=== PATIENT | female | born 1980 | race Caucasian/White ===

== ENCOUNTER 2018-07-28 11:47 | Outpatient (REF) | payer MEDICAID, SELFPAY ==
[2018-07-28 18:46] LABS: ALT 20 U/L (12-78); AST 18 U/L (15-37); Albumin 3.6 g/dL (3.4-5.0); Alkaline Phosphatase 74 U/L (46-116); Anion Gap 7.9 mmol/L (3-11); BUN 7 mg/dL (7-18); Bilirubin, Total 0.2 mg/dL (0.2-1.0); CO2 28.1 mmol/L (21.0-32.0); CREATININE 0.74 mg/dL (0.55-1.02); Calcium 8.7 mg/dL (8.5-10.1); Chloride 103 mmol/L (98-107); Glucose 96 mg/dL (70-100); Lipase 93 U/L (73-393); Potassium 4.1 mmol/L (3.5-5.1); Sodium 139 mmol/L (136-145); Total Protein 7.1 g/dL (6.4-8.2)
[2018-07-28 19:26] LABS: Abs Immature Grans 0.02 k/cumm (0.0-0.09); Absolute Basophil Count 0.03 k/cumm (0.0-0.2); Absolute Eosinophil Count 0.13 k/cumm (0.0-0.7); Absolute Lymphocyte Count 1.57 k/cumm (1.2-3.4); Absolute Monocyte Count 0.53 k/cumm (0.11-0.7); Absolute Neutrophil Count 3.75 k/cumm (1.2-6.7); Basophils % 0.5; Eosinophils % 2.2; HCT 45.1 % (36.0-46.0); HGB 15.1 g/dL (12.0-15.5); Immature Grans % 0.3; Mean Corp. HGB Concentration 33.5 g/dL (32.0-36.0); Mean Corpuscular Hemoglobin 30.3 pg (27.0-33.0); Mean Corpuscular Volume 90.6 fL (80-95); Mean Platelet Volume 12.1 fL (8.0-11.0); Monocytes % 8.8; Neutrophils % 62.2; Platelet Count 220 x1000/uL (130-400); RBC 4.98 m/cumm (4.00-5.20); RBC Distribution Width 12.4 % (11.7-14.6); White Blood Cell Count 6.03 k/cumm (4.4-10.8)
== END 2018-07-28 12:07 ==
LOC: NCHCN 11:47
PROVIDERS: PCP Family Medicine; Visit Provider Family Medicine
DX: R11.2 Nausea with vomiting, unspecified (principal); R19.7 Diarrhea, unspecified
CPT/HCPCS: 80053; 83690; 85025

== ENCOUNTER 2020-06-12 10:45 | Outpatient (CLI) | payer MEDICAID, SELFPAY ==
--- NOTE | 2020-06-12 10:30 | DI.RAD_ITS ---
EXAM: XR KNEE RT 2V AP,LAT CLINICAL HISTORY: knee pain TECHNIQUE: COMPARISON: No exams were available for comparison FINDINGS: Two views were obtained. There is severe narrowing of medial tibiofemoral cartilaginous joint space with mild varus angulation at the knee and mild medial subluxation femur on the tibia. There are madisyn y prominent marginal osteophytes medial tibiofemoral joint and patellofemoral joint. There are multi ple areas of bony subchondral sclerosis and cyst formation associated with the joints of the knee. IMPRESSION: Severe DJD most marked involving medial tibiofemoral joint.
== END 2020-06-12 11:05 ==
PROVIDERS: PCP Family Medicine; Referring Provider Family Medicine; Visit Provider Orthopaedic Surgery
DX: M17.11 Unilateral primary osteoarthritis, right knee (principal)
CPT/HCPCS: 73560

== ENCOUNTER 2020-06-26 02:18 | Outpatient (CLI) | payer MEDICAID, SELFPAY ==
[2020-06-26 15:13] LABS: Abs Immature Grans 0.01 10^3/uL (0.0-0.06); Absolute Basophil Count 0.06 10^3/uL (0.0-0.2); Absolute Eosinophil Count 0.27 10^3/uL (0.0-0.7); Absolute Lymphocyte Count 3.09 10^3/uL (1.2-3.4); Absolute Monocyte Count 0.92 10^3/uL (0.1-0.8); Absolute Neutrophil Count 3.28 10^3/uL (1.2-6.7); Basophils % 0.8; Eosinophils % 3.5; HCT 41.7 % (36.0-46.0); HGB 14.1 g/dL (11.2-15.7); Immature Grans % 0.1; Lymphocytes % 40.5; MCH 29.7 pg (27.0-33.0); MCHC 33.8 % (32.0-36.0); MCV 87.8 fL (80-95); MPV 10.8 fL (8.0-11.0); Monocytes % 12.1; Nucleated RBC 0 %; Platelet Count 216 10^3/uL (130-400); RBC 4.75 10^6/uL (3.93-5.22); RDW 12.5 % (11.7-14.6); RDW-SD 40.2 fL; WBC 7.63 10^3/uL (4.4-10.8)
== END 2020-06-26 02:38 ==
PROVIDERS: PCP Family Medicine; Visit Provider Orthopaedic Surgery
DX: Z01.818 Encounter for other preprocedural examination (principal)
CPT/HCPCS: 36415; 85025

== ENCOUNTER 2020-06-28 01:41 | Outpatient (CLI) | payer MEDICAID, SELFPAY ==
[2020-06-29 14:39] LABS: COVID-19 RT-PCR Result NEGATIVE (Negative)
== END 2020-06-28 02:01 ==
PROVIDERS: PCP Family Medicine; Visit Provider Orthopaedic Surgery
DX: Z11.59 Encounter for screening for other viral diseases (principal); Z01.818 Encounter for other preprocedural examination
CPT/HCPCS: U0003

== ENCOUNTER 2020-07-01 06:00 | Inpatient (IN) | payer MEDICAID, SELFPAY ==
[2020-07-01] VITALS (18 sets, daily range): BP systolic 106–133; BP diastolic 59–88; PULSE 76–97; RESP 10–19; TEMP 36–37.1; O2SAT 96–100
--- NOTE | 2020-07-01 | DI.RAD_ITS ---
EXAM: XR KNEE RT 2V AP,LAT CLINICAL HISTORY: check total knee components in RR TECHNIQUE: COMPARISON: CR XR KNEE RT 2V AP,LAT from 06/12/2020 FINDINGS: Two views were obtained. There is a total knee joint replacement in position. The components appear well seated. No other significant bony abnormality seen. IMPRESSION: RADIATION DOSE DELIVERED: Total DLP
[2020-07-01] MEDS: Lactated Ringers 1,000 ML 80 ML IV (06:45)
[2020-07-01] MEDS: ceFAZolin 2 GM/50 ML BAG IVPB ×4 (07:36→23:45)
[2020-07-01] MEDS: Hydrogen Peroxide 3% 480 ML BTL (10:10)
[2020-07-01] MEDS: diphenhydrAMINE 50 MG/ML VIAL 12.5 MG IVP (11:37)
--- NOTE | 2020-07-01 12:51 | W.PM.OP ---
Date of service: 07/01/20 Time of Service: 08:00 Operative Note Operative Note DATE OF PROCEDURE: 07/01/20 PRE-OP DIAGNOSIS: DJD right knee, rheumatoid arthritis right knee POST-OP DIAGNOSIS: same PROCEDURE: Right total knee replacement. SURGEON: Cristian Choudhary WEAVING LOOM OPERATOR: Awais Beth ANESTHESIA: spinal PATHOLOGY: none sent TOURNIQUET TIME: 130 COMPLICATIONS: None Patient was transported to: PACU Patient's condition: stable Implants: Size 2-1/2 posterior cruciate substituting femoral component, size 2-1/2 tibial component, size 2-1/2 10 mm thick rotating platform polyethylene insert, 32 mm tri-prong patella. All components were cemented. Indications: This is a 39-year-old white female with longstanding rheumatoid arthritis on DMARDs. She has superimposed DJD of her right knee. She has had a progressively downhill course ever since she had an arthroscopic medial meniscectomy in 2008. 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 She has had only temporary relief from intra-articular steroid injections by political researcher. She has had no relief from 2 courses of Synvisc. She can no longer walk any significant distance. She is noticing extreme irritation and weightbearing activities because of pain. X-ray shows advanced tricompartmental DJD of the right knee. There is complete loss of medial and patellofemoral joint space. There is some loss of medial tibial plateau bone stock as well, causing varus deformity. There are abundant periarticular spurs noted. Because of pain and disabling and she has not received any benefit from conservative treatment, total knee replacement is recommended to alleviate her pain. Hopefully, will be able to restore better range of motion as well so that she will have better function. Risk and complication of procedure been explained patient detail preop. Procedure Description: Patient was taken out of her room on the date of admission 07/01/2020, where she received first a femoral nerve block on the right. Then she had a spinal anesthetic. She was placed supine operative table. Proximal tourniquet was applied to the right upper thigh. The right lower extremity was prepped from toes to tourniquet and draped free in usual sterile fashion. Under proximal tourniquet control an anterior midline incision was made beginning about 4 inches proximal to the patella and extending down just distal to the tibial tubercle. Incision was carried down to the fascia. A medial parapatellar capsular incision was made and this was carried out approximately in the midline of the quad tendon. The patella was everted and the knee was hyperflexed. Complete medial subperiosteal release was performed. Extensive osteophytes were removed throughout the knee. Surprisingly, there was only mild amount of rheumatoid synovium found. The synovium was excised. Anterior and posterior cruciate ligaments were sacrificed. Medial and lateral meniscectomies performed. The distal femur was then resected using intramedullary guides and jigs. An extra 2 mm of distal femur was resected to compensate for her flexion contracture. Patient was found to require a size 2-1/2 cruciate-sacrificing femoral component. The proximal tibia was resected using extra medullary guides and jigs. Level resection was referenced off the deficient medial tibial plateau. Patient was found to require a size 2-1/2 tibial component. Trial reduction was performed and it was felt that a 10 mm insert allowed the knee to come to full extension and provide stability from 0 to 90 degrees of flexion. Trial components were all removed. The patella was resected leaving 16 mm thickness of patella using the patellar resection guide. Patient was sized and it was felt that a 32 mm triplane patella was the proper size. Using a drill guide for the triplane patella holes for the pegs and the patella component were drilled in proper rotation alignment. 1 batch of gentamicin impregnated methylmethacrylate was vacuum mixed and applied to the undersurface of the tibial component and then to the prepared proximal tibia. The tibial component was inserted and impacted in place with impactor mallet. The component was further pressurized using a trial components and extending the knee. When the first batch of methylmethacrylate cured trial components were removed. Posterior recesses were checked and any residual bone or cement debris was removed at this time. A second batch of gentamicin impregnated methylmethacrylate was vacuum mixed. The methylmethacrylate was applied to the posterior aspect of the femoral component and patella. Was then applied to the prepared distal femur and patella. He femoral hole was inserted and impacted into place with the impactor and mallet. Excess cement was trimmed from the margins of the femoral component with a cement removal tool. Developed component was inserted and pressurized using patella clamp. Assessment was proximal margin of the patella component while cement still soft. When the second detachment of the diagonal had cured trial insert was removed. Posterior recesses were checked the final time for residual cement. None was found. The wound was irrigated with pulse irrigation lavage and saline solution. Wound margins were infiltrated 0.5 some Marcaine with epinephrine solution. The actual insert 10 mm thick size 2-1/2 was placed in the tibial component and reduced on the femoral condyles. Patella tracking was performed using a ruler time. The patella tracked laterally and therefore a lateral retinacular release was performed with electrocautery. The right knee was flexed over soft goods and closure begun. The medial parapatellar capsular incision and incision of the quad tendon were repaired with interrupted [id number] sutures of #1 Vicryl suture material. Subcu was approximated interrupted 2-0 Vicryl sutures. A running subcuticular suture with 3-0 Monocryl was performed and supplemented with Steri-Strips. Mepilex dressing was applied over the incision. This was covered with ABD pads wrapped with 6 inch Tian bandage. The right knee was placed in a knee immobilizer splint to maintain extension. The tourniquet was released at 130 minutes. Patient received 1 g of tranexamic acid prior to tourniquet inflation and 1 g after tourniquet deflation. Patient experienced no intraoperative complications. She was discharged to recovery room in good condition.
[2020-07-01] MEDS: HYDROcodone 5/Acetaminophen 325 TAB PO ×2 (13:40→20:29)
[2020-07-01] MEDS: Gabapentin 300 MG CAP PO ×2 (13:40→20:31)
[2020-07-01] MEDS: POTASSIUM CHLORIDE/0.9% NACL 1,000 ML 60 MEQ IV (13:40)
[2020-07-01 14:08] LABS: Platelet Count 220 10^3/uL (130-400)
[2020-07-01] MEDS: Docusate Sodium 100 MG CAP PO ×2 (14:45→20:31)
--- NOTE | 2020-07-01 15:55 | IN_ITS ---
Date of service: 07/01/20 Time of Service: 15:55 PT Notes Visit Reasons: POST-OP R TOTAL KNEE Physical Therapy Inpatient Initial Evaluation Date: 07/01/2020 Referring Doctor: Cristian Choudhary MD PT Orders: PT CONSULT: Get OOB ambulating in room this afternoon Precautions: Fall. Standard. WBAT on right LE. Patient Profile/Admitting Diagnosis: Hillary is a 39-year-old female with primary unilateral osteoarthritis of the right knee and is status post right total knee arthroplasty on postoperative day 0. PMHX: Unremarkable Social History/Home Situation: Hillary lives with family in a private home with 2 steps to enter with bilateral rails that are wide apart. She has another 10 steps with rails on both sides to the second floor of the house where her bedroom is. Dependent with all aspects of ADLs without the need for an assistive ambulatory device nor adaptive equipment. She is currently undecided as to which work she is going to pursue when she is ready to go back. Equipment Owned/DME: None Subjective: Hillary reports numbness in bilateral gluteal area and right thigh and reports pain at 8?9/10 in the right knee. She states that she may have caused the increased tearing in her eyes as she may have scratched her cornea unintentionally right after surgery causing her to tear excessively. Objective: General Observation: Walker catheter in place. TEDS on L leg. Tian wraps and right LE. IV in the right UE. Cryo/Cuff in right knee. Excessive lacrimation seen bilaterally. Mental Status: Alert and oriented x4 Pain: 8?9/10 in the right knee ROM: Right Upper Extremity: Shoulder Flexion WFL. Shoulder abduction WFL. Elbow flexion WFL. Wrist flexion WFL. Opening and closing of hand WFL. Left Upper Extremity: Shoulder Flexion WFL. Shoulder abduction WFL. Elbow flexion WFL. Wrist flexion WFL. Opening and closing of hand WFL. Right Lower Extremity: Hip flexion WFL. Hip abduction WFL. Knee flexion NT. Knee extension NT. Ankle dorsiflexion WFL. Ankle plantarflexion WFL. Left Lower Extremity: Hip flexion WFL. Hip abduction WFL. Knee flexion WFL. Ankle dorsiflexion WFL. Ankle plantarflexion WFL. Strength: Right Upper Extremity: Shoulder flexors 5/5. Shoulder abductors 5/5. Elbow flexors 5/5. Elbow extensors 5/5. Surgical Assist strong. Left Upper Extremity: Shoulder flexors 5/5. Shoulder abductors 5/5. Elbow flexors 5/5. Elbow extensors 5/5. Surgical Assist strong. Right Lower Extremity: Hip flexors 4/5. Hip abductors 4/5. Knee flexors NT. Knee extensors NT. Ankle dorsiflexors 4/5. Ankle plantarflexors 4/5. Left Lower Extremity:Hip flexors 5/5. Hip abductors 5/5. Knee flexors 5/5. Knee extensors 5/5. Ankle dorsiflexors 5/5. Ankle plantarflexors 5/5. Sensation: Numb in bilateral gluteal areas and the right hip. Bed Mobility/Transfers: Supine to sit SBA with HOB at 30 degrees Sit to stand CGA, requires use of front wheeled walker Stand to sit CGA, requires use of front wheeled walker Bed to chair CGA, requires use of front wheeled walker Gait: Tolerated level surface ambulation of 120 feet using front wheeled with WBAT on the right LE requiring contact-guard PT demonstrating step to heel toe gait pattern. Complains of 8?9/10 in the right knee but is able to work through the pain. Denies headache, chest pain, and dizziness throughout ambulation activity. Balance: Static Sitting: Normal Dynamic Sitting: Normal Static Standing: Fair Dynamic Standing: Fair Special Tests: Mobility Limitations Standardized Measure [facility]-PAC 6 clicks Basic Mobility Inpatient Short Form: Raw Score: 18 CMS Score: 47% deficit Informed Consent/Education: Patient instructed in purpose of PT consult and plan of care. Assessment: Hillary demonstrates functional mobility decline requiring the use of a front wheeled walker for all mobility ADL performance, decreased motor control due to persistent numbness in bilateral gluteal areas and right thigh, pain in the right knee, and difficulty with walking due to postoperative status. Hillary is a 39-year-old female with primary unilateral osteoarthritis of the right knee and is status post right total knee arthroplasty on postoperative day 0. Patient presents with clinical signs and symptoms consistent with current/admitting diagnoses that have resulted to mobility limitations, gait instability, generalized weakness, and impairment of motor control as demonstrated by the following impairment level findings: 1. Decreased strength to right knee major muscle groups 2. Impaired standing balance 3. Impaired activity tolerance 4. Limitation of joint range of motion in right knee Impairments are contributing to the following functional limitations: 1. Increased dependence with transfers 2. Inability to safely ambulate without assistive device and physical assistance 3. Increase completion time for mobility ADL performance 4. Increased fall risk 5. Inability to negotiate steps alone safely Patient is assessed as a 67549 moderate complexity based on the following: History: 39-year-old female with impairment level findings, functional limitations, and past medical history as indicated above Examination: Demonstrable impairment in strength, balance, and mobility level with underlying impairments and functional limitations as documented above Presentation:Evolving Decision Makin moderate complexity Goals: Goals X 3 days 1. Supine-Sit independent 2. Sit-Supine independent 3. Sit-Stand independent 4. Stand-Sit independent 5. Bed-Chair independent 6. Chair-Bed independent 7. Independent gait on level surface with use of least restrictive device for at least 300 feet without report of pain nor dyspnea 8. Independent stair negotiation while holding onto bilateral rails for at least 10 steps without report of pain nor dyspnea 9. Independent with home exercise program 10. Good static and dynamic standing balance/tolerance Plan of Care/Treatment Plan: 1-2x/day, 7 days/week x 1 week. Plan of care has been reviewed with the CIVIL LABORATORY TECHNICIAN providing the service under Physical Therapy direction. Initiate Physical Therapy intervention for strengthening, bed mobility, transfers, gait, stairs, balance training, use of assistive device. DISCHARGE RECOMMENDATIONS: Home when medically cleared by orthopedic surgeon. Outpatient geophysical support specialist once cleared by orthopedic surgeon to facilitate return to premorbid independent level and to promote return to vocational activities. TREATMENT CODE/TIME: 94231 x 25 minutes, 74470 x 18 minutes beginning at 15:55 PM. Thank you for the opportunity to participate in the care of this patient. Ana Mar PT, DPT, CLT [facility] [place], [place]
[2020-07-01] MEDS: Ketorolac 30 MG/ML VIAL IVP ×2 (16:45→21:23)
[2020-07-01] MEDS: clonazePAM 1 MG TAB PO (20:31)
[2020-07-02 03:15] VITALS: BP 109/67; PULSE 86; RESP 18; TEMP 36.8; O2SAT 97
[2020-07-02] MEDS: Ketorolac 30 MG/ML VIAL IVP ×2 (03:36→11:08)
[2020-07-02] MEDS: Normal Saline Flush 10 ML SYR IV (03:37)
[2020-07-02] MEDS: ceFAZolin 2 GM/50 ML BAG IVPB ×2 (05:27→11:09)
[2020-07-02] MEDS: HYDROcodone 5/Acetaminophen 325 TAB PO ×2 (06:59→13:30)
[2020-07-02 07:29] LABS: HGB 12.4 g/dL (11.2-15.7)
[2020-07-02 07:42] VITALS: BP 107/71; PULSE 77; RESP 17; TEMP 36.9; O2SAT 98
[2020-07-02] MEDS: POTASSIUM CHLORIDE/0.9% NACL 1,000 ML 60 MEQ IV (08:01)
[2020-07-02] MEDS: Multivitamin w/Minerals TAB 1 TAB PO (08:02)
[2020-07-02] MEDS: Buprenorphine/Naloxone 12 mg/3 mg FILM 1 EACH SL (08:02)
[2020-07-02] MEDS: Gabapentin 300 MG CAP PO ×2 (08:02→13:30)
[2020-07-02] MEDS: Docusate Sodium 100 MG CAP PO ×2 (08:02→13:30)
[2020-07-02] MEDS: Pantoprazole 40 MG TABCR PO (08:02)
[2020-07-02] MEDS: Milk of Magnesia 30 ML CUP PO (08:45)
--- NOTE | 2020-07-02 10:03 | PT.INDS ---
Date of service: 07/02/20 Time of Service: 10:03 PT Notes Visit Reasons: POST-OP R TOTAL KNEE Inpatient Physical Therapy Discharge Summary Dates: 07/02/2020 Dates of Service: 07/01/2020 through 07/02/2020 Referring Doctor: Cristian Choudhary MD PT Orders: PT CONSULT: Get OOB ambulating in room this afternoon Precautions: Fall. Standard. WBAT on right LE. Patient Profile/Admitting Diagnosis: Hillary is a 39-year-old female with primary unilateral osteoarthritis of the right knee and is status post right total knee arthroplasty on postoperative day 0. PMHX: Unremarkable Social History/Home Situation: Hillary lives with family in a private home with 2 steps to enter with bilateral rails that are wide apart. She has another 10 steps with rails on both sides to the second floor of the house where her bedroom is. Dependent with all aspects of ADLs without the need for an assistive ambulatory device nor adaptive equipment. She is currently undecided as to which work she is going to pursue when she is ready to go back. Equipment Owned/DME: None Subjective: Hillary continues to reports numbness in bilateral gluteal area and right thigh and reports pain at 6?7/10 in the right knee. She is however confident about going home and managing her steps to the second floor after seeing for herself how well she did during this session. Objective: General Observation: Walker catheter in place. TEDS on L leg. Tian wraps and right LE. IV in the right UE. Cryo/Cuff in right knee. Mental Status: Alert and oriented x4 Pain: 6?7/10 in the right knee ROM: Right Upper Extremity: Shoulder Flexion WFL. Shoulder abduction WFL. Elbow flexion WFL. Wrist flexion WFL. Opening and closing of hand WFL. Left Upper Extremity: Shoulder Flexion WFL. Shoulder abduction WFL. Elbow flexion WFL. Wrist flexion WFL. Opening and closing of hand WFL. Right Lower Extremity: Hip flexion WFL. Hip abduction WFL. Knee flexion -30 to 90 degrees. Knee extension -30 degrees. Ankle dorsiflexion WFL. Ankle plantarflexion WFL. Left Lower Extremity: Hip flexion WFL. Hip abduction WFL. Knee flexion WFL. Ankle dorsiflexion WFL. Ankle plantarflexion WFL. Strength: Right Upper Extremity: Shoulder flexors 5/5. Shoulder abductors 5/5. Elbow flexors 5/5. Elbow extensors 5/5. Director Treasurer strong. Left Upper Extremity: Shoulder flexors 5/5. Shoulder abductors 5/5. Elbow flexors 5/5. Elbow extensors 5/5. Director Treasurer strong. Right Lower Extremity: Hip flexors 4/5. Hip abductors 4/5. Knee flexors 3-/5. Knee extensors 3-/5. Ankle dorsiflexors 4/5. Ankle plantarflexors 4/5. Left Lower Extremity:Hip flexors 5/5. Hip abductors 5/5. Knee flexors 5/5. Knee extensors 5/5. Ankle dorsiflexors 5/5. Ankle plantarflexors 5/5. Sensation: Decreasing numbness in bilateral gluteal areas and the right hip. Bed Mobility/Transfers: Supine to sit SBA with HOB at 30 degrees Sit to stand supervision using bilateral axillary crutches Stand to sit supervision using bilateral axillary crutches Bed to chair supervision using bilateral axillary crutches Gait: 300 feet +100 feet feet with step through gait pattern complaining of 6?/10 pain in the right knee with continued numbness on the right anterior thigh and dorsum of right foot. Tolerated up and down 18 x 4-inch steps and 12 x 6-inch steps with step to gait pattern using bilateral axillary crutches with just standby assist. Complained of being lightheaded that subsided with rest. Balance: Static Sitting: Normal Dynamic Sitting: Normal Static Standing: Fair Dynamic Standing: Fair Assessment: Hillary demonstrates improved functional mobility performance requiring the use of bilateral axillary crutches, decreased motor control due to persistent numbness in bilateral gluteal areas and right thigh, and pain in the right knee. Hillary is a 39-year-old female with primary unilateral osteoarthritis of the right knee and is status post right total knee arthroplasty on postoperative day 1. Patient continues to present with clinical signs and symptoms consistent with current/admitting diagnoses that have resulted to mobility limitations, gait instability, generalized weakness, and impairment of motor control as demonstrated by the following impairment level findings: 1. Decreased strength to right knee major muscle groups 2. Impaired standing balance 3. Impaired activity tolerance 4. Limitation of joint range of motion in right knee Impairments are continuing to contribute to the following functional limitations: 1. Inability to safely ambulate without assistive device and physical assistance 2. Increase completion time for mobility ADL performance 3. Increased fall risk Goals: Goals X 3 days 1. Supine-Sit independent MET 2. Sit-Supine independent MET 3. Sit-Stand independent NOT MET 4. Stand-Sit independent NOT MET 5. Bed-Chair independent NOT MET 6. Chair-Bed independent NOT MET 7. Independent gait on level surface with use of least restrictive device for at least 300 feet without report of pain nor dyspnea NOT MET 8. Independent stair negotiation while holding onto bilateral rails for at least 10 steps without report of pain nor dyspnea NOT MET 9. Independent with home exercise program NOT MET 10. Good static and dynamic standing balance/tolerance NOT MET DISCHARGE RECOMMENDATIONS: Home when medically cleared by orthopedic surgeon. Outpatient physical education teacher once cleared by orthopedic surgeon to facilitate return to premorbid independent level and to promote return to vocational activities. TREATMENT CODE/TIME: 90884 x 30 minutes, 59484 x 25 minutes beginning at 10:03 AM. Thank you for the opportunity to participate in the care of this patient. Ana Mar PT, DPT, CLT [facility] [place], [place]
[2020-07-02 10:58] VITALS: BP 134/79; PULSE 108; RESP 18; TEMP 37.2; O2SAT 97
[2020-07-02] MEDS: Enoxaparin 40 MG/0.4 ML SYR SC (11:09)
--- NOTE | 2020-07-02 11:52 | PT.INTREAT ---
Date of service: 07/02/20 PT Notes Visit Reasons: POST-OP R TOTAL KNEE
--- NOTE | 2020-07-02 13:58 | W.PM.DS.N ---
Date of service: 07/02/20 Time of Service: 13:58 DS: Diagnosis Discharge Diagnosis (1) Osteoarthritis of right knee: Status: Acute Discharge Plan Disposition Patient Disposition: HOME Condition: Good Discharge Details Reason For Visit: POST-OP R TOTAL KNEE Admit Date/Time: 07/01/20 06:00 Admit Provider: Cristian Choudhary Attending Provider: Cristian Choudhary Primary Care Provider: Breanna Lopez [facility] Course Hospital Course: Patient was taken the operating day admission 07/01/2020 where she underwent a right total knee replacement without complications. Postoperatively she was more mobilized in the afternoon per protocol. She progressed rapidly mobilization achieving complete independence with transfers and ambulation by 07/02/2020. Her pain was adequately controlled with p.o. pain meds. She was afebrile and vital signs were stable. She was eating and drinking well. Postop hemoglobin was 12.4 g. I felt she had completed her acute care goals and was ready for home discharge. The patient also desired to go home. Home Meds and New Rx's Prescriptions: New ibuprofen 800 mg tablet 800 mg PO TID Qty: 30 RF: 2 hydrocodone-acetaminophen 5-325 mg tablet 1 tab PO Q4H PRN (Reason: pain) Qty: 30 RF: 0 No Action buprenorphine-naloxone [Suboxone] 12-3 mg film 1 film BC Q24H RF: 0 methotrexate sodium 2.5 mg tablet 20 mg PO QWEEK RF: 0 Enbrel 50 mg/mL (1 mL) syringe 50 mg SC QWEEK RF: 0 naproxen 500 mg tablet 500 mg PO BID RF: 0 Vyvanse 70 mg capsule 70 mg PO DAILY RF: 0 clonazepam [Klonopin] 1 mg tablet 1 mg PO DAILY PRNRF: 0 ibuprofen 800 mg tablet 800 mg PO TID PRNRF: 0 acetaminophen [Tylenol Extra Strength] 500 mg Tablet 1,000 mg PO DAILY RF: 0 Discharge Instructions Additional Instructions: Walk every day as much as discomfort allows. Use walker to ambulate. Elevate right leg when sitting. When lying down, place a rolled bath towel behind your ankle to help the knee straight out. Use your knee immobilizer splint until you can easily lift your straight right leg off the bed. May shower and get your bottom dressing wet on . Do not attempt to remove the bottom dressing. We will remove this dressing when you come for your follow-up. Apply Cryo/Cuff to right knee 4 times a day for an hour each time. Take 1 baby aspirin (81 mg) twice a day to prevent blood clots in your legs. Do the knee exercises given to you by physical therapy every day. Take ibuprofen 800 mg p.o. 3 times a day for next 10 days to decrease swelling and inflammation. Take hydrocodone as prescribed for breakthrough pain, if needed. Follow with Dr. Choudhary in 2 weeks. Referrals: Cristian Choudhary MD [ [facility] STAFF PHYSICIAN] - (f/u in 2 weeks.) Activity:: Activity as Tolerated Equipment/Supplies:: Walker Diet:: As Tolerated Discharge Orders Discharge Orders: Discharge Order (Routine); Ordered 07/02/20 Ordered By: Cristian Choudhary DS: Summary Status at Discharge Functional status at discharge: uses cane/walker Overall status at discharge: patient is not back to baseline Mental Status: mental status grossly normal Speech and Movement: speech and movement normal Mood: congruent mood Affect: normal affect Exam Psych Mental Status: mental status grossly normal Speech and Movement: speech and movement normal Mood: congruent mood Affect: normal affect DS: Data Vitals/I&O Vitals and I&O: Vital Signs Temperature 37.2 C 07/02/20 10:58 Temperature Source Tympanic 07/02/20 10:58 Pulse 108 H 07/02/20 10:58 Pulse Rhythm Regular 07/02/20 08:00 Respiratory Rate 18 07/02/20 10:58 Respiratory Effort Non-Labored 07/02/20 08:00 Respiratory Depth Normal 07/02/20 08:00 Respiratory Pattern Normal 07/02/20 08:00 Blood Pressure 134/79 07/02/20 10:58 Pulse Oximetry 97 07/02/20 10:58 Respiratory End-tidal CO2 37 07/01/20 11:53 Oxygen Delivery Method Room Air 07/02/20 10:58 Oxygen Flow Rate 0 07/02/20 10:58 Pain Level 10 07/02/20 13:30 Intake & Output 07/01/20 07/02/20 07/02/20 23:59 11:59 23:59 Intake Total 430.667 / 2039.759 6594 / 1820 Output Total 750 / 1150 950 / 1150 200 / 1150 Balance -319.333 / 50.667 870 / 670 -200 / 670 Weight 90 kg Intake: IV 370.667 / 6170.518 0417 / 1100 Oral 60 / 60 720 / 720 Output: Urine 750 / 1150 950 / 1150 200 / 1150 Other: Urine Color Yellow Yellow Yellow Urine Appearance Clear Clear Clear Urine Odor Normal Strong Emesis Description None Voiding Methods Toilet Toilet Toilet Data Completed and Pending Labs on day of discharge: Labs from last 24 hours 07/02/20 07/01/20 06:21 13:50 Hgb 12.4 Plt Count 220 PFSH Medical History ADD (attention deficit disorder) (Acute) History of torn meniscus of right knee (Acute) with repair Hx of opioid abuse (Acute) Pt. stated she was self medicating for knee pain 2009 for knee pain, pt. stated finally got knee pain diagnosed, and was put on methadone, which did not work for her, and she was then put on suboxone. Pt. states she does not use pain medications. Osteoarthritis (Chronic) Rheumatoid arthritis (Chronic) Surgical History Hx of section (Chronic) Social History Smoking/Tobacco Use Status: Current every day Drug use: Current Sobriety Current gender identity: female
--- NOTE | 2020-07-02 14:52 | CHAPLAIN ---
Hillary was sitting up in her chair, and had finished PT when I visited. She shared some personal history and told me about her knee surgery and arthritis. Her aunt sent her two devotional and scripture readings for today and we talked about how those may apply to her life right now. She expects to be discharged later today.
== END 2020-07-02 15:10 | disposition home or self-care (01) | DRG 470 ==
LOC: PDS 08:32 → MS 13:05
PROVIDERS: Admitting Provider Orthopaedic Surgery; PCP Family Medicine; Visit Provider Orthopaedic Surgery
PROC: 0SRC0J9 Replacement of Right Knee Joint with Synthetic Substitute, Cemented, Open Approach (ICD-10-PCS; CPT 27447; principal; 2020-07-01 07:30)
DX: M17.11 Unilateral primary osteoarthritis, right knee (principal); M05.4 Rheumatoid myopathy with rheumatoid arthritis; M25.561 Pain in right knee; G89.18 Other acute postprocedural pain
CPT/HCPCS: 27447; 36415; 76942; 81025; 97110; 97162; 97530; J1650; NC; 73560; 85018; 85049; E0114; J0131; J0690; J1100; J1200; J1885; J2001; J2250; J2370; J2405; J3490; L1830

== ENCOUNTER 2020-08-28 15:36 | Outpatient (REF) | payer MEDICAID, SELFPAY ==
[2020-09-01 15:56] LABS: Patient Race White; SARS-CoV-2 RNA Undetected (Undetected); SARS-CoV-2 Specimen Source Nasal
== END 2020-08-28 15:56 ==
LOC: NCHCN 15:36
PROVIDERS: PCP Family Medicine; Visit Provider Nurse Practitioner Family
DX: R05 Cough (principal)
CPT/HCPCS: U0003

== ENCOUNTER 2021-05-26 10:19 | Emergency (ER) | payer MEDICAID, SELFPAY ==
[2021-05-26] VITALS (24 sets, daily range): BP systolic 131–156; BP diastolic 86–104; PULSE 79–98; RESP 16; TEMP 36.7; O2SAT 98–100
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
--- NOTE | 2021-05-26 10:27 | DI.CT_ITS ---
Exam(s) CT THORACIC LUMBAR SPINE REC EXAM: CT THORACIC LUMBAR SPINE REC CLINICAL HISTORY: trauma, back pain TECHNIQUE: COMPARISON: No exams were available for comparison FINDINGS: THORACIC SPINAL COLUMN: No fracture. No listhesis. No acute compromise of the thoracic spinal canal. LUMBOSACRAL SPINAL COLUMN: There is an acute appearing compression fracture of the L3 vertebral body. There is retropulsion of the posterior superior cortex approximately 8-9 millimeters with compression of the thecal sac at thi s level. Fracture lines do not appear to extend into the pedicles. Retropulsed fragment measures 1. 6 cm wide. There is no facet malalignment at this level. Transverse process is at this level are in tact. No other fractures in the lumbar spine. IMPRESSION: There is a fracture of L3 vertebral body with 9 millimeters retropulsion of the posterior cortex whic h causes mass effect-compression of the thecal sac at this level. No other fractures identified
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
[2021-05-26] MEDS: Omnipaque 350 MG/ML 100 ML BTL IJ (10:38)
[2021-05-26] MEDS: Normal Saline - Diluent 50 ML VIAL IV (10:38)
[2021-05-26] MEDS: Normal Saline Flush 10 ML SYR IVP ×2 (10:39→12:04)
[2021-05-26 11:09] LABS: Abs Immature Grans 0.15 10^3/uL (0.0-0.06); Absolute Basophil Count 0.05 10^3/uL (0.0-0.2); Absolute Eosinophil Count 0.17 10^3/uL (0.0-0.7); Absolute Lymphocyte Count 2.56 10^3/uL (1.2-3.4); Absolute Monocyte Count 0.58 10^3/uL (0.1-0.8); Absolute Neutrophil Count 5.28 10^3/uL (1.2-6.7); Basophils % 0.6; Eosinophils % 1.9; HCT 44.5 % (36.0-46.0); HGB 14.9 g/dL (11.2-15.7); Immature Grans % 1.7; Lymphocytes % 29.1; MCH 30.2 pg (27.0-33.0); MCHC 33.5 % (32.0-36.0); MCV 90.1 fL (80-95); MPV 10.8 fL (8.0-11.0); Monocytes % 6.6; Neutrophils % 60.1; Nucleated RBC 0 %; Platelet Count 252 10^3/uL (130-400); RBC 4.94 10^6/uL (3.93-5.22); RDW 13.2 % (11.7-14.6); RDW-SD 43.3 fL; WBC 8.79 10^3/uL (4.4-10.8)
[2021-05-26 11:31] LABS: ALT 24 U/L (14-59); AST 23 U/L (15-37); Albumin 3.5 g/dL (3.4-5.0); Alkaline Phosphatase 66 U/L (46-116); Anion Gap 8.9 mmol/L (3-11); BUN 9 mg/dL (7-18); Bilirubin, Total 0.3 mg/dL (0.2-1.0); CO2 28.1 mmol/L (21.0-32.0); CREATININE 0.8 mg/dL (0.55-1.02); Calcium 8.5 mg/dL (8.5-10.1); Chloride 103 mmol/L (98-107); Glucose 96 mg/dL (74-106); HCG Quant, Pregnancy < 1 mIU/mL (1-3); Potassium 3.6 mmol/L (3.5-5.1); Sodium 140 mmol/L (136-145); Total Protein 7.6 g/dL (6.4-8.2)
[2021-05-26 11:38] LABS: Prothrombin Time 10.3 sec (9.3-11.0)
[2021-05-26] MEDS: fentaNYL 100 MCG/2 ML VIAL 75 MCG IVP (13:00)
== END 2021-05-26 12:59 ==
PROVIDERS: Emergency Provider Student in an Organized Health Care Education/Training Program; PCP Family Medicine
DX: S32.038A Other fracture of third lumbar vertebra, initial encounter for closed fracture (principal); V49.9XXA Car occupant (driver) (passenger) injured in unspecified traffic accident, initial encounter
CPT/HCPCS: 51702; 74177; 80053; 86850; 86900; 86901; 96374; 96375; 99285; 70450; 71260; 72125; 84702; 85025; 85610; J3010; J3490

== ENCOUNTER 2021-06-30 08:53 | Outpatient (CLI) | payer MEDICAID, SELFPAY ==
--- NOTE | 2021-06-30 08:45 | DI.RAD_ITS ---
Exam(s) XR KNEE RT 2V AP,LAT EXAM: XR KNEE RT 2V AP,LAT CLINICAL HISTORY: annual f/u R TKA. TECHNIQUE: 2D digital imaging was performed. COMPARISON: CR XR KNEE RT 2V AP,LAT from 07/01/2020 FINDINGS: Stable position alignment of the components of the prosthesis. No fracture or loosening evident. IMPRESSION: DATA REPOSITORY: RADIATION DOSE DELIVERED:
== END 2021-06-30 08:54 | disposition home or self-care (01) ==
LOC: DIORS 08:53
PROVIDERS: PCP Family Medicine; Visit Provider Student in an Organized Health Care Education/Training Program
DX: Z96.651 Presence of right artificial knee joint (principal); Z47.1 Aftercare following joint replacement surgery
CPT/HCPCS: 73560

== ENCOUNTER 2024-01-14 16:38 | Outpatient (REF) | payer MEDICARE, MEDICAID, SELFPAY ==
[2024-01-14 19:30] LABS: HCT 40.9 % (36.0-46.0); HGB 13.7 g/dL (11.2-15.7); MCH 28.4 pg (27.0-33.0); MCHC 33.5 % (32.0-36.0); MCV 85 fL (80-95); MPV 10.5 fL (8.0-11.0); Platelet Count 278 10^3/uL (130-400); RBC 4.83 10^6/uL (3.93-5.22); RDW 14.2 % (11.7-14.6); RDW-SD 43.8 fL; WBC 5.95 10^3/uL (4.4-10.8)
[2024-01-14 19:50] LABS: ALT 56 U/L (14-59); AST 35 U/L (15-37); Albumin 3.7 g/dL (3.4-5.0); Alkaline Phosphatase 76 U/L (46-116); Anion Gap 10.6 mmol/L (3-11); BUN 13 mg/dL (7-18); Bilirubin, Total 0.3 mg/dL (0.2-1.0); CO2 27.4 mmol/L (21.0-32.0); CREATININE 0.9 mg/dL (0.55-1.02); Chloride 105 mmol/L (98-107); Estimated GFR 81.35 (mL/min/1.73m2); GGT 35 U/L (5-55); Glucose 105 mg/dL (74-106); Hemoglobin A1C 5.4 % (<5.7); NT-proBNP 21 pg/mL (<300); Sodium 143 mmol/L (136-145); TSH (W/Ref FT4) 2.18 uIU/mL (0.36-3.74); Total Protein 7.4 g/dL (6.4-8.2)
[2024-01-14 19:56] LABS: C-Reactive Protein < 0.50 mg/dL (<or=0.5)
== END 2024-01-14 16:39 | disposition home or self-care (01) ==
LOC: NCHCN 16:38
PROVIDERS: PCP Family Medicine; Referring Provider Family Medicine; Visit Provider Family Medicine
DX: R60.0 Localized edema (principal)
CPT/HCPCS: 80053; 85027; 82977; 83036; 83880; 84443; 86140

== ENCOUNTER → 2024-02-08 01:51 | Outpatient (CLI) | payer MEDICARE, MEDICAID, SELFPAY ==
--- NOTE | 2024-02-08 | DI.US_ITS ---
APPROVED REPORT EXAM: Comprehensive 2D, Doppler, and color-flow Echocardiogram Patient Location: Out-Patient [employer] Operator: Deysi Newberry RDCS (AE) Indications: Dyspnea, Edema, Smoker Other Information Study Quality: Adequate. Technically limited study due to body habitus, smoker. Conclusion Normal left ventricular wall thickness, chamber size and systolic function EF is 55-60%. Wall motion is normal Normal right ventricualr size and function Both atria are normal size There is no structural or hemodynamically significant valvular disease Wall motion Left Ventricle The left ventricle is normal size. The left ventricular systolic function is normal. The left ventric ular ejection fraction is within the normal range. There is normal left ventricular wall thickness. T here is normal LV segmental wall motion. There is no ventricular septal defect visualized. LVEF is 5 5-60%. Right Ventricle The right ventricle is normal size. The right ventricular systolic function is normal. Atria The left atrium size is normal. The right atrium size is normal. The interatrial septum is intact wit h no evidence for an atrial septal defect. Aortic Valve The aortic valve is normal in structure. Aortic valve is trileaflet. There is no aortic valvular sten osis. No aortic regurgitation is present. Mitral Valve The mitral valve is normal in structure. No evidence of mitral valve stenosis. Trace mitral regurgita tion. Tricuspid Valve The tricuspid valve is normal in structure. There is no tricuspid valve stenosis. Trace tricuspid reg urgitation. Unable to assess PA pressure. Pulmonic Valve Pulmonic valve is not well visualized. There is no pulmonic valvular stenosis. There is no pulmonic v alvular regurgitation. Great Vessels The aortic root is normal in size. The ascending aorta is normal in size. Aortic arch is normal in ca liber. IVC is normal in size and collapses >50% with inspiration. Pericardium There is no pericardial effusion. 2D Dimensions IVSD d PLAX 1.04 cm F: 0.6-1.0 Ao Root d 2.42 cm F: 2.7 - 3.3 LVPW d PLAX 1.00 cm F: 0.6 - 1.0 Ao Asc Diam d 3.00 cm F: 2.3 - 3.1 LVID d PLAX 4.40 cm F: 3.8 - 5.2 LVDs 3.04 cm F: 2.2 - 3.5 LV EF Teichholz 58.9 % FS 31.02 % LV EDV (Teich) 87.9 mL LV ESV (Teich) 36.1 mL M-Mode TAPSE 2.23 cm (M/F) >1.7 Auto EF LV EDV A4C 94.2 mL LV EDV A2C 93.4 mL LV EDV BP 93.2 mL LV ESV A4C 41.8 mL LV ESV A2C 42.4 mL LV ESV BP 42.1 mL LVEF(%) A4C 55.7 % LVEF(%) A2C 54.6 % LVEF(%) BP 54.8 % LV SV A4C 52.5 ml LV SV A2C 51.0 ml LV SV BP 51.1 ml LV CO A4C 4.7 L/min LV CO A2C 4.7 L/min LV CO BP 4.7 L/min HR A4C 88.84 BPM HR A2C 93.03 BPM LV EDV Index (BP) LA Volume LA Length A4C 4.8 cm LA Length A2C 5.2 cm LA Area A4C s 11.55 cm2 LA Area A2C s 16.24 cm2 LA Vol A4C A-L 23.78 mL LA Vol A2C A-L 43.04 mL LA Vol Biplane A-L 33.4 mL LA Vol/BSA A4C A-L LA Vol/BSA A2C A-L LA Vol/BSA BP A-L 17.0 mL/m2 LA Vol A4C MOD 22.1 mL LA Vol A2C MOD 41.1 mL LA Vol BP MOD 31.4 mL RA Volume RA Area A4C 7.2 cm2 RA ESV A4C (A-L) 12.4mL RA Vol/BSA A4C A-L RA Length A4C 3.6 cm RA ESV A4C (MOD) 11.9mL LV Diastology MV E' medial 0.097 (>0.07 m/s) MV E Vmax 0.60 (0.4-1.3 m/s) MV E/E' MED 6.22 (<14) MV A Vmax 0.70 (0.4-1.3 m/s) MV E' lateral 0.113 (>0.1 m/s) E/A Ratio 0.9 MV E/E' LAT 5.33 (<14) MV E' Average 0.105 m/s MV E/E'(average) 5.74 Aortic Valve AoV Vmax 1.31 m/s LVOT Vmax 1.05 m/s AoV Peak Grad 6.9 mmHg LVOT Peak Grad 4.4 mmHg AoV Area (Vmax) 2.34 cm2 LVOT VTI 0.190 m AoV VTI 0.280 m LVOT Mean Grad 2.0 mmHg AoV Mean Romaine. 0.90 m/s LVOT SV 55.30 mL AoV Mean Grad 3.7 mmHg LVOT Diam s 1.90 cm AoV Area (VTI) 1.97 cm2 Velocity Ratio 0.80 Mitral Valve MV DT 218 (160-240 msec) MV Vmax TIPS 0.74 m/s MV Mean Grad 1.3 (<2mmHg) MV VTI 0.217 m Pulmonary Valve PV Vmax 0.90 (0.5-1.5 m/s) RVOT Vmax 0.60 m/s PV Peak Grad 3.3 mmHg RVOT Peak Gr. 1.4 mmHg PV Mean Romaine 0.70 m/s RVOT VTI 0.131 m PV Mean Grad 2.1 mmHg RVOT Mean Gr. 0.8 mmHg Tricuspid Valve TV S' 0.13 m/s
== END ==
PROVIDERS: PCP Family Medicine; Visit Provider Family Medicine
DX: R06.09 Other forms of dyspnea (principal)
CPT/HCPCS: 93306

== ENCOUNTER 2024-09-11 17:09 | Outpatient (REF) | payer MEDICARE, MEDICAID, SELFPAY ==
--- OUTSIDE RECORDS SUMMARY | 2024-09-11 17:11 | XMS_ITS | Encounter Summary ---
[place] [address] Care Team Providers Care [place] Name Role Phone Breanna Lopez MD Primary Care Provider Reason for Referral * Consultation (Routine) - Authorized Specialty Diagnoses / Procedures Referred By Contac t Referred To Contact Weight and Wellness Diagnoses Obesity, unspecified classification, unspecified obesity type, unspecified whether serious comorbidity present Breanna Lopez MD [address] [place] [address] [facility] [place] [address] Referral ID Status Reason Start Date Expiration Date Visits Requested Visits Authorized [id number] Authorized Consult, Test & Treat PCP Updated and/or Approved 05/30/2024 05/30/2025 6 6 Encounter Details Date Type Department Care Team (Latest Contact Info) Description 05/30/2024 Transcribe Orders eDH Incoming Referrals [phone] Breanna Lopez MD [address] [place] [address] Obesity, unspecified classification, unspecified obesity type, unspecified whether serious comorbidity present Social History Tobacco Use Types Packs/Day Years Used Date Smoking Tobacco: Every Day Cigarettes 1 27 Smokeless Tobacco: Never Alcohol Use Standard Drinks/Week Comments Not Currently 0 (1 standard drink = 0.6 oz pure alcohol) once in awhile social situation Overall Financial Resource Strain (CARDIA) Answe r Date Recorded How hard is it for you to pa y for the very basics like food, housing, medical care, and heating? Not hard at all 05/28/2021 Hunger Vital Sign Answer Date Recorded Within the past 12 months, y ou worried that your food would run out before you got the money to buy more. Never true 05/28/20 21 Within the past 12 months, t he food you bought just didn't last and you didn't have money to get more. Never true 05/28/2021 PRAPARE - Transportation Answer Date Re corded In the past 12 months, has l ack of transportation kept you from medical appointments or from getting medications? No 05/09 In the past 12 months, has l ack of transportation kept you from meetings, work, or from getting things needed for daily living? No 05/28/2021 Housing Stability Vital Sign Answer Manjit e Recorded In the last 12 months, was t here a time when you were not able to pay the mortgage or rent on time? No 05/28/2021 In the last 12 months, how many places have you lived? 1 05/28/2021 In the last 12 months, was t here a time when you did not have a steady place to sleep or slept in a [facility] (including now)? No 05/28/2021 Sex and Gender Information Value Date Recorded Sex Assigned at Not on file Gender Identity Not on file Sexual Orientation Not on file documented as of this encounter Plan of Treatment Scheduled Referrals Name Type Priority Associated Diagnoses Orde r Schedule Referral to [facility] Outpatient Referral Routine Obesity, unspecified classification, unspecified obesity type, unspecified whether serious comorbidity present Ordered: 05/30/2024 documented as of this encounter Visit Diagnoses Diagnosis Obesity, unspecified classification, unspecified obesity type, unspecified whether serious comorbidity present documented in this encounter Care Teams [place] Relationship Specialty Start Date End Date Breanna Lopez MD [address] [place] [address] PCP - General Family Medicine 11/28/1998 documented as of this encounter
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
--- OUTSIDE RECORDS SUMMARY | 2024-09-11 17:11 | XMS_ITS | Encounter Summary ---
Author Organization [facility] [place] [address] Care Team Providers Care Milk And Cream Grader Name Role Phone Breanna Lopez MD Primary Care Provider [phone] Encounter Details Date Type Department Care Team (Late st Contact Info) Description 09/01/2021 Telephone General Surgery at [facility] [place] [phone] Loreta Eaton Social History Tobacco Use Types Packs/Day Years [...] place to sleep or slept in a chcf (including now)? No 05/28/2021 Sex and Gender Information Value Date Recorded Sex Assigned at Not on file Gender Identity Not on file Sexual Orientation Not on file documented as of this encounter Miscellaneous Notes * Telephone Encounter - Loreta Eaton - 09/01/2021 11:58 AM EDT Received telephone call from patient advising she was sorry for missed appointments. Patient continues to advise she has transportation issues and will have follow-up with PCP. documented in this encounter Plan of Treatment Not on file documented as of this encounter Visit Diagnoses Not on filedocumented in this encounter Care Teams Milk And Cream Grader Relationship Specialty Start Date End Date Breanna Lopez MD [address] [place] [address] PCP - General Family Medicine 11/28/1998 documented as of this encounter
--- OUTSIDE RECORDS SUMMARY | 2024-09-11 17:11 | XMS_ITS | Continuity of Care Document ---
Author Organization [facility] Address [address] [place] [address] Care Team Providers Care Web Designer Developer Name Role Phone JohnBreanna Primary Care Physician [phone] [facility] Date(s): 10/13/22 - 10/13/[address] [address] Discharge Disposition: Home or Self Care Attending Physician: Eugenia Post Admitting Physician: Eugenia Post Referring Physician: Eugenia Post Allergies, Adverse Reactions, Alerts No Known Medication Allergies Immunizations Given and Recorded Vaccine Date Status Refusal Reason SARS-CoV-2 (COVID-19) mRNA-1273 vaccine 03/03/21 R ecorded SARS-CoV-2 (COVID-19) mRNA-1273 vaccine 02/03/21 R ecorded rubella virus vaccine 11/08/00 Recorded Procedures Procedure Date Related Diagnosis Body Site Status Knee replacement 2019 Complete d delivery 2003 Complet ed Results Laboratory List Name Date CBC w/ Diff 10/13/22 Comprehensive Metabolic Panel 10/13/22 GGT 10/13/22 HIV 1/2 Ag and Ab, 4th Generation [facility] Hepatitis A Total Antibody w/Rflx [facility] Hepatitis B Core Antibody (Total) [facility] Hepatitis B Surface Antibody [facility] 10/13/22 Hepatitis B Surface Antigen [facility] 10/13/22 Hepatitis C Ab w/Rflx to HCV RNA PCR [facility] 10/13/22 Automated Diff 10/13/22 Most recent to oldest [Reference Range]: 1 WBC [5.0-10.0 x10^3/mcL] 6.7 x10^3/mcL (10/13/22 11:25 AM) RBC [4.1-5.3 x10^6/mcL] 5.2 x10^6/mcL (10/13/22 11:25 AM) Neutro Auto [40.0-75.0 %] 51.2 % (10/13/22 11:25 AM) Lymph Auto [20.0-50.0 %] 38.2 % (10/13/22 11: AM) [place] Auto [2.0-15.0 %] 5.4 % (10/13/22 11:25 AM) Basophil Auto [0.0-1.0 %] 0.9 % (10/13/22: AM) BUN [7-18 mg/dL] 15 mg/dL (10/13/22 AM) Glucose Level [74-106 mg/dL] 105 mg/dL (10/13/22:25 AM) Potassium Level [3.5-5.1 mmol/L] 3.6 mmo l/L (10/13/22:25 AM) MCV [80.0-96.0] 89.6 (10/13/22 11:25 AM) AST [15-37 unit/L] 22 unit/L (10/13/22 AM) ALT [14-59 unit/L] 19 unit/L (10/13/22:25 AM) MCHC [31.0-35.0 g/dL] 33.2 g/dL (10/13/22 AM) Sodium Level [136-145 mmol/L] 141 mmol/L (10/13/22:25 AM) Hct [37.0-47.0 %] 46.7 % (10/13/22 11: AM) Calcium Level [8.5-10.1 mg/dL] 9.0 mg/dL (10/13/22: AM) Albumin Level [3.4-5.0 g/dL] 4.3 g/dL (10/13/22: AM) Protein Total [6.4-8.2 g/dL] 8.3 g/dL *HI* (10/13/22 AM) MCH [26.0-32.0 pg] 29.8 pg (10/13/22 11:25 AM) Neutro Absolute 3.4 x10^3/mcL *NA* (10/13/22 11:25 AM) Bilirubin Total [0.2-1.0 mg/dL] 0.5 mg/d L (10/13/22 11:25 AM) Hgb [12.0-16.0 g/dL] 15.5 g/dL (10/13/22 11:25 AM) Alk Phos [46-146 unit/L] 61 unit/L (10/13/22 11:25 AM) Platelets [130-450 x10^3/mcL] 266 x10^3/ mcL (10/13/22 11:25 AM) CO2 [21-32 mmol/L] 27 mmol/L (10/13/22 11:25 AM) GGT [5-55 unit/L] 14 unit/L (10/13/22 11:25 AM) eGFR Non-AA [>=60] 68 (10/13/22 11:25 AM) eGFR AA [>=60] 68 (10/13/22 11:25 AM) Chloride Level [98-107 mmol/L] 103 mmol/ L (10/13/22 11:25 AM) RDW-CV [11.7-17.0 %] 12.5 % (10/13/22 11:25 AM) Imm Gran Auto [0.0-0.9 %] 0.3 % (10/13/22 11:25 AM) Creatinine Level [0.55-1.02 mg/dL] 1.05 mg/dL *HI* (10/13/22 11:25 AM) Hep B Surface Ag [facility] [Negative] Negative 1 *NA* (10/13/22 11:25 AM) Hepatitis B Core Ab, Total [facility] [Negative ] Negative 2 *NA* (10/13/22 11:25 AM) Hep C Antibody [facility] [Negative] Negative 3 *NA* (10/13/22 11:25 AM) HIV 1 and 2 Ab/p24 Ag, 4th Gen [facility] [Nega tive] Negative 4 *NA* (10/13/22 11:25 AM) Hep B Surface Ab, Qualitative [facility] [See N ote] Positive 5 *NA* (10/13/22 11:25 AM) Hep B Surface Ab, Quantitative [facility] [See Note mIntlUnit/mL] 41.4 mIntlUnit/mL 6 *NA* (10/13/22 11:25 AM) Hepatitis A Antibody, Total [facility] [Negativ e] Positive 7 *ABN* (10/13/22 11:25 AM) Eos, Auto [1.0-6.0 %] 4.0 % (10/13/22 11:25 AM) 1Result Comment: Test performed [place] [address] 2Result Comment: Test performed [place] [address] 3Result Comment: Test performed [place] [address] 4Result Comment: If acute HIV-1 infection is suspected in a high risk patient, submit plasma specimen for HIV-1 RNA quantitation test. Fourth Generation assay performed on the Siemens Centaur XPT. Test performed [place] [address] 5Result Comment: Reference Range for Hep B Surface Ab, Qual: Unvaccinated: Negative Vaccinated: Positive 6Result Comment: Reference Range for Hep B Surface Ab, Quant: Positive: >= 10.0 mIU/mL Negative: < 10.0 mIU/mL Patient is presumed to be immune to infection with Hepatitis B Virus. Test performed [place] [address] 7Result Comment: The result of this assay can be falsely elevated (Positive) due to the consumption of Biotin. Test performed [place] [address] Social History Social History Type Response Tobacco Current everyday tob acco user Tobacco Use:. 1 ppd per day. Sex Female Patient Care team information Personnel Name: Breanna Lopez Martin Address: Address: [address] [place] [address]- [place]
--- OUTSIDE RECORDS SUMMARY | 2024-09-11 17:11 | XMS_ITS | Continuity of Care Document ---
Author Organization [facility] Address [address] [place] [address] Care Team Providers Care Punchboard Stuffer Name Role Phone John, Breanna Salazar Primary Care Physician [facility] Date[facility]s): 10/14/22 - 10/14/[address] [address] Discharge Disposition: Home or Self Care Attending Physician: Arya Carter MD Admitting Physician: Arya Carter MD Allergies, Adverse Reactions, Alerts No Known Medication Allergies Assessment and Plan Future Appointments Immunizations Given and Recorded Vaccine Date Status Refusal Reason SARS-CoV-2 (COVID-19) mRNA-1273 vaccine 03/03/21 R ecorded SARS-CoV-2 (COVID-19) mRNA-1273 vaccine 02/03/21 R ecorded rubella virus vaccine 11/08/00 Recorded Medications LORazepam 0 Refill(s) Start Date: 10/14/22 Status: Ordered Mirena 52 mg intrauteral device inserted 04/28/2019, 0 Refill(s) Start Date: 10/14/22 Status: Ordered prazosin 0 Refill(s) Start Date: 10/14/22 Status: Ordered Suboxone 12 mg-3 mg sublingual film 0 Refill(s) Start Date: 10/14/22 Status: Ordered Vyvanse 0 Refill(s) Start Date: 10/14/22 Status: Ordered Problem List Condition Confirmation Course Effective Dates Status Health St atus Informant PTSD (post-traumatic stress disorder) checklist for DSM-5 (Diagnostic and Statistical Manual of Mental Disorders - Fifth edition) Confirmed Active Rheumatoid arthritis Confirmed Active Procedures Procedure Date Related Diagnosis Body Site Status Knee replacement 2019 Complete d PAP test date 1 04/09/16 Completed delivery 2004 Complet ed 22/01/2016 Neg/Neg 5 yr pap 04/2021 Social History Social History Type Response Tobacco Current everyday tob acco user Tobacco Use:. 1 ppd per day. Sex Female Patient Care team information Personnel Name: Breanna Lopez Address: Address: [address] [place] [address]- [place]
--- OUTSIDE RECORDS SUMMARY | 2024-09-11 17:11 | XMS_ITS | Encounter Summary ---
Author Organization [facility] [place] [address] Care Team Providers Care Gis Physical Scientist Name Role Phone Breanna Lopez MD Primary Care Provider [phone] Encounter Details Date Type Department Care Team (Late st Contact Info) Description 08/07/2021 Telephone Orthopaedics at [facility] [place] [phone] Callie Murray, [facility] [address] Social History Tobacco Use Types Packs/Day Years [...] place to sleep or slept in a prison (including now)? No 05/28/2021 Sex and Gender Information Value Date Recorded Sex Assigned at Not on file Gender Identity Not on file Sexual Orientation Not on file documented as of this encounter Miscellaneous Notes * Telephone Encounter - Callie Murray MSW - 08/07/2021 4:27 PM EDT OFFICE OF CARE MANAGEMENT CCM Follow up call to Ms. Reich per grades 9 thru 12 visiting teacher reporting she has no transportation to follow up . Chart reviewed. Ms. Reich reports she is doing well, walking well and feeling much better. She could borrow her mother's car and is physically able to drive to come to follow up appts. Is also aware of Medicaid transportation. Agreed will have schedulers re contact her and schedule follow up appts. No further concerns wished patient well. documented in this encounter Plan of Treatment Not on file documented as of this encounter Visit Diagnoses Not on filedocumented in this encounter Care Teams Gis Physical Scientist Relationship Specialty Start Date End Date Breanna Lopez MD [address] [place] [address] PCP - General Family Medicine 11/28/1998 documented as of this encounter
--- OUTSIDE RECORDS SUMMARY | 2024-09-11 17:11 | XMS_ITS | Continuity of Care Document ---
Author Organization [facility] Address [address] [place] [address] Care Team Providers Care Religious Studies Professor Name Role Phone John, Breanna Salazar Primary Care Physician [facility] Date[facility] 11/20/22 - 11/20/[address] [address] Encounter Diagnosis Screening for breast cancer(Discharge Diagnosis) - 11/20/22 Discharge Disposition: Home or Self Care Attending Physician: Arya Carter MD Admitting Physician: Arya Carter MD Referring Physician: Arya Carter MD Allergies, Adverse Reactions, Alerts No Known Medication Allergies Immunizations Given and Recorded Vaccine Date Status Refusal Reason SARS-CoV-2 (COVID-19) mRNA-1273 vaccine 03/03/21 R ecorded SARS-CoV-2 (COVID-19) mRNA-1273 vaccine 02/03/21 R ecorded rubella virus vaccine 11/08/00 Recorded Medications clonazePAM 0 Refill(s) Start Date: 11/18/22 Status: Ordered Enbrel 0 Refill(s) Start Date: 11/18/22 Status: Ordered Mirena 52 mg intrauteral device [...] Status Knee replacement 2019 Complete d delivery 2004 [facility] ed Social History Social History Type Response Tobacco Current everyday tob acco user Tobacco Use:. 1 ppd per day. Sex Female Patient Care team information Personnel Name: Breanna Lopez MD Address: Address: [address] [address]- [place]
--- OUTSIDE RECORDS SUMMARY | 2024-09-11 17:11 | XMS_ITS | Continuity of Care Document ---
Author Organization [facility] Address [address] [place] [address] Care Team Providers Care Epic Professional Name Role Phone John, Breanna Salazar Primary Care Physician Encounter [facility] Date(s): 11/18/22 - 11/18/[address] [address] Discharge Disposition: Home or Self Care Attending Physician: Arya Carter MD Admitting Physician: Arya Carter MD Referring Physician: Arya Carter MD Allergies, Adverse Reactions, Alerts No Known Medication Allergies Assessment and Plan Diagnostic Tests Pending * PAP Test [facility] 11/18/22 Future Scheduled Tests Radiology* MG Mammo Screening Bilateral w/ Tremaine 11/18/22 Immunizations Given and Recorded Vaccine Date Status [...] Knee replacement 2019 Complete d delivery 2003 [facility] ed Social History Social History Type Response Tobacco Current everyday tob acco user Tobacco Use:. 1 ppd per day. Sex Female Patient Care team information Personnel Name: Breanna Lopez MD Address: Address: [address] [address]- [place]
--- OUTSIDE RECORDS SUMMARY | 2024-09-11 17:11 | XMS_ITS | Continuity of Care Document ---
Author Organization [facility] Address [address] [place] [address] Care Team Providers Care Eyeglass Inspector Name Role Phone JohnBreanna chaidez Martin Primary Care Physician [phone] Encounter [facility] Date(s): 11/06/23 - 11/06/[address] [address] Encounter Diagnosis Dependent edema(Discharge Diagnosis) - 11/06/23 Varicose veins of legs(Discharge Diagnosis) - 11/06/23 Discharge Disposition: Home or Self Care Attending Physician: Elmer Lopez MD Admitting Physician: Elmer Lopez MD Allergies, Adverse Reactions, Alerts No Known Medication Allergies Immunizations Given and Recorded Vaccine Date Status Refusal Reason SARS-CoV-2 (COVID-19) mRNA-1273 vaccine 03/03/21 R ecorded SARS-CoV-2 (COVID-19) mRNA-1273 vaccine 02/03/21 R ecorded rubella virus vaccine 11/08/00 Recorded Medications Enbrel 0 Refill(s) Start Date: 11/18/22 Status: [...] Procedure Date Related Diagnosis Body Site Status Due 11/2027 1 11/17/22 Completed Knee replacement 2019 Complete d delivery 2004 Complet ed 09/18/23 - Neg/Neg Next Pap Due 11/2027 Vital Signs Most recent to oldest [Reference Range]: 1 Temperature Temporal Artery [36-38 Deg C ] 36.7 Deg C (11/06/23 1:44 PM) Peripheral Pulse Rate [60-100 bpm] 103 b pm *HI* (11/06/23 1:44 PM) Blood Pressure [90-140/60-90 mmHg] 145/1 08mmHg *HI* (11/06/23 1:44 PM) Mean Arterial Pressure, Cuff [70-110 mmH g] 120 mmHg *HI* (11/06/23 1:44 PM) Weight Estimated 90.72 kg (11/06/23 1:44 PM) Body Mass Index Estimated 35.43 kg/m2 (11/06/23 1:44 PM) Height/Length Estimated 160.02 cm (11/06/23 1:44 PM) Social History Social History Type Response Tobacco Current everyday tob acco user Tobacco Use:. 1 ppd per day. Sex Female Hospital Discharge Instructions Patient Education 11/06/2023 13:19:20 Peripheral Edema Peripheral Edema Peripheral edema is swelling that is caused by a buildup of fluid. Peripheral edema most often affects the lower legs, ankles, and feet. It can also develop in the arms, hands, and face. The area of the body that has peripheral edema will look swollen. It may also feel heavy or warm. Your clothes may start to feel tight. Pressing on the area may make a temporary dent in your skin (pitting edema).You may not be able to move your swollen arm or leg as much as usual. There are many causes of peripheral edema. It can happen because of a complication of other conditions such as heart failure, kidney disease, or a problem with your circulation. It also can be a sideeffect of certain medicines or happen because of an infection. It often happens to women during . Sometimes, the cause is not known. Follow these instructions at home: Managing pain, stiffness, and swelling ??? Raise (elevate) your legs while you are sitting or lying down. ??? Move around often to prevent stiffness and to reduce swelling. ??? Do not sit or stand for long periods of time. ??? Do not wear tight clothing. Do not wear garters on your upper legs. ??? Exercise your legs to get your circulation going. This helps to move the fluid back into your blood vessels, and it may help the swelling go down. ??? Wear compression stockings as told by your health care provider. These stockings help to prevent blood clots and reduce swelling in your legs. It is important that these are the correct size. These stockings should be prescribed by your doctor to prevent possible injuries. ??? If elastic bandages or wraps are recommended, use them as told by your health care provider. Medicines ??? Take yuac-zhb-exfwjqe and prescription medicines only as told by your health care provider. ??? Your health care provider may prescribe medicine to help your body get rid of excess water (diuretic). Take this medicine if you are told to take it. General instructions ??? Eat a low-salt (low-sodium) diet as told by your health care provider. Sometimes, eating less salt may reduce swelling. ??? Pay attention to any changes in your symptoms. ??? Moisturize your skin daily to help prevent skin from cracking and draining. ??? Keep all follow-up visits. This is important. Contact a health care provider if: ??? You have a fever. ??? You have swelling in only one leg. ??? You have increased swelling, redness, or pain in one or both of your legs. ??? You have drainage or sores at the area where you have edema. Get help right away if: ??? You have edema that starts suddenly or is getting worse, especially if you are or havea medical condition. ??? You develop shortness of breath, especially when you are lying down. ??? You have pain in your chest or abdomen. ??? You feel weak. ??? You feel like you will faint. These symptoms may be an emergency. Get help right away. Call 911. ??? Do not wait to see if the symptoms will go away. ??? Do not drive yourself to the hospital. Summary ??? Peripheral edema is swelling that is caused by a buildup of fluid. Peripheral edema most often affects the lower legs, ankles, and feet. ??? Move around often to prevent stiffness and to reduce swelling. Do not sit or stand for long periods of time. ??? Pay attention to any changes in your symptoms. ??? Contact a health care provider if you have edema that starts suddenly or is getting worse, especially if you are or have a medical condition. ??? Get help right away if you develop shortness of breath, especially when lying down. This information is not intended to replace advice given to you by your health care provider. Make sure you discuss any questions you have with your health care provider. Document Revised: 06/29/2022 Document Reviewed: 06/29/2022 [employer] Patient Education ?? 2022 [employer]. Follow Up Care 11/06/2023 13:44:38 With:Primary Care Physician Address: When:1 to 2 weeks only if needed Physician Emergency department Note * Kailey Nunez MD: PERFORM Event Display: ED Note Physician Authored Date: [id number] MANOLO ROGER Anival :1980 Age:42 years Sex:Female Visit Date:11/06/2023 Primary Care Physician: Breanna Lopez MD Basic Information Time Seen: Kailey Nunez MD / 11/06/2023 13:47 Chief Complaint Pt reports two days of R ankle and leg swelling. Pt denies injury. Reports history of RA, but states it is unlike any flare in the past, also reports swelling to calf and ??numbness. [place] [facility] [place], but patient has had chance to call yet. History Of Present Illness: 42-year-old lady??with??chart listed history of??PTSD, rheumatoid arthritis, presents to the emergency department complaining of??bilateral??ankle swelling.?? The patient says??she noticed??of her symptoms 2 weeks ago, associated with??cold feet bilaterally.?? Patient says she does not have pain per se when she is walking but she can feel it.?? She is also noted some??spider veins on her feet??but says that they were there before.?? She has a history of a knee replacement??on the right side??and usually has slight swelling??of her ankle on that side??but now both are??swollen.?Swelling is better in the morning??and worse in the evening. ??She denies chest pain or shortness of breath,??she denies??difficulty urinating, dysuria or hematuria.?? She has been eating and drinking fine.?? No recent travel or prolonged immobilization. No trauma. Physical Exam Vitals & Measurements T:??36.7?C ??(Temporal Artery)?? HR:??103??(Peripheral)?? BP:??145/108?? SpO2:??98%?? HT:??160.02??cm?? WT:??90.72??kg??(Estimated)?? BMI:??35.43?? O2 Therapy:??Room air?? General: A&Ox3, Calm, no apparent distress, well developed, pleasant and cooperative ?? HEENT: Head ATNC. Eyes: ISAIAH. Extraocular Mobility: intact and symmetrical. Conjunctiva: non-injected, anicteric, no discharge. Oral Cavity: moist. Neck: no masses, no crepitus. Lymph Nodes: no cervical lymphadenopathy? Respiratory: CTA bilaterally, no wheezing, no rales/crackles? CV: RRR, normal S1, normal S2, no murmurs, rubs or gallops ?? Abdomen : soft, non-tender, non-distended, no rebound or guarding, no hepatosplenomegaly ?? Extremities:??Trace??bilateral nonpitting??ankle edema, warm and well-perfused, no cyanosis, capillary refill <2 seconds,??presence of??varicose veins noted on bilateral feet and lower extremities ?? Skin: no rash, no lesions, no bruising? Neuro: normal tone, normal strength in all 4 extremities, sensation intact?? Medical Decision Makin-year-old lady??with??chart listed history of??PTSD, rheumatoid arthritis, presents to the emergency department complaining of??bilateral??ankle swelling in the past 2 weeks. Discussed options with patient??and recommended??blood work to rule out CHF, BRONWYN, etc.??though the review of system is pointing more towards??dependent edema, she says she was??often at the doctor??and had blood work very often which was normal??so she declined??blood work today.?? The bilateral nature of??the swelling makes??DVT very unlikely. The patient chose to go home,??I recommended follow-up with primary care??in 1 to 2 weeks. Discharge instructions and return precautions discussed, all questions answered. Procedure No Qualifying Data Assessment/Plan 1.??Dependent edema??R60.9 Ordered: Discharge Patient, 11/06/23 14:20:00 EST, Constant Indicator ?? 2.??Varicose veins of legs??I83.93 Ordered: Discharge Patient, 11/06/23 14:20:00 EST, Constant Indicator ?? Patient Education Peripheral Edema Follow Up With When Contact Information Primary Care Physician Within 1 to 2 weeks, only if needed Additional Instructions: Medication Reconciliation Unchanged buprenorphine-naloxone (Suboxone 12 mg-3 mg sublingual film) ?? etanercept (Enbrel) ?? levonorgestrel (Mirena 52 mg intrauteral device)inserted 04/28/2019. ?? lisdexamfetamine (Vyvanse) ?? Discontinued clonazePAM Problem List/Past Medical History Ongoing PTSD (post-traumatic stress disorder) checklist for DSM-5 (Diagnostic and Statistical Manual of Mental Disorders - Fifth edition) Rheumatoid arthritis Tobacco user Historical Procedure/Surgical History ???Due 11/2027 (11/18/2022)???Knee replacement (2019)??? delivery (2003) Allergies No Known Medication Allergies Social History Electronic Cigarette/Vaping Electronic Cigarette Use: Never. Sexual Other contraceptive use: IUD mirena 04/28/2019. Tobacco Current everyday tobacco user Tobacco Use:. 1 ppd per day. Family History Cancer: Grandmother (M). Depression: Mother. Heart disease: Mother. Electronically Signed on 11/06/23 02:43 PM Kailey Nunez MD Emergency department Discharge instructions * Kailey Nunez MD: PERFORM Event Display: ED Discharge Information Authored Date: [id number] ROGER FRENCH :1980 Age:42 years Sex:Female Visit Date:11/06/2023 Primary Care Physician: Breanna Lopez MD Discharge Instructions We would like to thank you for allowing us to assist you with your healthcare needs. The following includes patient education materials and information regarding your injury/illness. Diagnosis from Today's Visit Dependent edema Varicose veins of legs Discharge Vitals Temperature??(Temporal Artery) 98.1 ??F (36.7 ??C) Heart Rate??(Peripheral) 103 Blood Pressure?? 145/108?? Height?? 63.00 in (160.02 cm) Weight??(Estimated) 200.04 lb (90.72 kg) BMI?? 35.43 Allergies No Known Medication Allergies What to Do Next Instructions from Your Care Team Please elevate your legs when at rest??and wear compression stockings when walking, follow-up with your primary care doctor for reevaluation in 1 to 2 weeks.?? Return to the emergency department if you change your mind about blood work or for any other concern. You Need to Schedule the Following Appointments Follow Up with??Primary Care Physician When:??Within 1 to 2 weeks, only if needed You were treated today on an emergency basis; it may be vaughn to contact your primary care provider to notify them of your visit today. You may have been referred to your regular doctor or a specialist, please follow up as instructed. If your condition worsens or you can't get in to see the doctor, contact the Emergency Department. Medications What When Instructions Next Dose Unchanged buprenorphine-naloxone (Suboxone 12 mg-3 mg sublingual film) Unchanged etanercept (Enbrel) Unchanged levonorgestrel (Mirena 52 mg intrauteral device) inserted 2018 ?? Unchanged lisdexamfetamine (Vyvanse) ?? What When Comments Stop Taking clonazePAM Education Materials Peripheral Edema Peripheral edema is swelling that is caused by a buildup of fluid. Peripheral edema most often affects the lower legs, ankles, and feet. It can also develop in the arms, hands, and face. The area of the body that has peripheral edema will look swollen. It may also feel heavy or warm. Your clothes may start to feel tight. Pressing on the area may make a temporary dent in your skin (pitting edema).You may not be able to move your swollen arm or leg as much as usual. There are many causes of peripheral edema. It can happen because of a complication of other conditions such as heart failure, kidney disease, or a problem with your circulation. It also can be a sideeffect of certain medicines or happen because of an infection. It often happens to women during . Sometimes, the cause is not known. Follow these instructions at home: Managing pain, stiffness, and swelling ? Raise (elevate) your legs while you are sitting or lying down. ? Move around often to prevent stiffness and to reduce swelling. ? Do not sit or stand for long periods of time. ? Do not wear tight clothing. Do not wear garters on your upper legs. ? Exercise your legs to get your circulation going. This helps to move the fluid back into your bloodvessels, and it may help the swelling go down. ? Wear compression stockings as told by your health care provider. These stockings help to prevent blood clots and reduce swelling in your legs. It is important that these are the correct size. These stockings should be prescribed by your doctor to prevent possible injuries. ? If elastic bandages or wraps are recommended, use them as told by your health care provider. Medicines ? Take uynf-chv-dlzbfaz and prescription medicines only as told by your health care provider. ? Your health care provider may prescribe medicine to help your body get rid of excess water (diuretic). Take this medicine if you are told to take it. General instructions ? Eat a low-salt (low-sodium) diet as told by your health care provider. Sometimes, eating less salt may reduce swelling. ? Pay attention to any changes in your symptoms. ? Moisturize your skin daily to help prevent skin from cracking and draining. ? Keep all follow-up visits. This is important. Contact a health care provider if: ? You have a fever. ? You have swelling in only one leg. ? You have increased swelling, redness, or pain in one or both of your legs. ? You have drainage or sores at the area where you have edema. Get help right away if: ? You have edema that starts suddenly or is getting worse, especially if you are or have a medical condition. ? You develop shortness of breath, especially when you are lying down. ? You have pain in your chest or abdomen. ? You feel weak. ? You feel like you will faint. These symptoms may be an emergency. Get help right away. Call 911. ? Do not wait to see if the symptoms will go away. ? Do not drive yourself to the hospital. Summary ? Peripheral edema is swelling that is caused by a buildup of fluid. Peripheral edema most often affects the lower legs, ankles, and feet. ? Move around often to prevent stiffness and to reduce swelling. Do not sit or stand for long periodsof time. ? Pay attention to any changes in your symptoms. ? Contact a health care provider if you have edema that starts suddenly or is getting worse, especially if you are or have a medical condition. ? Get help right away if you develop shortness of breath, especially when lying down. This information is not intended to replace advice given to you by your health care provider. Make sure you discuss any questions you have with your health care provider. Document Revised: 06/29/2022 Document Reviewed: 06/29/2022 [employer] Patient Education ?? 2022 [employer] Patient/Injection Molding Supervisor Signature Patient Name:MANOLO ROGER Anival I have received this information and my questions have been answered. Patient/Injection Molding Supervisor Name: Patient/Injection Molding Supervisor Signature: Relationship to Patient: Witness Name/Signature: Date: Electronically Signed on: 11/06/2023 14:20 ESTSigned by:B Emergency department Note * Phyllis Guerra: PERFORM Event Display: ED Notes Authored Date: [id number] Patient Care team information Care Team Personnel Name: Breanna Lopez MD Position: No Access Member Role: Informed Provider Address: Address: [address] [address] Name: Kailey Nunez MD Position: Physician Member Role: ED Physician Address: Address: [address] [place] [id number] Name: Skylar Cortes Position: Nurse Member Role: ED Nurse Care Team Related Persons Name: KAILASH FRENCH Name: MCKENZIE MULLIGAN
--- OUTSIDE RECORDS SUMMARY | 2024-09-11 17:12 | XMS_ITS | Encounter Summary ---
Author Organization [facility] Address [address] [place] [address] Care Team Providers Care J2Ee Software Engineer Name Role Phone Breanna Lopez MD Primary Care Provider [phone] Reason for Visit * Reason Onset Date Comments Appointment Related 06/27/2024 Encounter Details Date Type Department Care Team (Late st Contact Info) Description 06/27/2024 Telephone [facility] [place] [address] [place], [place] [id number] Gabbie Lomas RN Appointment Related Social History Tobacco Use Types Packs/Day Years Used Date Smoking Tobacco: Every Day Cigarettes 1 29.5 Started: 03/01/1995 Smokeless Tobacco: Never Alcohol Use Standard Drinks/Week Comments No 0 (1 standard drink = 0.6 oz pur e alcohol) Interpersonal Safety Answer Date Record ed Physically Hurt Never 06/09/2020 Verbally Threaten Not on file 06/09/2020 Sex and Gender Information Value Date Recorded Sex Assigned at Female 03/20/2021 0:23 EDT Gender Identity Female 10/23/2019 13:44 EST Sexual Orientation Choose not to disclose 2020 0:23 EDT documented as of this encounter Functional Status Functional Status Response Date of Assess ment Because of a physical, menta l, or emotional condition, does this person have difficulty doing errands alone such as visiting a doctor's office or shopping? No 12/13/2017 Cognitive Status Response Date of Assessm ent Because of a physical, menta l, or emotional condition, does this person have serious difficulty concentrating, remembering, or making decisions? No 12/13/2017 documented as of this encounter Miscellaneous Notes * Telephone Encounter - Gabbie Lomas RN - 06/27/2024 1546 EDT Noted. * Telephone Encounter - Gabbie Lomas RN - 06/27/2024 1514 EDT Just want to be sure patient is on a recall list from her last no show. Thank you. * Telephone Encounter - Gabbie Lomas RN - 06/27/2024 1413 EDT We received a notice from insurance stating that PA is needed for Enbrel. Humera was last seen 07/07/23 and has had 2 no shows in the iterim and when she was called with a reminder to get labs done, she said that she is without transportation so will get labs as soon as she can get a ride. Do you want me to request a PA for Enbrel? documented in this encounter Plan of Treatment Not on file documented as of this encounter Visit Diagnoses Not on filedocumented in this encounter Care Teams J2Ee Software Engineer Relationship Specialty Start Date End Date Breanna Lopez MD [address] [place] [id number] PCP - General 05/22/09 documented as of this encounter
--- OUTSIDE RECORDS SUMMARY | 2024-09-11 17:12 | XMS_ITS | Encounter Summary ---
Author Organization [facility] [place] [address] Care Team Providers Care Chemical Technician Name Role Phone Breanna Lopez MD Primary Care Provider [phone] Encounter Details Date Type Department Care Team (Late st Contact Info) Description 05/26/2021 12:15 PM EDT Ancillary Procedure Radiology Library at [facility] [place] [id number] Social History Tobacco Use Types Packs/Day Years Used Date Smoking Tobacco: Never Assessed Sex and Gender Information Value Date Recorded Sex Assigned at Not on file Gender Identity Not on file Sexual Orientation Not on file documented as of this encounter Plan of Treatment Not on file documented as of this encounter Procedures Procedure Name Priority Date/Time Associated Diagnosis Comments FILM LIBRARY STORAGE ONLY CT CHEST ABDOMEN PELVIS STAT 05/26/2021 12:03 PM EDT documented in this encounter Results * Film Library- Storage Only CT Chest Abdomen Pelvis (05/26/2021 12:03 PM EDT) Narrative [facility] - 05/26/2021 12:03 PM EDT This exam is auto-finalizing. It's purpose is for storage only. Marv Finn MD IMG FILM LIBRARY ORD ERABLES [facility] [place] documented in this encounter Visit Diagnoses Not on filedocumented in this encounter Care Teams Chemical Technician Relationship Specialty Start Date End Date Breanna Lopez MD [address] [place] [address] [address] [place] [address] PCP - General Family Medicine 11/28/1998 documented as of this encounter
--- OUTSIDE RECORDS SUMMARY | 2024-09-11 17:12 | XMS_ITS | Encounter Summary ---
Author Organization [facility] Address [address] [place] [address] Care Team Providers Care Precision Dancer Name Role Phone Breanna Lopez MD Primary Care Provider Encounter Details Date Type Department Care Team (Latest Contact Info) Description 06/07/[address] [facility] [address] [place], [place] [id number] Yan Mukherjee, [facility] Refill Coordination Outreach for Rheumatology, Set up initial fill for Rheumatology, Patient Education for Rheumatology, Prospective Review for Rheumatology Social History Tobacco Use Types Packs/Day Years [...] No 12/13/2017 documented as of this encounter Progress Notes * Yan Mukherjee RP - 06/07/2024 1502 EDT [facility] deferring prospective as patient has been on medication for a number of years but has had a gapfrom 01/2024 to now as she had been lost to follow up. Will re-enroll and still opt for 6 wk f/u to ensure medication reaches benefit again. Yan Mukherjee PharmMichelle (he/him) Ambulatory Pharmacist Clinician Rheumatology 06/08/2024 * Yan Mukherjee RP - 06/07/2024 1502 EDT [facility] Telephone Encounter 06/12/24 Contact: Incoming Spoke with: Patient Reason: restarting enbrel Patient has had a really hard time with housing and other social barriers. [facility] discussed risk of immunogenicity for stopping and starting enbrel. Low risk at this time given last dose has been a number of months ago. Has been on enbrel for 20 years and it is the only medication that has worked for her. Was previously on humira and it did not work at all for her. Patient inquired about pros cons of switching to rinvoq. [facility] reviewed place in therapy, dosing, efficacy and safety. Patient did not like the once daily dosing of rinvoq. Assessment & Plan: Patient to restart enbrel and has close f/u with dr. Meng at 06/20. [facility] to f/u in 3 months to ensure it is still working. Method of Communication: Telephonic Yan Mukherjee PharmD (he/him) Ambulatory Pharmacist Clinician Rheumatology 06/12/2024 documented in this encounter Plan of Treatment Not on file documented as of this encounter Visit Diagnoses Not on filedocumented in this encounter Care Teams Precision Dancer Relationship Specialty Start Date End Date Breanna Lopez MD [address] [place] [phone] PCP - General 7/15/09 documented as of this encounter
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
--- OUTSIDE RECORDS SUMMARY | 2024-09-11 17:12 | XMS_ITS | Encounter Summary ---
Author Organization [facility] Address [address] [place] [address] Care Team Providers Care Time Checker Name Role Phone Breanna Lopez MD Primary Care Provider [phone] Encounter Details Date Type Department Care Team (Latest Contact Info) Description 07/05/2024 Specialty Pharmacy [facility] [address] [place], [place] [id number] Yan Mukherjee [facility] Initial Clinical Follow-up (by 6 weeks) (etanercept) for Rheumatology, Refill Coordination Outreach for Rheumatology Social History Tobacco Use Types [...] this encounter Progress Notes * Yan Mukherjee [facility] - 07/05/2024 0909 EDT [facility] Telephone Encounter 07/07/24 Contact: Outgoing Spoke with: Patient Reason: enbrel Patient has not been seen in a year. [facility] spoke with provider to discuss refills and provider has requested we reverse the order for enbrel and cancel further refills until patient is seen. Assessment & Plan: LM - please call back to set up appt. Unable to ship out enbrel until she is seen per provider. Method of Communication: Telephonic Yan Mukherjee PharmD (he/him) Ambulatory Pharmacist Clinician Rheumatology 07/07/2024 * Yan Mukherjee [facility] - 07/05/2024 0909 EDT Okay for patient to refill enbrel as she has been seen by dr. Meng 07/13/24. Please proceed with refill when she comes up in the call list. Yan Mukherjee PharmD (he/him) Ambulatory Pharmacist Clinician Rheumatology 07/13/2024 documented in this encounter Plan of Treatment Not on file documented as of this encounter Visit Diagnoses Not on filedocumented in this encounter Care Teams Time Checker Relationship Specialty Start Date End Date Breanna Lopez MD [address] [place] [phone] PCP - General 05/22/09 documented as of this encounter
--- OUTSIDE RECORDS SUMMARY | 2024-09-11 17:12 | XMS_ITS | Encounter Summary ---
Author Organization [facility] Address [address] [place] [address] Care Team Providers Care Director Of Student Services Name Role Phone Breanna Lopez MD Primary Care Provider [phone] Encounter Details Date Type Department Care Team (Late st Contact Info) Description 06/11/2023 Specialty Pharmacy [facility] - [facility] [address] [place] [address] Yan Mukherjee [facility] Social History Tobacco Use Types Packs/Day Years [...] as of this encounter Progress Notes * Ailin Gibbs RP - 06/11/2023 1522 EDT Patient reported to [facility] during Enbrel (etanercept) refill that she is currently taking clindamycin. Voicemail for patient, specialty pharmacy line for call back. Calling to discuss clindamycin and to determine if Enbrel (etanercept) therapy should be held. Taking for infection? Would recommend holding until completion of antibiotics and resolution of infection. Ailin Gibbs, DebbyD Ambulatory Pharmacist Clinician - Rheumatology 06/25/2023 Addendum 06/28/23: Left second message documented in this encounter Plan of Treatment Not on file documented as of this encounter Visit Diagnoses Not on filedocumented in this encounter Care Teams Director Of Student Services Relationship Specialty Start Date End Date Breanna Lopez MD [address] [place] [phone] PCP - General 05/22/09 documented as of this encounter
--- OUTSIDE RECORDS SUMMARY | 2024-09-11 17:12 | XMS_ITS | Encounter Summary ---
Author Organization [facility] Address [address] [place] [address] Care Team Providers Care Jingle Writer Name Role Phone Breanna Lopez MD Primary Care Provider [phone] Encounter Details Date Type Department Care Team (Late st Contact Info) Description 04/12/2023 Specialty Pharmacy [facility] - [facility] [address] [place] [address] Yan Mukherjee, [facility] Social History Tobacco Use Types Packs/Day Years [...] as of this encounter Progress Notes * Keri Dueñas - 04/12/2023 1018 EDT Specialty Pharmacy Documentation Medication: enbrel Clinic: [facility] Reason for Encounter: outreach Notes: [facility]TS 04/14 Follow up date: 04/14 Follow up reason: refill documented in this encounter Plan of Treatment Not on file documented as of this encounter Visit Diagnoses Not on filedocumented in this encounter Care Teams Jingle Writer Relationship Specialty Start Date End Date Breanna Lopez MD [address] [place] [phone] PCP - General 05/22/09 documented as of this encounter
--- OUTSIDE RECORDS SUMMARY | 2024-09-11 17:12 | XMS_ITS | Encounter Summary ---
Author Organization [facility] Address [address] [place] [address] Care Team Providers Care Yarn Conditioner Name Role Phone Breanna Lopez MD Primary Care Provider [phone] Encounter Details Date Type Department Care Team (Late st Contact Info) Description 08/11/2023 Specialty Pharmacy [facility] - [facility] [address] [place] [address] Yan Mukherjee [facility] Social History Tobacco Use Types Packs/Day Years [...] as of this encounter Progress Notes * Marisol Mckay [facility] - 08/11/2023 1619 EDT Hillary Reich is a 42 y.o. female who was prescribed injectable buprenorphine (Sublocade), which wasfilled by [facility]. This patient will be discharged from [facility] Specialty pharmacy services for Sublocade because medication therapy was discontinued by prescribing clinic ([facility]). Patient will remained enrolled in [facility] services for ongoing [facility] [place] Rheumatology medication needs. Thank you for allowing us to care for this patient. MARISOL MCKAY RPH documented in this encounter Miscellaneous Notes * Addendum Note - Marisol Mckay RPH - 08/11/2023 1619 EDTAddended by: MARISOL MCKAY on: 08/16/2023 10:35 Modules accepted: Orders documented in this encounter Plan of Treatment Not on file documented as of this encounter Visit Diagnoses Not on filedocumented in this encounter Discontinued Medications Medication Sig Discontinue Reason Start Date End Da te buprenorphine 300 mg/1.5 mL solution, extended rel syringe Inject 1.5 mL into the skin every 28 days. Other Name: Sublocade Therapy completed (will not send dc message to pharm) 08/16/2023 documented as of this encounter Care Teams Yarn Conditioner Relationship Specialty Start Date End Date Breanna Lopez MD [address] [place] [phone] PCP - General 05/22/09 documented as of this encounter
--- OUTSIDE RECORDS SUMMARY | 2024-09-11 17:12 | XMS_ITS | Encounter Summary ---
Author Organization [facility] Address [address] [place] [address] Care Team Providers Care Nutrition Intern Name Role Phone Breanna Lopez MD Primary Care Provider [phone] Encounter Details Date Type Department Care Team (Latest Contact Info) Description 09/15/[address] [facility] [address] [place], [place] [address] Yan Mukherjee, [facility] Refill Coordination Outreach for Rheumatology, Refill Coordination Outreach (1 time occurrence) for Rheumatology Social History Tobacco Use Types [...] No 12/13/2017 documented as of this encounter Plan of Treatment Not on file documented as of this encounter Visit Diagnoses Not on filedocumented in this encounter Care Teams Nutrition Intern Relationship Specialty Start Date End Date Breanna Lopez MD [address] [place] [phone] PCP - General 05/22/09 documented as of this encounter
--- OUTSIDE RECORDS SUMMARY | 2024-09-11 17:12 | XMS_ITS | Encounter Summary ---
Author Organization [facility] Address [address] [place] [address] Care Team Providers Care Electrician Supervisor Name Role Phone Breanna Lopez MD Primary Care Provider Reason for Visit * Reason Onset Date Comments Labs Only 06/12/2024 Encounter Details Date Type Department Care Team (Late st Contact Info) Description 06/12/2024 Telephone [facility] Rheumatology [address] [place], [place] [id number] Rosy Rodriguez, [place] Labs Only Social History Tobacco Use Types Packs/Day Years [...] encounter Miscellaneous Notes * Telephone Encounter - Rosy Rodriguez RN - 06/12/2024 1045 EDT Call to patient and she hasn't had las since 11/2021 and [place] to fax results to clinic. Ordered standing order for CBC/CMP annual for Enbrel use. Patient reports she will get done as soon as she can; currently without transportation. * Telephone Encounter - Maryann Gates - 06/12/2024 1039 EDT Hillary returned call to Taryn * Telephone Encounter - Rosy Rodriguez RN - 06/12/2024 0953 EDT Chart reviewed Med Enbrel Lab Results Component Value Date WBC PRESENT 05/23/2018 HGB 15.0 11/06/2020 HCT 38.6 11/02/2007 MCV 88.0 11/06/2020 PLT 257 11/06/2020 Lab Results Component Value Date CRP <5.0 04/25/2020 BMP Lab Results Component Value Date NA 135 (L) 11/06/2020 K 4.4 11/06/2020 CL 104 11/06/2020 CO2 25 11/06/2020 ANIONGAP 6 11/06/2020 SERGLU 77 03/16/2007 CALCIUM 9.4 03/16/2007 BUN 9 (L) 11/06/2020 CREATININE 0.67 11/06/2020 CALCGFR >60 11/06/2020 Call to patient and she reports recent labs at [facility] and she will call and will call them ans ask them to fax us her most recent labs. documented in this encounter Plan of Treatment Scheduled Orders Name Type Priority Associated Diagnoses Orde r Schedule COMPLETE BLOOD COUNT AND DIFFERENTIAL Lab Routine Seronegative rheumatoid arthritis (HCC-CMS) 2 Occurrences starting 06/12/2024 until 06/12/2025 COMPREHENSIVE METABOLIC PANEL (CMP) Lab Routine Seronegative rheumatoid arthritis (HCC-CMS) 2 Occurrences starting 06/12/2024 until 06/12/2025 documented as of this encounter Visit Diagnoses Diagnosis Seronegative rheumatoid arthritis ([facility])- Primary Rheumatoid arthritis documented in this encounter Care Teams Electrician Supervisor Relationship Specialty Start Date End Date Breanna Lopez MD [address] [place] [phone] PCP - General 05/22/09 documented as of this encounter
--- OUTSIDE RECORDS SUMMARY | 2024-09-11 17:12 | XMS_ITS | Encounter Summary ---
Author Organization [facility] Address [address] [place] [address] Care Team Providers Care Preparation Department Supervisor Name Role Phone Breanna Lopez MD Primary Care Provider [phone] Reason for Visit * Reason Onset Date Comments Medications Refill 10/25/2023 Encounter Details Date Type Department Care Team (Late st Contact Info) Description 10/25/[address] [facility] [address] [place], [place] [phone] Russell Mccormack, [place] Medications Refill Social History Tobacco Use Types Packs/Day Years [...] encounter Miscellaneous Notes * Telephone Encounter - Russell Mccormack - 10/25/2023 1546 EST Opened in error documented in this encounter Plan of Treatment Not on file documented as of this encounter Visit Diagnoses Not on filedocumented in this encounter Care Teams Preparation Department Supervisor Relationship Specialty Start Date End Date Breanna Lopez MD [address] [place] [phone] PCP - General 05/22/09 documented as of this encounter
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
--- OUTSIDE RECORDS SUMMARY | 2024-09-11 17:12 | XMS_ITS | Encounter Summary ---
Author Organization [facility] Address [address] [place] [address] Care Team Providers Care Plater Hot Dip Name Role Phone Breanna Lopez MD Primary Care Provider [phone] Encounter Details Date Type Department Care Team (Late st Contact Info) Description 08/18/2024 Orders Only [facility] Rhe[facility] [address] [place], [place] [phone] Gabbie Lomas RN Social History Tobacco Use Types Packs/Day Years Used Date Smoking Tobacco: Former Cigarettes 1 29.5 S tarted: 03/01/1995 Smokeless Tobacco: Never Alcohol Use Standard [...] Discontinue Reason Start Date End Da te methotrexate 2.5 mg tablet 8 Tablets. Patient Stopped Taking 06/12/2020 08/18/2024 documented as of this encounter Care Teams Plater Hot Dip Relationship Specialty Start Date End Date Breanna Lopez MD [address] [place] [phone] PCP - General 05/22/09 documented as of this encounter
--- OUTSIDE RECORDS SUMMARY | 2024-09-11 17:12 | XMS_ITS | Encounter Summary ---
Author Organization [facility] Address [address] [place] [address] Care Team Providers Care Pole Sander Operator Name Role Phone Breanna Lopez MD Primary Care Provider [phone] Encounter Details Date Type Department Care Team (Latest Contact Info) Description 08/08/2024 Specialty Pharmacy [facility] [address] [place], [place] [address] Arya Field [facility] Refill Coordination Outreach for Rheumatology Social History [...] as of this encounter Progress Notes * Linda Olmos - 08/08/2024 0938 EDT Will wrap up this outreach and push appropriately because when we call back in two weeks we should open a new encounter. documented in this encounter Plan of Treatment Not on file documented as of this encounter Visit Diagnoses Not on filedocumented in this encounter Care Teams Pole Sander Operator Relationship Specialty Start Date End Date Breanna Lopez MD [address] [place] [phone] PCP - General 05/22/09 documented as of this encounter
--- OUTSIDE RECORDS SUMMARY | 2024-09-11 17:12 | XMS_ITS | Encounter Summary ---
Author Organization [facility] [place] [address] Care Team Providers Care Senior Shipping Clerk Name Role Phone Breanna Lopez MD Primary Care Provider [phone] Encounter Details Date Type Department Care Team (Late st Contact Info) Description 05/26/2021 12:05 PM EDT Ancillary Procedure Radiology Library at [facility] [place] [address] Social History Tobacco Use Types Packs/Day Years [...] Diagnosis Comments FILM LIBRARY STORAGE ONLY CT HEAD AND SPINE STAT 05/26/2021 12:01 PM EDT documented in this encounter Results * Film Library- Storage Only CT Head And Spine (05/26/2021 12:01 PM EDT) Narrative [facility] - 05/26/2021 12:01 PM EDT This exam is auto-finalizing. It's purpose is for storage only. Jessie PARIKH [employer] FILM LIBRARY ORD ERABLES [facility] [place], [place] documented in this encounter Visit Diagnoses Not on filedocumented in this encounter Care Teams Senior Shipping Clerk Relationship Specialty Start Date End Date Breanna Lopez MD [address] [place] [address] [address] [place] [address] PCP - General Family Medicine 11/28/1998 documented as of this encounter
--- OUTSIDE RECORDS SUMMARY | 2024-09-11 17:12 | XMS_ITS | Encounter Summary ---
Author Organization [facility] Address [address] [place] [address] Care Team Providers Care Educational Coordinator Name Role Phone Breanna Lopez MD Primary Care Provider [phone] Encounter Details Date Type Department Care Team (Late st Contact Info) Description 02/09/2023 Specialty Pharmacy [facility] [address] [place] [address] Yan Mukherjee RPH Social History Tobacco Use Types Packs/Day Years [...] this encounter Progress Notes * Yan Mukherjee RPH - 02/09/2023 1000 EDT Patient will call [facility] for meds to be covered. Plan to have juanpablo call all her doctors to have meds sent to [facility] pharmacy to have them delivered. [facility]one [facility] filled at [facility] for delivery. Understands that there might be barriers with this and to keep us posted on requirements for filling. Yan Mukherjee PharmD (he/him) Ambulatory Pharmacist Clinician [facility] Rheumatology 02/11/2023 documented in this encounter Plan of Treatment Not on file documented as of this encounter Visit Diagnoses Not on filedocumented in this encounter Care Teams Educational Coordinator Relationship Specialty Start Date End Date Breanna Lopez MD [address] [place] [phone] PCP - General 05/22/09 documented as of this encounter
--- OUTSIDE RECORDS SUMMARY | 2024-09-11 17:12 | XMS_ITS | Encounter Summary ---
Author Organization [facility] Address [address] [place] [address] Care Team Providers Care Brick Offbearer Name Role Phone Breanna Lopez MD Primary Care Provider [phone] Encounter Details Date Type Department Care Team (Latest Contact Info) Description 10/25/2023 Specialty Pharmacy [facility] [address] [place], [place] [phone] Yan Mukherjee [facility] Started Refill Coordination Outreach for Rheumatology Social History [...] as of this encounter Progress Notes * Heather Ozuna - 10/25/2023 1548 EST Specialty Pharmacy Documentation Medication: Enbrel Clinic: Rheum Reason for Encounter: Outreach Notes: Reached out to this patient today sounds like she is having difficulties in life and has notbeen dosing correctly. She has 2 weeks on hand for sometime this week and another for next. She asked the we reach out 11/03. Follow up date: 11/03 Follow up reason: Outreach documented in this encounter Plan of Treatment Not on file documented as of this encounter Visit Diagnoses Not on filedocumented in this encounter Care Teams Brick Offbearer Relationship Specialty Start Date End Date Breanna Lopez MD [address] [place] [phone] PCP - General 05/22/09 documented as of this encounter
--- OUTSIDE RECORDS SUMMARY | 2024-09-11 17:12 | XMS_ITS | Encounter Summary ---
Author Organization [facility] [place] [address] Care Team Providers Care Athletic Coordinator Name Role Phone Breanna Lopez MD Primary Care Provider [phone] Encounter Details Date Type Department Care Team (Late st Contact Info) Description 05/26/2021 12:10 PM EDT Ancillary Procedure Radiology Library at [facility] [place] [address] Social History Tobacco Use Types Packs/Day Years [...] Diagnosis Comments FILM LIBRARY STORAGE ONLY CT SPINE STAT 05/26/2021 12:02 PM EDT documented in this encounter Results * Film Library- Storage Only CT Spine (05/26/2021 12:02 PM EDT) Narrative [facility] - 05/26/2021 12:02 PM EDT This exam is auto-finalizing. It's purpose is for storage only. Marv Finn MD IMG FILM LIBRARY ORD ERABLES [place] documented in this encounter Visit Diagnoses Not on filedocumented in this encounter Care Teams Athletic Coordinator Relationship Specialty Start Date End Date Breanna Lopez MD [address] [place] [address] PCP - General Family Medicine 11/28/1998 documented as of this encounter
--- OUTSIDE RECORDS SUMMARY | 2024-09-11 17:12 | XMS_ITS | Encounter Summary ---
Author Organization [facility] Address [address] [place] [address] Care Team Providers Care Basket Person Name Role Phone Breanna Lopez MD Primary Care Provider [phone] Reason for Visit * Reason Onset Date Comments Appointment Related 08/18/2024 Encounter Details Date Type Department Care Team (Late st Contact Info) Description 08/18/2024 Telephone [facility] Rheumatology [address] [place], [place] [address] Gabbie Lomas RN Appointment Related Social History [...] Telephone Encounter - Gabbie Lomas RN - 08/18/2024 1516 EDT Noted, Thank you. * Telephone Encounter - Gabbie Lomas RN - 08/18/2024 9339 EDT Patient had a televideo visit 07/13/24 and was to be scheduled for follow up in one year. She is not scheduled so I am just making sure she is on the follow up list to be scheduled. Thank you. documented in this encounter Plan of Treatment Not on file documented as of this encounter Visit Diagnoses Not on filedocumented in this encounter Care Teams Basket Person Relationship Specialty Start Date End Date Breanna Lopez MD [address] [place] [phone] PCP - General 05/22/09 documented as of this encounter
--- OUTSIDE RECORDS SUMMARY | 2024-09-11 17:12 | XMS_ITS | Encounter Summary ---
Author Organization [facility] Address [address] [place] [address] Care Team Providers Care Construction Area Manager Name Role Phone Breanna Lopez MD Primary Care Provider [phone] Reason for Visit * Reason Onset Date Comments Medications Refill 09/15/2023 Encounter Details Date Type Department Care Team (Late st Contact Info) Description 09/15/2023 Refill [facility] Rheumatology [address] [place], [place] [phone] Tali Meng MD [address] [facility] [address] [place] [address] Medications Refill Social History Tobacco Use Types [...] No 12/13/2017 documented as of this encounter Ordered Prescriptions Prescription Sig Dispensed Refills Start Date End Da te etanercept (ENBREL SURECLICK) 50 mg/mL (1 mL) subcutaneous penIndications:Seronegative rheumatoid arthritis (HCC-CMS) Inject 1 mL into the skin once a week. 4 mL 5 09/15/2023 documented in this encounter Miscellaneous Notes * Telephone Encounter - Keri Dueñas - 09/15/2023 0856 EST Medication Refill Request Medication: enbrel Patient needs medication by: 09/23 Scheduled outreach date: 09/16 Pharmacy: [facility] [employer] [facility] [address] appt: Visit date not found documented in this encounter Plan of Treatment Not on file documented as of this encounter Visit Diagnoses Diagnosis Seronegative rheumatoid arthritis (HCC-CMS) Rheumatoid arthritis documented in this encounter Discontinued Medications Medication Sig Discontinue Reason Start Date End Da te etanercept (ENBREL SURECLICK) 50 mg/mL (1 mL) subcutaneous penIndications:Seronegati ve rheumatoid arthritis (HCC-CMS) Inject 1 mL into the skin once a week. Reorder 01/26/2023 09/15/2023 documented as of this encounter Care Teams Construction Area Manager Relationship Specialty Start Date End Date Breanna Lopez MD [address] [place] [phone] PCP - General 05/22/09 documented as of this encounter
--- OUTSIDE RECORDS SUMMARY | 2024-09-11 17:12 | XMS_ITS | Encounter Summary ---
Author Organization [facility] Address [address] [place] [address] Care Team Providers Care Diesel Service Apprentice Name Role Phone Breanna Lopez MD Primary Care Provider [phone] Reason for Visit * Reason Onset Date Comments Prior Auth, Medication 09/13/2023 Encounter Details Date Type Department Care Team ([facility] Contact Info) Description 09/13/2023 Telephone [facility] [address] [place], [place] [phone] Tali Meng MD [address] [place] [address] [phone] Prior Auth, Medication Social History Tobacco Use Types Packs/Day Years [...] encounter Miscellaneous Notes * Telephone Encounter - Isaac Mccarty - 09/13/2023 1327 EST SPR[facility] Request for PA/Funding Drug Name: Enbrel Next Injection Date: 09/23 RX Insurance: [facility] [place] Required: Yes Funding Needed: No documented in this encounter Plan of Treatment Not on file documented as of this encounter Visit Diagnoses Not on filedocumented in this encounter Care Teams Diesel Service Apprentice Relationship Specialty Start Date End Date Breanna Lopez MD [address] [place] [phone] PCP - General 05/22/09 documented as of this encounter
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
--- OUTSIDE RECORDS SUMMARY | 2024-09-11 17:12 | XMS_ITS | Encounter Summary ---
Author Organization [facility] Address [address] [place] [address] Care Team Providers Care Silver Plater Name Role Phone Breanna Lopez MD Primary Care Provider [phone] Reason for Visit * Reason Onset Date Comments Prior Auth, Medication 07/27/2024 Re-auth E nbrel 50 mg pen: inject 1 pen subcutaneous q 7 days. Encounter Details Date Type Department Care Team (Late st Contact Info) Description 07/27/2024 Telephone [facility] Rheumatology [address] [place], [place] [address] Tali Meng MD [address] [facility] [address] [place] [address] Prior Auth, Medication (Re-auth Enbrel 50 mg pen: inject 1 pen subcutaneous q 7 days. ) Social History Tobacco Use Types Packs/Day Years [...] encounter Miscellaneous Notes * Telephone Encounter - Andrés Jessy - 07/27/2024 1553 EDT Prior Authorization Approval Medication: Enbrel 50 mg pen: inject 1 pen subcutaneous q 7 days. Insurance Name:[employer] Insurance Type: Medicare Part D Approval Dates: 07/27/2024-01/24/2025 Authorization Number: [id number] Required Pharmacy: No requirement [facility] able to fill?: YES Route to [facility] (if applicable): No Additional Info/Other Notes: Prior Authorization Submission Process - Routine Re-Auth Medication: Enbrel 50 mg pen: inject 1 pen subcutaneous q 7 days. Insurance: [employer] Insurance Type: Medicare Part D PA Request Received: PA Submission Date: 07/27/2024 CMM: [id number] Notes: Submitted by: SANTOS Phone: [phone] documented in this encounter Plan of Treatment Not on file documented as of this encounter Visit Diagnoses Not on filedocumented in this encounter Care Teams Silver Plater Relationship Specialty Start Date End Date Breanna Lopez MD [address] [place] [phone] PCP - General 05/22/09 documented as of this encounter
--- OUTSIDE RECORDS SUMMARY | 2024-09-11 17:12 | XMS_ITS | Encounter Summary ---
Author Organization [facility] Address [address] [place] [address] Care Team Providers Care Juvenile Detention Officer Name Role Phone Breanna Lopez MD Primary Care Provider [phone] Encounter Details Date Type Department Care Team (Late st Contact Info) Description 07/14/2023 Specialty Pharmacy [facility] - [facility] [address] [place] [address] Jessie Pepe, [facility] Social History Tobacco Use Types Packs/Day Years [...] as of this encounter Progress Notes * Monet Mccracken - 07/14/2023 1001 EDT Per supervisors pushing outreach to 08/06 for sublocade * Jessy Bowen - 07/14/2023 1001 EDT Prescription Receipt by [facility] Date Received: 08/04/2023 Medication: Sublocade Sent by: [facility] Provider: [facility] Phone number: [phone] Benefits Investigation Results: Comments: script received, uploaded to scans and profiled. Script is refill too soon until 08/06/2023. Prescription copy available in scans: YES Relevant clinical documents in scans (if applicable): YES Routed to appropriate Pharmacist: YES [facility] Specialty Pharmacy: [phone] documented in this encounter Plan of Treatment Not on file documented as of this encounter Visit Diagnoses Not on filedocumented in this encounter Care Teams Juvenile Detention Officer Relationship Specialty Start Date End Date Breanna Lopez MD [address] [place] [phone] PCP - General 05/22/09 documented as of this encounter
--- OUTSIDE RECORDS SUMMARY | 2024-09-11 17:12 | XMS_ITS | Encounter Summary ---
Author Organization [facility] Address [address] [place] [address] Care Team Providers Care Cloth Mercerizing Supervisor Name Role Phone Breanna Lopez MD Primary Care Provider [phone] Encounter Details Date Type Department Care Team (Late st Contact Info) Description 03/10/2023 Specialty Pharmacy [facility] [address] [place] [address] Yan Mukherjee, [facility] Social History Tobacco Use Types Packs/Day Years [...] on filedocumented in this encounter Care Teams Cloth Mercerizing Supervisor Relationship Specialty Start Date End Date Breanna Lopez MD [address] [place] [phone] PCP - General 05/22/09 documented as of this encounter
--- OUTSIDE RECORDS SUMMARY | 2024-09-11 17:12 | XMS_ITS | Encounter Summary ---
Author Organization [facility] Address [address] [place] [address] Care Team Providers Care Greige Goods Marker Name Role Phone Breanna Lopez MD Primary Care Provider [phone] Reason for Referral * Consult (Routine/Next Available) - Authorized Specialty Diagnoses / Procedures Referred By [facility] Referred To Contact Pharmacy Diagnoses Rheumatoid arthritis of multiple sites without rheumatoid factor ([facility]) Tali Meng MD [address] [place] [address] [address] [place] [address] [facility] [address] [place] [id number] Referral ID Status Reason Start Date Expiration Date Visits Requested Visits Authorized [id number] Authorized Specialty Services Required 07/18/2024 1 1 Question Answer PA Type: Re-auth Medication to be Prior Authorized: Enbrel Sureclick 50 mg/ml. Take 50 mg SC onc a week. Dispense 4 pens with 5 refills. Comments The purpose of this request is to inform precertification staff that the requested service needs to be reviewed for prior-authorization. Please see fax in scans requesting PA renewal for Enbrel. Patient will receive a 30 day supply while PA is pending. Reason for Visit * Reason Onset Date Comments Prior Auth, Medication 07/18/2024 Encounter Details Date Type Department Care Team ([facility] Contact Info) Description 07/18/2024 Telephone [facility] Rheumatology [address] [place] [address] Gabbie Lomas RN Prior Auth, Medication Social History Tobacco Use [...] Telephone Encounter - Gabbie Lomas RN - 07/18/2024 3629 EDT Received a fax from patient's part D insurance stating that a PA is needed for Enbrel so [id number] placed. documented in this encounter Plan of Treatment Scheduled Referrals Name Type Priority Associated Diagnoses Order Schedule AMB CONS/FOLLOW UP SPECIALTY PHARMACY Outpatient Referral Routine/Next Available Rheumatoid arthritis of multiple sites without rheumatoid factor ([facility]) Expected: 08/17/2024 (Approximate), Expires: 07/18/2025 documented as of this encounter Visit Diagnoses Diagnosis Rheumatoid arthritis of multiple sites without rheumatoid factor ([facility])- Primary Rheumatoid arthritis documented in this encounter Care Teams Greige Goods Marker Relationship Specialty Start Date End Date Breanna Lopez MD [address] [place] [phone] PCP - General 05/22/09 documented as of this encounter
--- OUTSIDE RECORDS SUMMARY | 2024-09-11 17:12 | XMS_ITS | Encounter Summary ---
Author Organization [facility] Address [address] [place] [address] Care Team Providers Care Eddy Current Inspector Name Role Phone Breanna Lopez MD Primary Care Provider [phone] Encounter Details Date Type Department Care Team (Latest Contact Info) Description 12/22/[address] [facility] [address] [place], [place] [id number] Ruben Streeter RPH Started Refill Coordination Outreach for Rheumatology Social [...] as of this encounter Progress Notes * Ruben Streeter RPH - 12/22/2023 1301 EST Hillary Reich is a 43 y.o. female with SNRA who was prescribed Enbrel, which was filled by [facility]. This patient will be discharged from [facility] Specialty pharmacy services because patient was lost to follow up. Thank you for allowing us to care for this patient. RUBEN STREETER RPH documented in this encounter Plan of Treatment Not on file documented as of this encounter Visit Diagnoses Not on filedocumented in this encounter Care Teams Eddy Current Inspector Relationship Specialty Start Date End Date Breanna Lopez MD [address] [place] [phone] PCP - General 05/22/09 documented as of this encounter
--- OUTSIDE RECORDS SUMMARY | 2024-09-11 17:12 | XMS_ITS | Encounter Summary ---
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 Oral, 3 TIMES DAILY, First dose on Wed05/27/21 at 1545, Until Discontinued, Routine Given 05/29/2021 8:03 AM EDT 200 mg Given 05/28/2021 8:31 PM EDT 200 mg Given 05/28/2021 2:13 PM EDT 200 mg gabapentin (Neurontin) capsule 400 mg 400 mg, Oral, ONCE, 1 dose, On Wed05/27/21 at 0116, Routine Given 05/27/2021 1:37 AM EDT 400 mg heparin (porcine) (5,000 units/1 mL) subcutaneous injection 5,000 Units 5,000 Units, Subcutaneous, EVERY 8 HOURS SCHEDULED, First dose on Wed05/27/21 at 0155, Until Discontinued, Routine Given 05/29/2021 5:28 AM EDT 5,000 Units Left Lower Quadrant Given 05/28/2021 9:46 PM EDT 5,000 Units Given 05/28/2021 2:13 PM EDT 5,000 Units HYDROmorphone (Dilaudid) tablet 2 mg 2 mg, Oral, EVERY 4 HOURS PRN, Starting on Wed05/26/21 at 1630, Until Wed05/27/21 at 1414, Pain, Routine Given 05/27/2021 1:13 PM EDT 2 mg Given 05/27/2021 8:43 AM EDT 2 mg Given 05/27/2021 4:27 AM EDT 2 mg lactated ringers infusion 100 mL/hr, Intravenous, CONTINUOUS, Starting on Wed05/26/21 at 1540, Until Wed05/26/21 at 1939 New Bag 05/26/2021 3:51 PM EDT 100 mL/hr 100 mL/hr lactulose (Chronulac) (0.67 gram/mL) oral liquid 10 g 10 g, Oral, 2 TIMES DAILY PRN, Starting on Wed05/27/21 at 2111, Until Wed05/29/21 at 0555, Constipation, Administer if needed per patient's routine or if no bowel movement within 48 hours to achieve: (1) One bowel movement at least every 48 hours, AND (2) Without straining. Start with 30 mL orally. If no bowel movement within 24 hours, increase to 60 mL orally Once Daily PRN. If multiple PRN bowel medications ordered, start with polyethylene glycol, then lactulose, then oral bisacodyl, then bisacodyl suppository, then magnesium citrate, then tap water enema. Multiple medications may be given concomitantly for constipation., Routine Given 05/29/2021 4:36 AM EDT 10 g lactulose (Chronulac) (0.67 gram/mL) oral liquid 20 g 20 g, Oral, 2 TIMES DAILY, First dose (after last modification) on Josee 05/29/21 at 2100, Until Discontinued, Administer if needed per patient's routine or if no bowel movement within 48 hours to achieve: (1) One bowel movement at least every 48 hours, AND (2) Without straining. Start with 30 mL orally. If no bowel movement within 24 hours, increase to 60 mL orally Once Daily PRN. If multiple PRN bowel medications ordered, start with polyethylene glycol, then lactulose, then oral bisacodyl, then bisacodyl suppository, then magnesium citrate, then tap water enema. Multiple medications may be given concomitantly for constipation., Routine lidocaine (Lidoderm) 5% topical patch 3 patch 3 patch, Transdermal, EVERY 24 HOURS, First dose on Wed05/26/21 at 2151, Until Discontinued, Apply patch(es) for 12 hours, and then remove for 12 hours., Routine Patch Applied 05/28/2021 9:46 PM EDT 3 patches 08- Back Lower (Right) Patch Applied 05/27/2021 9:05 PM EDT 3 patches 06- Back Upper (Right) Patch Applied 05/26/2021 10:02 PM EDT 3 patches 07- Back Lower (Left) lidocaine (Lidoderm) topical patch REMOVAL Transdermal, EVERY 24 HOURS, First dose on Wed05/27/21 at 0948, Until Discontinued, Remove lidocaine 5% patch lisdexamfetamine (Vyvanse) capsule 70 mg 70 mg, Oral, DAILY, First dose on Wed05/28/21 at 1000, Until Discontinued, Routine Given 05/29/2021 8:03 AM EDT 70 mg Given 05/28/2021 10:12 AM EDT 70 mg melatonin tablet 6 mg 6 mg, Oral, NIGHTLY, First dose on Wed05/27/21 at 0116, Until Discontinued, Routine Given 05/28/2021 8:31 PM EDT 6 mg Given 05/27/2021 8:04 PM EDT 6 mg Given 05/27/2021 1:37 AM EDT 6 mg methocarbamoL (Robaxin) tablet 750 mg 750 mg, Oral, 3 TIMES DAILY, First dose on Wed05/26/21 at 2151, Until Discontinued, Routine Given 05/29/2021 8:03 AM EDT 750 mg Given 05/28/2021 8:30 PM EDT 750 mg Given 05/28/2021 2:12 PM EDT 750 mg oxyCODONE (Roxicodone) tablet 10 mg 10 mg, Oral, EVERY 4 HOURS PRN, Starting on Wed05/27/21 at 1444, Until Wed05/29/21 at 1559, Pain, moderate pain (4-6), May give additional 5 mg in 30 minutes once if pain not relieved., Routine Given 05/29/2021 11:02 AM EDT 10 mg Given 05/29/2021 6:55 AM EDT 10 mg Given 05/29/2021 2:39 AM EDT 10 mg oxyCODONE (Roxicodone) tablet 5 mg 5 mg, Oral, EVERY 4 HOURS PRN, Starting on Wed05/27/21 at 1444, Until Wed05/29/21 at 1559, Pain, mild pain (1-3), May give additional 5 mg in 30 minutes once if pain not relieved., Routine Given 05/27/2021 7:03 PM EDT 5 mg polyethylene glycoL (Miralax) packet 17 g 17 g, Oral, 2 TIMES DAILY, First dose on Wed05/27/21 at 2200, Until Discontinued, Administer if no bowel movement within 48 hours to achieve: (1) One bowel movement at least every 48 hours, AND (2) without straining. If multiple PRN bowel medications ordered, start with polyethylene glycol, then lactulose, then oral bisacodyl, then bisacodyl suppository, then magnesium citrate, then tap water enema. Multiple medications may be given concomitantly for constipation., Routine Given 05/29/2021 8:05 AM EDT 17 g Given 05/28/2021 8:30 PM EDT 17 g Given 05/28/2021 8:09 AM EDT 17 g senna-docusate (Pericolace) 8.6-50 mg per tablet 2 tablet 2 tablet, Oral, 2 TIMES DAILY, First dose on Wed05/27/21 at 0155, Until Discontinued, Routine Given 05/29/2021 8:03 AM EDT 2 tablets Given 05/28/2021 8:30 PM EDT 2 tablets Given 05/28/2021 8:08 AM EDT 2 tablets sodium chloride 0.9 % (flush) (BD PosiFlush Normal Saline 0.9) flush 5 mL 5 mL, Intravenous, 2 TIMES DAILY, First dose on Wed05/27/21 at 0155, Until Discontinued, Recovery (Recovery-Hospital Unit), Routine Given 05/29/2021 8:06 AM EDT 5 mLs Given 05/28/2021 9:50 PM EDT 5 mLs Given 05/28/2021 8:09 AM EDT 5 mLs documented in this encounter Active and Recently Administered Medications Times are shown in EDT. Scheduled Medication Order 05/27/2021 05/28/2021 05/29/2021 acetaminophen (Tylenol) tablet 975 mg 975 mg, Oral, EVERY 6 HOURS SCHEDULED, First dose (after last modification) on Wed05/27/21 at 0000, Until Discontinued, Maximum dose of acetaminophen is 4000 mg from all sources in 24 hours. When ordered for pain, acetaminophen should be given even when other ordered pain medications are indicated. , Routine 0550 (Given - Provider: Bernadette Campa RN)1200 (Given - Provider: Kvng Conti RN)1824 (Given - Provider: Sue Roberts RN) 0047 (Given - Provider: Monika Baca, [place])0548 (Given - Provider: Monika Baca RN)1129 (Given - Provider: Martha Brandon, [place])1713 (Given - Provider: Martha Brandon, [place]) 0103 (Given - Provider: Alcides Tong, [place])0528 (Given - Provider: Alcides Tong, [place])1153 (Given - Provider: Martha Brandon, [place]) buprenorphine-naloxone (Suboxone) 8-2 mg disintegrating tablet 1.5 tablet 1.5 tablet (12 mg of opiate), Sublingual, DAILY, First dose on Wed05/26/21 at 1632, Until Discontinued, Routine, Is patient on buprenorphine as an outpatient? Yes- prescribed 0848 (Given - Provider: Kvng Conti RN) 0808 (Given - Provider: Martha Brandon RN) 0804 (Given - Provider: Martha Brandon RN) dextromethorphan (Robitussin) capsule 15 mg 15 mg, Oral, EVERY 4 HOURS, First dose on Wed05/27/21 at 1600, Until Discontinued, Routine 1538 (Given - Provider: Abby Calvert, [place])2003 (Given - Provider: Sue Roberts RN) 0047 (Given - Provider: Monika Baca, [place])0415 (Given - Provider: Monika Baca, RN)0808 (Given - Provider: Martha Brandon RN)1129 (Given - Provider: Martha Brandon RN)1528 (Given - Provider: Martha Brandon RN)2030 (Given - Provider: Alcides Tong RN) 0103 (Given - Provider: Alcides Tong RN)0432 (Given - Provider: Alcides Tong RN)0803 (Given - Provider: Martha Brandon RN)1153 (Given - Provider: Martha Brandon RN) gabapentin (Neurontin) capsule 200 mg 200 mg, Oral, 3 TIMES DAILY, First dose on Wed05/27/21 at 1545, Until Discontinued, Routine 1538 (Given - Provider: Abby Calvert RN)2002 (Given - Provider: Sue Roberts RN) 0808 (Given - Provider: Martha Brandon RN)1413 (Given - Provider: Martha Brandon RN)203 (Given - Provider: Alcides Tong RN) 0803 (Given - Provider: Martha Brandon RN) gabapentin (Neurontin) capsule 400 mg (COMPLETED) 400 mg, Oral, ONCE, 1 dose, On Wed05/27/21 at 0116, Routine 0137 (Given - Provider: Ailin Mckeon RN) heparin (porcine) (5,000 units/1 mL) subcutaneous injection 5,000 Units 5,000 Units, Subcutaneous, EVERY 8 HOURS SCHEDULED, First dose on Wed05/27/21 at 0155, Until Discontinued, Routine 0155 (Hold - Provider: Ailin Mckeon RN - Reason: See comment)0550 (Given - Provider: Bernadette Campa RN)1314 (Given - Provider: Kvng Conti, RN)2104 (Given - Provider: Sue Roberts RN) 0549 (Given - Provider: Monika Baca RN)1413 (Given - Provider: Martha Brandon, RN)214 (Given - Provider: Alcides Tong, [place]) 0528 (Given - Provider: Alcides Tong, RN) lactulose (Chronulac) (0.67 gram/mL) oral liquid 20 g 20 g, Oral, 2 TIMES DAILY, First dose (after last modification) on Wed05/29/21 at 2100, Until Discontinued, Administer if needed per patient's routine or if no bowel movement within 48 hours to achieve: (1) One bowel movement at least every 48 hours, AND (2) Without straining. Start with 30 mL orally. If no bowel movement within 24 hours, increase to 60 mL orally Once Daily PRN. If multiple PRN bowel medications ordered, start with polyethylene glycol, then lactulose, then oral bisacodyl, then bisacodyl suppository, then magnesium citrate, then tap water enema. Multiple medications may be given concomitantly for constipation., Routine lidocaine (Lidoderm) 5% topical patch 3 patch(Linked Group 1) 3 patch, Transdermal, EVERY 24 HOURS, First dose on Wed05/26/21 at 2151, Until Discontinued, Apply patch(es) for 12 hours, and then remove for 12 hours., Routine 2104 (Patch Applied - Provider: Sue Roberts RN) 2145 (Patch Applied - Provider: Alcides Tong RN - Comment: low back rt and left) lidocaine (Lidoderm) topical patch REMOVAL(Linked Group 1) Transdermal, EVERY 24 HOURS, First dose on Wed05/27/21 at 0948, Until Discontinued, Remove lidocaine 5% patch 0948 (Patch Removed - Provider: Kvng Conti RN) 0830 (Patch Removed - Provider: Martha Brandon, [place]) 0948 (Patch Removed - Provider: Martha Brandon, [place]) lisdexamfetamine (Vyvanse) capsule 70 mg 70 mg, Oral, DAILY, First dose on Wed05/28/21 at 1000, Until Discontinued, Routine 1012 (Given - Provider: Martha Brandon RN) 0803 (Given - Provider: Martha Brandon, [place]) melatonin tablet 6 mg 6 mg, Oral, NIGHTLY, First dose on Wed05/27/21 at 0116, Until Discontinued, Routine 0137 (Given - Provider: Ailin Mckeon, RN)2003 (Given - Provider: Sue Roberts, RN) 2030 (Given - Provider: Alcides Tong, RN) methocarbamoL (Robaxin) tablet 750 mg 750 mg, Oral, 3 TIMES DAILY, First dose on Wed05/26/21 at 2151, Until Discontinued, Routine 0844 (Given - Provider: Kvng Conti, RN)141 (Given - Provider: Becky Rojo, [place])2003 (Given - Provider: Sue Roberts RN) 08 (Given - Provider: Martha Brandon RN)141 (Given - Provider: Martha Brandon, [place])2029 (Given - Provider: Alcides Tong RN) 08 (Given - Provider: Martha Brandon RN) polyethylene glycoL (Miralax) packet 17 g 17 g, Oral, 2 TIMES DAILY, First dose on Wed05/27/21 at 2200, Until Discontinued, Administer if no bowel movement within 48 hours to achieve: (1) One bowel movement at least every 48 hours, AND (2) without straining. If multiple PRN bowel medications ordered, start with polyethylene glycol, then lactulose, then oral bisacodyl, then bisacodyl suppository, then magnesium citrate, then tap water enema. Multiple medications may be given concomitantly for constipation., Routine 2200 (Not Given - Provider: Sue Roberts RN - Reason: Patient/family refused) 08 (Given - Provider: Martha Brandon RN)2029 (Given - Provider: Alcides Tong, [place]) 0805 (Given - Provider: Martha Brandon RN) senna-docusate (Pericolace) 8.6-50 mg per tablet 2 tablet 2 tablet, Oral, 2 TIMES DAILY, First dose on Wed05/27/21 at 0155, Until Discontinued, Routine 0155 (Hold - Provider: Ailin Mckeon, [place] - Reason: Patient/family refused)042 (Given - Provider: Bernadette Campa RN)0845 (Given - Provider: Kvng Conti, RN)2001 (Given - Provider: Sue Roberts RN) 807 (Given - Provider: Martha Brandon, [place])2029 (Given - Provider: Alcides Tong, [place]) 802 (Given - Provider: Martha Brandon, RN) sodium chloride 0.9 % (flush) (BD PosiFlush Normal Saline 0.9) flush 5 mL 5 mL, Intravenous, 2 TIMES DAILY, First dose on Wed05/27/21 at 0155, Until Discontinued, Recovery (Recovery-Hospital Unit), Routine 426 (Given - Provider: Bernadette Campa RN)851 (Given - Provider: Kvng Conti, [place])2003 (Given - Provider: Sue Roberts RN) 808 (Given - Provider: Martha Brandon, [place])2149 (Given - Provider: Alcides Tong, [place]) 805 (Given - Provider: Martha Brandon, [place]) PRN Medication Order 05/27/2021 05/28/2021 05/29/2021 bisacodyL (Dulcolax) suppository 10 mg 10 mg, Rectal, DAILY PRN, Starting on Wed05/27/21 at 2111, Until Wed05/29/21 at 1559, Constipation, Administer if no bowel movement within 48 hours to achieve: (1) One bowel movement at least every 48 hours, AND (2) without straining. If multiple PRN bowel medications ordered, start with polyethylene glycol, then lactulose, then oral bisacodyl, then bisacodyl suppository, then magnesium citrate, then tap water enema. Multiple medications may be given concomitantly for constipation., Routine 740 (Given - Provider: Martha Brandon, [place]) clonazePAM (KlonoPIN) tablet 1 mg 1 mg, Oral, NIGHTLY PRN, Starting on Wed05/26/21 at 2148, Until Wed05/29/21 at 1559, Anxiety, DO NOT SPLIT, CRUSH OR OPEN, Routine 2002 (Given - Provider: Seu Roberts RN) 2036 (Given - Provider: Alcides M Kiragu, RN) HYDROmorphone (Dilaudid) tablet 2 mg (CANCELED) 2 mg, Oral, EVERY 4 HOURS PRN, Starting on Wed05/26/21 at 1630, Until Wed05/27/21 at 1414, Pain, Routine 0427 (Given - Provider: Bernadette Campa RN)0843 (Given - Provider: Kvng Conti, [place])1313 (Given - Provider: Kvng Conti, [place]) lactulose (Chronulac) (0.67 gram/mL) oral liquid 10 g (CANCELED) 10 g, Oral, 2 TIMES DAILY PRN, Starting on Wed05/27/21 at 2111, Until Wed05/29/21 at 0555, Constipation, Administer if needed per patient's routine or if no bowel movement within 48 hours to achieve: (1) One bowel movement at least every 48 hours, AND (2) Without straining. Start with 30 mL orally. If no bowel movement within 24 hours, increase to 60 mL orally Once Daily PRN. If multiple PRN bowel medications ordered, start with polyethylene glycol, then lactulose, then oral bisacodyl, then bisacodyl suppository, then magnesium citrate, then tap water enema. Multiple medications may be given concomitantly for constipation., Routine 0436 (Given - Provider: Alcides Tong RN) lidocaine (Xylocaine) 1% (10 mg/mL) injection 3 mg 3 mg (0.3 mL), Subcutaneous, ONCE PRN, 1 dose, Starting on Wed05/27/21 at 0153, Until Wed05/29/21 at 1559, for discomfort with PIV insertion, Recovery (Recovery-Hospital Unit), Routine naloxone (Narcan) (0.4 mg/mL) injection 0.2 mg 0.2 mg, Intravenous, EVERY 1 MIN PRN, Starting on Wed05/27/21 at 0153, Until Wed05/29/21 at 1559, Opioid Reversal, If respiratory rate less than 6 OR the patient is unable to arouse OR SpO2 is declining, Give for respiratory rate of less than or equal to 6 and patient is heavily sedated or unarousable. May repeat every 60 seconds to increase respiratory rate. DO NOT exceed 2 mg total dose., Recovery (Recovery-Hospital Unit), Routine oxyCODONE (Roxicodone) tablet 10 mg(Linked Group 2) 10 mg, Oral, EVERY 4 HOURS PRN, Starting on Wed05/27/21 at 1444, Until Wed05/29/21 at 1559, Pain, moderate pain (4-6), May give additional 5 mg in 30 minutes once if pain not relieved., Routine 1823 (Given - Provider: Sue Roberts RN)190 (See Alternative - Provider: Sue Roberts RN) 0047 (Given - Provider: Monika Baca RN)0446 (Given - Provider: Monika Baca RN)0910 (Given - Provider: Martha Brandon, [place])141 (Given - Provider: Martha Brandon, [place])182 (Given - Provider: Martha Brandon, [place])222 (Given - Provider: Alcides Tong, [place]) 0239 (Given - Provider: Alcides Tong, [place])0655 (Given - Provider: Sangita King RN)1102 (Given - Provider: Martha Brandon RN) oxyCODONE (Roxicodone) tablet 5 mg(Linked Group 2) 5 mg, Oral, EVERY 4 HOURS PRN, Starting on Wed05/27/21 at 1444, Until Wed05/29/21 at 1559, Pain, mild pain (1-3), May give additional 5 mg in 30 minutes once if pain not relieved., Routine 1823 (See Alternative - Provider: Sue Roberts RN)190 (Given - Provider: Sue Roberts RN) 0047 (See Alternative - Provider: Monika Baca RN)0446 (See Alternative - Provider: Monika Baca RN)0910 (See Alternative - Provider: Martha Brandon, [place])141 (See Alternative - Provider: Martha Brandon RN)182 (See Alternative - Provider: Martha Brandon RN)2222 (See Alternative - Provider: Alcides Tong, [place]) 0239 (See Alternative - Provider: Alcides Tong, [place])0655 (See Alternative - Provider: Sangita King RN)1102 (See Alternative - Provider: Martha Brandon RN) sodium chloride 0.9 % (flush) (BD PosiFlush Normal Saline 0.9) flush 5-20 mL 5-20 mL, Intravenous, EVERY 1 MIN PRN, Starting on Wed05/27/21 at 0153, Until Josee 05/29/21 at 1559, flush, Flush pertains to all indwelling lines. Flush per protocol found in the job aid using the link provided on this medication record., Recovery (Recovery-Hospital Unit), Routine Linked Groups Order Group 1: lidocaine (Lidoderm) 5% topical patch 3 patchJump to med 3 patch, Transdermal, EVERY 24 HOURS, First dose on Wed05/26/21 at 2151, Until Discontinued, Apply patch(es) for 12 hours, and then remove for 12 hours., Routine And lidocaine (Lidoderm) topical patch REMOVALJump to med Transdermal, EVERY 24 HOURS, First dose on Wed05/27/21 at 0948, Until Discontinued, Remove lidocaine 5% patch Group 2: oxyCODONE (Roxicodone) tablet 5 mgJump to med 5 mg, Oral, EVERY 4 HOURS PRN, Starting on Wed05/27/21 at 1444, Until Josee 05/29/21 at 1559, Pain, mild pain (1-3), May give additional 5 mg in 30 minutes once if pain not relieved., Routine Or oxyCODONE (Roxicodone) tablet 10 mgJump to med 10 mg, Oral, EVERY 4 HOURS PRN, Starting on Wed05/27/21 at 1444, Until Josee 05/29/21 at 1559, Pain, moderate pain (4-6), May give additional 5 mg in 30 minutes once if pain not relieved., Routine Or oxyCODONE (Roxicodone) tablet 15 mg (CANCELED) 15 mg, Oral, EVERY 4 HOURS PRN, Starting on Wed05/27/21 at 1444, Until Wed05/27/21 at 2108, Pain, severe pain or opiate tolerant patient (7-10), Do not start patient with 15 mg dose. Do not give 15 mg if patient is opiate niave., Routine documented in this encounter Care Teams Pl Sql Programmer Relationship Specialty Start Date End Date Breanna Lopez MD [facility] [facility] [place] [address] PCP - General Family Medicine 11/28/1998 documented as of this encounter
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
--- OUTSIDE RECORDS SUMMARY | 2024-09-11 17:12 | XMS_ITS | Encounter Summary ---
Author Organization [facility] Address [address] [place] [address] Care Team Providers Care Electronic Engraver Name Role Phone Breanna Lopez MD Primary Care Provider [phone] Reason for Visit * Reason Onset Date Comments Coordination Of Care 02/05/2023 Social Work Support Encounter Details Date Type Department Care Team (Late st Contact Info) Description 02/05/2023 Telephone [facility] [address] [place] [address] Yan Mukherjee, [facility] Coordination Of Care (Social Work Support) Social History Tobacco Use Types Packs/Day Years [...] Progress Notes * Yan Mukherjee RPH - 02/05/2023 1503 EDT Current life barriers: s/p knee replacement and with severe RA. At the moment. Broke back a year ago and has significant PTSD Has to go to human services and [facility] vs all providers in one clinic because human services doesn't have suboxone prescriber and dont know when they will have it again. Blister on toe that she tought was a pimple and tried popping it, but realized it was not a pimple.Now its getting a black bump on it in the center. Finds difficulty reaching out to a provider to review her toe given history of being turned away by multiple providers in the past. Feels this shouldbe reviewed by a cotton acreage measurer. Hasn't seen Dr. eMng since she didn't have a car, but does now. Recently mental health has been not good secondary to physical health. Current support system: Feels supported in healthcare - has PCP, cotton acreage measurer, and therapist. Coordinating medications through [facility] and [facility] specialty pharmacy will help. Staying at [facility] and has security with food. Son has a stable job and is in college. Feels that her food and gas situation is stable at this time. Outcomes: patient declining social work as she feels she has sufficient support systems for all current social/medical barriers. Patient verbalized gratitutde for outreach and understands that she can call us any time to link her to support if needed. Wants to schedule an appointment with Dr. Mengfor evaluation of her toe. Okay for us to call her by 4/5 if she doesn't reach out so that she doesn't get lost to folow up. * Yan Mukherjee RPH - 02/05/2023 1043 EDT Patient reporting significant barriers to care, work, and basic life essentials. Note from ambulatory pharmacy encounter 01/26/23: She has had a lot of difficulty financially and says she is living on ~$900 a month. I've connected her with [facility] and let her know to get her outpatient meds transferred to mail order so [facility] could cover them. She also mentioned she has run out of gas several times over the past year, which makes meconcerned for her. I'm wondering if there is a way you can get her connected with a social media senior associate about any potential assistance as far as gas/utilities may go? [facility] specialty pharmacy coordinating extra support for medication access and a request for social work has been made by patient to pharmacy. Will outreach to patient to discuss support options and initiate referral for social work interventions. ?? Yan Mukherjee PharmD (he/him) Ambulatory Pharmacist Clinician [facility] 02/05/2023 documented in this encounter Miscellaneous Notes * Telephone Encounter - Ewa Roberts - 02/12/2023 1145 EDT Appt has been scheduled for 04/09 * Telephone Encounter - Ewa Roberts - 02/10/2023 0940 EDT Spoke with patient, she is on the road, requested us to call back in about an hour. documented in this encounter Plan of Treatment Not on file documented as of this encounter Visit Diagnoses Not on filedocumented in this encounter Historical Medications * This list may reflect changes made after this encounter. Medication Sig Dispensed Refills Start Date End Date Prazosin (MINIPRESS) 2 mg capsule TAKE ONE CAPSULE BY MOUTH AT BEDTIME FOR NIGHTMARES AND FLASHBACKS 01/19/2023 added in this encounter Care Teams Electronic Engraver Relationship Specialty Start Date End Date Breanna Lopez MD [address] [place] [phone] PCP - General 05/22/09 documented as of this encounter
--- OUTSIDE RECORDS SUMMARY | 2024-09-11 17:12 | XMS_ITS | Encounter Summary ---
Author Organization [facility] Address [address] [place] [address] Care Team Providers Care Healthcare Administration Internship Name Role Phone Breanna Lopez MD Primary Care Provider [phone] Encounter Details Date Type Department Care Team (Late st Contact Info) Description 06/16/2023 Specialty Pharmacy [facility] Ambulatory Pharmacy - [facility] [address] [place] [address] Jessie Pepe, [facility] Social History Tobacco Use Types Packs/Day Years [...] as of this encounter Progress Notes * Rocael Jordan - 06/16/2023 1026 EDT Prescription Receipt by [facility] Specialty Pharm[facility] Date Received: 06/15/23 Medication: Sublocade 300mg/1.5mL Sent by: Cielo Argentina Clinic: Non-[facility] Provider: Cielo Arellano Phone number: [phone] Benefits Investigation Results: No PA required Comments: Will fax outside provider for chart notes Prescription copy available in scans: YES Relevant clinical documents in scans (if applicable): YES Routed to appropriate Pharmacist: YES [facility] Specialty Pharmacy: [phone] * Jessie Pepe RP - 06/16/2023 1026 EDT Hillary Reich is a 42 y.o. female -- pharmacist clinical review of initial prescription for Buprenorphine ER injection (Sublocade). Treatment information: Prescriber: Cielo Elaine Prescriber Contact Info: [facility] [phone] Buprenorphine ER (Sublocade) Initial Dose: 300 mg Transmucosal Buprenorphine Dose: 12 mg/day Transmucosal Buprenorphine Dose Sublocade Inj #1 Sublocade Inj #2 Sublocade Inj Maintenance 8-18 mg/day 300 mg 100 mg* 100 mg 20-24 mg/day 300 mg 300 mg 100 mg *For patients still experiencing cravings or withdrawal symptoms after initial 300 mg dose, considering giving 300 mg as second dose The maintenance dose may be increased to 300 mg for patients who tolerate the 100 mg dose but do not demonstrate satisfactory clinical response REMS requirements met: Yes Naloxone prescribed: N/A Medication Management Notes: Patient will be administered the medication at [facility]. To contact the clinic call: [phone] Baseline labs: Lab Results Component Value Date/Time CREATININE 0.67 11/06/2020 11:26 AST 23 11/02/2007 16:10 ALT 23 11/02/2007 16:10 PLT 257 11/06/2020 11:27 TBIL <0.5 03/16/2007 11:30 LABALBU 4.0 11/02/2007 16:10 LABALBU 4.1 04/26/2007 14:15 LABALBU 3.9 03/16/2007 11:30 LABALBU 4.2 02/22/2007 15:03 LABALBU 4.4 09/28/2006 15:34 Current medications: Outpatient Encounter Medications as of 06/16/2023 Medication Sig ??? acetaminophen (TYLENOL) 325 mg tablet Take 975 mg by mouth every 6 hours. (Patient not taking: Reported on 10/08/2021) ??? acetaminophen/diphenhydramine (TYLENOL PM ORAL) As needed ??? buprenorphine 300 mg/1.5 mL solution, extended rel syringe Inject 1.5 mL into the skin every 28days. Daily Max: 300 mg ??? [DISCONTINUED] buprenorphine-naloxone 12-[address] 1 Film under the tongue daily. ??? etanercept (ENBREL SURECLICK) 50 mg/mL (1 [...] capsule Take 1 Capsule by mouth daily. Daily Max: 10 mg ??? [DISCONTINUED] lisdexamfetamine (VYVANSE) 70 mg capsule Take 1 Capsule by mouth daily. ??? naproxen (NAPROSYN) 500 mg tablet Take 1 Tablet by mouth 2 times daily with breakfast and dinner. (Patient taking differently: Take 500 mg by mouth 2 times daily with breakfast and dinner. (alternating with Ibuprofen - not taking at same time)) ??? Prazosin (MINIPRESS) 2 mg capsule TAKE ONE CAPSULE BY MOUTH AT BEDTIME FOR NIGHTMARES AND FLASHBACKS ??? SF 5000 PLUS 1.1 % cream Use as directed. No facility-administered encounter medications on file as of 06/16/2023. Allergies: reviewed Drug Interactions and Management Plan: ??? DDI with current medication list checked ??? No drug-drug interactions identified Comorbidities: reviewed Coinfection/Vaccination Assessment: Vaccine Date Result HCV 10/13/22 Negative HBV 10/13/22 HBsAg -, anti-HBc -, anti-HBs + HIV 10/13/22 Negative TB N/A Additional Notes: N/A documented in this encounter Plan of Treatment Not on file documented as of this encounter Visit Diagnoses Not on filedocumented in this encounter Discontinued Medications Medication Sig Discontinue Reason Start Date End Da te buprenorphine-naloxone 12-3 mg filmIndications:Pain, joint, knee, right Place 1 Film under the tongue daily. Alternate therapy 06/16/2023 lisdexamfetamine (VYVANSE) 70 mg capsule Take 1 Capsule by mouth daily. Dose adjustment 06/16/2023 documented as of this encounter Historical Medications * This list may reflect changes made after this encounter. Medication Sig Dispensed Refills Start Date End Date lisdexamfetamine (VYVANSE) 10 mg capsule Take 1 Capsule by mouth daily. buprenorphine 300 mg/1.5 mL solution, extended rel syringe Inject 1.5 mL into the skin every 28 days. Other Name: Sublocade 08/16/2023 added in this encounter Care Teams Healthcare Administration Internship Relationship Specialty Start Date End Date Breanna Lopez MD [address] [place] [address] [phone] PCP - General 05/22/09 documented as of this encounter
--- OUTSIDE RECORDS SUMMARY | 2024-09-11 17:12 | XMS_ITS | Encounter Summary ---
Author Organization [facility] Address [address] [place] [address] Care Team Providers Care Director Of Curriculum Name Role Phone Breanna Lopez MD Primary Care Provider [phone] Reason for Visit * Reason Onset Date Comments Medication Management 02/18/2023 Encounter Details Date Type Department Care Team (Late st Contact Info) Description 02/18/2023 Telephone [facility] - [facility] Rheumatology [address] [place], [place] [phone] Tali Meng MD [address] [facility] [address] [place] [address] Medication Management Social History Tobacco Use Types Packs/Day Years [...] encounter Miscellaneous Notes * Telephone Encounter - Savannah Choi RPH - 03/03/2023 1329 EDT Attempted to return patient's call. Patient asked for a callback later today. Savannah Choi PharmD, BCPS Pharmacist Ambulatory Clinician - Rheumatology 03/03/2023 * Telephone Encounter - Maryann Gates - 02/18/2023 1123 EDT Pt hs questions about mail order pharmacy Please contact [phone] documented in this encounter Plan of Treatment Not on file documented as of this encounter Visit Diagnoses Not on filedocumented in this encounter Care Teams Director Of Curriculum Relationship Specialty Start Date End Date Breanna Lopez MD [address] [place] [address] [phone] PCP - General 05/22/09 documented as of this encounter
--- OUTSIDE RECORDS SUMMARY | 2024-09-11 17:13 | XMS_ITS | Encounter Summary ---
Author Organization [facility] Address [address] [place] [address] Care Team Providers Care New Car Sales Manager Name Role Phone Breanna Lopez MD Primary Care Provider [phone] Reason for Visit * Reason Onset Date Comments Medication Management 07/16/2022 Pharmacy 07/16/2022 Encounter Details Date Type Department Care Team (Late st Contact Info) Description 07/16/2022 Telephone [facility] - [facility] Rheumatology [address] [place], [place] [phone] Tali Meng MD [address] [facility] [address] [place] [address] Medication Management; Pharmacy Social History Tobacco Use Types Packs/Day Years [...] (ENBREL SURECLICK) 50 mg/mL (1 mL) subcutaneous penIndications:Seronegativ e rheumatoid arthritis ([facility]) Inject 1 mL into the skin once a week. 4 mL 5 07/16/2022 01/26/2023 documented in this encounter Miscellaneous Notes * Telephone Encounter - Gemma Mcknight - 07/16/2022 1645 EDT Patient returning call to Pharmacy, check writer connected patient * Telephone Encounter - Jinny Jones - 07/16/2022 1224 EDT Patient is calling has been in contact with [facility] in regards to Enbrel. Patient is statingthat pharmacy will not release stating that refill is too soon. Patient is in need of this medication since out. Patient is unsure on what to do at this time. Patient would like a call back in regards to this. Thank you. documented in this encounter Plan of Treatment Not on file documented as of this encounter Visit Diagnoses Diagnosis Seronegative rheumatoid arthritis ([facility]) Rheumatoid arthritis documented in this encounter Discontinued Medications Medication Sig Discontinue Reason Start Date End Da te etanercept (ENBREL SURECLICK) 50 mg/mL (1 mL) subcutaneous penIndications:Seronegati ve rheumatoid arthritis ([facility]) Inject 1 mL into the skin once a week. Reorder 08/20/2021 07/16/2022 documented as of this encounter Care Teams New Car Sales Manager Relationship Specialty Start Date End Date Breanna Lopez MD [address] [place] [phone] PCP - General 05/22/09 documented as of this encounter
--- OUTSIDE RECORDS SUMMARY | 2024-09-11 17:13 | XMS_ITS | Encounter Summary ---
Author Organization [facility] Address [address] [place] [address] Care Team Providers Care Box Chipper Name Role Phone Breanna Lopez MD Primary Care Provider [phone] Encounter Details Date Type Department Care Team (Late st Contact Info) Description 03/24/2021 Lab Requisition [facility] Pathology & Laboratory Medicine - [facility] [address] [place] [address] Outr Resulting Lab, Provider Social History Tobacco Use Types Packs/Day Years Used Date Smoking Tobacco: Every Day Cigarettes 1 29.5 Started: 03/01/1995 Smokeless Tobacco: Never Comments:chantix trying to u se that Alcohol Use Standard Drinks/Week Comments No 0 [...] REFLEX TO HCV RNA BY PCR Routine 03/24/2021 15:46 EDT HEPATITIS B SURFACE ANTIGEN Routine 03/24/2021 15:46 EDT HIV 1/2 ANTIGEN AND ANTIBODY, 4TH GENERATION Routine 03/24/2021 15:46 EDT documented in this encounter Results * HEPATITIS C AB W REFLEX TO HCV RNA BY PCR (03/24/2021 15:46 EDT) Hep C Antibody Negative Negative 03/25/2021 9:42 EDT [facility] Blood VENOUS BLOOD / Unknown 03/24/2021 15:46 EDT 03/24/2021 21:28 EDT Provider Outr Resulting Lab CHEMISTRY & BLOOD GAS ORDERABLES Performing Organization Address City/[facility]/ZIP Co de Phone Number [facility] [address] [place] [address] * HEPATITIS B SURFACE ANTIGEN (03/24/2021 15:46 EDT) Hep B Surface Ag Negative Negative 03/25/2021 8:58 EDT [facility] Blood VENOUS BLOOD / Unknown 03/24/2021 15:46 EDT 03/24/2021 21:28 EDT Provider Outr Resulting Lab CHEMISTRY & BLOOD GAS ORDERABLES Performing Organization Address City/[facility]/ZIP Co de Phone Number [facility] [address] [place] [address] * HIV 1/2 ANTIGEN AND ANTIBODY, 4TH GENERATION (03/24/2021 15:46 EDT) HIV 1 and 2 Antibody/p24 Antigen, 4th Generation Negative Negative 03/25/2021 9:58 EDT [facility] Comment: If acute HIV-1 infection is suspected in a high risk ??patient, submit plasma specimen for HIV-1 RNA quantitation test. Fourth Generation assay performed on the Siemens Centaur. Blood VENOUS BLOOD / Unknown 03/24/2021 15:46 EDT 03/24/2021 21:28 EDT Provider Outr Resulting Lab IMMUNOLOGY A ND SEROLOGY ORDERABLES [facility] [address] [place] [address] documented in this encounter Visit Diagnoses Not on filedocumented in this encounter Care Teams Box Chipper Relationship Specialty Start Date End Date Breanna Lopez MD [address] [place] [address] [phone] PCP - General 05/22/09 documented as of this encounter
--- OUTSIDE RECORDS SUMMARY | 2024-09-11 17:13 | XMS_ITS | Encounter Summary ---
Author Organization [facility] Address [address] [place] [address] Care Team Providers Care Finisher Map And Chart Name Role Phone Breanna Lopez MD Primary Care Provider Reason for Referral * Medication Prior Authorization (Routine) - Closed Specialty Diagnoses / Procedures Referred By [facility] Referred To Contact Pharmacy Diagnoses Rheumatoid arthritis involving multiple sites, unspecified whether rheumatoid factor present ([facility]) Tali Meng MD [address] [place] [address] [address] [place] [address] [facility] [address] [place] [address] Referral ID Status Reason Start Date Expiration Date Visits Requested Visits Authorized [id number] Closed Medication Prior Authorization 12/06/2020 1 1 Question Answer Medication to be Prior Authorized: Enbrel Sureclick 50mg once a week. Dispense 4 pens with 5 refills. Comments The purpose of this consult request is to inform the scheduling staff that a medication needs to be prior-authorized before it is prescribed and/or administered. PA renewal for Enbrel. Reason for Visit * Reason Onset Date Comments Prior Auth, Medication 12/06/2020 Patient c alled to say she received a notice stating that Enbrel PA needs to be renewed. Encounter Details Date Type Department Care Team ([facility] Contact Info) Description 12/06/2020 Telephone [facility] Rheumatology [address] [place] [phone] Gabbie Lomas RN Prior Auth, Medication (Patient called to say she received a notice stating that Anthony PARIKH needs to be renewed.) Social History Tobacco Use Types Packs/Day Years [...] encounter Miscellaneous Notes * Telephone Encounter - Dasia Goldstein RN - 12/09/2020 1155 EST Update for you, Thank you * Telephone Encounter - Jasmyne Holt - 12/09/2020 1141 EST Prior authorization form for Anthony Siddiqui has been scanned into chart. Please refer to scans for more details. Also [employer] called in regards to this prior authorization and is looking to initiate prior authorization as soon as possible. * Telephone Encounter - Gabbie Lomas RN - 12/06/2020 1625 EST PA renewal request routed to Annalise Alston per protocol. documented in this encounter Plan of Treatment Scheduled Referrals Name Type Priority Associated Diagnoses Order Schedule AMB MEDICATION PRIOR AUTHORIZATION Outpatient Referral Routine Rheumatoid arthritis involving multiple sites, unspecified whether rheumatoid factor present ([facility]) Ordered: 12/06/2020 documented as of this encounter Visit Diagnoses Diagnosis Rheumatoid arthritis involving multiple sites, unspecified whether rheumatoid factor present ([facility])- Primary documented in this encounter Care Teams Finisher Map And Chart Relationship Specialty Start Date End Date Breanna Lopez MD [address] [place] [address] [phone] PCP - General 05/22/09 documented as of this encounter
--- OUTSIDE RECORDS SUMMARY | 2024-09-11 17:13 | XMS_ITS | Encounter Summary ---
Author Organization [facility] Address [address] [place] [address] Care Team Providers Care Environmental Technician Name Role Phone Breanna Lopez MD Primary Care Provider [phone] Reason for Visit * Reason Onset Date Comments Appointment Related 10/18/2020 Encounter Details Date Type Department Care Team (Late st Contact Info) Description 10/18/2020 Telephone [facility] system - [facility] Rheumatology [address] [place] [address] Eduardo Short MD [facility] Rheumatology [address] [place] [address] [place] [phone] Appointment Related Social History Tobacco Use Types [...] encounter Miscellaneous Notes * Telephone Encounter - Ailin Ulloa - 10/18/2020 1606 EST Error documented in this encounter Plan of Treatment Not on file documented as of this encounter Visit Diagnoses Not on filedocumented in this encounter Care Teams Environmental Technician Relationship Specialty Start Date End Date Breanna Lopez MD [address] [place] [address] [phone] PCP - General 05/22/09 documented as of this encounter
--- OUTSIDE RECORDS SUMMARY | 2024-09-11 17:13 | XMS_ITS | Encounter Summary ---
Author Organization [facility] Address [address] [place] [address] Care Team Providers Care Instructional Technology Teacher Name Role Phone Breanna Lopez MD Primary Care Provider [phone] Encounter Details Date Type Department Care Team (Latest Contact Info) Description 11/18/2022 Lab Requisition [facility] Pathology & Laboratory Medicine - [facility] [address] [place] [address] Arya Carter MD [facility] IRON [address] [phone] Encounter for gynecological examination (general) (routine) without abnormal findings; Encounter for screening for human papillomavirus (HPV) Social History Tobacco Use Types Packs/Day Years [...] Procedure Name Priority Date/Time Associated Diagnosis Comments PAP TEST Today 11/18/2022 13:40 EST HPV DNA DETECTION WITH GENOTYPING, PCR Today 11/18/2022 13:40 EST documented in this encounter Results * HUMAN PAPILLOMAVIRUS (HPV) DETECTION-HIGH RISK TYPES (11/18/2022 13:40 EST) HPV other High Risk types, PCR Negative Negative 11/27/2022 16:15 [facility] Comment:No E6 or E7 mRNA is detected from HPV types 16,18,31,33,35,39,45,51,52,56,58,59,66, and 68 by facility supervisor mediated amplification. Papanicolaou smear specimen (specimen) CERVIX UTERI STRUCTURE / Unknown 11/18/2022 13:40 EST 11/27/2022 10:18 EST Arya Carter MD MICROBIOLOGY - GEN ERAL ORDERABLES [facility] [address] [place] [address] * PAP TEST (11/18/2022 13:40 EST) Specimens A. Cervix and/or Endocervix , ThinPrep Imaging System with Manual Evaluation 11/27/2022 16:15 [facility] Specimen Adequacy Satisfactory for Evaluation - transformation zone component present 11/27/2022 16:15 [facility] General Categorization Negative for intraepithelial lesion or malignancy 11/27/2022 16:15 [facility] Descriptive Diagnosis Bacteria present morphologically consistent with Actinomyces species. Shift in marina present suggestive of bacterial vaginosis. 11/27/2022 16:15 [facility] Attestation By the signature below, the attending physician certifies that they have personally conducted a gross and/or microscopic examination of the described specimens and rendered or confirmed the above diagnosis. 11/27/2022 16:15 [facility] at 1615 Clinical History See below 11/27/19 16:15 [facility] HPV The result for the Human Papillomavirus (HPV) Detection-High Risk Types is Negative. No E6 or E7 mRNA is detected from HPV types 16,18,31,33,35,39 ,45,51,52,56,58,5 9,66, and 68 by facility supervisor mediated amplification.Chichi ting was performed on specimen [id number] and was resulted on 11/27/2022 1615 EST by ANANT, LAB INSTRUMENT RESULTS IN 11/27/2022 16:15 [facility] Performing Lab [facility] 11/27/2022 16:15 [facility] Scanned Images 11/27/2022 16:15 [facility] Papanicolaou smear specimen (specimen) CERVIX UTERI STRUCTURE / Unknown 11/18/2022 13:40 EST 11/19/2022 11:30 EST Arya Carter MD PATHOLOGY ORDERABL ES [facility] [address] [place] [address] documented in this encounter Visit Diagnoses Diagnosis Encounter for gynecological examination (general) (routine) without abnormal findings Encounter for screening for human papillomavirus (HPV) Special screening examination for human papillomavirus (HPV) documented in this encounter Care Teams Instructional Technology Teacher Relationship Specialty Start Date End Date Breanna Lopez MD [address] [place] [phone] PCP - General 05/22/09 documented as of this encounter
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
--- OUTSIDE RECORDS SUMMARY | 2024-09-11 17:13 | XMS_ITS | Encounter Summary ---
Author Organization [facility] Address [address] [place] [address] Care Team Providers Care Door Opener Name Role Phone Breanna Lopez MD Primary Care Provider [phone] Encounter Details Date Type Department Care Team (Late st Contact Info) Description 09/10/2022 Specialty Pharmacy [facility] Ambulatory Pharmacy - [facility] [address] [place] [address] Yan Mukherjee, [facility] Social History Tobacco Use Types Packs/Day Years [...] as of this encounter Progress Notes * Halley Mcguire - 09/10/2022 1510 EDT [facility] Specialty Pharmacy Delivery Information Hours: Wednesday-Wednesday 8:30am - 5:00pm *Pharmacist available numerical control operator 31/05 Delivery Service: [facility] Delivery Window: 10am - 2pm Date of Delivery: 09/30/22 Tracking # :[id number] documented in this encounter Plan of Treatment Not on file documented as of this encounter Visit Diagnoses Not on filedocumented in this encounter Care Teams Door Opener Relationship Specialty Start Date End Date Breanna Lopez MD [address] [place] [phone] PCP - General 05/22/09 documented as of this encounter
--- OUTSIDE RECORDS SUMMARY | 2024-09-11 17:13 | XMS_ITS | Encounter Summary ---
Author Organization [facility] Address [address] [place] [address] Care Team Providers Care Fiber Optics Technician Name Role Phone Breanna Lopez MD Primary Care Provider [phone] Reason for Visit * Reason Onset Date Comments Medications Refill 01/26/2023 Encounter Details Date Type Department Care Team (Late st Contact Info) Description 01/26/2023 Telephone [facility] [place] [address] [place], [place] [phone] Tali Meng MD [address] [facility] [address] [place] [address] Medications Refill Social History Tobacco [...] (1 mL) subcutaneous penIndications:Seronegativ e rheumatoid arthritis ([facility]) Inject 1 mL into the skin once a week. 4 mL 5 01/26/2023 09/15/2023 documented in this encounter Miscellaneous Notes * Telephone Encounter - Keri Dueñas - 01/26/2023 1115 EDT Medication Request Medication: enbrel Medication refill: yes Medication dose change: no Refill due: 02/05 Pharmacy: [email or web address] Next appt: Visit date not found documented in this encounter Plan of Treatment Not on file documented as of this encounter Visit Diagnoses Diagnosis Seronegative rheumatoid arthritis ([facility]) Rheumatoid arthritis documented in this encounter Discontinued Medications Medication Sig Discontinue Reason Start Date End Da te etanercept (ENBREL SURECLICK) 50 mg/mL (1 mL) subcutaneous penIndications:Seronegati ve rheumatoid arthritis ([facility]) Inject 1 mL into the skin once a week. Reorder 07/16/2022 01/26/2023 documented as of this encounter Care Teams Fiber Optics Technician Relationship Specialty Start Date End Date Breanna Lopez MD [address] [place] [phone] PCP - General 05/22/09 documented as of this encounter
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
--- OUTSIDE RECORDS SUMMARY | 2024-09-11 17:13 | XMS_ITS | Encounter Summary ---
Author Organization [facility] Address [address] [place] [address] Care Team Providers Care Handicraft Or Hobby Shop Manager Name Role Phone Breanna Lopez MD Primary Care Provider [phone] Reason for Visit * Reason Comments Other Encounter Details Date Type Department Care Team (Late st Contact Info) Description 07/03/2022 Refill [facility] Rheumatology [address] [place], [place] [phone] Tali Meng MD [address] [facility] [address] [place] [phone] Other Social History Tobacco Use Types Packs/Day Years [...] encounter Miscellaneous Notes * Telephone Encounter - Mirela Gibbons RN - 07/03/2022 0838 EDT Last visit note reviewed. Last follow up was cancelled and we have been unable to reach her to reschedule. LVM for patient requesting callback from patient to schedule follow up. Advised her that we will be refusing the refill request at this time as it is important for her safety to have follow upto continue prescribing this medication. documented in this encounter Plan of Treatment Not on file documented as of this encounter Visit Diagnoses Diagnosis Seronegative rheumatoid arthritis ([facility]) Rheumatoid arthritis documented in this encounter Care Teams Handicraft Or Hobby Shop Manager Relationship Specialty Start Date End Date Breanna Lopez MD [address] [place] [phone] PCP - General 05/22/09 documented as of this encounter
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
--- OUTSIDE RECORDS SUMMARY | 2024-09-11 17:13 | XMS_ITS | Encounter Summary ---
Author Organization [facility] Address [address] [place] [address] Care Team Providers Care Spray Machine Operator Name Role Phone Breanna Lopez MD Primary Care Provider [phone] Encounter Details Date Type Department Care Team (Late st Contact Info) Description 01/29/2022 Lab Requisition [facility] Pathology & Laboratory Medicine - [facility] [address] [place] [address] Outr Resulting Lab, Provider Social History Tobacco [...] Procedure Name Priority Date/Time Associated Diagnosis Comments T3 FREE Routine 01/29/2022 12:23 EDT documented in this encounter Results * T3 FREE (01/29/2022 12:23 EDT) T3, Free 4.4 2.8 - 5.3 pg/mL 01/29/2022 22:19 EDT [facility] Blood VENOUS BLOOD / Unknown 01/29/2022 12:23 EDT 01/29/2022 21:47 EDT Provider Outr Resulting Lab CHEMISTRY & BLOOD GAS ORDERABLES [facility] [address] [place] [address] documented in this encounter Visit Diagnoses Not on filedocumented in this encounter Care Teams Spray Machine Operator Relationship Specialty Start Date End Date Breanna Lopez MD [address] [place] [phone] PCP - General 05/22/09 documented as of this encounter
--- OUTSIDE RECORDS SUMMARY | 2024-09-11 17:13 | XMS_ITS | Encounter Summary ---
Author Organization [facility] Address [address] [place] [address] Care Team Providers Care Jack Setter Name Role Phone Breanna Lopez MD Primary Care Provider [phone] Reason for Visit * Reason Comments Other Encounter Details Date Type Department Care Team (Late st Contact Info) Description 02/05/2021 Refill [facility] [place] [address] [place] [phone] Eduardo Short MD [facility] Rheumatology [address] [place] [address] [place] [phone] Other Social History Tobacco Use Types Packs/Day [...] Dispensed Refills Start Date End Da te naproxen (NAPROSYN) 500 mg tabletIndications:Serone gative rheumatoid arthritis of multiple sites ([facility]) TAKE ONE TABLET BY MOUTH TWICE A DAY WITH BREAKFAST AND DINNER 60 Tab 1 02/06/2021 08/13/2021 documented in this encounter Miscellaneous Notes * Telephone Encounter - Mirela Gibbons, [place] - 02/06/2021 0808 EDT Last visit note reviewed and follow up scheduled for [facility]. Refill sent as noted. documented in this encounter Plan of Treatment Not on file documented as of this encounter Visit Diagnoses Diagnosis Seronegative rheumatoid arthritis of multiple sites ([facility]) documented in this encounter Discontinued Medications Medication Sig Discontinue Reason Start Date End Da te naproxen (NAPROSYN) 500 mg tabletIndications:Seron egative rheumatoid arthritis of multiple sites ([facility]) Take 1 Tab by mouth 2 times daily with breakfast and dinner for 30 days. 04/25/2020 02/06/2021 documented as of this encounter Care Teams Jack Setter Relationship Specialty Start Date End Date Breanna Lopez MD [address] [place] [phone] PCP - General 05/22/09 documented as of this encounter
--- OUTSIDE RECORDS SUMMARY | 2024-09-11 17:13 | XMS_ITS | Encounter Summary ---
Author Organization [facility] Address [address] [place] [address] Care Team Providers Care Facilities Maintenance Manager Name Role Phone Breanna Lopez MD Primary Care Provider [phone] Reason for Visit * Reason Onset Date Comments Prior Auth, Medication 12/17/2020 Enbrel re auth Encounter Details Date Type Department Care Team (Late st Contact Info) Description 12/17/2020 Telephone [facility] Rheumatology [address] [place], [place] [phone] Tali Meng MD [address] [facility] [address] [place] [address] Prior Auth, Medication (Enbrel reauth) Social History Tobacco Use Types Packs/Day Years [...] encounter Miscellaneous Notes * Telephone Encounter - Aracelis Shin - 12/17/2020 1221 EST Prior Authorization Approval Medication: Enbrel SureClick 50mg/mL Approved: 12/17/20 - 03/16/21 Authorization Number: [id number] Benefits Information or Other Notes: A limited 3 month approval is authorized. Continued approvalsare contingent upon a positive response to therapy documented in the clinical notes. Please providea copy of clinical notes with next PA. Required Pharmacy: n/a Preferred Pharmacy: [facility] Prior Authorization Submission Process Medication: Enbrel SureClick 50mg/mL Insurance: SCM Date PA Request Received: 12/06/20 PA Submission Date: 12/17/20 [facility] Alvarez: faxed Submitted by: Aracelis Phone: [phone] documented in this encounter Plan of Treatment Not on file documented as of this encounter Visit Diagnoses Not on filedocumented in this encounter Care Teams Facilities Maintenance Manager Relationship Specialty Start Date End Date Breanna Lopez MD [address] [place] [phone] PCP - General 05/22/09 documented as of this encounter
--- OUTSIDE RECORDS SUMMARY | 2024-09-11 17:13 | XMS_ITS | Encounter Summary ---
Author Organization [facility] Address [address] [place] [address] Care Team Providers Care Inside Polisher Name Role Phone Breanna Lopez MD Primary Care Provider [phone] Reason for Visit * Reason Onset Date Comments Medication Management 01/06/2021 Encounter Details Date Type Department Care Team (Late st Contact Info) Description 01/06/2021 Telephone Health system - [facility] Rheumatology [address] [place], [place] [phone] Tali Meng MD [address] [facility] [address] [place] [address] Medication Management Social History Tobacco [...] Notes * Telephone Encounter - Mirela Gibbons, RN - 01/06/2021 1003 EST Letter created. Awaiting Dr. Meng signature on Wednesday prior to faxing. * Telephone Encounter - Jasmyne Holt - 01/06/2021 0929 EST Patient called to say her Dentist office [facility] in [facility] is requesting confirmation stating patient does not require pre-medication to have any dental work done. She states the fax number for her dentist office is [phone]. Please advise. documented in this encounter Plan of Treatment Not on file documented as of this encounter Visit Diagnoses Not on filedocumented in this encounter Care Teams Inside Polisher Relationship Specialty Start Date End Date Breanna Lopez MD [address] [place] [phone] PCP - General 05/22/09 documented as of this encounter
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
--- OUTSIDE RECORDS SUMMARY | 2024-09-11 17:13 | XMS_ITS | Encounter Summary ---
Author Organization [facility] Address [address] [place] [address] Care Team Providers Care Vending Machine Technician Name Role Phone Breanna Lopez MD Primary Care Provider [phone] Reason for Visit * Reason Onset Date Comments Appointment Related 11/04/2020 Encounter Details Date Type Department Care Team (Late st Contact Info) Description 11/04/2020 Telephone [facility] Rheumatology [address] [place], [place] [phone] Tali Meng MD [address] [facility] [address] [place] [address] Appointment Related Social History Tobacco Use Types [...] encounter Miscellaneous Notes * Telephone Encounter - Nery Khoury - 11/04/2020 1128 EST Returned pt call regarding next appt. No answer. LVM informing her that her next appt is @ 10:15 w/. documented in this encounter Plan of Treatment Not on file documented as of this encounter Visit Diagnoses Not on filedocumented in this encounter Care Teams Vending Machine Technician Relationship Specialty Start Date End Date Breanna Lopez MD [address] [place] [phone] PCP - General 05/22/09 documented as of this encounter
--- OUTSIDE RECORDS SUMMARY | 2024-09-11 17:13 | XMS_ITS | Encounter Summary ---
Author Organization [facility] Address [address] [place] [address] Care Team Providers Care Hearing Consultant Name Role Phone Breanna Lopez MD Primary Care Provider [phone] Encounter Details Date Type Department Care Team (Late st Contact Info) Description 10/13/[address] [facility] Pathology & Laboratory Medicine - [facility] [address] [place] [address] Outr Resulting Lab, Provider Social History Tobacco [...] RNA BY PCR Routine 10/13/2022 11:25 EST HEPATITIS A ANTIBODY IGM Today 10/13/2022 11:25 EST HEPATITIS A TOTAL ANTIBODY W REFLEX Routine 10/13/2022 11:25 EST HEPATITIS B CORE ANTIBODY (TOTAL) Routine 10/13/2022 11:25 EST HEPATITIS B SURFACE ANTIBODY Routine 10/13/2022 11:25 EST HEPATITIS B SURFACE ANTIGEN Routine 10/13/2022 11:25 EST HIV 1/2 ANTIGEN AND ANTIBODY, 4TH GENERATION Routine 10/13/2022 11:25 EST documented in this encounter Results * HEPATITIS A ANTIBODY IGM (10/13/2022 11:25 EST) Hepatitis A Antibody, IgM Negative Negative 10/14/2022 11:01 EST [facility] Blood VENOUS BLOOD / Unknown 10/13/2022 11:25 EST 10/13/2022 21:24 EST Narrative [facility] - 10/14/2022 11:01 EST The results of this assay can be falsely lowered due to the consumption of Biotin. Provider Outr Resulting Lab CHEMISTRY & BLOOD GAS ORDERABLES [facility] [address] [place] [address] * HEPATITIS C AB W REFLEX TO HCV RNA BY PCR (10/13/2022 11:25 EST) Hep C Antibody Negative Negative 10/14/2022 9:38 EST [facility] Blood VENOUS BLOOD / Unknown 10/13/2022 11:25 EST 10/13/2022 21:24 EST Provider Outr Resulting Lab CHEMISTRY & BLOOD GAS ORDERABLES Performing Organization Address [facility]/ZIP Co de Phone Number [facility] [address] [place] [address] * HEPATITIS B SURFACE ANTIGEN (10/13/2022 11:25 EST) Hep B Surface Ag Negative Negative 10/14/2022 9:01 EST [facility] Blood VENOUS BLOOD / Unknown 10/13/2022 11:25 EST 10/13/2022 21:24 EST Provider Outr Resulting Lab CHEMISTRY & BLOOD GAS ORDERABLES Performing Organization Address [facility] de Phone Number [facility] [address] [place] [address] * HEPATITIS B CORE ANTIBODY (TOTAL) (10/13/2022 11:25 EST) Hepatitis B Core Ab, Total Negative Negative 10/14/2022 9:42 EST [facility] Blood VENOUS BLOOD / Unknown 10/13/2022 11:25 EST 10/13/2022 21:24 EST Provider Outr Resulting Lab CHEMISTRY & BLOOD GAS ORDERABLES Performing Organization Address [facility] de Phone Number [facility] [address] [place] [address] * HEPATITIS B SURFACE ANTIBODY (10/13/2022 11:25 EST) Hep B Surface Ab, Quantitative 41.4 See Note mIU/mL 10/14/2022 8:51 EST [facility] Comment: Reference Range for Hep B Surface Ab, Quant: Positive: >= 10.0 mIU/mL Negative: ??< 10.0 mIU/mL Patient is presumed to be immune to infection with Hepatitis B Virus. Hep B Surface Ab, Qualitative Positive See Note 10/14/2022 8:51 EST [facility] Comment: Reference Range for Hep B Surface Ab, Qual: Unvaccinated: ??Negative Vaccinated: ??Positive Blood VENOUS BLOOD / Unknown 10/13/2022 11:25 EST 10/13/2022 21:24 EST Provider Outr Resulting Lab CHEMISTRY & BLOOD GAS ORDERABLES Performing Organization Address [facility]/ZIP Co de Phone Number [facility] [address] [place] [address] * HIV 1/2 ANTIGEN AND ANTIBODY, 4TH GENERATION (10/13/2022 11:25 EST) HIV 1 and 2 Antibody/p24 Antigen, 4th Generation Negative Negative 10/14/2022 9:55 EST [facility] Comment:If acute HIV-1 infec tion is suspected in a high risk patient, submit plasma specimen for HIV-1 RNA quantitation test. Blood VENOUS BLOOD / Unknown 10/13/2022 11:25 EST 10/13/2022 21:24 EST Narrative [facility] - 10/14/2022 9:55 EST Fourth Generation assay performed on the SilverPushaur XPT. Provider Outr Resulting Lab IMMUNOLOGY A ND SEROLOGY ORDERABLES Performing Organization Address [facility] de Phone Number [facility] [address] [place] [address] * (ABNORMAL) HEPATITIS A TOTAL ANTIBODY W REFLEX (10/13/2022 11:25 EST) Hepatitis A Antibody, Total Positive(A ) Negative 10/14/2022 10:00 EST [facility] Blood VENOUS BLOOD / Unknown 10/13/2022 11:25 EST 10/13/2022 21:24 EST Narrative [facility] - 10/14/2022 10:00 EST The result of this assay can be falsely elevated (Positive) due to the consumption of Biotin. Provider Outr Resulting Lab CHEMISTRY & BLOOD GAS ORDERABLES Performing Organization Address [facility] Co de Phone Number [facility] [address] [place] [address] documented in this encounter Visit Diagnoses Not on filedocumented in this encounter Care Teams Hearing Consultant Relationship Specialty Start Date End Date Breanna Lopez MD [address] [place] [phone] PCP - General 05/22/09 documented as of this encounter
--- OUTSIDE RECORDS SUMMARY | 2024-09-11 17:13 | XMS_ITS | Encounter Summary ---
Author Organization [facility] Address [address] [place] [address] Care Team Providers Care Human Services Instructor Name Role Phone Breanna Lopez MD Primary Care Provider [phone] Encounter Details Date Type Department Care Team (Late st Contact Info) Description 04/25/2020 Orders Only [facility] [place] Rheumatology [address] [place], [place] [id number] Gabbie Lomas RN Seropositive rheumatoid arthritis of multiple sites ([facility]) (Primary Dx); Swelling of joint of left wrist Social History Tobacco Use Types Packs/Day Years Used Date Smoking Tobacco: Every Day Cigarettes 1 29.5 Started: 03/01/1995 Smokeless Tobacco: Never Comments:chantix trying to u se that Alcohol Use Standard Drinks/Week Comments No 0 (1 standard drink = 0.6 oz pur e alcohol) Sex and Gender Information Value Date Recorded [...] as of this encounter Progress Notes * Gabbie Lomas RN - 04/25/2020 1446 EDT Left wrist xray order placed and faxed to [facility] as instructed by Dr. Short. documented in this encounter Plan of Treatment Not on file documented as of this encounter Visit Diagnoses Diagnosis Seropositive rheumatoid arthritis of multiple sites ([facility])- Primary Swelling of joint of left wrist Effusion of forearm joint documented in this encounter Care Teams Human Services Instructor Relationship Specialty Start Date End Date Breanna Lopez MD [address] [place] [phone] PCP - General 05/22/09 documented as of this encounter
--- OUTSIDE RECORDS SUMMARY | 2024-09-11 17:13 | XMS_ITS | Encounter Summary ---
Author Organization [facility] Address [address] [place] [address] Care Team Providers Care Census Enumerator Name Role Phone Breanna Lopez MD Primary Care Provider [phone] Reason for Visit * Reason Onset Date Comments COVID-19 12/25/2020 Encounter Details Date Type Department Care Team (Late st Contact Info) Description 12/25/2020 Telephone [facility] Rheumatology [address] [place], [place] [phone] Tali Meng MD [address] [facility] [address] [place] [address] COVID-19 Social History Tobacco Use Types Packs/Day Years [...] Telephone Encounter - Dasia Goldstein RN - 12/25/2020 1445 EST Called pt and LM on VM with Covid hotline [phone] * Telephone Encounter - Sherri Rahman - 12/25/2020 1418 EST Patient called LM about speaking to a nurse about the Covid vaccine and if she could become eligible to receive the vaccine. Please advise documented in this encounter Plan of Treatment Not on file documented as of this encounter Visit Diagnoses Not on filedocumented in this encounter Care Teams Census Enumerator Relationship Specialty Start Date End Date Breanna Lopez MD [address] [place] [phone] PCP - General 05/22/09 documented as of this encounter
--- OUTSIDE RECORDS SUMMARY | 2024-09-11 17:13 | XMS_ITS | Encounter Summary ---
Author Organization [facility] Address [address] [place] [address] Care Team Providers Care Editorial Cartoonist Name Role Phone Breanna Lopez MD Primary Care Provider [phone] Encounter Details Date Type Department Care Team (Late st Contact Info) Description 06/28/2020 Lab Requisition [facility] Pathology & Laboratory Medicine - [facility] [address] [place] [address] Outr Resulting Lab, Provider Social History Tobacco [...] Procedure Name Priority Date/Time Associated Diagnosis Comments DO NOT ORDER STANDALONE - BROAD COVID TEST Today 06/28/2020 10:34 EDT COVID-19 TESTING Routine 06/28/2020 10:3 4 EDT documented in this encounter Results * DO NOT ORDER STANDALONE - BROAD COVID TEST (06/28/2020 10:34 EDT) COVID-19 rt-PCR Result NEGATIVE Negative 06/29/2020 13:09 EDT [facility] Comment: 2019-novel Coronavirus (2019-nCoV) not detected by the qRT-PCR assay. Consider testing for other respiratory viruses or re-collecting for 2019-nCoV testing. Note: Optimum timing for peak viral levels during infections caused by 2019-nCoV have not been determined. Collection of multiple specimens from the same patient may be necessary to detect the virus. Limitations Positive results are indicative of active infection with SARS-CoV-2 but do not rule out bacterial infection or co-infection with other viruses. The agent detected may not be the definite cause of disease. In addition, detection of viral RNA may not indicate the presence of infectious virus or that SARS-CoV-2 is the causative agent for clinical symptoms. Negative results do not preclude SARS-CoV-2 infection and should not be used as the sole basis for patient management decisions. Negative results must be combined with clinical observations, patient history, and epidemiological information. False negative results may also occur if amplification inhibitors are present in the specimen or if inadequate numbers of organisms are present in the specimen. Optimum specimen types and timing for peak viral levels during infections caused by SARS-CoV-2 have not been fully determined. Collection of multiple specimens (types and time points) from the same patient may be necessary to detect the virus. The test was validated for use with upper respiratory specimens obtained via nasopharyngeal or oropharyngeal swabs in VTM, UTM, M4, M5, M6, saline, and MTM media. The performance of this test has not been established for other specimens. Specimens collected using other FDA recommended Specimen Collection Materials listed in the FDA COVID-19 [employer] communication (February 01, 2020) are processed with the caveat that they were not all validated for use with this test and the result must be interpreted in this context. Furthermore, a false negative results may occur if a specimen is improperly collected, transported or handled. If the virus mutates in the RT-PCR target region, SARS-CoV-2 may not be detected or may be detected less predictably. Inhibitors or other types of interference may produce a false negative result. An interference study evaluating the effect of common cold medications was not performed. This test is not FDA-cleared but its performance characteristics were established by our CLIA-certified, CAP-accredited, high complexity laboratory in accordance with CLIA regulations, [employer] [place] [employer] (CAP) guidelines (Jan 25, 2020), and FDA guidance (Jan 06, 2020). This test is only for use under the Food and Drug Administration's Emergency Use Authorization. Swab ENTIRE NASOPHARYNX / Unknown 06/28/2020 10:34 EDT 06/28/2020 15:27 EDT Provider Outr Resulting Lab MICROBIOLOGY - GENERAL ORDERABLES [facility] [place] * COVID-19 TESTING (06/28/2020 10:34 EDT) COVID-19 rt-PCR Result NEGATIVE Negative 06/29/2020 14:[address] [facility] Comment: 2019-novel Coronavirus (2019-nCoV) not detected by the qRT-PCR assay. Consider testing for other respiratory viruses or re-collecting for 2019-nCoV testing. Note: Optimum timing for peak viral levels during infections caused by 2019-nCoV have not been determined. Collection of multiple specimens from the same patient may be necessary to detect the virus. Limitations Positive results are indicative of active infection with SARS-CoV-2 but do not rule out bacterial infection or co-infection with other viruses. The agent detected may not be the definite cause of disease. In addition, detection of viral RNA may not indicate the presence of infectious virus or that SARS-CoV-2 is the causative agent for clinical symptoms. Negative results do not preclude SARS-CoV-2 infection and should not be used as the sole basis for patient management decisions. Negative results must be combined with clinical observations, patient history, and epidemiological information. False negative results may also occur if amplification inhibitors are present in the specimen or if inadequate numbers of organisms are present in the specimen. Optimum specimen types and timing for peak viral levels during infections caused by SARS-CoV-2 have not been fully determined. Collection of multiple specimens (types and time points) from the same patient may be necessary to detect the virus. The test was validated for use with upper respiratory specimens obtained via nasopharyngeal or oropharyngeal swabs in VTM, UTM, M4, M5, M6, saline, and MTM media. The performance of this test has not been established for other specimens. Specimens collected using other FDA recommended Specimen Collection Materials listed in the FDA COVID-19 [employer] communication (February 01, 2020) are processed with the caveat that they were not all validated for use with this test and the result must be interpreted in this context. Furthermore, a false negative results may occur if a specimen is improperly collected, transported or handled. If the virus mutates in the RT-PCR target region, SARS-CoV-2 may not be detected or may be detected less predictably. Inhibitors or other types of interference may produce a false negative result. An interference study evaluating the effect of common cold medications was not performed. This test is not FDA-cleared but its performance characteristics were established by our CLIA-certified, CAP-accredited, high complexity laboratory in accordance with CLIA regulations, [employer] [place] [employer] (CAP) guidelines (Jan 25, 2020), and FDA guidance (Jan 06, 2020). This test is only for use under the Food and Drug Administration's Emergency Use Authorization. Performing Lab [facility] [employer] 06/29/2020 14:34 EDT [facility] Swab 06/28/2020 10:3 4 EDT 06/28/2020 15:27 EDT Provider Outr Resulting Lab MICROBIOLOGY - GENERAL ORDERABLES [facility] [address] [place] [address] [facility] [place] documented in this encounter Visit Diagnoses Not on filedocumented in this encounter Care Teams Editorial Cartoonist Relationship Specialty Start Date End Date Breanna Lopez MD [address] [place] [phone] PCP - General 05/22/09 documented as of this encounter
--- OUTSIDE RECORDS SUMMARY | 2024-09-11 17:13 | XMS_ITS | Encounter Summary ---
Author Organization [facility] Address [address] [place] [address] Care Team Providers Care Early Intervention Specialist Name Role Phone Breanna Lopez MD Primary Care Provider [phone] Reason for Visit * Reason Onset Date Comments Prior Auth, Medication 08/20/2021 Encounter Details Date Type Department Care Team (Late st Contact Info) Description 08/20/2021 Telephone [facility] [place] [address] [place], [place] [phone] Tali Meng MD [address] [facility] [address] [place] [address] Prior Auth, Medication Social History Tobacco [...] (1 mL) subcutaneous penIndications:Seronegativ e rheumatoid arthritis ([facility]) Inject 1 mL into the skin once a week. 4 mL 5 08/20/2021 07/16/2022 documented in this encounter Miscellaneous Notes * Telephone Encounter - Gabbie Lomas RN - 08/20/2021 1104 EDT Enbrel Rx sent to [facility]. * Telephone Encounter - Denise Malloy - 08/20/2021 0946 EDT Prior Authorization Approval Medication: Ebrel 50mg qw Approved: through 08/20/22 Authorization Number: [id number] Benefits Information: [facility] Required Pharmacy: -- Preferred Pharmacy: [facility] or [facility] Prior Authorization Submission Process Medication: Enbrel 50mg qw Insurance: [facility] Date PA Request Received: 08/08/21 PA Submission Date: 08/20/21 [facility] Alvarez: N/A - submitted via fax Submitted by: Denise Phone: [phone] documented in this encounter Plan of Treatment Not on file documented as of this encounter Visit Diagnoses Diagnosis Seronegative rheumatoid arthritis ([facility])- Primary Rheumatoid arthritis documented in this encounter Discontinued Medications Medication Sig Discontinue Reason Start Date End Da te etanercept (ENBREL SURECLICK) 50 mg/mL (1 mL) subcutaneous penIndications:Seronegati ve rheumatoid arthritis ([facility]) Inject 1 mL into the skin once a week. Reorder 11/06/2020 08/20/2021 documented as of this encounter Care Teams Early Intervention Specialist Relationship Specialty Start Date End Date Breanna Lopez MD [address] [place] [phone] PCP - General 05/22/09 documented as of this encounter
--- OUTSIDE RECORDS SUMMARY | 2024-09-11 17:13 | XMS_ITS | Encounter Summary ---
Author Organization [facility] Address [address] [place] [address] Care Team Providers Care Intern Retail Name Role Phone Breanna Lopez MD Primary Care Provider [phone] Encounter Details Date Type Department Care Team (Late st Contact Info) Description 10/14/2022 Lab Requisition [facility] Pathology & Laboratory Medicine - [facility] [address] [place] [address] Outr Resulting Lab, Provider Social History Tobacco [...] Procedure Name Priority Date/Time Associated Diagnosis Comments CHLAMYDIA/N. GONORRHOEAE AMPLIFIED NUCLEIC ACID Routine 10/14/2022 16:33 EST documented in this encounter Results * CHLAMYDIA/N. GONORRHOEAE AMPLIFIED RNA (10/14/2022 16:33 EST) Neisseria gonorrhoeae Result Negative Negative 10/15/2022 14:02 EST [facility] Chlamydia trachomatis Result Negative Negative 10/15/2022 14:02 EST [facility] Swab ENTIRE WALL OF CERVIX / Unknown 10/14/2022 16:33 EST 10/14/2022 23:19 EST Provider Outr Resulting Lab MICROBIOLOGY - GENERAL ORDERABLES Performing Organization Address City/State/[facility] Co de Phone Number [facility] [address] [place] [address] documented in this encounter Visit Diagnoses Not on filedocumented in this encounter Care Teams Intern Retail Relationship Specialty Start Date End Date Breanna Lopez MD [address] [place] [phone] PCP - General 05/22/09 documented as of this encounter
--- OUTSIDE RECORDS SUMMARY | 2024-09-11 17:13 | XMS_ITS | Encounter Summary ---
Author Organization [facility] Address [address] [place] [address] Care Team Providers Care Boat Outboard Engine Mechanic Name Role Phone Breanna Lopez MD Primary Care Provider [phone] Reason for Visit * Reason Onset Date Comments Appointment Related 04/27/2022 Encounter Details Date Type Department Care Team (Late st Contact Info) Description 04/27/2022 Telephone [facility] [place] [address] [place], [place] [phone] Tali Meng MD [address] [facility] [address] [place] [address] Appointment Related Social History Tobacco [...] * Telephone Encounter - Gemma Mcknight - 04/27/2022 1301 EDT Unable to contact patient to reschedule 04/09/22 cancelled appt. Please reschedule patient from past appts upon callback documented in this encounter Plan of Treatment Not on file documented as of this encounter Visit Diagnoses Not on filedocumented in this encounter Care Teams Boat Outboard Engine Mechanic Relationship Specialty Start Date End Date Breanna Lopez MD [address] [place] [phone] PCP - General 05/22/09 documented as of this encounter
--- OUTSIDE RECORDS SUMMARY | 2024-09-11 17:13 | XMS_ITS | Encounter Summary ---
Author Organization [facility] Address [address] [place] [address] Care Team Providers Care Dixonac Operator Name Role Phone Breanna Lopez MD Primary Care Provider [phone] Encounter Details Date Type Department Care Team (Late st Contact Info) Description 04/02/2021 Orders Only [facility] [place] [address] [place], [place] [id number] Dasia Goldstein RN Seronegative rheumatoid arthritis of multiple sites ([facility]) (Primary Dx) Social History Tobacco Use Types Packs/Day Years [...] as of this encounter Progress Notes * Dasia Goldstein, [place] - 04/02/2021 1114 EDT PA for Enbrel continuation sent to PA team. Last PA approval in Dec only good for 3 months. documented in this encounter Plan of Treatment Not on file documented as of this encounter Visit Diagnoses Diagnosis Seronegative rheumatoid arthritis of multiple sites ([facility])- Primary documented in this encounter Care Teams Dixonac Operator Relationship Specialty Start Date End Date Breanna Lopez MD [address] [place] [phone] PCP - General 05/22/09 documented as of this encounter
--- OUTSIDE RECORDS SUMMARY | 2024-09-11 17:13 | XMS_ITS | Encounter Summary ---
Author Organization [facility] Address [address] [place] [address] Care Team Providers Care Welding Teacher Name Role Phone Breanna Lopez MD Primary Care Provider [phone] Reason for Visit * Reason Onset Date Comments Prior Auth, Medication 12/18/2020 Encounter Details Date Type Department Care Team (Late st Contact Info) Description 12/18/2020 Telephone [facility] Rheumatology [address] [place] [address] Tali Meng MD [address] [facility] [address] [place] [address] Prior Auth, Medication Social History [...] encounter Miscellaneous Notes * Telephone Encounter - Josiah, Sherri - 12/18/2020 1214 EST Sherry from [employer] called in regards to patient. She states they need the PA paperwork faxed back to them once filled out by the provider, as well as any recent labs and recent office notes. documented in this encounter Plan of Treatment Not on file documented as of this encounter Visit Diagnoses Not on filedocumented in this encounter Care Teams Welding Teacher Relationship Specialty Start Date End Date Breanna Lopez MD [address] [place] [phone] PCP - General 05/22/09 documented as of this encounter
--- OUTSIDE RECORDS SUMMARY | 2024-09-11 17:13 | XMS_ITS | Encounter Summary ---
Author Organization [facility] Address [address] [place] [address] Care Team Providers Care Retail District Manager Name Role Phone Breanna Lopez MD Primary Care Provider [phone] Reason for Visit * Reason Onset Date Comments Medication Management 01/02/2021 Encounter Details Date Type Department Care Team (Late st Contact Info) Description 01/02/2021 Telephone [facility] - [facility] Rhe[facility]ology [address] [place], [place] [phone] Tali Meng MD [address] [facility] [address] [place] [address] Medication Management Social History Tobacco [...] Telephone Encounter - Gabbie Lomas RN - 01/03/2021 1355 EST Hillary said she checked with her Ortho and they said that no pre-meds are needed after 3 months from a joint replacement. I confirmed that Dr. Meng said they are not needed due to her RA and RA meds as well with appreciation expressed. * Telephone Encounter - Sherri Rahman - 01/03/2021 1008 EST Hillary called back. She wanted to confirm a few things with Isadora when available about what they spoke about yesterday. She has some concerns about the premeds for her dental visit as well. * Telephone Encounter - Gabbie Lomas RN - 01/02/[address] Meng' message to Hillary with understanding expressed. She will call Ortho and tell them that antibiotics are indicated due to joint replacement, not due to being immunocompromised. * Telephone Encounter - Tali Meng MD - 01/02/2021 1030 EST TKR should be addressed by ortho Not by rheum She can call their office to see what standard recommendation is for TKR She does not need antibiotics based on having RA alone, issue is the joint replacement * Telephone Encounter - Sherri Rahman - 01/02/2021 1027 EST Hillary called back and said the dental office is requiring faxed confirmation that she is immuno-compromised and needs a dental premed. [facility] fax [phone]. Apparently they did not tell her they needed written confirmation until after she hung up with Isadora. * Telephone Encounter - Gabbie Lomas RN - 01/02/2021 1015 EST Talked with Hillary; the dentist wanted to know if she could take antibiotics prior to dental procedures since she had a TKR in June.The antibiotics won't be taken today but Hillary would like to know ifthis is OK in the future. She takes Enbrel once a week and 20mg of MTX weekly. Follow up with you on 02/06/21; previous [facility] patient. * Telephone Encounter - Jasmyne Holt - 01/02/2021 1008 EST Patient has urgent question for Isadora or another nurse. She's at the dentist right now and needs toknow about meds they want to use for a dental procedure & if it's ok to do that along with her RA meds. Can you ask a nurse to call her back now? [phone]. She's a Dr. Meng Pt. Thank you! documented in this encounter Plan of Treatment Not on file documented as of this encounter Visit Diagnoses Not on filedocumented in this encounter Care Teams Retail District Manager Relationship Specialty Start Date End Date Breanna Lopez MD [address] [place] [phone] PCP - General 05/22/09 documented as of this encounter
--- OUTSIDE RECORDS SUMMARY | 2024-09-11 17:13 | XMS_ITS | Encounter Summary ---
Author Organization [facility] Address [address] [place] [address] Care Team Providers Care Car Hostler Name Role Phone Breanna Lopez MD Primary Care Provider [phone] Encounter Details Date Type Department Care Team (Late st Contact Info) Description 10/16/2022 Specialty Pharmacy [facility] - [facility] [address] [place] [address] Yan Mukherjee, [facility] Social History Tobacco Use Types [...] on filedocumented in this encounter Care Teams Car Hostler Relationship Specialty Start Date End Date Breanna Lopez MD [address] [place] [phone] PCP - General 05/22/09 documented as of this encounter
--- OUTSIDE RECORDS SUMMARY | 2024-09-11 17:13 | XMS_ITS | Encounter Summary ---
Author Organization [facility] Address [address] [place] [address] Care Team Providers Care Casting Machine Operator Helper Name Role Phone Breanna Lopez MD Primary Care Provider [phone] Encounter Details Date Type Department Care Team (Late st Contact Info) Description 12/30/2022 Specialty Pharmacy [facility] - [facility] [address] [place] [address] Yan Mukherjee, [facility] Social History Tobacco Use Types [...] as of this encounter Progress Notes * Zuleyka Hilario - 12/30/2022 1614 EST Last refill credit card on file declined. $3 copay charged to A/R account. Please ask if OK to try charging again or if we need a new credit card to put on file. Current A/R balance of $15. documented in this encounter Plan of Treatment Not on file documented as of this encounter Visit Diagnoses Not on filedocumented in this encounter Care Teams Casting Machine Operator Helper Relationship Specialty Start Date End Date Breanna Lopez MD [address] [place] [phone] PCP - General 05/22/09 documented as of this encounter
--- OUTSIDE RECORDS SUMMARY | 2024-09-11 17:13 | XMS_ITS | Encounter Summary ---
Author Organization [facility] Address [address] [place] [address] Care Team Providers Care Animal Hospital Clerk Name Role Phone Breanna Lopez MD Primary Care Provider [phone] Encounter Details Date Type Department Care Team (Late st Contact Info) Description 03/24/2021 Lab Requisition [facility] Pathology & Laboratory Medicine - [facility] [address] [place] [address] Outr Resulting Lab, Provider Social History Tobacco [...] Comments CHLAMYDIA/N. GONORRHOEAE AMPLIFIED NUCLEIC ACID Routine 03/24/2021 16:45 EDT documented in this encounter Results * CHLAMYDIA/N. GONORRHOEAE AMPLIFIED RNA (03/24/2021 16:45 EDT) Neisseria gonorrhoeae Result Negative Negative 03/25/2021 14:53 EDT [facility] Chlamydia trachomatis Result Negative Negative 03/25/2021 14:53 EDT [facility] Swab ENTIRE WALL OF CERVIX / Unknown 03/24/2021 16:45 EDT 03/24/2021 21:29 EDT Provider Outr Resulting Lab MICROBIOLOGY - GENERAL ORDERABLES [facility] [address] [place] [address] documented in this encounter Visit Diagnoses Not on filedocumented in this encounter Care Teams Animal Hospital Clerk Relationship Specialty Start Date End Date Breanna Lopez MD [address] [place] [phone] PCP - General 05/22/09 documented as of this encounter
--- OUTSIDE RECORDS SUMMARY | 2024-09-11 17:13 | XMS_ITS | Encounter Summary ---
Author Organization [facility] Address [address] [place] [address] Care Team Providers Care Asbestos Brake Lining Finisher Helper Name Role Phone Breanna Lopez MD Primary Care Provider [phone] Reason for Visit * Reason Onset Date Comments Other 07/04/2021 Encounter Details Date Type Department Care Team (Late st Contact Info) Description 07/04/2021 Telephone [facility] [address] [place], [place] [phone] Tali Meng MD [address] [facility] [address] [place] [address] Other Social History Tobacco Use Types Packs/Day [...] Telephone Encounter - Dasia Goldstein RN - 07/04/2021 1331 EDT Pt is scheduled for 08/13/2021 * Telephone Encounter - Dasia Goldstein RN - 07/04/2021 1241 EDT Update for you, Thank you * Telephone Encounter - Ewa Roberts - 07/04/2021 1157 EDT Pt calling to let CJ know that Dr. Choudhary took x-ray of right knee on 06/30. He said that she was good. She is having a lot of problems in back, has been experiencing excruciating pain. Dr. Watts prescribed Simbalta yesterday and she is not happy with taking this, stated she would call their officetoday to let them know. documented in this encounter Plan of Treatment Not on file documented as of this encounter Visit Diagnoses Not on filedocumented in this encounter Care Teams Asbestos Brake Lining Finisher Helper Relationship Specialty Start Date End Date Breanna Lopez MD [address] [place] [phone] PCP - General 05/22/09 documented as of this encounter
--- OUTSIDE RECORDS SUMMARY | 2024-09-11 17:13 | XMS_ITS | Encounter Summary ---
Author Organization [facility] Address [address] [place] [address] Care Team Providers Care Honing Machine Set Up Operator Tool Name Role Phone Breanna Lopez MD Primary Care Provider [phone] Encounter Details Date Type Department Care Team (Late st Contact Info) Description 09/10/2022 Telephone [facility] Rheumatology [address] [place] [address] Tali Meng MD [address] [facility] [address] [place] [phone] Social History Tobacco Use Types Packs/Day Years [...] encounter Miscellaneous Notes * Telephone Encounter - Tina Eng - 09/10/2022 1656 EDT Joseline Giraldo referral request has been placed * Telephone Encounter - Zuleyka Hilario - 09/10/2022 1511 EDT [facility] Request for PA/Funding Drug Name: Enbrel Sureclick 50mg/mL SOAJ Next Injection Date: 09/14/22 [place] Required: Yes Funding Needed: N/A documented in this encounter Plan of Treatment Not on file documented as of this encounter Visit Diagnoses Not on filedocumented in this encounter Care Teams Honing Machine Set Up Operator Tool Relationship Specialty Start Date End Date Breanna Lopez MD [address] [place] [phone] PCP - General 05/22/09 documented as of this encounter
--- OUTSIDE RECORDS SUMMARY | 2024-09-11 17:13 | XMS_ITS | Encounter Summary ---
Author Organization [facility] Address [address] [place] [address] Care Team Providers Care Special Education Superintendent Name Role Phone Breanna Lopez MD Primary Care Provider [phone] Reason for Visit * Reason Onset Date Comments Pharmacy 11/06/2021 Encounter Details Date Type Department Care Team (Late st Contact Info) Description 11/06/2021 Telephone [facility] - [facility] Rheumatology [address] [place], [place] [phone] Tali Meng MD [address] [facility] [address] [place] [address] Pharmacy Social History Tobacco Use Types Packs/Day [...] Telephone Encounter - Mirela Gibbons RN - 11/06/2021 1153 EST Spoke with Dee Dee at [facility]. She states she counseled patient on the importance of holding her Enbrel while she has the skin infections and is on antibiotics. This RN lvm reiterating these instructions and encouraged patient to call back with any questions or concerns. * Telephone Encounter - Ewa Roberts - 11/06/2021 0930 EST [employer] [facility] calling re: Enbrel. Reports that towards the end of September patient was having skin infection issues. At that point she had suggested to hold on dosing. Patient had continued using. States that 2 days ago patient went to the ED for the same type of skin infection. She also took another dose of Enbrel yesterday. She is concerned about antibiotic resistance. documented in this encounter Plan of Treatment Not on file documented as of this encounter Visit Diagnoses Not on filedocumented in this encounter Care Teams Special Education Superintendent Relationship Specialty Start Date End Date Breanna Lopez MD [address] [place] [phone] PCP - General 05/22/09 documented as of this encounter
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
--- OUTSIDE RECORDS SUMMARY | 2024-09-11 17:13 | XMS_ITS | Encounter Summary ---
Author Organization [facility] Address [address] [place] [address] Care Team Providers Care Demurrage Agent Name Role Phone Breanna Lopez MD Primary Care Provider [phone] Encounter Details Date Type Department Care Team (Late st Contact Info) Description 01/14/2023 Specialty Pharmacy [facility] - [facility] [address] [place] [address] Yan Mukherjee, [facility] Social History Tobacco Use Types [...] on filedocumented in this encounter Care Teams Demurrage Agent Relationship Specialty Start Date End Date Breanna Lopez MD [address] [place] [phone] PCP - General 05/22/09 documented as of this encounter
--- OUTSIDE RECORDS SUMMARY | 2024-09-11 17:13 | XMS_ITS | Encounter Summary ---
Author Organization [facility] Address [address] [place] [address] Care Team Providers Care Felling Machine Operator Name Role Phone Breanna Lopez MD Primary Care Provider [phone] Encounter Details Date Type Department Care Team (Late st Contact Info) Description 08/07/2022 Specialty Pharmacy [facility] Amb[facility] - [facility] [address] [place] [address] Yan Mukherjee RPH Social History Tobacco Use [...] Progress Notes * Yan Mukherjee RPH - 08/07/2022 1333 EDT Patient contacted to coordinate refill and asked to speak to pharmacist requesting more informationregarding interactions of sublocade with enbrel. Currently on suboxone, patient looking into switching to injectable formulation of suboxone. Also expressed concern for reduction in efficacy vs overdosing from suboxone to sublocade. Reviewed pharmacokinetic properties of sublocade vs suboxone andhow its a slower release profile. Referred patient to prescribing clinic for protocol if dose wearsoff before next injection. Also inquired about injection site pain - reviewed side effects from package insert with patient. Referred patient to prescribing clinic for management if any dermal manifestations occur, but noted that no serious injection site reactions have been reported for sublocade. Yan Mukherjee PharmD (he/him) Ambulatory Pharmacist Clinician [facility] 08/12/2022 * Gerardo El RPH - 08/07/2022 1333 EDT .[facility] Specialty Pharmacy Delivery Information Hours: Wednesday-Wednesday 8:30am - 5:00pm *Pharmacist available lead application architect 31/05 Delivery Service: [facility] Delivery Window: 1pm - 5pm Date of Delivery: 08/21/22 Tracking # : [id number] * Yan Mukherjee RPH - 08/07/2022 1333 EDT [facility] Medication Therapy Follow Up: Hillary Reich is a 41 y.o. female being treated with Enbrel for seronegative rheumatoid arhtritis. Dose: Enbrel 50 mg/ml sureclick pen into the skin once weekly Provider: Tali Meng Pharmacy: [facility] specialty pharmacy I completed a complete review of the patient's current medical record, including medications, allergies and immunizations. Current Outpatient Medications Medication ??? acetaminophen (TYLENOL) 325 mg tablet ??? acetaminophen/diphenhydramine (TYLENOL PM ORAL) ??? buprenorphine-naloxone 12-3 mg film ??? etanercept (ENBREL SURECLICK) 50 mg/mL (1 mL) subcutaneous pen ??? ibuprofen (MOTRIN) 800 mg tablet ??? levonorgestreL (MIRENA) 20 mcg/24 hours (6 yrs) 52 mg IUD ??? lisdexamfetamine (VYVANSE) 70 mg capsule ??? naproxen (NAPROSYN) 500 mg tablet ??? SF 5000 PLUS 1.1 % cream No current facility-administered medications for this visit. Last office visit: 07/09/2022 Reports she arthritis is stable as long as she has Enbrel. could not walk without it Feels swelling and arthritis well controlled. At least 80 % better on this medication. Arthritis doing ok. No Known Allergies RAPID3 SCORES AND INTERPRETATION 08/19/2016 06/16/2017 12/13/2017 Functional Status 4 3.7 4.7 Pain Tolerance 6 6.5 7.5 Global Estimate 3 3.5 5.5 RAPID3 13 13.7 17.7 Interpretation High High High Adherence: Patient has missed no doses since last follow-up, as determined via patient self-report. Only one fill so far with [facility] specialty pharmacu. Side effects/toxicities: None noted per patient report. Assessment: Therapeutic benefit achieved?: Yes; patient new to [facility] specialty pharmacy, but not to med. Continued benefit seen with enbrel per patient and provider exam There are no pertinent drug-drug interactions at this time. Education Provided: Follow-up planned: - Clinic appointment: 11/11/2022 - Next Clinical: 02/2023 - Next refill due: 09/11/2022 Yan Mukherjee PharmD (he/him) Ambulatory Pharmacist Clinician [facility] 08/19/2022 documented in this encounter Plan of Treatment Not on file documented as of this encounter Visit Diagnoses Not on filedocumented in this encounter Care Teams Felling Machine Operator Relationship Specialty Start Date End Date Breanna Lopez MD [address] [place] [phone] PCP - General 05/22/09 documented as of this encounter
--- OUTSIDE RECORDS SUMMARY | 2024-09-11 17:13 | XMS_ITS | Encounter Summary ---
Author Organization [facility] Address [address] [place] [address] Care Team Providers Care Caster Helper Name Role Phone Breanna Lopez MD Primary Care Provider [phone] Reason for Visit * Reason Comments Follow-up joints hurt a lot Encounter Details Date Type Department Care Team (Late st Contact Info) Description 02/06/2021 13:15 EDT Office Visit [facility] Rheumatology [address] [place] [address] Tali Meng MD [address] [facility] [address] [place] [address] Seronegative rheumatoid arthritis of multiple sites ([facility]) (Primary Dx); Pain in joint of right knee; Bilateral hand pain Social History Tobacco Use Types Packs/Day [...] Sign Reading Time Taken Comments Blood Pressure 130/90 02/06/2021 1322 EDT Pulse 88 02/06/2021 1322 EDT Temperature 36.7 ??C (98.1 ??F) 02/06/2021 1322 EDT Respiratory Rate - - Oxygen Saturation - - Inhaled Oxygen Concentration - - Weight 89.2 kg (196 lb 9.6 oz) 02/06/2021 1322 E DT Height - - Body Mass Index 34.83 04/25/2020 1357 EDT documented in this encounter [...] * Patient Instructions* Tali Meng MD - 02/06/2021 13:15 EDT Supportive of you applying for disability if you wish to proceed Xray of hands Continue to take the Enbrel every week. Use either ibuprofen or naproxen not both at the same time. See you in 4 months. documented in this encounter Progress Notes * Tali Meng MD - 02/06/2021 1315 EDT Division of Rheumatology and Clinical Immunology Chief Complaint Patient presents with ??? Follow-up joints hurt a lot Rheumatology problem Seronegative RA Prior rx methotrexate/Enbrel Issue with medication use. ADHD and anxiety also depression Right TKA June 2020 Suboxone therapy opiate use disorder HPI: Patient presents stating she is not good she states she has been back on Enbrel therapy for about5 weeks. Last year she had stopped methotrexate and Enbrel because of concerns about COVID-19 infection. They were held again due to knee replacement. She is using ibuprofen as well as naproxen these are prescribed by her PCP. She states she does notuse both at the same time but that one works better than the other sometimes. She expresses feelings of loneliness and feeling judged. States that she wants to find love but [place] and people dispatch lead her and call her names like narcissist. She also expresses that she does not think she can work full-time due to her mental health and physical restraints. She is contemplating applying for disability. Hands are sore today DIPs wrists. Has not had x-rays she is agreeable to having them done today. States she is remain clean not using alcohol or other illicit drugs. She does still smoke and is working to quit this. Denies any skin changes, brother does have psoriasis. Painful joints: Hands wrists right great toe Current meds Enbrel 50 mg weekly, restarted 5 weeks ago. Therapy interrupted several times throughout 2019For surgery, concerns about COVID-19 infection Current Outpatient Medications Medication ??? BUPRENORPHINE HCL/NALOXONE HCL (SUBOXONE SL) ??? buprenorphine-naloxone (SUBOXONE) 12-3 mg film ??? clonazePAM (KLONOPIN) 1 mg tablet ??? etanercept (ENBREL SURECLICK) 50 mg/mL (1 mL) subcutaneous pen ??? etanercept (ENBREL SURECLICK) 50 mg/mL (1 mL) subcutaneous pen ??? folic acid (FOLVITE) 1 mg tablet ??? ibuprofen (MOTRIN) 800 mg tablet ??? levonorgestreL (MIRENA) 20 mcg/24 hours (6 yrs) 52 mg IUD ??? lisdexamfetamine (VYVANSE) 70 mg capsule ??? methotrexate 2.5 mg tablet ??? methylPREDNISolone (MEDROL) 4 mg tablet ??? naproxen (EC NAPROSYN) 500 mg EC tablet ??? naproxen (NAPROSYN) 500 mg tablet No current facility-administered medications for this visit. Allergies include: Patient has no known allergies. Past Medical History: Diagnosis Date ??? ADD (attention deficit disorder) ??? Cocaine abuse ([facility]) ??? Depression with anxiety ??? Hyperhidrosis ??? Inflammatory arthritis ??? Keratosis pilaris ??? Leg edema ??? Obesity ??? Opioid dependence (HCC-CMS) ??? Osteoarthritis ??? Substance abuse ([facility]) ??? Tobacco use ROS Negative except as in hpi. Complete 12 point ros obtained PHYSICAL EXAMINATION: BP 130/90 (BP Cuff Location: Right arm, BP Patient Position: Sitting, BP Cuff Sizes: Adult, large) Pulse 88 Wt 89.2 kg (196 lb 9.6 oz) BMI 34.83 kg/m?? Physical Exam Vitals signs and nursing note reviewed. Constitutional: Appearance: Normal appearance. HENT: Head: Normocephalic. Nose: Nose normal. Eyes: Extraocular Movements: Extraocular movements intact. Pupils: Pupils are equal, round, and reactive to light. Cardiovascular: Rate and Rhythm: Normal rate. Pulmonary: Effort: Pulmonary effort is normal. Breath sounds: Normal breath sounds. Musculoskeletal: General: Swelling: Comments: Left knee flexion contracture. Right elbow flexion contracture Right knee well healed surgical scar. Normal rom. Left wrist prominent styloid. Dips have heberden's nodes.no dactylitis. Skin: General: Skin is warm. Neurological: Mental Status: She is alert. Psychiatric: Mood and Affect: Mood normal. Behavior: Behavior normal. Comments: Pressured somewhat tangential speech. LABS No visits with results within 3 Month(s) from this visit. Latest known visit with results is: Office Visit on 11/06/2020 Component Date Value ??? ABSOLUTE NEUTROPHIL COUN* 11/06/2020 3.3 ??? BASO # - CV 11/06/2020 0.06 ??? BASO % - CV 11/06/2020 1 ??? EOS # - CV 11/06/2020 0.16 ??? EOS % - CV 11/06/2020 3 ??? GRAN % - CV 11/06/2020 56.1 ??? HEMATOCRIT - [facility] 11/06/2020 45.5* ??? HEMOGLOBIN - CV 11/06/2020 15.0 ??? IG# - CV 11/06/2020 0.01 ??? IG% - CV 11/06/2020 0.2 ??? LYMPH # - CV 11/06/2020 1.8 ??? LYMPH% - CV 11/06/2020 30.9 ??? MEAN CORPUSCULAR HGB - C* 11/06/2020 29.0 ??? MEAN CORPUSCULAR HGB CON* 11/06/2020 33.0 ??? MEAN CELL VOLUME - CV 11/06/2020 88.0 ??? MONO # - CV 11/06/2020 0.5 ??? MONO% - [facility] 11/06/2020 9.1 ??? PLATELET COUNT 11/06/2020 257 ??? RED BLOOD COUNT - [facility] 11/06/2020 5.17* ??? RED CELL DISTRI WIDTH - * 11/06/2020 13.1 ??? WHITE BLOOD COUNT - [facility] 11/06/2020 5.8 ??? ALBUMIN - [facility] 11/06/2020 4.2 ??? ALKALINE PHOSPHATASE - C* 11/06/2020 68 ??? BILIRUBIN TOTAL - [facility] 11/06/2020 0.6 ??? BUN - [facility] 11/06/2020 9* ??? CALCIUM - [facility] 11/06/2020 9.2 ??? Chloride 11/06/2020 104 ??? CO2 Total 11/06/2020 25 ??? CREATININE 11/06/2020 0.67 ? ? eGFR 11/06/2020 >60 ??? Anion Gap 11/06/2020 6 ??? GLUCOSE - [facility] 11/06/2020 90 ??? Potassium 11/06/2020 4.4 ??? Sodium 11/06/2020 135* ??? TOTAL PROTEIN - [facility] 11/06/2020 7.4 ??? SGOT/AST - [facility] 11/06/2020 30 ??? SGPT/ALT - [facility] 11/06/2020 17 40 yo woman with with seronegative RA on enbrel and methotrexate but has compliance issues. Recent TKA Seronegative RA Enbrel restarted taken 5 doses. -Emphasized she will need to stay on it for least 3 months regularly. -avoid medrol as it is likely to exacerbate her ADHD and anxiety symptoms. Hand pain -Continue x-rays, prominent ulnar styloid [...] -She is planning to apply for disability Return appt in 3 to 4 months Impressions, diagnosis, treatment plan were reviewed. Patient questions and concerns were reviewed and answered. Patient agreeable to plan of care and will call if any addition concerns or questions arise. Tali Meng MD 02/06/2021 13:32 documented in this encounter Plan of Treatment Not on file documented as of this encounter Visit Diagnoses Diagnosis Seronegative rheumatoid arthritis of multiple sites (HCC-CMS)- Primary Pain in joint of right knee Pain in joint, lower leg Bilateral hand pain Pain in limb documented in this encounter Historical Medications * This list may reflect changes made after this encounter. Medication Sig Dispensed Refills Start Date End Date levonorgestreL (MIRENA) 20 mcg/24 hours (6 yrs) 52 mg IUD Mirena 20 mcg/24 hours (6 yrs) 52 mg intrauterine device Take 1 device by intrauterine route. naproxen (EC NAPROSYN) 500 mg EC tablet naproxen 500 mg tablet,delayed release etanercept (ENBREL SURECLICK) 50 mg/mL (1 mL) subcutaneous pen Enbrel SureClick 50 mg/mL (1 mL) subcutaneous pen injector 08/13/2021 buprenorphine-naloxone (SUBOXONE) 12-3 mg film Suboxone 12 mg-3 mg sublingual film 08/13/2021 clonazePAM (KLONOPIN) 1 mg tablet clonazepam 1 mg tablet 08/13 added in this encounter Care Teams Caster Helper Relationship Specialty Start Date End Date Breanna Lopez MD [address] [place] [phone] PCP - General 05/22/09 documented as of this encounter
--- OUTSIDE RECORDS SUMMARY | 2024-09-11 17:13 | XMS_ITS | Encounter Summary ---
Author Organization [facility] Address [address] [place] [address] Care Team Providers Care Felt Hat Pouncing Operator Hand Name Role Phone Breanna Lopez MD Primary Care Provider [phone] Reason for Visit * Reason Onset Date Comments Knee Pain 02/02/2022 Encounter Details Date Type Department Care Team (Late st Contact Info) Description 02/02/2022 Telephone [facility] Rheumatology [address] [place], [place] [id number] Tali Meng MD [address] [facility] [address] [place] [address] Knee Pain Social History Tobacco Use Types Packs/Day Years [...] Telephone Encounter - Mirela Gibbons RN - 02/03/2022 1437 EDT Spoke with patient and reviewed Dr. Meng' recommendations. Patient verbalized understanding and was agreeable with plan with appreciation expressed. * Telephone Encounter - Mirela Gibbons RN - 02/02/2022 1150 EDT Left detailed message with Dr. Meng recommendations that if she is have fluid retention and leg swelling then she should follow up with her PCP and if she is having swelling in the surgical knee joint then she should follow up with ortho. Also advised that though she implied that she is not takingthe naproxen and ibuprofen together, it is not recommended that she switch back and forth between the two as this can still lead to over use of NSAIDs. Recommended that she choose one or the other and alternate with Tylenol if needed. Encouraged her to callback here with any further questions or concerns. * Telephone Encounter - Ewa Roberts - 02/02/2022 0811 EDT Patient states she had a full right knee replacement about 1.5 years ago and has been doing stretching to help. When she does this it feels like her legs are retaining fluid really bad. States my knees are killing me right now, its definitely not normal. Has been doing the Enbrel shots and takingNaproxen and Ibuprofen as needed, but not together. Please advise. she does not want any other painmedications. documented in this encounter Plan of Treatment Not on file documented as of this encounter Visit Diagnoses Not on filedocumented in this encounter Care Teams Felt Hat Pouncing Operator Hand Relationship Specialty Start Date End Date Breanna Lopez MD [address] [place] [phone] PCP - General 05/22/09 documented as of this encounter
--- OUTSIDE RECORDS SUMMARY | 2024-09-11 17:13 | XMS_ITS | Encounter Summary ---
Author Organization [facility] Address [address] [place] [address] Care Team Providers Care Chief Revenue Officer Name Role Phone Breanna Lopez MD Primary Care Provider [phone] Encounter Details Date Type Department Care Team (Late st Contact Info) Description 07/16/2022 Specialty Pharmacy [facility] - [facility] [address] [place] [address] Ailin Salcedo [facility] Social History Tobacco Use Types [...] of this encounter Progress Notes * Linda Redd - 07/16/2022 1433 EDT [facility] Specialty Pharmacy Delivery Information Hours: Wednesday-Wednesday 8:30am - 5:00pm *Pharmacist available vision teacher 31/05 Delivery Service: [facility] Delivery Window: 3-5pm Date of Delivery: Wednesday07/21/22 Tracking # : [id number] documented in this encounter Plan of Treatment Not on file documented as of this encounter Visit Diagnoses Not on filedocumented in this encounter Care Teams Chief Revenue Officer Relationship Specialty Start Date End Date Breanna Lopez MD [address] [place] [phone] PCP - General 05/22/09 documented as of this encounter
--- OUTSIDE RECORDS SUMMARY | 2024-09-11 17:13 | XMS_ITS | Encounter Summary ---
Author Organization [facility] Address [address] [place] [address] Care Team Providers Care Planer Operator Name Role Phone Breanna Lopez MD Primary Care Provider [phone] Reason for Visit * Reason Comments Medication Management Enbrel follow up Encounter Details Date Type Department Care Team (Late st Contact Info) Description 01/26/2023 Specialty Pharmacy [facility] Ambulatory Pharm[facility] - [facility] [address] [place] [address] Yan Mukherjee, [facility] Social History [...] encounter Progress Notes * Keri Dueñas - 01/26/20231112 EDT Specialty Pharmacy Documentation Medication: enbrel Clinic: [facility] Reason for Encounter: outreach Notes: Req new RX Follow up date: 01/27 Follow up reason: refill * Keri Dueñas - 01/26/20231112 EDT Specialty Pharmacy Documentation Medication: enbrel Clinic: [facility] Reason for Encounter: outreach Notes: RTS 02/01 Follow up date: 02/01 Follow up reason: refill * Luther Malik - 01/26/20231112 EDT Specialty Pharmacy Documentation Medication: Enbrel Clinic: [facility] Notes: iHllary called in for refill. She started the call asking if we could charge her card on 02/08, so I asked if she had ever been referred to [facility]. She expressed she has been having serious difficulties financially and is on a very low income to support herself. She has had to waste a lot of gas, add miles, etc to make sure she picks up all her outpatient meds. I mentioned the mail order pharmacy c ould help to eliminate that need to travel for it, as well as to sync up her meds. She will reach out and agreed to touch base on Friday 02/09. She has 1 dose on hand for today 02/05 and will be due for refill 02/12. Follow up date: 02/09 Follow up reason: outreach/touch base regarding [facility] * Yan Mukherjee RPH - 01/26/20231112 EDT Patient reporting significant barriers to care, work, and basic life essentials. [facility] specialty pharmacy coordinating extra support for medication access and a request for social work has been made bypatient to pharmacy. Will outreach to patient to discuss support options and initiate referral for social work interventions. Yan Mukherjee PharmD (he/him) Ambulatory Pharmacist Clinician [facility] 02/05/2023 documented in this encounter Plan of Treatment Not on file documented as of this encounter Visit Diagnoses Not on filedocumented in this encounter Care Teams Planer Operator Relationship Specialty Start Date End Date Breanna Lopez MD [address] [place] [phone] PCP - General 05/22/09 documented as of this encounter
--- OUTSIDE RECORDS SUMMARY | 2024-09-11 17:13 | XMS_ITS | Encounter Summary ---
Author Organization [facility] Address [address] [place] [address] Care Team Providers Care Receptionist Nurse Name Role Phone Breanna Lopez MD Primary Care Provider [phone] Reason for Visit * Reason Onset Date Comments Prior Auth, Medication 09/10/2022 Enbrel Re authorization Encounter Details Date Type Department Care Team (Late st Contact Info) Description 09/10/2022 Telephone [facility] Rheumatology [address] [place], [place] [phone] Tali Meng MD [address] [facility] [address] [place] [address] Prior Auth, Medication (Enbrel Reauthorization ) Social History Tobacco Use Types Packs/Day [...] * Telephone Encounter - Tina Eng - 09/11/2022 0843 EDT Prior Authorization Approval Medication: Enbrel Reauthrorization Insurance Name:VTM Insurance Type: [place] Medicaid Approval Dates: 09/11/22-09/11/23 Authorization Number: [id number] Benefits Information: -- [facility] able to fill? : Yes Required Pharmacy: -- Additional Info/Other Notes: [id number] 03/05 Prior Authorization Submission Process - Urgent Medication: Enbrel Reauth Insurance: VTM Insurance Type: [place] Medicaid Date [place] Request Received: 09/10/22 PA Submission Date: 09/11/22 CMM Alvarez: N/A Faxed Notes: N/A Submitted by: SHADIA Phone: [phone] documented in this encounter Plan of Treatment Not on file documented as of this encounter Visit Diagnoses Diagnosis Seronegative rheumatoid arthritis of multiple sites ([facility])- Primary documented in this encounter Care Teams Receptionist Nurse Relationship Specialty Start Date End Date Breanna Lopez MD [address] [place] [phone] PCP - General 05/22/09 documented as of this encounter
--- OUTSIDE RECORDS SUMMARY | 2024-09-11 17:13 | XMS_ITS | Encounter Summary ---
Author Organization [facility] Address [address] [place] [address] Care Team Providers Care Rn Resource Nurse Name Role Phone Breanna Lopez MD Primary Care Provider [phone] Encounter Details Date Type Department Care Team (Late st Contact Info) Description 06/12/2021 Orders Only [facility] [place] [address] [place], [place] [phone] Gabbie Lomas RN Social History Tobacco Use [...] End Da te methotrexate 2.5 mg tablet Take 20 mg by mouth once a week. Patient Stopped Taking 06/12/2021 folic acid (FOLVITE) 1 mg tabletIndications:Infla mmatory arthritis Take 1 Tab by mouth daily. Patient Stopped Taking 12/13/2017 06/12/2021 documented as of this encounter Care Teams Rn Resource Nurse Relationship Specialty Start Date End Date Breanna Lopez MD [address] [place] [phone] PCP - General 05/22/09 documented as of this encounter
--- OUTSIDE RECORDS SUMMARY | 2024-09-11 17:13 | XMS_ITS | Encounter Summary ---
Author Organization [facility] Address [address] [place] [address] Care Team Providers Care Pony Trimmer Name Role Phone Breanna Lopez MD Primary Care Provider [phone] Reason for Visit * Reason Onset Date Comments Other 01/08/2021 Encounter Details Date Type Department Care Team (Late st Contact Info) Description 01/08/2021 Telephone [facility] Rheumatology [address] [place], [place] [phone] Tali Meng MD [address] [facility] [address] [place] [address] Other Social History Tobacco Use [...] Telephone Encounter - Gabbie Lomas RN - 01/08/2021 1422 EST Letter faxed to [facility]. * Telephone Encounter - Sherri Rahman - 01/08/2021 1320 EST Hillary called, as well a dental expanded function dental assistant from [facility]. They state that even though they were given a verbal response over the phone that the pt did not need a Premed before her appt, they are now requesting a copy be faxed to their office at [phone] documented in this encounter Plan of Treatment Not on file documented as of this encounter Visit Diagnoses Not on filedocumented in this encounter Care Teams Pony Trimmer Relationship Specialty Start Date End Date Breanna Lopez MD [address] [place] [phone] PCP - General 05/22/09 documented as of this encounter
--- OUTSIDE RECORDS SUMMARY | 2024-09-11 17:13 | XMS_ITS | Encounter Summary ---
Author Organization [facility] Address [address] [place] [address] Care Team Providers Care Completion Engineer Name Role Phone Breanna Lopez MD Primary Care Provider [phone] Reason for Visit * Reason Comments Joint Pain Rheumatoid Arthritis Encounter Details Date Type Department Care Team (Late st Contact Info) Description 11/06/2020 10:15 EST Office Visit [facility] Rheumatology [address], [place] [id number] Tali Meng MD [address] [facility] [address] [place] [address] Seronegative rheumatoid arthritis ([facility]) (Primary Dx); Encounter for long-term (current) use [...] Sign Reading Time Taken Comments Blood Pressure 140/70 11/06/2020 1045 EST Pulse 111 11/06/2020 1045 EST Temperature - - Respiratory Rate - - Oxygen Saturation - - Inhaled Oxygen Concentration - - Weight - - Height - - Body Mass Index - - documented in this encounter Functional Status Functional [...] * Patient Instructions* Tali Meng MD - 11/06/2020 10:15 EST Recommend a flu shot Restart Enbrel Hold methotrexate Try to smoke less, this will be healthier Try going back to work. documented in this encounter Ordered Prescriptions Prescription Sig Dispensed Refills Start Date End Da te etanercept (ENBREL SURECLICK) 50 mg/mL (1 mL) subcutaneous penIndications:Seronegativ e rheumatoid arthritis ([facility]) Inject 1 mL into the skin once a week. 4 Pen 5 11/06/2020 08/20/2021 documented in this encounter Progress Notes * Tali Meng MD - 11/06/2020 1015 EST Division of Rheumatology and Clinical Immunology Chief Complaint Patient presents with ??? Joint Pain Rheumatology problem Seronegative RA Prior rx methotrexate/Enbrel Issue with medication use. Right TKA June 2020 Suboxone therapy opiate use disorder HPI: Had knee replacement in June 2020. Struggles with ROM Hard to move. Arthritis elsewhere is still a problem in elbows and hands Off of her Enbrel Had taken it 2 weeks before surgery. Helped her a lot Works for her arthritis. Stopped methotrexate and Enbrel because of worry about covid. Stopped methotrexate and Enbrel before surgery in June and did not restart due to concerns about COVID 19 Worried about covid 19 Current Outpatient Medications Medication ??? ARIPiprazole (ABILIFY) 5 mg tablet ??? BUPRENORPHINE HCL/NALOXONE HCL (SUBOXONE SL) ??? DULoxetine (CYMBALTA) 60 mg capsule ??? etanercept (ENBREL SURECLICK) 50 mg/mL (1 mL) subcutaneous pen ??? folic acid (FOLVITE) 1 mg tablet ??? ibuprofen (MOTRIN) 800 mg tablet ??? lisdexamfetamine (VYVANSE) 70 mg capsule ??? methylPREDNISolone (MEDROL) 4 mg tablet No current facility-administered medications for this visit. Allergies include: Patient has no known allergies. Past Medical History: Diagnosis Date ??? ADD (attention deficit disorder) ??? Cocaine abuse ([facility]) ??? Depression with anxiety ??? Hyperhidrosis ??? Inflammatory arthritis ??? Keratosis pilaris ??? Leg edema ??? Obesity ??? Opioid dependence (HCC-CMS) ??? Osteoarthritis ??? Substance abuse (HCC-CMS) ??? Tobacco use ROS Negative except as in hpi. Complete 12 point ros obtained PHYSICAL EXAMINATION: BP 140/70 (BP Cuff Location: Left arm, BP Cuff Sizes: Adult, long) Pulse (!) 111 Physical Exam Vitals signs and nursing note reviewed. Constitutional: Appearance: Normal appearance. HENT: Head: Normocephalic. Nose: Nose normal. Eyes: Extraocular Movements: Extraocular movements intact. Pupils: Pupils are equal, round, and reactive to light. Cardiovascular: Rate and Rhythm: Normal rate. Pulmonary: Effort: Pulmonary effort is normal. Breath sounds: Normal breath sounds. Musculoskeletal: Comments: Left knee flexion contracture. Right elbow flexion contracture Left wrist prominent styloid. Skin: General: Skin is warm. Neurological: Mental Status: She is alert. Psychiatric: Mood and Affect: Mood normal. Behavior: Behavior normal. LABS Office Visit on 11/06/2020 Component Date Value ??? ABSOLUTE NEUTROPHIL COUN* 11/06/2020 3.3 ??? BASO # - [facility] 11/06/2020 0.06 ??? BASO % - [facility] 11/06/2020 1 ??? EOS # - [facility] 11/06/2020 0.16 ??? EOS % - [facility] 11/06/2020 3 ??? GRAN % - [facility] 11/06/2020 56.1 ??? HEMATOCRIT - [facility] 11/06/2020 45.5* ??? HEMOGLOBIN - [facility] 11/06/2020 15.0 ??? IG# - [facility] 11/06/2020 0.01 ??? IG% - [facility] 11/06/2020 0.2 ??? LYMPH # - [facility] 11/06/2020 1.8 ??? LYMPH% - [facility] 11/06/2020 30.9 ??? MEAN CORPUSCULAR HGB - C* 11/06/2020 29.0 ??? MEAN CORPUSCULAR HGB CON* 11/06/2020 33.0 ??? MEAN CELL VOLUME - [facility] 11/06/2020 88.0 ??? MONO # - [facility] 11/06/2020 0.5 ??? MONO% - [facility] 11/06/2020 9.1 ??? PLATELET COUNT 11/06/2020 257 ??? RED BLOOD COUNT - [facility] 11/06/2020 5.17* ??? RED CELL DISTRI WIDTH - * 11/06/2020 13.1 ??? WHITE BLOOD COUNT - [facility] 11/06/2020 5.8 39 yo woman with with seronegative RA on enbrel and methotrexate but has compliance issues. Recent TKA Seronegative RA Enbrel restarted Hold methotrexate can add if not controlled High risk med Recommend control of ra over avoiding DMARDS Labs due, orders placed. Impressions, diagnosis, treatment plan were reviewed. Patient questions and concerns were reviewed and answered. Patient agreeable to plan of care and will call if any addition concerns or questions arise. Tali Meng MD 11/06/2020 10:48 documented in this encounter Plan of Treatment Not on file documented as of this encounter Procedures Procedure Name Priority Date/Time Associated Diagnosis Comments COMPLETE BLOOD COUNT WITH DIFFERENTIAL (AUTO) Routine 11/06/2020 11:27 EST Seronegative rheumatoid arthritis ([facility]) COMPREHENSIVE METABOLIC PANEL (CMP) Routine 11/06/2020 11:26 EST Seronegative rheumatoid arthritis ([facility]) documented in this encounter Results * (ABNORMAL) COMPLETE BLOOD COUNT WITH DIFFERENTIAL (AUTO) (11/06/2020 11:27 EST) ABSOLUTE NEUTROPHIL COUN - [facility] 3.3 2.2 - 8.85 10e3/uL 11/06/2020 12:34 [facility] BASO # - [facility] 0.06 0.01 - 0.11 10e/uL 11/06/2020 12:34 [facility] BASO % - [facility] 1 0 - 2 % 11/06/2020 12:34 [facility] EOS # - [facility] 0.16 0.03 - 0.61 10e3/ul 11/06/2020 12:34 [facility] EOS % - [facility] 3 0 - 5 % 11/06/2020 12:34 [facility] GRAN % - [facility] 56.1 40 - 80 % 11/06/2020 12:34 [facility] HEMATOCRIT - [facility] 45.5(H) 34.9 - 44.4 % 11/06/2020 12:34 [facility] HEMOGLOBIN - [facility] 15.0 11.6 - 15.2 g/dl 11/06/2020 12:34 [facility] IG# - [facility] 0.01 0 - 0.7 10e3/uL 11/06/2020 12:34 [facility] IG% - [facility] 0.2 0 - 0.9 % 11/06/2020 12:34 [facility] LYMPH # - [facility] 1.8 1.09 - 3.3 10e3/ul 11/06/2020 12:34 [facility] LYMPH% - [facility] 30.9 20 - 40 % 11/06/2020 12:34 [facility] MEAN CORPUSCULAR HGB - [facility] 29.0 26.7 - 33.3 pg 11/06/2020 12:34 [facility] MEAN CORPUSCULAR HGB CONC - [facility] 33.0 32.1 - 35.9 g/dL 11/06/2020 12:34 [facility] MEAN CELL VOLUME - [facility] 88.0 81 - 98 fl 11/06/2020 12:34 [facility] MONO # - [facility] 0.5 0.1 - 0.8 10e3/uL 11/06/2020 12:34 [facility] MONO% - [facility] 9.1 0 - 12 % 11/06/2020 12:34 [facility] PLATELET COUNT 257 141 - 377 10e3/ul 11/06/2020 12:34 [facility] RED BLOOD COUNT - [facility] 5.17(H) 3.86 - 5.04 10e3/ul 11/06/2020 12:34 [facility] RED CELL DISTRI WIDTH - [facility] 13.1 <14.7 % 11/06/2020 12:34 [facility] WHITE BLOOD COUNT - [facility] 5.8 4.0 - 12.4 10e3/ul 11/06/2020 12:34 [facility] 11/06/2020 11:2 7 EST 11/06/2020 11:27 [facility] - 11/06/2020 12:34 EST Does PT Have a Latex Allergy? NO Tali Meng MD HEMATOLOGY & PF4 ORDERABLES Performing Organization Address City/State/[facility] Co de Phone Number [facility] [address] [place] [address] * (ABNORMAL) COMPREHENSIVE METABOLIC PANEL (CMP) (11/06/2020 11:26 EST) Albumin % 4.2 3.4 - 4.9 g/dL 11/06/2020 12:52 [facility] ALKALINE PHOSPHATASE - [facility] 68 38 - 126 U/L 11/06/2020 12:52 [facility] BILIRUBIN TOTAL 0.6 0.2 - 1.3 mg/dL 11/06/2020 12:52 [facility] BUN - [facility] 9(L) 10 - 26 mg/dL 11/06/2020 12:52 [facility] CALCIUM - [facility] 9.2 8.5 - 10.5 mg/dL 11/06/2020 12:52 [facility] Chloride 104 96 - 110 mmol/L 11/06/2020 12:52 [facility] CO2 Total 25 22 - 32 mEq/L 11/06/2020 12:52 [facility] CREATININE 0.67 0.52 - 1.04 mg/dL 11/06/2020 12:52 [facility] eGFR >60 11/06/2020 12:52 [facility] Comment: Chronic renal impairment is defined as GFR <60 Multiply result by 1.210 for patients. eGFR calculated using the [facility]-traceable MDRD Study Equation. ??(effective 09/10/2014) Anion Gap 6 0 - 18 11/06/2020 12:52 [facility] GLUCOSE - [facility] 90 70 - 100 mg/dL 11/06/2020 12:52 [facility] Potassium 4.4 3.5 - 5.0 mEq/L 11/06/2020 12:52 [facility] Sodium 135(L) 136 - 145 mEq/L 11/06/2020 12:52 [facility] TOTAL PROTEIN - [facility] 7.4 6.2 - 8.2 gm/dL 11/06/2020 12:52 [facility] SGOT/AST - [facility] 30 14 - 36 U/L 11/06/2020 12:52 [facility] SGPT/ALT - [facility] 17 0 - 35 U/L 0 12:52 [facility] 11/06/2020 11:2 6 EST 11/06/2020 11:26 EST [facility] - 11/06/2020 12:52 EST Does PT Have a Latex Allergy? NO Tali Meng MD CHEMISTRY & BLOO D GAS ORDERABLES Performing Organization Address City/State/[facility] Co de Phone Number [facility] [address] [place] [address] documented in this encounter Visit Diagnoses Diagnosis Seronegative rheumatoid arthritis ([facility])- Primary Rheumatoid arthritis Encounter for long-term (current) use of medications Encounter for long-term (current) use of other medications documented in this encounter Discontinued Medications Medication Sig Discontinue Reason Start Date End Da te ARIPiprazole (ABILIFY) 5 mg tablet 1 tab(s) orally once a day Therapy completed 11/06/2020 DULoxetine (CYMBALTA) 60 mg capsule Take 60 mg by mouth daily. 11/06/2020 etanercept (ENBREL SURECLICK) 50 mg/mL (1 mL) subcutaneous pen Inject 1 mL into the skin once a week. Reorder 04/08/2020 11/06/2020 documented as of this encounter Historical Medications * This list may reflect changes made after this encounter. Medication Sig Dispensed Refills Start Date End Date methotrexate 2.5 mg tablet Take 20 mg by mouth once a week. 06/12/2021 added in this encounter Care Teams Completion Engineer Relationship Specialty Start Date End Date Breanna Lopez MD [address] [place] [phone] PCP - General 05/22/09 documented as of this encounter
--- OUTSIDE RECORDS SUMMARY | 2024-09-11 17:13 | XMS_ITS | Encounter Summary ---
Author Organization [facility] Address [address] [place] [address] Care Team Providers Care Domestic Violence Advocate Name Role Phone Breanna Lopez MD Primary Care Provider [phone] Reason for Visit * Reason Onset Date Comments Other 04/02/2021 Encounter Details Date Type Department Care Team (Late st Contact Info) Description 04/02/2021 Telephone [facility] - [facility] Rheumatology [address] [place], [place] [id number] Tali Meng MD [address] [facility] [address] [place] [address] Other Social History Tobacco Use [...] Telephone Encounter - Dasia Goldstein RN - 04/02/2021 1132 EDT PA for Enbrel sent to PA team.Called pt and LM with that information on her voicemail * Telephone Encounter - Jasmyne Holt MA - 04/02/2021 1057 EDT Patient called and states she received a letter from [employer] that she is looking to speak witha nurse about it as she doesn't quite understand it. Please call [phone]. Please advise. Thanks. documented in this encounter Plan of Treatment Not on file documented as of this encounter Visit Diagnoses Not on filedocumented in this encounter Care Teams Domestic Violence Advocate Relationship Specialty Start Date End Date Breanna Lopez MD [address] [place] [address] [phone] PCP - General 05/22/09 documented as of this encounter
--- OUTSIDE RECORDS SUMMARY | 2024-09-11 17:13 | XMS_ITS | Encounter Summary ---
Author Organization [facility] Address [address] [place] [address] Care Team Providers Care Vocational Nurse Lvn Name Role Phone Breanna Lopez MD Primary Care Provider [phone] Reason for Visit * Reason Onset Date Comments Update 06/25/2020 Encounter Details Date Type Department Care Team (Late st Contact Info) Description 06/25/2020 Telephone [facility] - [facility] Rheumatology [address] [place] [address] Eduardo Short MD [facility] Rheumatology [address] [place] [address] [place] [address] Update Social History Tobacco Use Types Packs/Day [...] Telephone Encounter - Gabbie Lomas RN - 06/25/[address] Short's recommendation. * Telephone Encounter - Gabbie Lomas RN - 06/25/2020 0952 EDT Forwarding you this question from Hillary. * Telephone Encounter - Ailin Ulloa - 06/25/2020 0920 EDT Hillary will be having right knee replacement 07/01/[address] Choudhary [facility], She has a preop visit with him tomorrow. She is asking about Continuing ENBREL, she did an injection today. Mainly she was taking the Enbrel for her right knee. She can be reached today at [phone] okay to leave a message with the best time to call back. documented in this encounter Plan of Treatment Not on file documented as of this encounter Visit Diagnoses Not on filedocumented in this encounter Care Teams Vocational Nurse Lvn Relationship Specialty Start Date End Date Breanna Lopez MD [facility] [address] [phone] PCP - General 05/22/09 documented as of this encounter
--- OUTSIDE RECORDS SUMMARY | 2024-09-11 17:13 | XMS_ITS | Encounter Summary ---
Author Organization [facility] Address [address] [place] [address] Care Team Providers Care Reel Cart Operator Name Role Phone Breanna Lopez MD Primary Care Provider [phone] Encounter Details Date Type Department Care Team (Late st Contact Info) Description 10/19/2022 Specialty Pharmacy [facility] [address] [place] [address] Yan Mukherjee, [facility] Social History Tobacco Use [...] as of this encounter Progress Notes * Cayla Su - 10/19/2022 0857 EST Specialty Pharmacy Documentation Medication: Enbrel Clinic: Rheum Reason for Encounter: outreach Notes: 2nd attempt Follow up date: 10/23 Follow up reason: outreach * Keri Dueñas - 10/19/2022 0857 EST [facility] Specialty Pharmacy Delivery Information Hours: Wednesday-Wednesday 8:30am - 5:00pm *Pharmacist available networks software consultant 31/05 Delivery Service: [facility] Delivery Window: 1pm - 5pm Date of Delivery: 11/20/22 Tracking # : [id number] * Darcie Matamoors RPH - 10/19/2022 0857 EST Spoke with Hillary regarding the following information with the upcoming Enbrel delivery: This medication is currently at room temperature due to a refrigerator temperature excursion. Per the mixologist the medication is viable for 30 days at room temperature. This medication is good through 12/17/22. The patients last of the 4 doses is on 12/11. The medication will be shipped at room temperature, should stay at room temperature and should not be used after 12/17/2022. Also included: A note on the medication itself labeled: do not use after 12/17/22. Darcie Matamoros PharmD Specialty Pharmacy 11/19/2022 documented in this encounter Plan of Treatment Not on file documented as of this encounter Visit Diagnoses Not on filedocumented in this encounter Care Teams Reel Cart Operator Relationship Specialty Start Date End Date Breanna Lopez MD [address] [place] [phone] PCP - General 05/22/09 documented as of this encounter
--- OUTSIDE RECORDS SUMMARY | 2024-09-11 17:13 | XMS_ITS | Encounter Summary ---
Author Organization [facility] Address [address] [place] [address] Care Team Providers Care Rug Cleaner Name Role Phone Breanna Lopez MD Primary Care Provider [phone] Reason for Visit * Reason Onset Date Comments Prior Auth, Medication 12/11/2020 Encounter Details Date Type Department Care Team (Late st Contact Info) Description 12/11/2020 Telephone [facility] - [facility] Rheumatology [address] [place] [address] Gabbie Lomas RN Prior Auth, Medication Social [...] Telephone Encounter - Gabbie Lomas RN - 12/12/2020 1047 EST Left another message stating that [facility] is working on the Enbrel PA. * Telephone Encounter - Sherri Rahman - 12/12/2020 1012 EST Hillary called back this morning, wanting another status update for her Enbrel PA. Good call back [phone] * Telephone Encounter - Gabbie Lomas RN - 12/11/2020 1648 EST [facility] with update stating that Enbrel PA request was submitted to [facility] PA team on 12/06 and we sent them an update from [facility] on 12/09. * Telephone Encounter - Gabbie Lomas RN - 12/11/2020 1647 EST Hillary [facility] asking for an update on the status of the Enbrel PA. documented in this encounter Plan of Treatment Not on file documented as of this encounter Visit Diagnoses Not on filedocumented in this encounter Care Teams Rug Cleaner Relationship Specialty Start Date End Date Breanna Lopez MD [address] [place] [phone] PCP - General 05/22/09 documented as of this encounter
--- OUTSIDE RECORDS SUMMARY | 2024-09-11 17:13 | XMS_ITS | Encounter Summary ---
Author Organization [facility] Address [address] [place] [address] Care Team Providers Care Post Tensioning Ironworker Helper Name Role Phone Breanna Lopez MD Primary Care Provider [phone] Reason for Visit * Reason Onset Date Comments Prior Auth, Medication 08/08/2021 Encounter Details Date Type Department Care Team (Late st Contact Info) Description 08/08/2021 Telephone [facility] Rheumatology [address] [place] [address] Tali Meng MD [address] [facility] [address] [place] [address] Prior Auth, Medication Social History [...] Telephone Encounter - Gabbie Lomas RN - 08/19/2021 1631 EDT Please provide an update on status of this enbrel PA. Thank you. * Telephone Encounter - Ewa Roberts - 08/19/2021 1617 EDT [facility] calling re: status of PA for Enbrel. Would like a call back when completed. * Telephone Encounter - Gabbie Lomas RN - 08/08/2021 1113 EDT [id number] placed for renewal of Enbrel PA. * Telephone Encounter - Jasmyne Holt MA - 08/08/2021 1000 EDT Prior authorization forms for Enbrel have been scanned into chart. Please refer to scans for more details. documented in this encounter Plan of Treatment Not on file documented as of this encounter Visit Diagnoses Diagnosis Rheumatoid arthritis of multiple sites without rheumatoid factor ([facility])- Primary Rheumatoid arthritis documented in this encounter Care Teams Post Tensioning Ironworker Helper Relationship Specialty Start Date End Date Breanna Lopez MD [address] [place] [phone] PCP - General 05/22/09 documented as of this encounter
--- OUTSIDE RECORDS SUMMARY | 2024-09-11 17:13 | XMS_ITS | Encounter Summary ---
Author Organization [facility] Address [address] [place] [address] Care Team Providers Care Talent Management Specialist Name Role Phone Breanna Lopez MD Primary Care Provider Reason for Visit * Reason Onset Date Comments Prior Auth, Medication 04/11/2021 Encounter Details Date Type Department Care Team (Late st Contact Info) Description 04/11/2021 Telephone [facility] Rheumatology [address] [place] [address] Tali Meng MD [address] [facility] [address] [place] [address] Prior Auth, Medication Social History [...] encounter Miscellaneous Notes * Telephone Encounter - Deana Adams - 04/11/2021 5569 EDT Prior Authorization Approval Medication: Enbrel 50mg sureclick pen q7d renewal Approved: through 07/12/21 Authorization Number: [id number] Benefits Information or Other Notes: Required Pharmacy: Preferred Pharmacy: [facility] Prior Authorization Submission Process Medication: Enbrel 50mg sureclick pen q7d renewal Insurance: IAM Date PA Request Received: 04/02/21 PA Submission Date: 04/11/21 [facility] Alvarez: n/a submitted via fax Submitted by: Deana Phone: [phone] documented in this encounter Plan of Treatment Not on file documented as of this encounter Visit Diagnoses Not on filedocumented in this encounter Care Teams Talent Management Specialist Relationship Specialty Start Date End Date Breanna Lopez MD [address] [place] [phone] PCP - General 05/22/09 documented as of this encounter
--- OUTSIDE RECORDS SUMMARY | 2024-09-11 17:14 | XMS_ITS | Encounter Summary ---
Author Organization [facility] Address [address] [place] [address] Care Team Providers Care Rope Coiling Machine Operator Name Role Phone Breanna Lopez MD Primary Care Provider [phone] Reason for Visit * Reason Onset Date Comments Results 08/03/2016 Encounter Details Date Type Department Care Team (Late st Contact Info) Description 08/03/2016 Refill [facility] Rheumatology & Immunology - [facility] [address] [place], [place] [id number] Grant Engle MD [address] [place] [address] Results Social History Tobacco Use Types Packs/Day Years Used Date Smoking Tobacco: Every Day Cigarettes 1 29.5 Started: 03/01/1995 Smokeless Tobacco: Never Comments:getting ready menta lly Alcohol Use Standard Drinks/Week Comments No 0 (1 standard drink = 0.6 oz pur e alcohol) Sex and Gender Information Value Date Recorded Sex Assigned at Female 03/20/2021 0:23 EDT Gender Identity Female 10/23/2019 13:44 EST Sexual Orientation Choose not to disclose 2020 0:23 EDT documented as of this encounter Ordered Prescriptions Prescription Sig Dispensed Refills Start Date End Da te ibuprofen (MOTRIN) 800 mg tabletIndications:Pain, joint, knee, right Take 1 Tab by mouth every 8 hours as needed for Pain. No additional refills until seen in clinic. 90 Tab 08/03/2016 08/19/2016 documented in this encounter Miscellaneous Notes * Telephone Encounter - Grant Engle MD - 08/21/2016 0844 EDT I left a msg for Hillary that I reviewed her knee xray and want to discuss the result and what needs to be done. * Telephone Encounter - Michelle Suarez RN - 08/03/2016 0949 EDT Last visit 05/15/15 and next fur 08/19/16. Ok to fill #[phone] with no additional refills until seen? * Telephone Encounter - Layla Moore - 08/03/2016 0941 EDT Medication(s) Requested: Ibuprofen 800 mg - 1 pill every 8 hrs as needed for pain Pharmacy: [facility] [place] [phone] Last Refill Date: Pt does not remember. Thinks it has been about year. Last Visit Date: 05.15.2015 Next Visit Date: 08/19/2016 Is patient out of medication? YES - Per pt, completely out. Pt made aware of next appt and that thenurse has up to 48 hrs to call scripts in and to please call the pharmacy prior to worm picker. Please call the pt with any questions/concerns. Layla Moore 08/03/2016 9:41 documented in this encounter Plan of Treatment Not on file documented as of this encounter Visit Diagnoses Diagnosis Pain, joint, knee, right Pain in joint, lower leg documented in this encounter Discontinued Medications Medication Sig Discontinue Reason Start Date End Da te ibuprofen (MOTRIN) 800 mg tabletIndications:Pain, joint, knee, right Take 1 Tab by mouth every 8 hours as needed for Pain. Reorder 07/26/2013 08/03/2016 documented as of this encounter Care Teams Rope Coiling Machine Operator Relationship Specialty Start Date End Date Breanna Lopez MD [address] [place] [phone] PCP - General 05/22/09 documented as of this encounter
--- OUTSIDE RECORDS SUMMARY | 2024-09-11 17:14 | XMS_ITS | Encounter Summary ---
Author Organization [facility] Address [address] [place] [address] Care Team Providers Care Stone Driller Helper Name Role Phone Breanna Lopez MD Primary Care Provider [phone] Reason for Visit * Reason Onset Date Comments Other 03/15/2020 Encounter Details Date Type Department Care Team (Late st Contact Info) Description 03/15/2020 Telephone [facility] [place] [address] [place] [address] Eduardo Short MD [facility] Rheumatology [address] [place] [address] [place] [address] Other Social History Tobacco Use Types Packs/Day [...] Telephone Encounter - Gabbie Lomas RN - 03/15/[address] Short's reply with Hillary with appreciation and understanding expressed. * Telephone Encounter - Gabbie Lomas RN - 03/15/2020 1345 EDT Can you explain the difference in these and I'll pass along to Hillary? Thank you. * Telephone Encounter - Jasmyne Holt - 03/15/2020 1328 EDT Patient called looking to see if she could get some advice on the difference between being immunocompromised versus immunosuppressed. She states she is having trouble remembering what was said in this regard at the last visit she had with Dr. Short on 03/14/2020. Thanks. documented in this encounter Plan of Treatment Not on file documented as of this encounter Visit Diagnoses Not on filedocumented in this encounter Care Teams Stone Driller Helper Relationship Specialty Start Date End Date Breanna Lopez MD [address] [place] [phone] PCP - General 05/22/09 documented as of this encounter
--- OUTSIDE RECORDS SUMMARY | 2024-09-11 17:14 | XMS_ITS | Encounter Summary ---
Author Organization [facility] Address [address] [place] [address] Care Team Providers Care Rn Primary Care Name Role Phone Breanna Lopez MD Primary Care Provider [phone] Encounter Details Date Type Department Care Team (Late st Contact Info) Description 03/12/2020 Abstract [facility] - [facility] [address] [place], [place] [id number] Magdalena Dent MA Social History Tobacco Use Types Packs/Day Years [...] Sig Dispensed Refills Start Date End Date ARIPiprazole (ABILIFY) 5 mg tablet 1 tab(s) orally once a day 11/06/2020 DULoxetine (CYMBALTA) 60 mg capsule Take 60 mg by mouth daily. 11/06/2020 added in this encounter Care Teams Rn Primary Care Relationship Specialty Start Date End Date Breanna Lopez MD [address] [place] [phone] PCP - General 05/22/09 documented as of this encounter
--- OUTSIDE RECORDS SUMMARY | 2024-09-11 17:14 | XMS_ITS | Encounter Summary ---
Author Organization [facility] Address [address] [place] [address] Care Team Providers Care Corner Bead Operator Name Role Phone Breanna Lopez MD Primary Care Provider [phone] Encounter Details Date Type Department Care Team (Late st Contact Info) Description 10/25/2019 Orders Only [facility] Rheumatology [address] [place], [place] [id number] Dasia Goldstein RN Seronegative rheumatoid arthritis ([facility]) (Primary Dx) Social History Tobacco Use Types [...] of this encounter Progress Notes * Dasia Goldstein RN - 10/25/2019 0951 EST New DMARD standing lab orders entered in Epic and faxed to [facility] in [facility] where pt goes. documented in this encounter Plan of Treatment Not on file documented as of this encounter Visit Diagnoses Diagnosis Seronegative rheumatoid arthritis ([facility])- Primary Rheumatoid arthritis documented in this encounter Care Teams Corner Bead Operator Relationship Specialty Start Date End Date Breanna Lopez MD [address] [place] [phone] PCP - General 05/22/09 documented as of this encounter
--- OUTSIDE RECORDS SUMMARY | 2024-09-11 17:14 | XMS_ITS | Encounter Summary ---
Author Organization [facility] Address [address] [place] [address] Care Team Providers Care Mail Room Name Role Phone Breanna Lopez MD Primary Care Provider [phone] Reason for Visit * Reason Onset Date Comments Prior Auth, Medication 09/17/2017 Pharmacy is calling to change Dr. Santiago information for the refill Enbrel from Dr. Lora. Encounter Details Date Type Department Care Team (Late st Contact Info) Description 09/17/2017 Telephone [facility] Rheumatology & Immunology - [address] [address] Warren Zamora Chi, MD [address] [place] [address], [address] [place] [address] Prior Auth, Medication (Pharmacy is calling to change Dr. Santiago information for the refill Enbrel from Dr. Lora.) Social History Tobacco Use Types Packs/Day Years [...] visiting a doctor's office or shopping? No 06/16/2017 Cognitive Status Response Date of Assessm ent Because of a physical, menta l, or emotional condition, does this person have serious difficulty concentrating, remembering, or making decisions? No 06/16/2017 documented as of this encounter Ordered Prescriptions Prescription Sig Dispensed Refills Start Date End Da te ibuprofen (MOTRIN) 800 mg tabletIndications:Pain, joint, knee, right Take 1 Tab by mouth every 8 hours as needed for Pain. 90 Tab 5 09/20/2017 Etanercept (ENBREL SURECLICK) 50 mg/mL (0.98 mL) pen injector Inject 50 mg into the skin once a week. 4 Pen 5 09/20/2017 04/05/2018 documented in this encounter Miscellaneous Notes * Addendum Note - Christian Saleh RN - 09/20/2017 1456 ESTAddended by: CHRISTIAN SALEH on: 09/20/2017 14:56 Modules accepted: Orders * Telephone Encounter - Fatuma Renae - 09/17/2017 1033 EST Reason for Call: Prior Auth, Medication (Pharmacy is calling to change Dr. Santiago information for therefill Enbrel from Dr. Lora.) Summary/Symptoms: FAX: [phone] Please send over new script with Dr. Pamela aguilar on it. Fatuma Renae 09/17/2017 10:33 documented in this encounter Plan of Treatment Not on file documented as of this encounter Visit Diagnoses Diagnosis Pain, joint, knee, right- Primary Pain in joint, lower leg documented in this encounter Discontinued Medications Medication Sig Discontinue Reason Start Date End Da te ibuprofen (MOTRIN) 800 mg tabletIndications:Pain, joint, knee, right Take 1 Tab by mouth every 8 hours as needed for Pain. Reorder 12/14/2016 09/20/2017 Etanercept (ENBREL SURECLICK) 50 mg/mL (0.98 mL) pen injector Inject 50 mg into the skin once a week. Reorder 03/02/2017 09/20/2017 documented as of this encounter Care Teams Mail Room Relationship Specialty Start Date End Date Breanna Lopez MD [address] [place] [phone] PCP - General 05/22/09 documented as of this encounter
--- OUTSIDE RECORDS SUMMARY | 2024-09-11 17:14 | XMS_ITS | Encounter Summary ---
Author Organization [facility] Address [address] [place] [address] Care Team Providers Care Test Grader Name Role Phone Breanna Lopez MD Primary Care Provider [phone] Reason for Visit * Reason Onset Date Comments Medication Management 03/08/2020 Encounter Details Date Type Department Care Team (Late st Contact Info) Description 03/08/2020 Telephone [facility] [place] [address] [place] [address] Eduardo Short MD [facility] Rheumatology [address] [place] [address] [place] [address] Medication Management Social History Tobacco Use Types [...] Telephone Encounter - Gabbie Lomas RN - 03/08/2020 1642 EDT Notified Ailin to call and schedule for 03/14 at 10:30 with agreement expressed. * Telephone Encounter - Gabbie Lomas RN - 03/08/2020 1607 EDT Forwarding you this pdate from theresa response to prednisone. You have an opening on 03/14 at 10:30 for an in person visit. Do you want her scheduled there for a knee injection? moi * Telephone Encounter - Ailin Ulloa - 03/08/2020 1540 EDT Hillary has a video appt on 03/[address] Short to know that the prednisone has not helped. She is having a lot of pain, has been using tylenol and some heat on her right knee. documented in this encounter Plan of Treatment Not on file documented as of this encounter Visit Diagnoses Not on filedocumented in this encounter Care Teams Test Grader Relationship Specialty Start Date End Date Breanna Lopez MD [address] [place] [phone] PCP - General 05/22/09 documented as of this encounter
--- OUTSIDE RECORDS SUMMARY | 2024-09-11 17:14 | XMS_ITS | Encounter Summary ---
Author Organization [facility] Address [address] [place] [address] Care Team Providers Care Utility Plant Operative Name Role Phone Breanna Lopez MD Primary Care Provider [phone] Reason for Visit * Reason Onset Date Comments Medications Refill 03/02/2017 Encounter Details Date Type Department Care Team (Late st Contact Info) Description 03/02/2017 Refill [facility] Rheumatology & Immunology [facility] [address] [place] [address] Rosy Flanagan RN Medications Refill Social History Tobacco Use Types [...] visiting a doctor's office or shopping? No 08/19/2016 Cognitive Status Response Date of Assessm ent Because of a physical, menta l, or emotional condition, does this person have serious difficulty concentrating, remembering, or making decisions? No 08/19/2016 documented as of this encounter Miscellaneous Notes * Telephone Encounter - Rosy Flanagan RN - 03/02/2017 1617 EDT Enbrel previously refilled. documented in this encounter Plan of Treatment Not on file documented as of this encounter Visit Diagnoses Not on filedocumented in this encounter Care Teams Utility Plant Operative Relationship Specialty Start Date End Date Breanna Lopez MD [address] [place] [phone] PCP - General 05/22/09 documented as of this encounter
--- OUTSIDE RECORDS SUMMARY | 2024-09-11 17:14 | XMS_ITS | Encounter Summary ---
Author Organization [facility] Address [address] [place] [address] Care Team Providers Care Audio Recording Engineer Name Role Phone Breanna Lopez MD Primary Care Provider [phone] Encounter Details Date Type Department Care Team (Late st Contact Info) Description 08/19/2016 Results Only [facility] Rheumatology & Immunology - [facility] [address] [place], [place] [id number] Grant Engle MD [address] [place] [phone] Social History Tobacco Use Types Packs/Day Years [...] No 08/19/2016 documented as of this encounter Plan of Treatment Not on file documented as of this encounter Procedures Procedure Name Priority Date/Time Associated Diagnosis Comments KNEES 3 VIEWS 08/19/2016 14:15 EDT documented in this encounter Results * KNEES 3 VIEWS (08/19/2016 14:15 EDT) Anatomical Region Laterality Modality Other 08/19/2016 14:1 5 EDT 08/20/2016 16:43 EDT Narrative 08/20/2016 16:43 EDT KNEES 3 VIEWS, KNEES 3 VIEWS ??08/19/2016 2:15 PM Signs and Symptoms/Comments: ?? M19.90-Unspecified osteoarthritis, unspecified site-ICD-10 M25.561-Pain in right knee-ICD-10; pain in knees, right more than left Technique: 3 views of each knee were obtained. COMPARISON: 01/28/2010 knee radiographs. FINDINGS: There has been progression of osteoarthritis in the right knee with now hyus-ed-tfbq contact and increased subchondral sclerosis in the medial compartment. Intraosseous cyst formation is seen within the medial tibial plateau. There is varus alignment. The lateral joint space is narrowed as well. Degenerative changes are also evident at the right patellofemoral compartment, progressed compared to the prior examination. A joint effusion is present. The left knee demonstrates no joint effusion, smooth articular margins and well-preserved joint spaces. No fracture is identified in either knee. IMPRESSION: Progressive radiographically severe right knee osteoarthritis compared with prior radiographs obtained 01/28/2010. Procedure Note Corby Fuentes MD - 08/20/2016 KNEES 3 VIEWS, KNEES 3 VIEWS 08/19/2016 2:15 PM Signs and Symptoms/Comments: M19.90-Unspecified osteoarthritis, unspecified site-ICD-10 M25.561-Pain in right knee-ICD-10; pain in knees, right more than left Technique: 3 views of each knee were obtained. COMPARISON: 01/28/2010 knee radiographs. FINDINGS: There has been progression of osteoarthritis in the right knee with now pczs-wr-bhfx contact and increased subchondral sclerosis in the medial compartment. Intraosseous cyst formation is seen within the medial tibial plateau. There is varus alignment. The lateral joint space is narrowed as well. Degenerative changes are also evident at the right patellofemoral compartment, progressed compared to the prior examination. A joint effusion is present. The left knee demonstrates no joint effusion, smooth articular margins and well-preserved joint spaces. No fracture is identified in either knee. IMPRESSION: Progressive radiographically severe right knee osteoarthritis compared with prior radiographs obtained 01/28/2010. Grant Engle MD IMG DIAGNOSTIC IMAGI NG ORDERABLES documented in this encounter Visit Diagnoses Not on filedocumented in this encounter Care Teams Audio Recording Engineer Relationship Specialty Start Date End Date Breanna Lopez MD [address] [place] [phone] PCP - General 05/22/09 documented as of this encounter
--- OUTSIDE RECORDS SUMMARY | 2024-09-11 17:14 | XMS_ITS | Encounter Summary ---
Author Organization [facility] Address [address] [place] [address] Care Team Providers Care Frame Builder Name Role Phone Breanna Lopez MD Primary Care Provider [phone] Reason for Visit * Reason Onset Date Comments Other 04/22/2020 Encounter Details Date Type Department Care Team (Late st Contact Info) Description 04/22/2020 Telephone [facility] [place] [address] [place] [address] Eduardo Short MD [facility] Rheumatology [address] [place] [address] [place] [phone] Other Social History Tobacco Use Types [...] Telephone Encounter - Gabbie Lomas RN - 04/22/2020 1600 EDT LMTCB and reminded her that she has follow up with Dr. Short 04/25 at 1400. * Telephone Encounter - Ailin Ulloa - 04/22/2020 1320 EDT Hillary abbott asking for nurse or Dr. Short to call and talk to her - did not leave detailed message documented in this encounter Plan of Treatment Not on file documented as of this encounter Visit Diagnoses Not on filedocumented in this encounter Care Teams Frame Builder Relationship Specialty Start Date End Date Breanna Lopez MD [address] [place] [phone] PCP - General 05/22/09 documented as of this encounter
--- OUTSIDE RECORDS SUMMARY | 2024-09-11 17:14 | XMS_ITS | Encounter Summary ---
Author Organization [facility] Address [address] [place] [address] Care Team Providers Care Research Laboratory Manager Name Role Phone Breanna Lopez MD Primary Care Provider [phone] Reason for Referral * Medication Prior Authorization (Routine) - Closed Specialty Diagnoses / Procedures [facility]erred To Contact Diagnoses Rheumatoid arthritis with negative rheumatoid factor, involving unspecified site ([facility]) Grant Engle MD [address] [place] [address] Referral ID Status Reason Start Date Expiration Date Visits Requested Visits Authorized [id number] Closed Medication Prior Authorization 6 1 1 Question Answer Medication to be Prior Authorized: Reauth Enbrel Sure Click PEN 50 mg subcutaneously every week for RA Comments The purpose of this consult request is to inform the scheduling staff that a medication needs to be prior-authorized before it is prescribed and/or administered. Encounter Details Date Type Department Care Team (Late st Contact Info) Description 11/05/2016 Orders Only [facility] Rheumatology & Immunology - [facility] [address] [place], [place] [id number] Rosy Flanagan RN Rheumatoid arthritis with negative rheumatoid factor, involving unspecified site ([facility]) (Primary Dx) Social History Tobacco Use Types [...] PRIOR AUTHORIZATION Outpatient Referral Routine Rheumatoid arthritis with negative rheumatoid factor, involving unspecified site ([facility]) Ordered: 11/05/2016 documented as of this encounter Visit Diagnoses Diagnosis Rheumatoid arthritis with negative rheumatoid factor, involving unspecified site ([facility])- Primary documented in this encounter Care Teams Research Laboratory Manager Relationship Specialty Start Date End Date Breanna Lopez MD [address] [place] [phone] PCP - General 05/22/09 documented as of this encounter
--- OUTSIDE RECORDS SUMMARY | 2024-09-11 17:14 | XMS_ITS | Encounter Summary ---
Author Organization [facility] Address [address] [place] [address] Care Team Providers Care Hide And Skin Colerer Name Role Phone Breanna Lopez MD Primary Care Provider [phone] Encounter Details Date Type Department Care Team (Late st Contact Info) Description 08/19/2016 Orders Only [facility] Rheumatology & Immunology - [facility] [address] [place] [address] Tonia Jain, RN Social History Tobacco Use Types Packs/Day [...] No 08/19/2016 documented as of this encounter Ordered Prescriptions Prescription Sig Dispensed Refills Start Date End Da te Etanercept (ENBREL SURECLICK) 50 mg/mL (0.98 mL) pen injector Inject 50 mg into the skin once a week. 4 Pen 11 08/19/2016 03/02/2017 documented in this encounter Plan of Treatment Not on file documented as of this encounter Visit Diagnoses Not on filedocumented in this encounter Discontinued Medications Medication Sig Discontinue Reason Start Date End Da te Etanercept (ENBREL SURECLICK) 50 mg/mL (0.98 mL) pen injector Inject 50 mg into the skin once a week. Reorder 04/30/2016 08/19/2016 documented as of this encounter Care Teams Hide And Skin Colerer Relationship Specialty Start Date End Date Breanna Lopez MD [address] [place] [phone] PCP - General 05/22/09 documented as of this encounter
--- OUTSIDE RECORDS SUMMARY | 2024-09-11 17:14 | XMS_ITS | Encounter Summary ---
Author Organization [facility] Address [address] [place] [address] Care Team Providers Care Director Of Career Services Name Role Phone Breanna Lopez MD Primary Care Provider [phone] Reason for Visit * Reason Comments Follow-up Patient c/o moderate pain in her right knee. Patient states the pain is more mild today than it has been ove the past couple weeks. Encounter Details Date Type Department Care Team (Late st Contact Info) Description 01/12/2020 15:00 EST Office Visit [facility] Rheumatology [address] [place] [id number] Eduardo Short MD [facility] Rheumatology [address] [place] [address] [place] [address] Seronegative rheumatoid arthritis of multiple sites ([facility]) (Primary Dx) Social History Tobacco Use Types [...] Sign Reading Time Taken Comments Blood Pressure 120/82 01/12/2020 1458 EST Pulse 102 01/12/2020 1458 EST Temperature - - Respiratory Rate - - Oxygen Saturation - - Inhaled Oxygen Concentration - - Weight 86 kg (189 lb 11.2 oz) 01/12/2020 1458 ES T Height 160 cm (5' 3) 01/12/2020 1458 EST Body Mass Index 33.6 01/12/2020 1458 EST documented in this encounter Functional Status Functional [...] this encounter Patient Instructions * Patient Instructions* Eduardo Short MD - 01/12/2020 15:00 EST Next MTX monitoring labs 02-28-2020 at [facility] I will look into Nutrition support in your area. Look into [facility] in [place]. Continue Enbrel 50 mg weekly. MTX 20 mg weekly Folic acid 1 mg daily documented in this encounter Progress Notes * Eduardo Short MD - 01/12/2020 1500 EST [facility] Rheumatology Chief Complaint Patient presents with ??? Follow-up Patient c/o moderate pain in her right knee. Patient states the pain is more mild today than it hasbeen ove the past couple weeks. HPI: Please refer to my initial note of consultation for details of presentation. To review:, ?Hillary has been diagnosed with seronegative rheumatoid arthritis. She has issues with compliance with therapy. She has been off of methotrexate and Enbrel for a significant period of time. She is currently flaring by symptoms and by physical examination especially in the right knee and left wrist. By RAPID 3 assessment she is exhibiting a high level of inflammatory activity. I am hopeful that her rheumatoid arthritis can be put into a low inflammatory state or indeed remission with compliance with both methotrexate and Enbrel. ?02-03-19 Interval events: ?I last saw Hillary May 25, 2018. There have been a number of cancellations. I had wanted her to follow-up after 1 month. She continues to take Enbrel 50 mg weekly. At the time of our lastappointment I have recommended that she continue methotrexate at 5 tablets weekly. She increased to8 tablets weekly without telling me a couple of months ago. She has not had methotrexate monitoringlabs since May 2018. These were done at [facility]. ?No interval medical events. ?I have not filled her methotrexate for quite some time. She indicates that she has quite a bit at home. ? -07-20-19 Interval events: ?Enbrel 50 mg weekly. MTX 20 mg weekly. Folic acid 1 mg daily. ?Naprosyn 500 mg up to twice daily as needed. ?Labs done yesterday. ?No new meds. 01-12-2020 Interval events: ?Enbrel 50 mg weekly. MTX 20 mg weekly. Folic acid 1 mg daily. ?Naprosyn 500 mg up to twice daily as needed. ?Labs done yesterday. ?No new meds. Current Outpatient Medications: BUPRENORPHINE HCL/NALOXONE HCL (SUBOXONE SL) etanercept (ENBREL SURECLICK) 50 mg/mL (1 mL) subcutaneous pen folic acid (FOLVITE) 1 mg tablet ibuprofen (MOTRIN) 800 mg tablet methotrexate 2.5 mg tablet methylphenidate (CONCERTA) 54 mg CR tablet naproxen (NAPROSYN) 500 mg tablet VENLAFAXINE HCL (VENLAFAXINE ORAL) No current facility-administered medications for this visit. Allergies include: Patient has no known allergies. Past Medical History: Diagnosis Date ??? Depression with anxiety ??? Substance abuse Past Surgical History: Procedure Laterality Date ??? MENISCECTOMY Right No family history on file. Social History: Review of Systems: Enbrel 50 mg weekly MTX 8 tabs weekly Folic acid 1 mg daily. Up-to-date with methotrexate monitoring labs. She gets these locally at [facility] 11-29-2019 reviewed HEENT: No mouth sores or facial rash. No sicca symptoms. Cutaneous: No rash. Livedo reticularis changes of the legs Cardiovascular: No chest pain or palpitations. Pulmonary: No dyspnea cough or wheezing. GI: No upper or lower GI symptoms. Musculoskeletal: Right knee is still the most prominent complaint today. Also DIP changes especially in the right hand. Pain in right knee is mostly medial. Unable to completely extend the right knee. Swelling today. Vascular: No vasomotor or ischemic symptoms. Neurologic: No sensory or motor signs or symptoms. Physical Examination: BP 120/82 Pulse 102 Ht 160 cm (63) Wt 86 kg (189 lb 11.2 oz) BMI 33.60 kg/m? Physical exam: ? General appearance and movement: alert, nontoxic ? HEENT: anicteric sclerae, conjunctivae clear; no facial rash Heart: RRR Lungs: CTA ? Hands: no nail pitting or onycholysis, MCPJs appear full yet there is no tenderness;no synovitis in the PIPs ? Wrists: synovial swelling and warmth in the left wrist with decreased flexion and extension ? Knees: right knee with small effusion ? Labs: ? 10/20/2017: Complete blood count notable for slightly elevated hemoglobin at 15.8. WBC normal. Platelet count normal at 229. Normal differential. ESR 12. Basic metabolic profile essentially unremarkable with the exception of slightly elevated glucose of 104. Creatinine was 0.67. Normal electrolytes. C-reactive protein 0.13 mg/dL. This is normal. ? 04/02/2017: CCP antibody negative. Lyme antibody test positive. Western blot confirmation negative. ? Diagnostic imaging:. ? Labs: ? 10/20/2017: Complete blood count notable for slightly elevated hemoglobin at 15.8. WBC normal. Platelet count normal at 229. Normal differential. ESR 12. Basic metabolic profile essentially unremarkable with the exception of slightly elevated glucose of 104. Creatinine was 0.67. Normal electrolytes. C-reactive protein 0.13 mg/dL. This is normal. ? 04/02/2017: CCP antibody negative. Lyme antibody test positive. Western blot confirmation negative. ? Diagnostic imaging:. Labs: Abstract on 11/30/2019 Component Date Value ??? Glucose, Serum, External 11/29/2019 89 ??? Albumin, External 11/29/2019 4.5 ??? Total Alkaline Phosphata* 11/29/2019 70 ??? ALT, External 11/29/2019 20 ??? AST, External 11/29/2019 31 ??? BUN, External 11/29/2019 10 ??? Calcium, External 11/29/2019 9.5 ??? Chloride, External 11/29/2019 102 ??? CO2, External 11/29/2019 27.0 ??? Creatinine, External 11/29/2019 0.70 ??? Potassium, External 11/29/2019 3.9 ??? Sodium, External 11/29/2019 139 ??? Total Protein, External 11/29/2019 8.0 ??? Bilirubin, Total, Civil Engineer'S Aide* 11/29/2019 0.4 ??? WBC, External 11/29/2019 7.2 ??? RBC, External 11/29/2019 5.12 ??? Hemoglobin, External 11/29/2019 15.0 ??? HCT, External 11/29/2019 45.5 ??? MCV, External 11/29/2019 88.9 ??? MCH, External 11/29/2019 29.3 ??? MCHC, External 11/29/2019 33.0 ??? PLT, External 11/29/2019 240 ??? RDW-CV, External 11/29/2019 13.3 ??? Neutrophils, External 11/29/2019 48.8 ??? Lymphocytes, External 11/29/2019 37.8 ??? Monocytes, External 11/29/2019 9.4 ??? Eosinophils, External 11/29/2019 2.9 ??? Basophils, External 11/29/2019 0.8 ??? ABS Neutrophils, External 11/29/2019 3.51 Diagnosis / Assessment: 1. Seronegative rheumatoid arthritis of multiple sites ([facility]) I think she has some active inflammation in the left wrist and right knee. Recommend continuing with Enbrel 50 mg weekly and MTX 20 mgweekly. I will bring her back in one month for right knee injection. I do not find any extra-articular manifestations of rheumatoid arthritis.Next labs 02-28-2020. I will have her continue Enbrel 50 mg weekly. Recommendations/Evaluation: Total itag-pv-kogx time: 25 minutes, >50% spent counseling on above issues. Eduardo Short MD documented in this encounter Plan of Treatment Not on file documented as of this encounter Visit Diagnoses Diagnosis Seronegative rheumatoid arthritis of multiple sites ([facility])- Primary documented in this encounter Care Teams Director Of Career Services Relationship Specialty Start Date End Date Breanna Lopez MD [address] [place] [phone] PCP - General 05/22/09 documented as of this encounter
--- OUTSIDE RECORDS SUMMARY | 2024-09-11 17:14 | XMS_ITS | Encounter Summary ---
Author Organization [facility] Address [address] [place] [address] Care Team Providers Care Associate Product Manager Name Role Phone Breanna Lopez MD Primary Care Provider [phone] Reason for Referral * Radiology Services (STAT) - Closed Specialty Diagnoses / Procedures Referred By [facility] t Referred To Contact Diagnoses Inflammatory arthritis Pain, joint, knee, right Procedures KNEES 3 VIEWS Grnat Engle MD [address] [place] [address] Referral ID Status Reason Start Date Expiration Date Visits Re quested Visits Authorized [id number] Closed 08/19/2016 1 1 Reason for Visit * Reason Comments Joint Pain right knee Joint Swelling right knee Encounter Details Date Type Department Care Team (Latest Contact Info) Description 08/19/2016 13:00 EDT Office Visit [facility] Rheumatology & Immunology - [facility] [address], [place] [id number] Grant Engle MD [address] [place] [address] Inflammatory arthritis (Primary Dx); Pain, joint, knee, right Social History Tobacco Use Types Packs/Day Years Used Date Smoking Tobacco: Every Day Cigarettes 1 29.5 Started: 03/01/1995 Smokeless Tobacco: Never Tobacco Cessation:Ready to Q uit: Yes; Counseling Given: Yes Comments:chantix trying to use that Alcohol Use Standard Drinks/Week Comments No 0 (1 standard drink = 0.6 oz pur e alcohol) Sex and Gender Information Value Date Recorded Sex Assigned at Female 03/20/2021 0:23 EDT Gender Identity Female 10/23/2019 13:44 EST Sexual Orientation Choose not to disclose 2020 0:23 EDT documented as of this encounter Last Filed Vital Signs Vital Sign Reading Time Taken Comments Blood Pressure 117/61 08/19/2016 1304 EDT Pulse 77 08/19/2016 1304 EDT Temperature - - Respiratory Rate 18 08/19/2016 1304 EDT Oxygen Saturation - - Inhaled Oxygen Concentration - - Weight 86.2 kg (190 lb) 08/19/2016 1304 EDT Height 158.2 cm (5' 2.3) 08/19/2016 1304 EDT Body Mass Index 34.42 08/19/2016 1304 EDT documented in this encounter Functional Status [...] No 08/19/2016 documented as of this encounter Discharge Diagnoses Diagnosis M25.561 Pain in right knee-M25.561[ICD-10-CM] M25.562 Pain in left knee-M25.562[ICD-10-CM] documented in this encounter Patient Instructions * Patient Instructions* Grant Engle MD - 08/19/2016 13:00 EDT We'll repeat Knee films to see if there has been progression Overall you are doing well - Physically, emotionally, and socially. I'll order 800 mg Ibuprofen documented in this encounter Ordered Prescriptions Prescription Sig Dispensed Refills Start Date End Da te ibuprofen (MOTRIN) 800 mg tabletIndications:Pain, joint, knee, right Take 1 Tab by mouth every 8 hours as needed for Pain. No additional refills until seen in clinic. 90 Tab 08/19/2016 12/12/2016 documented in this encounter Progress Notes * Grant Engle MD - 08/20/2016 1225 EDT [facility] RHEUMATOLOGY AND IMMUNOLOGY PROGRESS / FOLLOWUP NOTE - 08/19/2016 PROBLEM: 1. Inflammatory arthritis. 2. Right knee pain. SUBJECTIVE: It has been close to a year since I have seen Hillary. Overall, she states that she feels that she is doing quite well. Unfortunately, she has gained weight and she thinks that her right knee is hurting her a bit more as a result. 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 The patient also has a son, whose name is Elmer. He is 12 years old. He is a good boy, plays soccer. She is concerned about him because he has a defect called pectus carinatum. He is going to be taken to an orthopaedic specialist at [facility], and Hillary is hoping that they can do something for him. This is stressful for her. The patient is concerned because she has gained some weight and she feels that her right knee has been hurting a bit more lately. MEDICATIONS: Current meds were reviewed with the patient. She is on: Suboxone. Etanercept once a week. Ibuprofen as needed. Methotrexate 20 weekly. Concerta. Venlafaxine. REVIEW OF SYSTEMS: Positive for weight gain, 2 to 4 hours of morning stiffness and joint pain, occasional numbness and tingling in the fingers. She has difficulty walking long distances or participating in recreational activities. PHYSICAL EXAMINATION: Blood pressure 117/61, weight 190, height 62.3 inches, pulse 77. Skin exam: Normal. HEENT: Within normal limits. Neck: Supple, no lymphadenopathy. Lungs: Clear to auscultation. Heart sounds: Normal quality, regular rhythm. Abdomen: Mildly obese, soft, nontender, no organomegaly. Upper and lower extremities: Pulses palpable. Neurologic: Intact. Musculoskeletal exam: Hillary can arise from a chair and walk about the room. She does not have an antalgic gait. She has good range of motion in neck and lower back. Shoulders, elbows, wrists and fingers are fine. Autoglazier strength is excellent. Hips range well, although she does complain of some discomfort in the groin with full Rani's maneuver. The right knee is warm, has an effusion. There is painful end range of motion. Left knee no fluid, no warmth, full range of motion. Ankles, midfoot and toes are slightly tender, but no soft tissue swelling is appreciated. ASSESSMENT: 1. Inflammatory arthritis. 2. Pain and knee effusion in the right knee. PLAN: 1. I am going to repeat the knee films today. I would like to see if there has been any progressionof the disease. I do not think this patient is a candidate at this point for a knee replacement. 2. Overall, I explained to Hillary that she is doing well; this appears to be both physically, emotionally and socially. For example, she is taking very positive measures to help her son with his chest deformity. We will continue her on the ibuprofen. Grant Engle MD 04 37 PM - Grant Engle MD dn Dictation ID: [id number] cc: Breanna Lopez MD, [address], [address], [place] [address] * Rosy Díaz - 08/19/2016 1300 EDT REVIEW OF SYSTEMS: Yes No Yes No Fever X Joint pain x Weight gain or loss gain pounds (lbs) Duration of AM joint stiffness 2-4 hours Eye pain or dryness X Numbness/tingling x Mouth or nose sores X Heart burn / Nausea X Chest pain X Diarrhea X Shortness of Breath X Blood in stool X Cough X Burning on urination X Skin rash X Hand/Foot color change in cold X This office note has been dictated. Grant Engle MD 08/19/2016 16:38 documented in this encounter Plan of Treatment Not on file documented as of this encounter Procedures Procedure Name Priority Date/Time Associated Diagnosis Comments KNEES 3 VIEWS Routine 08/19/2016 14:15 EDT Inflammatory arthritis Pain, joint, knee, right documented in this encounter Results * KNEES [...] osteoarthritis in the right knee with now mkat-ok-gobc contact and increased subchondral sclerosis in the [...] osteoarthritis in the right knee with now qfle-kf-tlsc contact and increased subchondral sclerosis in the [...] ORDERABLES documented in this encounter Visit Diagnoses Diagnosis Inflammatory arthritis- Primary Unspecified inflammatory polyarthropathy Pain, joint, knee, right Pain in joint, lower leg documented in this encounter Discontinued Medications Medication Sig Discontinue Reason Start Date End Da te ibuprofen (MOTRIN) 800 mg tabletIndications:Pain , joint, knee, right Take 1 Tab by mouth every 8 hours as needed for Pain. No additional refills until seen in clinic. Reorder 08/03/2016 08/19/2016 documented as of this encounter Care Teams Associate Product Manager Relationship Specialty Start Date End Date Breanna Lopez MD [address] [place] [phone] PCP - General 05/22/09 documented as of this encounter
--- OUTSIDE RECORDS SUMMARY | 2024-09-11 17:14 | XMS_ITS | Encounter Summary ---
Author Organization [facility] Address [address] [place] [address] Care Team Providers Care Hoop Rolls Operator Name Role Phone Breanna Lopez MD Primary Care Provider [phone] Encounter Details Date Type Department Care Team (Late st Contact Info) Description 05/23/2018 Historical Results Only [facility] - Main [address] [phone] Eduardo Short MD [facility] Rheumatology [address] [place] [address] [place] [address] Social History Tobacco Use Types Packs/Day Years [...] Procedure Name Priority Date/Time Associated Diagnosis Comments SYNOVIAL FLD CC/DIFF - [facility] Routine 05/23/2018 17:00 EDT documented in this encounter Results * (ABNORMAL) SYNOVIAL FLD CC/DIFF - [facility] (05/23/2018 17:00 EDT) SYNOVIAL FLD LYMPHOCYTE - [facility] 13 % 05/23/2018 18:22 EDT [facility] SYNOVIAL FLD MACROPHAGES - [facility] 64 % 05/23/2018 18:22 EDT [facility] SYNOVIAL FLD MONOCYTE - [facility] 21 % 05/23/2018 18:22 EDT [facility] SYNOVIAL FLD SOURCE - [facility] RIGHT KNEE 05/23/2018 17:58 EDT [facility] SYNOVIAL FLD PLASMA CELL - [facility] 2 % 05/23/2018 18:22 EDT [facility] SYNOVIAL FLD WBC - CV 2,004(H) 0 - 200 /ul 05/23/2018 17:57 EDT [facility] 05/23/2018 17:0 0 EDT 05/23/2018 17:28 EDT Eduardo Short MD CHEMISTRY & BLOOD GA S ORDERABLES [facility] documented in this encounter Visit Diagnoses Not on filedocumented in this encounter Care Teams Hoop Rolls Operator Relationship Specialty Start Date End Date Breanna Lopez MD [address] [place] [phone] PCP - General 05/22/09 documented as of this encounter
--- OUTSIDE RECORDS SUMMARY | 2024-09-11 17:14 | XMS_ITS | Encounter Summary ---
Author Organization [facility] Address [address] [place] [address] Care Team Providers Care Office Automation Technician Name Role Phone Breanna Lopez MD Primary Care Provider Encounter Details Date Type Department Care Team (Latest Contact Info) Description 01/27/2018 22:43 EDT - 01/27/2018 23:59 EDT Hospital Encounter [facility] [address] [place] [address] Unknown, Provider, MD Discharge Disposition: Home or Self Care Social History Tobacco Use Types Packs/Day Years [...] No 12/13/2017 documented as of this encounter Medications at Time of Discharge Medication Sig Dispensed Refills Start Date End Date ibuprofen (MOTRIN) 800 mg tabletIndications:Pain, joint, knee, right Take 1 Tab by mouth every 8 hours as needed for Pain. 90 Tab 5 09/20/2017 buprenorphine-naloxone 12-3 mg filmIndications:Pain, joint, knee, right Place 1 Film under the tongue daily. 06/16/2023 Etanercept (ENBREL SURECLICK) 50 mg/mL (0.98 mL) pen injector Inject 50 mg into the skin once a week. 4 Pen 5 09/20/2017 04/05/2018 folic acid (FOLVITE) 1 mg tabletIndications:Inflamm atory arthritis Take 1 Tab by mouth daily. 90 Tab 3 12/13/2017 06/12/2021 methotrexate 2.5 mg tabletIndications:Inflamm atory arthritis Take 8 Tabs by mouth once a week. 96 Tab 1 12/13/2017 04/25/2020 methylphenidate (CONCERTA) 54 mg CR tabletIndications:Pain, joint, knee, right Take 54 mg by mouth daily. 03/14/2020 naproxen (NAPROSYN) 500 mg tablet Take 500 mg by mouth as needed. 04/25/2020 VENLAFAXINE HCL (VENLAFAXINE ORAL) Take 1 Tab by mouth daily 03/14/2020 documented as of this encounter Discharge Disposition Disposition Code Departure Means Destination Home or Self Custodial documented in this encounter Plan of Treatment Not on file documented as of this encounter Visit Diagnoses Not on filedocumented in this encounter Care Teams Office Automation Technician Relationship Specialty Start Date End Date Breanna Lopez MD [address] [place] [phone] PCP - General 05/22/09 documented as of this encounter
--- OUTSIDE RECORDS SUMMARY | 2024-09-11 17:14 | XMS_ITS | Encounter Summary ---
Author Organization [facility] Address [address] [place] [address] Care Team Providers Care Furnace Clerk Name Role Phone Breanna Lopez MD Primary Care Provider [phone] Reason for Visit * Reason Comments Follow-up Took the Medrol, curiel s not feel that it helped. Would like to discuss a knee replacement as well as applying for disability? Encounter Details Date Type Department Care Team (Late st Contact Info) Description 04/25/2020 14:00 EDT Office Visit [facility] Rheumatology [address] [place] [address] Eduardo Short MD [facility] Rheumatology [address] [place] [address] [place] [address] Seronegative rheumatoid arthritis of multiple sites (HCC-CMS) (Primary Dx); Pain in joint of right knee; Inflammatory arthritis Social History Tobacco Use Types Packs/Day Years [...] Sign Reading Time Taken Comments Blood Pressure 128/82 04/25/2020 1357 EDT Pulse - - Temperature - - Respiratory Rate - - Oxygen Saturation - - Inhaled Oxygen Concentration - - Weight 88 kg (194 lb) 04/25/2020 1357 EDT Height 160 cm (5' 3) 04/25/2020 1357 EDT Body Mass Index 34.37 04/25/2020 1357 EDT documented in this encounter [...] * Patient Instructions* Eduardo Short MD - 04/25/2020 14:00 EDT Continue MTX 20 mg weekly Folic acid 1 mg daily Enbrel 50 mg weekly documented in this encounter Ordered Prescriptions Prescription Sig Dispensed Refills Start Date End Da te naproxen (NAPROSYN) 500 mg tabletIndications:Serone gative rheumatoid arthritis of multiple sites ([facility]) Take 1 Tab by mouth 2 times daily with breakfast and dinner for 30 days. 60 Tab 1 04/25/2020 02/06/2021 methotrexate 2.5 mg tabletIndications:Inflam matory arthritis Take 8 Tabs by mouth once a week for 90 days. 96 Tab 2 04/25/2020 07/24/2020 documented in this encounter Progress Notes * Eduardo Short MD - 04/25/2020 1400 EDT [facility] Rheumatology Chief Complaint Patient presents with ??? Follow-up Took the Medrol, does not feel that it helped. Would like to discuss a knee replacement as well as applying for disability? HPI: Please refer to my initial note [...] since May 2018. These were done at [facility]. ?No interval medical events. ?I have not [...] needed. ?Labs done yesterday. ?No new meds. 03-14-2020 Interval events: ?Enbrel 50 mg weekly. MTX 20 mg weekly. Folic acid 1 mg daily. ?Naprosyn 500 mg up to twice daily as needed. ?No new meds. Persistent right knee pain 04/25/2020 interval events: No new medications. No interval medical events. Right knee is the most painful joint. Also getting some pain especially in the proximal interphalangeal joints of both hands. Also reporting pain in shoulders wrists and occasionally the ankles. Taking methotrexate 20 mg weekly. Taking Enbrel 50 mg weekly. Recent Medrol taper not very effective. Asking about possibility of referral to orthopedics for consideration of knee intervention. Also requesting information about seeking disability. Current Outpatient Medications: ARIPiprazole (ABILIFY) 5 mg tablet BUPRENORPHINE HCL/NALOXONE HCL (SUBOXONE SL) DULoxetine (CYMBALTA) 60 mg capsule etanercept (ENBREL SURECLICK) 50 mg/mL (1 mL) subcutaneous pen folic acid (FOLVITE) 1 mg tablet ibuprofen (MOTRIN) 800 mg tablet lisdexamfetamine (VYVANSE) 70 mg capsule methotrexate 2.5 mg tablet methylPREDNISolone (MEDROL) 4 mg tablet naproxen (NAPROSYN) 500 mg tablet No current facility-administered medications for this visit. Allergies include: Patient has no known allergies. Past Medical History: Diagnosis Date ??? ADD (attention deficit disorder) ??? Cocaine abuse ([facility]) ??? Depression with anxiety ??? Hyperhidrosis ??? Inflammatory arthritis ??? Keratosis pilaris ??? Leg edema ??? Obesity ??? Opioid dependence ([facility]) ??? Osteoarthritis ??? Substance abuse ([facility]) ??? Tobacco use Past Surgical History: Procedure Laterality Date ??? MENISCECTOMY Right Family History Problem Relation Age of Onset ??? No Known Mother ??? No Known Father Review of Systems: Enbrel 50 mg weekly MTX 8 tabs weekly Folic acid 1 mg daily. She is overdue for methotrexate monitoring labs. She will be getting these today in the office HEENT: No mouth sores or facial rash. No sicca symptoms. Cutaneous: No rash. Livedo reticularis changes of the legs Cardiovascular: No chest pain or palpitations. Pulmonary: No dyspnea cough or wheezing. GI: No upper or lower GI symptoms. Musculoskeletal: Right knee pain continues to be the main issue. No significant response to injection. Vascular: No vasomotor or ischemic symptoms. Physical Examination: BP 128/82 (BP Cuff Sizes: Adult, regular) Ht 160 cm (63) Wt 88 kg (194 lb) BMI 34.37 kg/m? Physical exam: ? General appearance and movement: alert, nontoxic ? HEENT: anicteric sclerae, conjunctivae clear; no facial rash Heart: Regular rate and rhythm no murmurs rubs or gallops Lungs: Clear to auscultation without crackles rubs or wheezes Hands: Some tenderness to palpation in the PIPs and some soft tissue swelling in the MCPs. Wrists: Left wrist appears to be more swollen than the right; there is prominence of the radial styloid; there is reduced flexion and extension of the left wrist; pain with both of these motions Elbows with normal flexion extension pronation and supination Shoulders with symmetric and full passive range of motion ? Knees: right knee with small effusion [...] Protein, External 11/29/2019 8.0 ??? Bilirubin, Total, Marine Habitat Resource Specialist* 11/29/2019 0.4 ??? WBC, External 11/29/2019 7.2 [...] Seronegative rheumatoid arthritis of multiple sites (HCC-CMS) Seronegative rheumatoid arthritis.Still with some significant inflammatory symptoms and pain in hands wrists knees on Enbrel 50 mg weekly and MTX 20 mg weekly. No significant response to right knee injection or to short course of Medrol. I think it would be a good idea for her to see orthopedic surgery in [place]. Previously seen by Dr. Choudhary. Referral placed to him. We discussed that she is most likely too young to be considered for a knee replacement. She will need more extensive evaluation with plain films and MRI to determine interarticular status. Also I would like to get left wrist films. She has reduced range of motion and evidence of inflammation. Methotrexate monitoring labs today. I will have her continueEnbrel 50 mg weekly and methotrexate 20 mg weekly. Recommendations/Evaluation: Total [id number] time: 25 minutes, >50% spent counseling on above issues. Eduardo Short MD 04/25/2020 12:19 Eduardo Short MD documented in this encounter Miscellaneous Notes * Result Encounter Note - Eduardo Short MD - 04/25/2020 1400 EDT Normal, please contact the patient to tell her about the results. No changes in therapy are needed. documented in this encounter Plan of Treatment Not on file documented as of this encounter Procedures Procedure Name Priority Date/Time Associated Diagnosis Comments COMPLETE BLOOD COUNT WITH DIFFERENTIAL (AUTO) Routine 04/25/2020 14:40 EDT Seronegative rheumatoid arthritis of multiple sites ([facility]) C REACTIVE PROTEIN Routine 04/25/2020 14 :40 EDT Seronegative rheumatoid arthritis of multiple sites ([facility]) COMPREHENSIVE METABOLIC PANEL (CMP) Routine 04/25/2020 14:40 EDT Seronegative rheumatoid arthritis of multiple sites ([facility]) documented in this encounter Results * C REACTIVE PROTEIN (04/25/2020 14:40 EDT) [facility] C-Reactive Protein <5.0 <10.0 mg/L 04/25/2020 15:19 [facility] 04/25/2020 14:4 0 EDT 04/25/2020 14:52 EDT Eduardo Short MD CHEMISTRY & BLOOD GA S ORDERABLES [facility] [address] [place] [address] * COMPREHENSIVE METABOLIC PANEL (CMP) (04/25/2020 14:40 EDT) [facility] Albumin % 4.2 3.4 - 4.9 g/dL 04/25/2020 15:19 [facility] ALKALINE PHOSPHATASE - [facility] 56 38 - 126 U/L 04/25/2020 15:19 [facility] BILIRUBIN TOTAL 0.4 0.2 - 1.3 mg/dL 04/25/2020 15:19 [facility] BUN - [facility] 15 10 - 26 mg/dL 04/25/2020 15:19 [facility] CALCIUM - [facility] 9.7 8.5 - 10.5 mg/dL 04/25/2020 15:19 [facility] Chloride 106 96 - 110 mmol/L 04/25/2020 15:19 [facility] CO2 Total 25 22 - 32 mEq/L 04/25/2020 15:19 [facility] CREATININE 0.72 0.52 - 1.04 mg/dL 04/25/2020 15:19 [facility] eGFR >60 04/25/2020 15:19 [facility] Comment: Chronic renal impairment is defined as GFR <60 Multiply result by 1.210 for patients. eGFR calculated using the IDMS-traceable MDRD Study Equation. ??(effective 09/10/2014) Anion Gap 8 0 - 18 04/25/2020 15:19 [facility] GLUCOSE - [facility] 94 70 - 100 mg/dL 04/25/2020 15:19 [facility] Potassium 4.3 3.5 - 5.0 mEq/L 04/25/2020 15[facility] Sodium 139 136 - 145 mEq/L 04/25/2020 [facility] TOTAL PROTEIN - [facility] 7.6 6.2 - 8.2 gm/dL 04/25/2020 15:19 [facility] SGOT/AST - [facility] 24 14 - 36 U/L 04/25/2020 15:19 [facility] SGPT/ALT - [facility] 19 0 - 35 U/L 0 15:19 [facility] 04/25/2020 14:4 0 EDT 04/25/2020 14:52 EDT Eduardo Short MD CHEMISTRY & BLOOD GA S ORDERABLES Performing Organization Address City/State/[facility] Co de Phone Number [facility] [address] [place] [address] * (ABNORMAL) COMPLETE BLOOD COUNT WITH DIFFERENTIAL (AUTO) (04/25/2020 14:40 EDT) Gran # 2.5 2.2 - 8.85 10e3/uL 04/25/2020 15:19 [facility] BASO # - [facility] 0.06 0.01 - 0.11 10e/uL 04/25/2020 15:19 [facility] BASO % - [facility] 1 0 - 2 % 04/25/2020 15:19 [facility] EOS # - [facility] 0.20 0.03 - 0.61 10e3/ul 04/25/2020 15:19 [facility] EOS % - [facility] 4 0 - 5 % 04/25/2020 15:19 [facility] GRAN % - [facility] 42.3 40 - 80 % 04/25/2020 15:19 [facility] HEMATOCRIT - [facility] 45.0(H) 34.9 - 44.4 % 04/25/2020 15:19 [facility] HEMOGLOBIN - [facility] 15.1 11.6 - 15.2 g/dl 04/25/2020 15:19 [facility] IG# - [facility] 0.01 0 - 0.7 10e3/uL 04/25/2020 15:19 [facility] IG% - [facility] 0.2 0 - 0.9 % 04/25/2020 15:19 [facility] LYMPH # - [facility] 2.5 1.09 - 3.3 10e3/ul 04/25/2020 15:19 [facility] LYMPH% - [facility] 42.5(H) 20 - 40 % 04/25/2020 15:19 [facility] MEAN CORPUSCULAR HGB - [facility] 30.2 26.7 - 33.3 pg 04/25/2020 15:19 [facility] MEAN CORPUSCULAR HGB CONC - [facility] 33.6 32.1 - 35.9 g/dL 04/25/2020 15:19 [facility] MEAN CELL VOLUME - [facility] 90.0 81 - 98 fl 04/25/2020 15:19 [facility] MONO # - [facility] 0.6 0.1 - 0.8 10e3/uL 04/25/2020 15:19 [facility] MONO% - [facility] 10.5 0 - 12 % 04/25/2020 15:19 [facility] PLATELET COUNT 229 141 - 377 10e3/ul 04/25/2020 15:19 [facility] RED BLOOD COUNT - [facility] 5.00 3.86 - 5.04 10e3/ul 04/25/2020 15:19 [facility] RED CELL DISTRI WIDTH - [facility] 12.6 <14.7 % 04/25/2020 15:19 [facility] WHITE BLOOD COUNT - [facility] 5.8 4.0 - 12.4 10e3/ul 04/25/2020 15:19 [facility] 04/25/2020 14:4 0 EDT 04/25/2020 14:52 EDT Eduardo Short MD HEMATOLOGY & PF4 ORD ERABLES [facility] [address] [place] [address] documented in this encounter Visit Diagnoses Diagnosis Seronegative rheumatoid arthritis of multiple sites (HCC-CMS)- Primary Pain in joint of right knee Pain in joint, lower leg Inflammatory arthritis Unspecified inflammatory polyarthropathy documented in this encounter Discontinued Medications Medication Sig Discontinue Reason Start Date End Da te methotrexate 2.5 mg tabletIndications:Inflamm atory arthritis Take 8 Tabs by mouth once a week. 12/13/2017 04/25/2020 naproxen (NAPROSYN) 500 mg tablet Take 500 mg by mouth as needed. Reorder 04/25/2020 documented as of this encounter Care Teams Furnace Clerk Relationship Specialty Start Date End Date Breanna Lopez MD [address] [place] [phone] PCP - General 05/22/09 documented as of this encounter
--- OUTSIDE RECORDS SUMMARY | 2024-09-11 17:14 | XMS_ITS | Encounter Summary ---
Author Organization [facility] Address [address] [place] [address] Care Team Providers Care Collet Driller Name Role Phone Breanna Lopez MD Primary Care Provider [phone] Encounter Details Date Type Department Care Team (Late st Contact Info) Description 11/30/2019 Abstract [facility] Rheumatology [address] [place], [place] [id number] Eduardo Short MD [facility] Rheumatology [address] [place] [address] [place] [address] Social History Tobacco Use Types Packs/Day Years [...] as of this encounter Progress Notes * Richi Browning - 11/30/2019 0807 EST Lab results entered into [employer] documented in this encounter Plan of Treatment Not on file documented as of this encounter Procedures Procedure Name Priority Date/Time Associated Diagnosis Comments COMPLETE BLOOD COUNT AND DIFFERENTIAL Routine 11/29/2019 COMPREHENSIVE METABOLIC PANEL (CMP) Routine 11/29/2019 documented in this encounter Results * COMPLETE BLOOD COUNT AND DIFFERENTIAL (11/29/2019) WBC, External 7.2 5.0 - 10.0 [facility] RBC, External 5.12 4.10 - 5.30 [facility] Hemoglobin, External 15.0 12.0 - 16.0 [facility] HCT, External 45.5 37.0 - 47.0 [facility] MCV, External 88.9 80.0 - 96.0 [facility] MCH, External 29.3 26.0 - 32.0 [facility] MCHC, External 33.0 31.0 - 35.0 [facility] PLT, External 240 130 - 450 [facility] RDW-CV, External 13.3 11.5 - 14.5 [facility] Neutrophils, External 48.8 40.0 - 75.0 [facility] Lymphocytes, External 37.8 20.0 - 50.0 [facility] Monocytes, External 9.4 2.0 - 10.0 [facility] Eosinophils, External 2.9 1.0 - 6.0 [facility] Basophils, External 0.8 0.0 - 1.0 [facility] ABS Neutrophils, External 3.51 [facility] ABS Lymphs, External [facility] ABS Monocytes, External [facility] ABS Eosinophils, External [facility] ABS Basophils, External [facility] Blood VENOUS BLOOD / Unknown 11/29/2019 Eduardo Short MD PACKAGES & DNA PROBE ORDERABLES [facility] * COMPREHENSIVE METABOLIC PANEL (CMP) (11/29/2019) GFR, Calculated, External [facility] Glucose, Serum, External 89 74 - 106 [facility] Albumin, External 4.5 3.5 - 5.0 [facility] Total Alkaline Phosphatase, External 70 50 - 136 [facility] ALT, External 20 9 - 52 [facility] AST, External 31 14 - 36 [facility] BUN, External 10 7 - 17 [facility] Calculated Calcium, External [facility] Calcium, External 9.5 8.4 - 10.2 [facility] Chloride, External 102 98 - 107 [facility] CO2, External 27.0 22.0 - 30.0 [facility] Creatinine, External 0.70 0.52 - 1.04 [facility] Fasting?, External [facility] Potassium, External 3.9 3.5 - 5.1 [facility] Sodium, External 139 137 - 145 [facility] Total Protein, External 8.0 6.3 - 8.2 [facility] Bilirubin, Total, External 0.4 0.2 - 1.3 [facility] Blood VENOUS BLOOD / Unknown 11/29/2019 Eduardo Short MD CHEMISTRY & BLOOD GA S ORDERABLES [facility] documented in this encounter Visit Diagnoses Not on filedocumented in this encounter Care Teams Collet Driller Relationship Specialty Start Date End Date Breanna Lopez MD [address] [place] [phone] PCP - General 05/22/09 documented as of this encounter
--- OUTSIDE RECORDS SUMMARY | 2024-09-11 17:14 | XMS_ITS | Encounter Summary ---
Author Organization [facility] Address [address] [place] [address] Care Team Providers Care Budget Coordinator Name Role Phone Breanna Lopez MD Primary Care Provider [phone] Reason for Visit * Reason Onset Date Comments Medication Management 10/10/2019 LVM patineo t would like a call regarding her Enbrel, having a hard time getting this through [facility] Encounter Details Date Type Department Care Team (Late st Contact Info) Description 10/10/2019 Telephone [facility] Rheumatology [address] [place] [id number] Eduardo Short MD [facility] Rheumatology [address] [place] [address] [place] [address] Medication Management (LVM patient would like a call regarding her Enbrel, having a hard time getting this through [facility]) Social History Tobacco Use Types Packs/Day Years [...] Telephone Encounter - Dasia Goldstein RN - 10/11/2019 1029 EST Refill sent to [facility]. Called pt and LM with that information. documented in this encounter Plan of Treatment Not on file documented as of this encounter Visit Diagnoses Not on filedocumented in this encounter Care Teams Budget Coordinator Relationship Specialty Start Date End Date Breanna Lopez MD [address] [place] [phone] PCP - General 05/22/09 documented as of this encounter
--- OUTSIDE RECORDS SUMMARY | 2024-09-11 17:14 | XMS_ITS | Encounter Summary ---
Author Organization [facility] Address [address] [place] [address] Care Team Providers Care Wind Turbine Technician Name Role Phone Breanna Lpoez MD Primary Care Provider [phone] Reason for Visit * Reason Onset Date Comments Prior Auth, Medication 01/15/2020 Encounter Details Date Type Department Care Team (Late st Contact Info) Description 01/15/2020 Telephone [facility] Rheumatology [address] [place] [address] Eduardo Short MD [facility] Rheumatology [address] [place] [address] [place] [phone] Prior Auth, Medication Social History Tobacco Use [...] encounter Miscellaneous Notes * Telephone Encounter - Martha Schroeder - 01/15/2020 1446 EDT PA was approved for Enbrel 01/15/2020-04/16/2020. Spoke with patient to let her know * Telephone Encounter - Martha Schroeder - 01/15/2020 1411 EDT PA has been submitted * Telephone Encounter - Martha Schroeder - 01/15/2020 1411 EDT ----- Message from Eduardo Short MD sent at 01/12/2020 17:39 EST ----- Regarding: Refill Enbrel 50 mg Will you please complete the 01/03/2020 request for prior approval which was stopped due to the factthat she needed to provide documentation referencing the gaps in therapy. I would like to continue her on Enbrel 50 mg weekly and methotrexate 20 mg weekly for rheumatoid arthritis. documented in this encounter Plan of Treatment Not on file documented as of this encounter Visit Diagnoses Not on filedocumented in this encounter Care Teams Wind Turbine Technician Relationship Specialty Start Date End Date Breanna Lopez MD [address] [place] [phone] PCP - General 05/22/09 documented as of this encounter
--- OUTSIDE RECORDS SUMMARY | 2024-09-11 17:14 | XMS_ITS | Encounter Summary ---
Author Organization [facility] Address [address] [place] [address] Care Team Providers Care Hospital Cna Name Role Phone Breanna Lopez MD Primary Care Provider [phone] Reason for Visit * Reason Onset Date Comments Update 04/23/2020 Applying for LTD Encounter Details Date Type Department Care Team (Late st Contact Info) Description 04/23/[address] [facility] Rheumatology [address] [place] [address] Eduardo Short MD [facility] Rheumatology [address] [place] [address] [place] [phone] Update (Applying for LTD) Social History Tobacco Use Types Packs/Day Years [...] Telephone Encounter - Gabbie Lomas RN - 04/23/2020 1004 EDT Forwarding you this as an FYI. * Telephone Encounter - Jasmyne Holt - 04/23/2020 0902 EDT Patient called to inform Dr. Short she would like to start applying for LTD. She states she is unsure how to go about doing this but is going to make some calls and see what she can find out but wanted Dr. Short to be made aware. Just an FYI documented in this encounter Plan of Treatment Not on file documented as of this encounter Visit Diagnoses Not on filedocumented in this encounter Care Teams Hospital Cna Relationship Specialty Start Date End Date Breanna Lopez MD [address] [place] [phone] PCP - General 05/22/09 documented as of this encounter
--- OUTSIDE RECORDS SUMMARY | 2024-09-11 17:14 | XMS_ITS | Encounter Summary ---
Author Organization [facility] Address [address] [place] [address] Care Team Providers Care Robot Designer Name Role Phone Breanna Lopez MD Primary Care Provider [phone] Reason for Visit * Reason Onset Date Comments Returning Call 08/24/2016 Dr. Engle Returning Call 08/24/[address] Engle Returning Call 08/25/2016 Returning Call 08/25/[address] Engle Returning Call 08/25/[address] Engle Encounter Details Date Type Department Care Team (Late st Contact Info) Description 08/24/2016 Telephone [facility] Rheumatology & Immunology - [facility] [address], [place] [id number] Grant Engle MD [address] [place] [address] Returning Call (Dr. Engle); Returning Call (to Dr. Engle); Returning Call; Returning Call (to Dr. Engle); Returning Call (To Dr Engle) Social History Tobacco Use Types Packs/Day Years [...] Telephone Encounter - Grant Engle MD - 08/26/2016 1005 EDT Spoke with Hillary and reviewed the new knee xray results. There is a bit more joint space narrowing in the medial compartment of the knee. * Telephone Encounter - Johanny Dow RN - 08/26/2016 0926 EDT Please contact pt at [phone]. * Telephone Encounter - Maryann Herrera - 08/25/2016 1632 EDT Patient calling back to talk to Dr. Engle and asks for him to call her work Number during the day at [phone] * Telephone Encounter - Jenn Felipe - 08/25/2016 1216 EDT Reason for Call: Returning Call (Dr. Engle); Returning Call (to Dr. Engle); Returning Call; and Returning Call (to Dr. Engle) Summary/Symptoms: Patient is trying to get a hold of Dr. Engle. She is available at 12:10-12:50 for lunch, or anytime after 3:30pm. Jenn Felipe 08/25/2016 12:16 * Telephone Encounter - Renita Peterson - 08/25/2016 0927 EDT Pt returning call to Dr. Engle states that she takes lunch at 12:10 pm until 12:50 pm and that would be the best time to call or at 3:30 pm when she gets out of work. Please call. * Telephone Encounter - Layla Moore - 08/24/2016 1216 EDT Reason for Call: Returning Call (Dr. Engle) and Returning Call (to Dr. Engle) Summary/Symptoms: Per pt, returning Dr. Engle's call from 08.21.16. Please call when a moment. Layla Moore 08/24/2016 12:16 * Telephone Encounter - Tiarra Vásquez - 08/24/2016 0930 EDT Pt states she is returning Dr. Lora call from 08/21 regarding results. documented in this encounter Plan of Treatment Not on file documented as of this encounter Visit Diagnoses Not on filedocumented in this encounter Care Teams Robot Designer Relationship Specialty Start Date End Date Breanna Lopez MD [address] [place] [phone] PCP - General 05/22/09 documented as of this encounter
--- OUTSIDE RECORDS SUMMARY | 2024-09-11 17:14 | XMS_ITS | Encounter Summary ---
Author Organization [facility] Address [address] [place] [address] Care Team Providers Care Food Product Inspector Name Role Phone Breanna Lopez MD Primary Care Provider [phone] Reason for Visit * Reason Comments Joint Pain knees mostly Encounter Details Date Type Department Care Team (Late st Contact Info) Description 12/13/2017 13:05 EST Office Visit [facility] Rheumatology & Immunology - [address] [address] Warren Zamora Chi, MD [address] [place] [address], [address] [place] [address] Inflammatory arthritis (Primary Dx); Primary osteoarthritis of right knee; Calcium pyrophosphate deposition disease; History of substance abuse Social History Tobacco Use Types Packs/Day Years [...] Sign Reading Time Taken Comments Blood Pressure 118/72 12/13/2017 1306 EST Pulse 80 12/13/2017 1306 EST Temperature - - Respiratory Rate - - Oxygen Saturation - - Inhaled Oxygen Concentration - - Weight 88.5 kg (195 lb) 12/13/2017 1306 EST Height 159.4 cm (5' 2.75) 12/13/2017 1306 EST Body Mass Index 34.82 12/13/2017 1306 EST documented in this encounter Functional Status [...] this encounter Patient Instructions * Patient Instructions* Gabbie Bustillos - 12/13/2017 13:05 EST Quitting smoking Stopping smoking is the best step you can take to improve your own health and lengthen your life. Quitting smoking will lower your risk for heart attacks, lung problems, and many forms of cancer. When you stop smoking, your loved ones will breathe less smoke from the air. That will lower their riskfor asthma, lung infections, heart attacks, and lung cancer. You will also save money, look and smell better, and feel good about what you've done. Many people have quit smoking. The best way to quit is to be clear on your reasons for quitting, set a quit date, use medication, and work with a trained counselor. Counseling in [facility] offers free smoking cessation counseling services to [facility] including a telephone quit line, in person cessation groups, and Quitnet - an online quit service. You may be able to get nicotine replacement medications for low or even no cost through these counseling services depending on your insurance. The [place] Department of Health also has tips and tools for those who want to try toquit on their own. To learn more about these options go to www.[place]quitnetwork.org or call 9 083-501-RZCA-RWV ( ). I hope you quit smoking. I think it's the best thing you can do for your health. Please call our office if you have any questions. Restart the methotrexate. documented in this encounter Ordered Prescriptions Prescription Sig Dispensed Refills Start Date End Da te folic acid (FOLVITE) 1 mg tabletIndications:Inflamma tory arthritis Take 1 Tab by mouth daily. 90 Tab 3 12/13/2017 06/12/2021 methotrexate 2.5 mg tabletIndications:Inflamma tory arthritis Take 8 Tabs by mouth once a week. 96 Tab 1 12/13/2017 04/25/2020 documented in this encounter Progress Notes * Warren Zamora Chi, MD - 12/13/2017 1305 EST Images from the original note were not included. Subjective: Patient ID: Hillary Youssef is an 37 y.o. female. Chief Complaint Patient presents with ??? Joint Pain knees mostly HPI Comments: Rheumatoid arthritis with inflammatory polyarthropathy (CMS-HCC) Pain in joint of right knee Knee effusion, right Former [facility] patient follow-up for her seronegative RA: At last visit in June Dr. Engle injected her knee, which helped for a short time. Had stopped methotrexate for 1 year because she got busy and kept forgetting to take the med. Single parent for her 14 yr old son who is in 8th grade. Doing Enbrel weekly which helps her. Her most severe pain resides in the right knee. Fingers go numb. Has a history of right meniscectomy 8 yrs ago. Sees a therapist who has diagnosed the patient with depression. She was on a low dose of venlafaxine last year which she did not find helpful, but then had amajor flare of depression when she tapered off the medicine. Has restarted venlafaxine- and will try to increase the dose. Continues to smoke. Denies any other joint pains or swelling. AM stiffness: 3 hrs- knees Physical activity: Taking time off from work since early November. Had been working in a [employer] room. Trying to get on the treadmill x 30 minutes each day. Returning to work in January. [place] as a single mom. Patient Active Problem List Diagnosis ??? Rheumatoid arthritis with inflammatory polyarthropathy (CMS-HCC) ??? Pain in joint of right knee Past Medical History: Diagnosis Date ??? Depression with anxiety ??? Substance abuse Past Surgical History: Procedure Laterality Date ??? MENISCECTOMY Right History reviewed. No pertinent family history. Outpatient Prescriptions Marked as Taking for the 12/13/17 encounter (Office Visit) with Warren Zamora Chi, MD Medication Sig Dispense Refill ??? BUPRENORPHINE HCL/NALOXONE HCL (SUBOXONE SL) Place under the tongue daily. 8 MG IN THE AM AND 4MG IN THE AFTERNOON ??? Etanercept (ENBREL SURECLICK) 50 mg/mL (0.98 mL) pen injector Inject 50 mg into the skin once aweek. 4 Pen 5 ??? folic acid (FOLVITE) 1 mg tablet Take 1 Tab by mouth daily. 90 Tab 3 ??? methylphenidate (CONCERTA) 54 mg CR tablet Take 54 mg by mouth daily. ??? naproxen (NAPROSYN) 500 mg tablet Take 500 mg by mouth as needed. ??? VENLAFAXINE HCL (VENLAFAXINE ORAL) Take 1 Tab by mouth daily ROS - See HPI I reviewed the 10 point ROS performed by the nurse which is as documented in Prism. Objective: BP 118/72 Pulse 80 Ht 159.4 cm (62.75) Wt 88.5 kg (195 lb) BMI 34.82 kg/m2 Physical Exam Constitutional: She is oriented to person, place, and time. She appears well- nourished. No distress. Anxious young female HENT: Nose: Nose normal. Mouth/Throat: Mucous membranes are moist. Oropharynx is clear. Eyes: Conjunctivae and EOM are normal. Pupils are equal, round, and reactive to light. Neck: No thyromegaly present. Cardiovascular: Normal rate, regular rhythm and normal heart sounds. No murmur heard. Pulmonary/Chest: Effort normal. No respiratory distress. Abdominal: Soft. There is no hepatosplenomegaly. There is no tenderness. Musculoskeletal: a complete musculoskeletal exam of the upper and lower extremities was performed and was normal except for findings shown on the homonculus: Neurological: She is alert and oriented to person, place, and time. No cranial nerve deficit. Skin: Skin is warm. No rash noted. Livedo venous pattern on the legs Psychiatric: Her behavior is normal. Her mood appears anxious. Vitals reviewed. External labs 05/27/17: H/H 16.2/47.6 WBC 7.78 CMP unremarkable 08/19/16 knee x-rays: Right knee- progression of osteoarthritis and increased subchondral sclerosis medially. Degenerative changes at patellofemoral compartment. Left knee- unremarkable 08/15/14: Knee synovial fluid WBC 5528 Moderate intra-and extracellular CPPD crystals. 09/28/06: ROCIO negative CCP negative RF negative HLA-B27 negative RAPID3 SCORES AND INTERPRETATION 08/19/2016 06/16/2017 12/13/2017 Functional Status 4 3.7 4.7 Pain Tolerance 6 6.5 7.5 Global Estimate 3 3.5 5.5 RAPID3 13 13.7 17.7 Interpretation High High High Assessment: 1. Inflammatory arthritis methotrexate 2.5 mg tablet folic acid (FOLVITE) 1 mg tablet 2. Primary osteoarthritis of right knee 3. Calcium pyrophosphate deposition disease 4. History of substance abuse Plan: Seronegative inflammatory arthritis (diagnosed by previous provider) Most likely due to inflammatory osteoarthritis with documented CPPD in the right knee. There is advanced osteoarthritis in the right knee on x-ray. She is too young for knee replacement surgery. Continue Enbrel, naproxyn which she has found helpful. She had been noncompliant with taking methotrexate for past year, but wants to restart [id number] mg weekly, along with folate 1 mg daily. She agrees to CBC, CMP monitoring every 3-4 months. She has a history of substance abuse and therefore should avoid narcotics for pain relief. She is maintaining on Suboxone. She lives [place] [address] from [facility] and would like to establish Rheumatologic care at [facility] in [place]; she has an upcoming appt with Dr Short. We will forward our notes to Dr Short. She understands we cannot refill her medications if she has not followed up with our clinic in overone year. Patient is currently on biologic therapy. Patient should receive either the PPSV23 or PCV13 vaccine, if indicated based on the CDC recommendations, either at the rheumatology office or PCP office. Barriers to learning identified: No Patient verbalizes understanding and agrees with plan Yes Return if symptoms worsen or fail to improve. (Portions of this document may have been prepared with speech recognition software or keyboard dataentry techniques. Minor irregularities or keyboarding misprints may be present.) Warren Zamora MD * Gabbie Bustillos - 12/13/2017 1305 EST REVIEW OF SYSTEMS: Yes No Yes No Fever X Joint pain x Weight gain or loss pounds (lbs) Duration of AM joint stiffness hours Eye pain or dryness X Numbness/tingling x Mouth or nose sores X Heart burn / Nausea X Chest pain X Diarrhea X Shortness of Breath X Blood in stool X Cough X Burning on urination X Skin rash x Hand/Foot color change in cold x documented in this encounter Plan of Treatment Not on file documented as of this encounter Visit Diagnoses Diagnosis Inflammatory arthritis- Primary Unspecified inflammatory polyarthropathy Primary osteoarthritis of right knee Primary localized osteoarthrosis, lower leg Calcium pyrophosphate deposition disease Other disorder of calcium metabolism History of substance abuse ([facility]) Other, mixed, or unspecified nondependent drug abuse, unspecified documented in this encounter Discontinued Medications Medication Sig Discontinue Reason Start Date End Da te methotrexate 2.5 mg tabletIndications:Pain, joint, knee, right Take 8 Tabs by mouth once a week. Reorder 11/30/2017 12/13/2017 folic acid (FOLVITE) 1 mg tabletIndications:Pain, joint, knee, right Take 1 Tab by mouth daily. Reorder 07/26/2013 12/13/2017 documented as of this encounter Historical Medications * This list may reflect changes made after this encounter. Medication Sig Dispensed Refills Start Date End Date naproxen (NAPROSYN) 500 mg tablet Take 500 mg by mouth as needed. 04/25/2020 added in this encounter Care Teams Food Product Inspector Relationship Specialty Start Date End Date Breanna Lopez MD [address] [place] [phone] PCP - General 05/22/09 documented as of this encounter
--- OUTSIDE RECORDS SUMMARY | 2024-09-11 17:14 | XMS_ITS | Encounter Summary ---
Author Organization [facility] Address [address] [place] [address] Care Team Providers Care Timber Skidder Name Role Phone Breanna Lopez MD Primary Care Provider [phone] Reason for Visit * Reason Onset Date Comments Knee Pain 04/01/2017 Encounter Details Date Type Department Care Team (Late st Contact Info) Description 04/01/2017 Telephone [facility] Rheumatology & Immunology - [facility] [address] [place], [place] [address] Grant Engle MD [address] [place] [address] Knee Pain Social History Tobacco [...] Telephone Encounter - Grant Engle MD - 04/01/2017 0945 EDT Please call Hillary Youssef and make an appt. with me for April 27 at noon documented in this encounter Plan of Treatment Not on file documented as of this encounter Visit Diagnoses Not on filedocumented in this encounter Care Teams Timber Skidder Relationship Specialty Start Date End Date Breanna Lopez MD [address] [place] [phone] PCP - General 05/22/09 documented as of this encounter
--- OUTSIDE RECORDS SUMMARY | 2024-09-11 17:14 | XMS_ITS | Encounter Summary ---
Author Organization [facility] Address [address] [place] [address] Care Team Providers Care Accounting File Clerk Name Role Phone Breanna Lopez MD Primary Care Provider [phone] Reason for Visit * Reason Comments Follow-up Seronegative rheumat oid arthritis Encounter Details Date Type Department Care Team (Late st Contact Info) Description 02/15/2020 13:30 EDT Telemedicine [facility] Rheumatology [address] [place] [address] Eduardo Short MD [facility] Rheumatology [address] [place] [address] [place] [address] Seronegative rheumatoid arthritis of multiple sites ([facility]) (Primary Dx); Pain in joint of right knee Social History Tobacco Use Types Packs/Day Years [...] * Patient Instructions* Eduardo Short MD - 02/15/2020 13:30 EDT Continue Enbrel 50 mg weekly and methotrexate 20 mg weekly. Continue folic acid 1 mg daily. Please take prednisone 20 mg daily for 3 days and then 10 mg daily for 4 days for a total of 7 daystreatment. Call back next week with update on response to therapy with prednisone taper. documented in this encounter Ordered Prescriptions Prescription Sig Dispensed Refills Start Date End Da te predniSONE (DELTASONE) 10 mg tabletIndications:Seronega tive rheumatoid arthritis of multiple sites ([facility]) Take 2 Tabs by mouth daily for 3 days, THEN 1 Tab daily for 4 days. 10 Tab 02/15/2020 02/16/2020 documented in this encounter Progress Notes * Eduardo Short MD - 02/15/2020 1330 EDT [facility] Rheumatology No chief complaint on file. This is a telemedicine visit that was performed with the originating site at that patients home address (please see electronic health record for applicable address) and the distant site at my home office. Verbal consent to participate in video visit was obtained by Eduardo Short MD or the rooming mechanic's assistant as documented in their note. This visit occurred during the Coronavirus (COVID-19) Public Health Emergency. I discussed with the patient the nature of our telemedicine visits, that: ??? I would evaluate the patient and recommend diagnostics and treatments based on my assessment ??? Our sessions are not being recorded and that personal health information is protected ??? Our team would provide follow up care in person if/when the patient needs it The concept of ???Telemedicine?? has been described [...] in patient???s medical or mental health care. HPI: Please refer to my initial note [...] since May 2018. These were done at [facility]. ?No interval medical events. ?I have not [...] needed. ?Labs done yesterday. ?No new meds. 02-15-2020 Interval events: Changed Concerta to Vyvanse 2 days ago Right knee very troublesome. Has a great deal of swelling and stiffness. Hoping for an injection. Current Outpatient Medications: BUPRENORPHINE HCL/NALOXONE HCL (SUBOXONE [...] ??? Depression with anxiety ??? Substance abuse ([facility]) Past Surgical History: Procedure Laterality Date ??? MENISCECTOMY Right No family history on file. Social History: Review of Systems: Enbrel 50 mg weekly MTX 8 tabs weekly Folic acid 1 mg daily. Up-to-date with methotrexate monitoring labs. She gets these locally at [facility] 11-29-2019 reviewed. Will be due again 02/28/2020. HEENT: No mouth sores or facial rash. No sicca symptoms. Cutaneous: No rash. Livedo reticularis changes of the legs Cardiovascular: No chest pain or palpitations. Pulmonary: No dyspnea cough or wheezing. GI: No upper or lower GI symptoms. Musculoskeletal: Right knee is still the most prominent complaint today. Able to weight-bear without significant pain. Unable to completely extend the right knee. Swelling today. Vascular: No vasomotor or ischemic symptoms. Neurologic: No sensory or motor signs or symptoms. Physical Examination: There were no vitals taken for this visit. Telephone visit ? Labs: ? 10/20/2017: Complete blood count [...] Protein, External 11/29/2019 8.0 ??? Bilirubin, Total, Print Color Matcher* 11/29/2019 0.4 ??? WBC, External 11/29/2019 7.2 [...] 1. Seronegative rheumatoid arthritis of multiple sites ([facility]) I think she has some active inflammation in the left wrist and right knee. Recommend continuing with Enbrel 50 mg weekly and MTX 20 mgweekly. In person appointment needed to be canceled due to pandemic concerns. I have recommended a short course of prednisone 20 mg daily for 3 days and then 10 mg daily for 4 days. I recommended that she start this immediately and also make sure not to take ibuprofen or Naprosyn while she is on steroids. She is due for methotrexate monitoring labs in 2 weeks. I have asked her to call me next week with an update on how her knee felt with a steroid course. I will be bringing her back in 1 month most likely for an injection. .Next labs 02-28-2020. I will have her continue Enbrel 50 mg weekly with methotrexate 20 mg weekly Recommendations/Evaluation: This visit was conducted by telephone. I spent a total of 15 minutes in discussion with the patientas described in the progress note. Eduardo Short MD documented in this encounter Plan of Treatment Not on file documented as of this encounter Visit Diagnoses Diagnosis Seronegative rheumatoid arthritis of multiple sites ([facility])- Primary Pain in joint of right knee Pain in joint, lower leg documented in this encounter Care Teams Accounting File Clerk Relationship Specialty Start Date End Date Breanna Lopez MD [address] [place] [phone] PCP - General 05/22/09 documented as of this encounter
--- OUTSIDE RECORDS SUMMARY | 2024-09-11 17:14 | XMS_ITS | Encounter Summary ---
Author Organization [facility] Address [address] [place] [address] Care Team Providers Care Warehouse Selector Name Role Phone Breanna Lopez MD Primary Care Provider [phone] Reason for Visit * Reason Onset Date Comments Medications Refill 08/20/2016 Encounter Details Date Type Department Care Team (Late st Contact Info) Description 08/20/2016 Refill [facility] Rheumatology & Immunology [facility] [address] [place] [address] Grant Engle MD [address] [place] [address] Medications Refill Social History Tobacco [...] Dispensed Refills Start Date End Da te methotrexate 2.5 mg tabletIndications:Pain, joint, knee, right Take 8 Tabs by mouth once a week. 96 Tab 08/20/2016 06/26/2017 documented in this encounter Miscellaneous Notes * Telephone Encounter - Tonia Jain RN - 08/20/2016 1638 EDT Spoke with patient. Last labs for chemistries/hematology were in 2006 at [facility]. None at [facility]. She plans to get labs done this week. Orders faxed. Last MTX script written in 2012. Pt said she has not needed a refill until now because she was getting it filled but not taking it for a long time. She restarted MTX and used up the pills she had. She is trying to take it regularly now. 6 month f/u was not made yesterday after being seen by Dr. Engle. Scheduled appt; letter sent. * Telephone Encounter - Rosalba Brown - 08/20/2016 1507 EDT Medication(s) Requested: MTX [facility]acy: [facility] Last Refill Date: Last Visit Date: 08.19.16 Next Visit Date: Is patient out of medication? Yes no refill on file with pharmacy Rosalba Brown 08/20/2016 15:07 documented in this encounter Plan of Treatment Not on file documented as of this encounter Visit Diagnoses Diagnosis Inflammatory arthritis- Primary Unspecified inflammatory polyarthropathy Pain, joint, knee, right Pain in joint, lower leg Encounter for long-term (current) use of medications Encounter for long-term (current) use of other medications documented in this encounter Discontinued Medications Medication Sig Discontinue Reason Start Date End Da te methotrexate 2.5 mg tabletIndications:Pain, joint, knee, right Take 8 Tabs by mouth once a week. Reorder 07/26/2013 08/20/2016 documented as of this encounter Care Teams Warehouse Selector Relationship Specialty Start Date End Date Breanna Lopez MD [address] [place] [phone] PCP - General 05/22/09 documented as of this encounter
--- OUTSIDE RECORDS SUMMARY | 2024-09-11 17:14 | XMS_ITS | Encounter Summary ---
Author Organization [facility] Address [address] [place] [address] Care Team Providers Care Logistics Project Manager Name Role Phone Breanna Lopez MD Primary Care Provider [phone] Reason for Visit * Reason Comments Other Encounter Details Date Type Department Care Team (Late st Contact Info) Description 04/30/[address] [facility] Rheumatology & Immunology - [facility] [address] [place], [place] [address] Grant Engle MD [address] [place] [phone] Other Social History Tobacco Use Types Packs/Day [...] encounter Miscellaneous Notes * Telephone Encounter - Michelle Suarez, [place] - 05/31/2018 1144 EDT Did not receive call back. From previous note pt was going to establish care with provider in [place]. If pt calls back please clarify if taking Ibuprofen or Naprosyn and if seeing other provider will need to get from new provider. documented in this encounter Plan of Treatment Not on file documented as of this encounter Visit Diagnoses Diagnosis Pain, joint, knee, right Pain in joint, lower leg documented in this encounter Care Teams Logistics Project Manager Relationship Specialty Start Date End Date Breanna Lopez MD [address] [place] [phone] PCP - General 05/22/09 documented as of this encounter
--- OUTSIDE RECORDS SUMMARY | 2024-09-11 17:14 | XMS_ITS | Encounter Summary ---
Author Organization [facility] Address [address] [place] [address] Care Team Providers Care Shuttle Veneering Supervisor Name Role Phone Breanna Lopez MD Primary Care Provider [phone] Reason for Visit * Reason Comments Other Encounter Details Date Type Department Care Team (Late st Contact Info) Description 06/26/2017 Refill [facility] Rheumatology & Immunology - [facility] [address] [place], [place] [address] Grant Engle MD [address] [place] [phone] Other Social History Tobacco Use Types Packs/Day [...] mouth once a week. 96 Tab 1 06/28/2017 11/29/2017 documented in this encounter Miscellaneous Notes * Telephone Encounter - Grant Engle MD - 07/09/2017 1009 EDT Try to get Hillary Youssef in within 6 months. She can see any provider (new Rheums or fellow) * Telephone Encounter - Michelle Suarez RN - 06/28/2017 1006 EDT When does the patient need to be seen in follow up with new provider. Did not see a follow up made and any suggestions on who to book with? documented in this encounter Plan of Treatment Not on file documented as of this encounter Visit Diagnoses Diagnosis Pain, joint, knee, right Pain in joint, lower leg documented in this encounter Discontinued Medications Medication Sig Discontinue Reason Start Date End Da te methotrexate 2.5 mg tabletIndications:Pain, joint, knee, right Take 8 Tabs by mouth once a week. Reorder 08/20/2016 06/26/2017 documented as of this encounter Care Teams Shuttle Veneering Supervisor Relationship Specialty Start Date End Date Breanna Lopez MD [address] [place] [phone] PCP - General 05/22/09 documented as of this encounter
--- OUTSIDE RECORDS SUMMARY | 2024-09-11 17:14 | XMS_ITS | Encounter Summary ---
Author Organization [facility] Address [address] [place] [address] Care Team Providers Care Educational Psychologist Name Role Phone Breanna Lopez MD Primary Care Provider [phone] Reason for Visit * Reason Comments Other Encounter Details Date Type Department Care Team (Late st Contact Info) Description 12/12/2016 Refill [facility] Rheumatology & Immunology - [facility] [address] [place], [place] [address] Grant Engle MD [address] [place] [phone] Other Social History Tobacco Use Types Packs/Day [...] as needed for Pain. 90 Tab 5 12/14/2016 09/20/2017 documented in this encounter Plan of Treatment [...] additional refills until seen in clinic. Reorder 08/19/2016 12/12/2016 documented as of this encounter Care Teams Educational Psychologist Relationship Specialty Start Date End Date Breanna Lopez MD [address] [place] [phone] PCP - General 05/22/09 documented as of this encounter
--- OUTSIDE RECORDS SUMMARY | 2024-09-11 17:14 | XMS_ITS | Encounter Summary ---
Author Organization [facility] Address [address] [place] [address] Care Team Providers Care Oxygen Equipment Preparer Name Role Phone Breanna Lopez MD Primary Care Provider [phone] Reason for Visit * Reason Onset Date Comments Other 04/11/2020 Encounter Details Date Type Department Care Team (Late st Contact Info) Description 04/11/2020 Telephone [facility] [address] [place] [address] Eduardo Short MD [facility] Rheumatology [address] [place] [address] [place] [phone] Other Social History Tobacco Use Types [...] Dispensed Refills Start Date End Da te methylPREDNISolone (MEDROL) 4 mg tablet Take 4 tablets daily for 3 days then 2 tablets daily for 4 days 20 Tab 1 04/12/2020 08/13/2021 documented in this encounter Miscellaneous Notes * Addendum Note - Irma Lomas RN - 04/12/2020 1356 EDTAddended by: IRMA LOMAS on: 04/12/2020 13:56 Modules accepted: Orders * Telephone Encounter - Irma Lomas RN - 04/12/2020 1355 EDT Medrol Rx sent to [facility] and VM left with instructions. * Telephone Encounter - Irma Lomas RN - 04/12/[address] Short's reply with Hillary with appreciation expressed. She would like to try a course ofprednisone but is asking if she can try Medrol because she didn't have a great response to prednisone when she last tried it. * Telephone Encounter - Irma Lomas RN - 04/12/2020 1059 EDT LMTCB. * Telephone Encounter - Irma Lomas RN - 04/11/2020 1415 EDT Hillary is in a lot of pain; worst in her knees, ankles and low back. She is tired of being in pain and is taking her methotrexate and Enbrel as directed. She is asking if you can recommend anything that could help with the pain. She's heard of people taking something to cleanse their system but doesn't want to buy something OTC without a recommendation. Has a follow up 04/25 in person. * Telephone Encounter - Ailin Ulloa - 04/11/2020 1206 EDT Lvm needs to speak with Dr. Short or nurse, personal question about herself. No other details documented in this encounter Plan of Treatment Not on file documented as of this encounter Visit Diagnoses Not on filedocumented in this encounter Care Teams Oxygen Equipment Preparer Relationship Specialty Start Date End Date Breanna Lopez MD [address] [place] [phone] PCP - General 05/22/09 documented as of this encounter
--- OUTSIDE RECORDS SUMMARY | 2024-09-11 17:14 | XMS_ITS | Encounter Summary ---
Author Organization [facility] Address [address] [place] [address] Care Team Providers Care Automatic Trimming Sewer Name Role Phone Breanna Lopez MD Primary Care Provider [phone] Reason for Referral * Medication Prior Authorization (Routine) - Authorization Not Required Specialty Diagnoses / Procedures Referred By [facility] Referred To Contact Diagnoses Rheumatoid arthritis with negative rheumatoid factor, involving unspecified site ([facility]) Warren Zamora Chi, MD [address] [place] [address], [address] [place] [address] Referral ID Status Reason Start Date Expiration Date Visits Requested Visits Authorized [id number] Authorization Not Required Medication Prior Authorization 017 1 1 Question Answer Medication to be Prior Authorized: reauthorize enbrel sureclick 50 mg/ml auto injector weekly injector Comments The purpose of this consult request is to inform the scheduling staff that a medication needs to be prior-authorized before it is prescribed and/or administered. Reason for Visit * Reason Onset Date Comments Prior Auth, Medication 09/21/2017 Encounter Details Date Type Department Care Team (Late st Contact Info) Description 09/21/2017 Orders Only [facility] Rheumatology & Immunology - [address] [address] Johanny Dow RN Rheumatoid arthritis with negative rheumatoid factor, involving unspecified site ([facility]) ([facility]) (Primary Dx) Social History Tobacco Use Types [...] No 06/16/2017 documented as of this encounter Plan of Treatment Scheduled Referrals Name Type Priority Associated Diagnoses Order Schedule AMB MEDICATION PRIOR AUTHORIZATION Outpatient Referral Routine Rheumatoid arthritis with negative rheumatoid factor, involving unspecified site ([facility]) Ordered: 09/21/2017 documented as of this encounter Visit Diagnoses Diagnosis Rheumatoid arthritis with negative rheumatoid factor, involving unspecified site ([facility])- Primary documented in this encounter Care Teams Automatic Trimming Sewer Relationship Specialty Start Date End Date Breanna Lopez MD [address] [place] [phone] PCP - General 05/22/09 documented as of this encounter
--- OUTSIDE RECORDS SUMMARY | 2024-09-11 17:14 | XMS_ITS | Encounter Summary ---
Author Organization [facility] Address [address] [place] [address] Care Team Providers Care High School Band Director Name Role Phone Breanna Lopez MD Primary Care Provider [phone] Encounter Details Date Type Department Care Team (Late st Contact Info) Description 05/23/2018 Results Only [facility] [phone] Eduardo Short MD [facility] Rheumatology [address] [place] [address] [place] [phone] Social History Tobacco Use Types Packs/Day Years [...] Procedure Name Priority Date/Time Associated Diagnosis Comments IDENTIFY AEROBIC BACTERIA Routine 05/23/2018 17:00 EDT documented in this encounter Results * IDENTIFY ORGANISM (05/23/2018 17:00 EDT) Result CUTIBACTERIUM (PROPIONIBACTERIU M) ACNES 06/03/2018 11:32 EDT [facility] [place] STRUCTURE / Unknown 05/23/2018 17:00 EDT 06/01/2018 12:43 EDT Comment:Right~In THIO broth [id number] Eduardo Short MD MICROBIOLOGY - GENER AL ORDERABLES [facility] [address] [place] [address] documented in this encounter Visit Diagnoses Not on filedocumented in this encounter Care Teams High School Band Director Relationship Specialty Start Date End Date Breanna Lopez MD [address] [place] [phone] PCP - General 05/22/09 documented as of this encounter
--- OUTSIDE RECORDS SUMMARY | 2024-09-11 17:14 | XMS_ITS | Encounter Summary ---
Author Organization [facility] Address [address] [place] [address] Care Team Providers Care Inside B2B Sales Name Role Phone Breanna Lopez MD Primary Care Provider [phone] Reason for Visit * Reason Onset Date Comments Other 02/16/2020 Encounter Details Date Type Department Care Team (Late st Contact Info) Description 02/16/[address] [facility] Rheumatology [address] [place] [address] Eduardo Short MD [facility] Rheumatology [address] [place] [address] [place] [phone] Other Social History Tobacco Use Types [...] Telephone Encounter - Gabbie Lomas RN - 02/16/[address] Short's reply to Hillary with understanding and appreciation expressed. * Telephone Encounter - Gabbie Lomas RN - 02/16/2020 1118 EDT Forwarding you this question from Hillary. * Telephone Encounter - Ailin Ulloa - 02/16/2020 1105 EDT Hillary is asking if she should take a job with [email or web address] (received a message from [email or web address] manager sourcing to return the call) may be a job offer. Should she work with the public? documented in this encounter Plan of Treatment Not on file documented as of this encounter Visit Diagnoses Not on filedocumented in this encounter Care Teams Inside B2B Sales Relationship Specialty Start Date End Date Breanna Lopez MD [address] [place] [phone] PCP - General 05/22/09 documented as of this encounter
--- OUTSIDE RECORDS SUMMARY | 2024-09-11 17:14 | XMS_ITS | Encounter Summary ---
Author Organization [facility] Address [address] [place] [address] Care Team Providers Care Underground Utility Locator Name Role Phone Breanna Lopez MD Primary Care Provider [phone] Reason for Visit * Reason Onset Date Comments Other 01/28/2017 Encounter Details Date Type Department Care Team (Late st Contact Info) Description 01/28/2017 Telephone [facility] Rheumatology & Immunology - [facility] [address] [place], [place] [address] Grant Engle MD [address] [place] [phone] Other Social History Tobacco Use [...] Miscellaneous Notes * Telephone Encounter - Rosy Díaz - 01/28/2017 1246 EDT Called pt to come 15 min early so margi can do hep and tb test . Left mess on phone documented in this encounter Plan of Treatment Not on file documented as of this encounter Visit Diagnoses Not on filedocumented in this encounter Care Teams Underground Utility Locator Relationship Specialty Start Date End Date Breanna Lopez MD [address] [place] [phone] PCP - General 05/22/09 documented as of this encounter
--- OUTSIDE RECORDS SUMMARY | 2024-09-11 17:14 | XMS_ITS | Encounter Summary ---
Author Organization [facility] Address [address] [place] [address] Care Team Providers Care Supervisor Network Control Operators Name Role Phone Breanna Lopez MD Primary Care Provider [phone] Reason for Visit * Reason Onset Date Comments Prior Auth, Medication 11/16/2017 Enbrel Encounter Details Date Type Department Care Team (Late st Contact Info) Description 11/16/2017 Telephone [facility] Rheumatology & Immunology - [facility] [address] [place] [address] Warren Zamora Chi, MD [address] [place] [address], [address] [place] [address] Prior Auth, Medication (Enbrel) Social History Tobacco Use Types Packs/Day Years [...] No 06/16/2017 documented as of this encounter Progress Notes * Angelina Odonnell RPH - 11/16/2017 1236 EST Updated Hepatitis and TB labs are needed. Orders have been sent via mail along with a letter informing patient of this need. Angelina Odonnell, Pharm.D., BCPS Pharmacist Clinician - Rheumatology 11/16/2017 documented in this encounter Miscellaneous Notes * Telephone Encounter - Devora Almazan - 11/16/2017 1129 EST Prior Authorization Approval Medication: Enbrel 50mg/mL (0.98mL) SureClick pen Approved: 11/16/2017 - 11/16/2018 Authorization Number: [id number] (trackin) Pharmacy: [email or web address] Notes: Left msg, 11/16, to inform pt of approval & that this med may be filled w/[facility] (will be serviced by [facility]). Pt to call clinic, if she prefers to fill locally. Prior Authorization Submission Process Medication: Enbrel 50mg/mL (0.98mL) SureClick pen Insurance: [place] Medicaid Date [place] Request Received: 11/16/2017 [place] Submission Date: 11/16/2017 Submitted by: Devora Albert documented in this encounter Plan of Treatment Not on file documented as of this encounter Visit Diagnoses Diagnosis Rheumatoid arthritis with inflammatory polyarthropathy ([facility] Primary jail current use of immunosuppressive drug documented in this encounter Care Teams Supervisor Network Control Operators Relationship Specialty Start Date End Date Breanna Lopez MD [address] [place] [phone] PCP - General 05/22/09 documented as of this encounter
--- OUTSIDE RECORDS SUMMARY | 2024-09-11 17:14 | XMS_ITS | Encounter Summary ---
Author Organization [facility] Address [address] [place] [address] Care Team Providers Care Filling Hauler Name Role Phone Breanna Lopez MD Primary Care Provider [phone] Encounter Details Date Type Department Care Team (Late st Contact Info) Description 10/11/2019 Orders Only [facility] Rheumatology [address] [place], [place] [id number] Dasia Goldstein, RN Social History Tobacco Use Types Packs/Day [...] skin once a week. 4 Pen 5 10/11/2019 04/08/2020 documented in this encounter Plan of Treatment Not on file documented as of this encounter Visit Diagnoses Not on filedocumented in this encounter Discontinued Medications Medication Sig Discontinue Reason Start Date End Da te Etanercept (ENBREL SURECLICK) 50 mg/mL (0.98 mL) pen injector Inject 50 mg into the skin once a week. Reorder 04/06/2018 10/11/2019 documented as of this encounter Care Teams Filling Hauler Relationship Specialty Start Date End Date Breanna Lopez MD [address] [place] [phone] PCP - General 05/22/09 documented as of this encounter
--- OUTSIDE RECORDS SUMMARY | 2024-09-11 17:14 | XMS_ITS | Encounter Summary ---
Author Organization [facility] Address [address] [place] [address] Care Team Providers Care Supervisor Power Reactor Name Role Phone Breanna Lopez MD Primary Care Provider [phone] Reason for Visit * Reason Onset Date Comments Joint Pain 03/31/2017 Edema 03/31/2017 Appointment Related 03/31/2017 04.27.17 Encounter Details Date Type Department Care Team (Late st Contact Info) Description 03/31/2017 Telephone [facility] Rheumatology & Immunology - [facility] [address] [place] [address] Grant Engle MD [address] [place] [phone] Joint Pain; Edema; Appointment Related (04.27.17) Social History Tobacco Use Types Packs/Day Years [...] encounter Miscellaneous Notes * Telephone Encounter - Martina Clements RN - 04/01/2017 1352 EDT Pt booked to be seen on April 27 at 1200 noon. * Telephone Encounter - Jenn Felipe - 04/01/2017 1301 EDT Reason for Call: Joint Pain; Edema; and Appointment Related (04.27.17) Summary/Symptoms: Patient calling to confirm that 04.27.17 appointment. Jenn Felipe 04/01/2017 13:01 * Telephone Encounter - Michelle Suarez RN - 04/01/2017 0853 EDT Has been having increased joint pain and swelling, ankles are worse. Knees and wrist also having swelling. Continues on Enbrel. Will see PCP today and aware that note will need to come from PCP. Follow up made for 06/16/17 but any need to be seen sooner. * Telephone Encounter - Jairo Ma - 03/31/2017 1626 EDT Patient calling as she has not been able to work the last 2 days and her boss would like a doctors note. She states her legs and ankles are swollen and she is having an awful flare up. Takes enbrel once a week and its not working for her. She has mentioned the doctors note numerous times for her employer. She takes to much ibuprofen and tries to be careful on how much she takes. Has been elevating legs and icing her knee. She would like to speak to a nurse As soon as she can. Infection Control Preventionist did mentionthat it was 4:30 and would hope they can get back to her as soon as they can. documented in this encounter Plan of Treatment Not on file documented as of this encounter Visit Diagnoses Not on filedocumented in this encounter Care Teams Supervisor Power Reactor Relationship Specialty Start Date End Date Breanna Lopez MD [address] [place] [phone] PCP - General 05/22/09 documented as of this encounter
--- OUTSIDE RECORDS SUMMARY | 2024-09-11 17:14 | XMS_ITS | Encounter Summary ---
Author Organization [facility] Address [address] [place] [address] Care Team Providers Care Clinical Reimbursement Specialist Name Role Phone Breanna Lopez MD Primary Care Provider [phone] Reason for Visit * Reason Onset Date Comments Medications Refill 04/05/2018 Encounter Details Date Type Department Care Team (Late st Contact Info) Description 04/05/2018 Refill [facility] Rheumatology & Immunology - [facility] [address] [place] [address] Warren Zamora Chi, MD [address] [facility], [address] [place] [address] Medications Refill Social History Tobacco Use Types [...] skin once a week. 4 Pen 5 04/06/2018 10/11/2019 documented in this encounter Miscellaneous Notes * Telephone Encounter - Lynn Ortiz - 04/05/2018 6841 EDT Medication(s) Requested Etanercept (ENBREL SURECLICK) 50 mg/mL (0.98 mL) pen injector Pharmacy: [address]?[phone] Next Visit Date Visit date not found Out of Medication? Unknown Lynn Ortiz 04/05/2018 15:45 documented in this encounter Plan of Treatment Not on file documented as of this encounter Visit Diagnoses Not on filedocumented in this encounter Discontinued Medications Medication Sig Discontinue Reason Start Date End Da te Etanercept (ENBREL SURECLICK) 50 mg/mL (0.98 mL) pen injector Inject 50 mg into the skin once a week. Reorder 09/20/2017 04/05/2018 documented as of this encounter Care Teams Clinical Reimbursement Specialist Relationship Specialty Start Date End Date Breanna Lopez MD [address] [place] [phone] PCP - General 05/22/09 documented as of this encounter
--- OUTSIDE RECORDS SUMMARY | 2024-09-11 17:14 | XMS_ITS | Encounter Summary ---
Author Organization [facility] Address [address] [place] [address] Care Team Providers Care Net Development Manager Name Role Phone Breanna Lopez MD Primary Care Provider [phone] Reason for Visit * Reason Comments Joint Pain right knee Encounter Details Date Type Department Care Team (Latest Contact Info) Description 06/16/2017 16:00 EDT Office Visit [facility] Rheumatology & Immunology - [facility] [address] [place], [place] [address] Grant Engle MD [address] [facility] [place] [address] Rheumatoid arthritis with inflammatory polyarthropathy ([facility]) (Primary Dx); Pain in joint of right knee; Knee effusion, right Social History Tobacco Use Types Packs/Day Years Used Date Smoking Tobacco: Every Day Cigarettes 1 29.5 Started: 03/01/1995 Smokeless Tobacco: Never Tobacco Cessation:Ready to Q uit: No; Counseling Given: No Comments:chantix trying to use that Alcohol Use [...] Sign Reading Time Taken Comments Blood Pressure 132/78 06/16/2017 1555 EDT Pulse 90 06/16/2017 1555 EDT Temperature - - Respiratory Rate 18 06/16/2017 1555 EDT Oxygen Saturation - - Inhaled Oxygen Concentration - - Weight 86.2 kg (190 lb) 06/16/2017 1555 EDT Height 158.2 cm (5' 2.3) 06/16/2017 1555 EDT Body Mass Index 34.42 06/16/2017 1555 EDT documented in this encounter Functional Status [...] No 06/16/2017 documented as of this encounter Patient Instructions * Patient Instructions* Grant Engle MD - 06/16/2017 16:00 EDT Ice the knee hourly today Call in 2-3 weeks with an update documented in this encounter Progress Notes * Rosy Díaz - 06/16/2017 1600 EDT REVIEW OF SYSTEMS: Yes No Yes No Fever X Joint pain x Weight gain or loss pounds (lbs) Duration of AM joint stiffness 4-5 hours Eye pain or dryness X Numbness/tingling x Mouth or nose sores X Heart burn / Nausea X Chest pain X Diarrhea X Shortness of Breath x Blood in stool X Cough X Burning on urination X Skin rash X Hand/Foot color change in cold X Note dictated Grant Engle MD 06/16/2017 16:45 * Grant Engle MD - 06/16/2017 0000 EDT [facility] RHEUMATOLOGY AND IMMUNOLOGY PROGRESS / FOLLOWUP NOTE - 06/16/2017 PROBLEM: 1. Inflammatory arthritis. 2. Right knee pain and effusion. SUBJECTIVE: Hillary was last seen by me August 2016. She states that she has been doing fairly well, but over the last several weeks to months, she has developed more pain in the right knee and more swelling. She states that overall her joints have been pretty good, and she is working. CURRENT MEDICATIONS: Include: Buprenorphine. Naloxone. Etanercept once a week. Ibuprofen as needed. Methotrexate 20 mg weekly. Methylphenidate 54 once daily. Venlafaxine 1 tab daily. REVIEW OF SYSTEMS: Positive for shortness of breath, weight gain of about 40 pounds, 4 to 5 hours of morning stiffness, occasional numbness and tingling in hands. She has difficulty with many activities such as getting in and out of bed, turning on faucets. She also notes feelings of depression and anxiety. She rates pain as 6.5/10 on our scale and overall, how well she is doing at 3.5/10, which is in themiddle. RAPID3 (Routine assessment of pt index data): Rapid3 score: Disease activity: Goal: This was discussed with patient. EXAM: Hillary appears to be well. She is giving a good history, and does not appear anxious. Blood pressure is 132/78, pulse is 90, weight 190, height 62.3 inches. She rates pain as 7/10 on the pain scale. Skin Exam: Normal. HEENT: Within normal limits, no mucous membrane abnormalities. Neck: Supple, no lymphadenopathy. Lungs: Clear to auscultation. Heart sounds of normal quality. Abdomen: Obese, soft and nontender, no organomegaly. Neurologic: Intact. Pulses present in upper and lower extremities. Musculoskeletal exam is largely benign with the exception of the right knee. The right knee is slightly warmer than the left, and there is a modest effusion. She can flex and extend the knee, but shetends to favor it when she climbs on the exam table or when she walks. Her ankles and toes are fine. ASSESSMENT: 1. Inflammatory arthritis, not better characterized. 2. Continued right knee pain with a modest right knee effusion. PLAN: I explained to Hillary that I could aspirate and inject the right knee. She was very happy to hear that, and she agreed to the procedure. After sterile preparation, I aspirated the knee with a 20-gauge needle. I removed approximately 30 mL of slightly cloudy fluid. The fluid was sent to the lab for analysis. I then injected the knee with Kenalog and Xylocaine. Following the procedure, she was able to put weight on it and bend the knee much more easily. She was instructed to ice the knee hourly for the next 24 hours. Also, to avoid a lot of heavy standing for the next 2 to 3 days. I encouraged her to call with the results of the aspiration and injection. I did not make any changes in her medications. She will continue with the methotrexate and Enbrel. Synovial fluid analysis: 5,500 nucleated cells, moderate intra- and extracellular CPPD crystals. Grant Engel MD 04 44 PM - Grant Engle MD en Dictation ID: [id number] cc: Breanna Lopez MD, [facility] [address] [facility], [address], [place] [address] documented in this encounter Plan of Treatment Not on file documented as of this encounter Visit Diagnoses Diagnosis Rheumatoid arthritis with inflammatory polyarthropathy (HCC-CMS)- Primary Pain in joint of right knee Pain in joint, lower leg Knee effusion, right Effusion of lower leg joint documented in this encounter Care Teams Net Development Manager Relationship Specialty Start Date End Date Breanna Lopez MD [address] [facility] [address] [place] [phone] PCP - General 05/22/09 documented as of this encounter
--- OUTSIDE RECORDS SUMMARY | 2024-09-11 17:14 | XMS_ITS | Encounter Summary ---
Author Organization [facility] Address [address] [place] [address] Care Team Providers Care Cargo Handler Name Role Phone Breanna Lopez MD Primary Care Provider [phone] Reason for Visit * Reason Comments Follow-up Would like a right k nee injection and aspiration. Encounter Details Date Type Department Care Team (Late st Contact Info) Description 03/14/2020 10:30 EDT Office Visit [facility] Rheumatology [address] [place] [id number] Edaurdo Short MD [facility] Rheumatology [address] [place] [address] [place] [phone] Pain in joint of right knee (Primary Dx) Social History Tobacco Use Types Packs/Day Years Used Date Smoking Tobacco: Every Day Cigarettes 1 29.5 Started: 03/01/1995 Smokeless Tobacco: Never Tobacco Cessation:Ready to Q uit: Yes; Counseling Given: No Comments:chantix trying to use [...] Sign Reading Time Taken Comments Blood Pressure 124/74 03/14/2020 1028 EDT Pulse 92 03/14/2020 1028 EDT Temperature - - Respiratory Rate - - Oxygen Saturation - - Inhaled Oxygen Concentration - - Weight 85.7 kg (189 lb) 03/14/2020 1028 EDT Height 160 cm (5' 3) 03/14/2020 1028 EDT Body Mass Index 33.48 03/14/2020 1028 EDT documented in this encounter Functional Status [...] * Patient Instructions* Eduardo Short MD - 03/14/2020 10:30 EDT Images from the original note were not included. Monitor the right knee for any evidence of infection which would show increasing redness pain or swelling. Please rest the right knee today. You can weight-bear. When you are resting keep knee elevated and you can use ice 20 minutes on 20 minutes off for several rotations. [facility] Patient Instructions Joint Injections: Care Instructions Your Care Instructions Joint injections are shots into a joint, such as the knee. They may be used to put in medicines, such as pain relievers. A corticosteroid, or steroid, shot is used to reduce inflammation in tendons or joints. It is oftenused to treat problems such as arthritis, tendinitis, and bursitis. Steroids can be injected directly into a painful, inflamed joint. They can also help reduce inflammation of a bursa. A bursa is a sac of fluid. It cushions and lubricates areas where tendons, ligaments, skin, muscles, or bones rub against each other. A steroid shot can sometimes help with short-term pain relief when other treatments haven't worked.If steroid shots help, pain may improve for weeks or months. Follow-up care is a casiano part of your treatment and safety. Be sure to make and go to all appointments, and call your doctor if you are having problems. It's also a good idea to know your test resultsand keep a list of the medicines you take. How can you care for yourself at home? ?? Put ice or a cold pack on the area for 10 to 20 minutes at a time. Put a thin cloth between the ice and your skin. ?? Ask your doctor if you can take an qxeq-ziy-lfofgnh pain medicine, such as acetaminophen (Tylenol), ibuprofen (Advil, Motrin), or naproxen (Aleve). Be safe with medicines. Read and follow all instructions on the label. ?? Avoid strenuous activities for several days. In particular, avoid ones that put stress on the area where you got the shot. ?? If you have dressings over the area, keep them clean and dry. You may remove them when your doctor tells you to. When should you call for help? Call your doctor now or seek immediate medical care if: ? You have signs of infection, such as: ? Increased pain, swelling, warmth, or redness. ? Red streaks leading from the site. ? Pus draining from the site. ? A fever. ??Watch closely for changes in your health, and be sure to contact your doctor if you have any problems. Where can you learn more? Go to [email or web address] or log into your [employer] account at [email or web address] Enter N616 in the search box to learn more about Joint Injections: Care Instructions. Current as of: May 03, 2019Content Version: 12.4 ?? [id number] [employer]. Care instructions adapted under license by [facility]. If you have questions about a medical condition or this instruction, always ask your healthcare professional. [employer] disclaims any warranty or liability for your use of this information. documented in this encounter Progress Notes * Eduardo Short MD - 03/14/2020 1030 EDT [facility] Chief Complaint Patient presents with ??? Follow-up Would like a right knee injection and aspiration. HPI: Please refer to my initial note [...] since May 2018. These were done at [facility]. ?No interval medical events. ?I [...] ?No new meds. Persistent right knee pain Current Outpatient Medications: ARIPiprazole (ABILIFY) 5 mg tablet BUPRENORPHINE HCL/NALOXONE HCL (SUBOXONE SL) DULoxetine (CYMBALTA) 60 mg capsule etanercept (ENBREL SURECLICK) 50 mg/mL (1 mL) subcutaneous pen folic acid (FOLVITE) 1 mg tablet ibuprofen (MOTRIN) 800 mg tablet lisdexamfetamine (VYVANSE) 70 mg capsule methotrexate 2.5 mg tablet naproxen (NAPROSYN) 500 mg tablet No current facility-administered medications for this visit. Allergies include: Patient has no known allergies. Past Medical History: Diagnosis Date ??? ADD (attention deficit disorder) ??? Cocaine abuse ([facility]) ??? Depression with anxiety ??? Hyperhidrosis ??? Inflammatory arthritis ??? Keratosis pilaris ??? Leg edema ??? Obesity ??? Opioid dependence ([facility]) ??? Osteoarthritis ??? Substance abuse ([facility]) ??? Tobacco use Past Surgical History: Procedure Laterality Date ??? MENISCECTOMY Right Family History Problem Relation Age of Onset ??? No Known Mother ??? No Known Father Social History: Review of Systems: Enbrel 50 mg weekly MTX 8 tabs weekly Folic acid 1 mg daily. Up-to-date with methotrexate monitoring labs. She gets these locally at [facility] HEENT: No mouth sores or facial rash. No sicca symptoms. Cutaneous: No rash. Livedo reticularis changes of the legs Cardiovascular: No chest pain or palpitations. Pulmonary: No dyspnea cough or wheezing. GI: No upper or lower GI symptoms. Musculoskeletal: Right knee pain is the main issue today Vascular: No vasomotor or ischemic symptoms. Physical Examination: BP 124/74 (BP Cuff Location: Right arm, BP Cuff Sizes: Adult, large) Pulse 92 Ht 160 cm (63) Wt 85.7 kg (189 lb) BMI 33.48 kg/m? Physical exam: ? General appearance and movement: alert, nontoxic ? HEENT: anicteric sclerae, conjunctivae clear; no facial rash ? Knees: right knee with small effusion [...] Protein, External 11/29/2019 8.0 ??? Bilirubin, Total, Bus Aide* 11/29/2019 0.4 ??? WBC, External 11/29/2019 [...] 1. Seronegative rheumatoid arthritis of multiple sites ([facility]) seronegative rheumatoid arthritis.Relatively low inflammatory state recommend continuing with Enbrel 50 mg weekly and MTX 20 mg weekly. Right knee injection today I do not find any extra-articular manifestations of rheumatoid arthritis. I will have her continue Enbrel 50 mg weekly. Recommendations/Evaluation: Rheumatology Outpatient Procedure Note Title of Procedure: Aspiration and Injection right knee Date Performed: 03/14/2020 Time Performed: 1045 Performed by: Eduardo Short MD Indications and/or Provisional Diagnosis: Seronegative rheumatoid arthritis Consent: Written consent was obtained after patient was informed of the risks, benefits and alternatives. Final verification was Performed. Time out performed. Type of Anesthesia or Sedation: Local Procedure Technique: Site Marked. The area was prepped with alcohol and povidone-iodine . Cutaneous anesthesia was attained using Ethyl Chloride and Lidocaine 1% w/out epinephrine. Synovial fluid in the amount of 3 cc was withdrawn. The fluid was yellow. The fluid was not sent to the lab for testing. The fluid was examined using polarized microscopy. Positively birefringent and Extracellular crystals were seen. Injection of 40 mg of Depomedrol (methylprednisolone acetate) and 0 cc lidocaine 1% without epinephrine was performed. Total dosage in vial: 40mg Total dosage administered: 40mg Total dosage of waste: None Post Procedure Diagnosis and Findings: 1. Pain in joint of right knee Synovial fluid analyzed with polarizing light microscope for crystals. Complications: None Patient advised to observe injection site for increasing redness pain or swelling. Ice 20 minutes on/20 minutes off for several cycles throughout the day. No immersion of injection site for 48 hours. Call with any fevers or concerns. Eduardo Short MD 03/14/2020 12:50 Eduardo Short MD documented in this encounter Miscellaneous Notes * Addendum Note - Irma Lomas RN - 03/14/2020 1030 EDTAddended by: IRMA LOMAS on: 03/14/2020 15:40 Modules accepted: Orders documented in this encounter Plan of Treatment Not on file documented as of this encounter Visit Diagnoses Diagnosis Pain in joint of right knee- Primary Pain in joint, lower leg documented in this encounter Administered Medications Inactive Administered Medications - up to 3 most recent administrations Medication Order MAR Action Action Date Dose Rate Site methylPREDNISolone ACETATE (DEPO-MEDROL) injection 40 mg 40 mg, intra-articular, NOW X1, 1 dose, On Josee 03/14/20 at 1600, Routine Given 03/14/2020 15:41 EDT 40 mg Other documented in this encounter Discontinued Medications Medication Sig Discontinue Reason Start Date End Da te methylphenidate (CONCERTA) 54 mg CR tabletIndications:Pain, joint, knee, right Take 54 mg by mouth daily. Alternate therapy 03/14/2020 VENLAFAXINE HCL (VENLAFAXINE ORAL) Take 1 Tab by mouth daily Alternate therapy 03/14/2020 documented as of this encounter Historical Medications * This list may reflect changes made after this encounter. Medication Sig Dispensed Refills Start Date End Date lisdexamfetamine (VYVANSE) 70 mg capsule Take 1 Capsule by mouth daily. 06/16/2023 added in this encounter Care Teams Cargo Handler Relationship Specialty Start Date End Date Breanna Lopez MD [address] [place] [phone] PCP - General 05/22/09 documented as of this encounter
--- OUTSIDE RECORDS SUMMARY | 2024-09-11 17:14 | XMS_ITS | Encounter Summary ---
Author Organization [facility] Address [address] [place] [address] Care Team Providers Care Cardiac Monitor Technician Name Role Phone Breanna Lopez MD Primary Care Provider [phone] Reason for Visit * Reason Onset Date Comments Prior Auth, Medication 11/09/2016 Enbrel Encounter Details Date Type Department Care Team (Late st Contact Info) Description 11/09/2016 Telephone [facility] Rheumatology & Immunology - [facility] [address] [place], [place] [address] Grant Engle MD [address] [place] [address] Prior Auth, Medication (Enbrel) Social History Tobacco [...] No 08/19/2016 documented as of this encounter Progress Notes * Jacqueline Saunders RPH - 11/10/2016 0912 EST Enbrel (etanercept): I do not see evidence of recent labs (i.e. TB screening). Please double-check the chart and if appropriate, order screening labs per the Rheumatology Nurse Medication Refill Protocol. documented in this encounter Miscellaneous Notes * Telephone Encounter - Johanny Dow RN - 11/10/[address] Engle: OK (Routing comment) Message left for pt that updated hepatitis and tb labs need to be drawn. Requested pt call clinic to let us know where she wants the lab reqs faxed. Also advised that pt contact the lab prior to going for blood draw to verify if there are specific times that the tb testing must be drawn. * Telephone Encounter - Johanny Dow RN - 11/10/2016 0922 EST Enbrel (etanercept): I do not see evidence of recent labs (i.e. TB screening). Please double-check the chart and if appropriate, order screening labs per the Rheumatology Nurse Medication Refill Protocol. Last Hepatitis screening documentation 03/16/07. Okay to have pt get labs drawn per protocol? * Telephone Encounter - Devora Almazan - 11/09/2016 1634 EST Prior Authorization Approval Medication: Enbrel 50mg/mL (0.98mL) SureClick pen Approved: 11/09/2016 - 11/09/2017 Authorization Number: [id number] Pharmacy: [facility] Notes: Informed pt of approval & dates. Pt will contact [facility] to scheduled delivery (pt has pharmacy phone number). Prior Authorization Submission Process Medication: Enbrel 50mg/mL (0.98mL) SureClick pen Insurance: [place] Medicaid Date PA Request Received: 11/05/2016 PA Submission Date: 11/09/2016 Submitted by: Devora Albert * Telephone Encounter - Johanny Dow, RN - 11/09/2016 1456 EST Spoke with pt and advised her that the PA for Enbrel was submitted on 11/05/16. Will ask PA specialist to update it to an urgent request as pt is out of medication. * Telephone Encounter - Jenn Felipe - 11/09/2016 1435 EST Reason for Call: Prior Auth, Medication (Enbrel) Summary/Symptoms: Patient is calling as Efren told her that her Enbrel needs PA. Patient is out ofmedication. Jenn Felipe 11/09/2016 14:35 documented in this encounter Plan of Treatment Not on file documented as of this encounter Visit Diagnoses Diagnosis Rheumatoid arthritis, involving unspecified site, unspecified rheumatoid factor presence- Primary Encounter for long-term (current) use of medications Encounter for long-term (current) use of other medications documented in this encounter Care Teams Cardiac Monitor Technician Relationship Specialty Start Date End Date Breanna Lopez MD [address] [place] [phone] PCP - General 05/22/09 documented as of this encounter
--- OUTSIDE RECORDS SUMMARY | 2024-09-11 17:14 | XMS_ITS | Encounter Summary ---
Author Organization [facility] Address [address] [place] [address] Care Team Providers Care Sports Editor Name Role Phone Breanna Lopez MD Primary Care Provider [phone] Reason for Visit * Reason Onset Date Comments Medications Refill 03/02/2017 Encounter Details Date Type Department Care Team (Late st Contact Info) Description 03/02/2017 Refill [facility] Rheumatology & Immunology [facility] [address] [place] [address] Grant Engle MD [address] [place] [address] Medications Refill Social History Tobacco [...] skin once a week. 4 Pen 5 03/02/2017 09/20/2017 documented in this encounter Miscellaneous Notes * Telephone Encounter - Michelle Suarez RN - 03/02/2017 1208 EDT Letter mailed for fur appointment. * Telephone Encounter - Liz Quiroga - 03/02/2017 1150 EDT Medication(s) Requested: serafin Gonzáles [facility] Is patient out of medication? chetna Quiroga 03/02/2017 11:50 documented in this encounter Plan of Treatment Not on file documented as of this encounter Visit Diagnoses Not on filedocumented in this encounter Discontinued Medications Medication Sig Discontinue Reason Start Date End Da te Etanercept (ENBREL SURECLICK) 50 mg/mL (0.98 mL) pen injector Inject 50 mg into the skin once a week. Reorder 08/19/2016 03/02/2017 documented as of this encounter Care Teams Sports Editor Relationship Specialty Start Date End Date Breanna Lopez MD [address] [place] [phone] PCP - General 05/22/09 documented as of this encounter
--- OUTSIDE RECORDS SUMMARY | 2024-09-11 17:14 | XMS_ITS | Encounter Summary ---
Author Organization [facility] Address [address] [place] [address] Care Team Providers Care Edge Roller Name Role Phone Breanna Lopez MD Primary Care Provider [phone] Encounter Details Date Type Department Care Team (Late st Contact Info) Description 04/08/2020 Orders Only [facility] [address] [place], [place] [id number] Dasai Goldstein, RN Social History Tobacco Use Types [...] skin once a week. 4 Pen 5 04/08/2020 11/06/2020 documented in this encounter Plan of Treatment Not on file documented as of this encounter Visit Diagnoses Not on filedocumented in this encounter Discontinued Medications Medication Sig Discontinue Reason Start Date End Da te etanercept (ENBREL SURECLICK) 50 mg/mL (1 mL) subcutaneous pen Inject 1 mL into the skin once a week. Reorder 10/11/2019 04/08/2020 documented as of this encounter Care Teams Edge Roller Relationship Specialty Start Date End Date Breanna Lopez MD [address] [place] [phone] PCP - General 05/22/09 documented as of this encounter
--- OUTSIDE RECORDS SUMMARY | 2024-09-11 17:14 | XMS_ITS | Encounter Summary ---
Author Organization [facility] Address [address] [place] [address] Care Team Providers Care Soil Expert Name Role Phone Breanna Lopez MD Primary Care Provider [phone] Reason for Visit * Reason Onset Date Comments Medications Refill 02/16/2020 Patient state s that prednisone Rx didn't get to the pharmacy when sent yesterday. Encounter Details Date Type Department Care Team (Late st Contact Info) Description 02/16/2020 Refill [facility] Rheumatology [address] [place] [id number] Gabbie Lomas RN Medications Refill (Patient states that prednisone Rx didn't get to the pharmacy when sent yesterday.) Social History Tobacco Use Types Packs/Day Years [...] tabletIndications:Seronega tive rheumatoid arthritis of multiple sites ([facility]) Take 2 Tabs by mouth daily for 3 days, THEN 1 Tab daily for 4 days. 10 Tab 02/16/2020 02/22/2020 documented in this encounter Miscellaneous Notes * Telephone Encounter - Gabbie Lomas RN - 02/16/2020 0906 EDT Prednisone Rx resent to [facility] in [place] . documented in this encounter Plan of Treatment Not on file documented as of this encounter Visit Diagnoses Diagnosis Seronegative rheumatoid arthritis of multiple sites ([facility])- Primary documented in this encounter Discontinued Medications Medication Sig Discontinue Reason Start Date End Da te predniSONE (DELTASONE) 10 mg tabletIndications:Seroneg ative rheumatoid arthritis of multiple sites ([facility]) Take 2 Tabs by mouth daily for 3 days, THEN 1 Tab daily for 4 days. Reorder 02/15/2020 02/16/2020 documented as of this encounter Care Teams Soil Expert Relationship Specialty Start Date End Date Breanna Lopez MD [address] [place] [phone] PCP - General 05/22/09 documented as of this encounter
--- OUTSIDE RECORDS SUMMARY | 2024-09-11 17:14 | XMS_ITS | Encounter Summary ---
Author Organization [facility] Address [address] [place] [address] Care Team Providers Care Assistant To The Director Name Role Phone Breanna Lopez MD Primary Care Provider [phone] Reason for Visit * Reason Onset Date Comments Medications Refill 11/29/2017 Encounter Details Date Type Department Care Team (Late st Contact Info) Description 11/29/2017 Refill [facility] Rheumatology & Immunology [facility] [address] [place] [address] Michelle Suarez RN Medications Refill Social History Tobacco Use [...] 8 Tabs by mouth once a week. 32 Tab 11/30/2017 12/13/2017 documented in this encounter Miscellaneous Notes * Telephone Encounter - Donna Peoples RN - 11/30/2017 1339 EST Received RX fro Methotrexate 20 mg weekly. Patient has f/u in Dec. Issued one month supply until f/u documented in this encounter Plan of Treatment Not on file documented as of this encounter Visit Diagnoses Diagnosis Pain, joint, knee, right Pain in joint, lower leg documented in this encounter Discontinued Medications Medication Sig Discontinue Reason Start Date End Da te methotrexate 2.5 mg tabletIndications:Pain, joint, knee, right Take 8 Tabs by mouth once a week. Reorder 06/28/2017 11/29/2017 documented as of this encounter Care Teams Assistant To The Director Relationship Specialty Start Date End Date Breanna Lopez MD [address] [place] [phone] PCP - General 05/22/09 documented as of this encounter
--- OUTSIDE RECORDS SUMMARY | 2024-09-11 17:14 | XMS_ITS | Encounter Summary ---
Author Organization [facility] Address [address] [place] [address] Care Team Providers Care Frog Catcher Name Role Phone Breanna Lopez MD Primary Care Provider [phone] Reason for Visit * Reason Onset Date Comments Medication Management 01/02/2020 Encounter Details Date Type Department Care Team (Late st Contact Info) Description 01/02/2020 Telephone [facility] [address] [place] [address] Eduardo Short MD [facility] Rheumatology [address] [place] [address] [place] [phone] Medication Management Social History Tobacco Use [...] * Telephone Encounter - Martha Schroeder - 01/03/2020 1030 EST Temporary PA was submitted * Telephone Encounter - Darcie Gardner - 01/02/2020 1416 EST Scheduled for 01/11 at 3:00 * Telephone Encounter - aDrcie Gardner - 01/02/2020 1339 EST L/M * Telephone Encounter - Gabbie Lomas RN - 01/02/2020 1120 EST Patient was a no show to her last appointment. Enbrel will not be re-approved by medicaid without an office note showing improvement in symptoms. Please try to schedule a follow up then send this to Martha so she can get a temporary approval for the Enbrel. Thank you. * Telephone Encounter - Ailin Ulloa - 01/02/2020 1010 EST Needs refill Enbrel - PA ( 12/16/2019) documented in this encounter Plan of Treatment Not on file documented as of this encounter Visit Diagnoses Not on filedocumented in this encounter Care Teams Frog Catcher Relationship Specialty Start Date End Date Breanna Lopez MD [address] [place] [phone] PCP - General 05/22/09 documented as of this encounter
--- OUTSIDE RECORDS SUMMARY | 2024-09-11 17:14 | XMS_ITS | Encounter Summary ---
Author Organization [facility] Address [address] [place] [address] Care Team Providers Care Behavioral Health Case Manager Name Role Phone Breanna Lopez MD Primary Care Provider [phone] Reason for Visit * Reason Onset Date Comments Prior Auth, Medication 11/16/2017 enbrel Pharmacy 11/16/2017 [facility] Encounter Details Date Type Department Care Team (Late st Contact Info) Description 11/16/[address] [facility] Rheumatology & Immunology - [address] [address] Warren Zamora Chi, MD [address] [place] [address], [address] [place] [phone] Prior Auth, Medication (enbrel); Pharmacy ([facility] ) Social History Tobacco Use Types Packs/Day [...] No 06/16/2017 documented as of this encounter Miscellaneous Notes * Telephone Encounter - Tonia Jain, RN - 11/16/2017 1109 EST Reauth request for Enbrel was entered 09/21/17. I contacted [facility]. It was too soon to have been done at the time, but they will work on it now. Notified patient. * Telephone Encounter - Jairo Ma - 11/16/2017 0816 EST [facility] Is telling paitient she needs a prior auth . She is not out of refills they told her it had to do with time. Please call to advise documented in this encounter Plan of Treatment Not on file documented as of this encounter Visit Diagnoses Not on filedocumented in this encounter Care Teams Behavioral Health Case Manager Relationship Specialty Start Date End Date Breanna Lopez MD [address] [place] [phone] PCP - General 05/22/09 documented as of this encounter
--- OUTSIDE RECORDS SUMMARY | 2024-09-11 17:14 | XMS_ITS | Encounter Summary ---
Author Organization [facility] Address [address] [place] [address] Care Team Providers Care Weigher And Mixer Name Role Phone Breanna Lopez MD Primary Care Provider [phone] Encounter Details Date Type Department Care Team (Late st Contact Info) Description 01/27/[address] [facility] Radiology Results [address] [place], [place] [id number] Eduardo Short MD [facility] Rheumatology [address] [place] [address] [place] [phone] Social History Tobacco Use Types Packs/Day Years [...] Name Priority Date/Time Associated Diagnosis Comments XR RHEUMATOLOGY BILATERAL HANDS 2 VIEWS EACH HAND 01/27/2018 12:25 EDT CYCLIC CITRULLINATED PEPTIDE Routine 01/27/2018 10:59 EDT RHEUMATOID SCREEN/TITRE Routine 01/27/2018 10:59 EDT COMPLETE BLOOD COUNT WITH DIFFERENTIAL (AUTO) Routine 01/27/2018 10:59 EDT C REACTIVE PROTEIN Routine 01/27/2018 10 :59 EDT ANTI NUCLEAR AB (ROCIO), IFA Routine 01/27/2018 10:59 EDT COMPREHENSIVE METABOLIC PANEL (CMP) Routine 01/27/2018 10:59 EDT documented in this encounter Results * XR RHEUMATOID HANDS (01/27/2018 12:25 EDT) Anatomical Region Laterality Modality Upper Extremities Other 01/27/2018 12:2 5 EDT Narrative 01/27/2018 12:28 EDT ? EXAM: RADIOLOGY/RHEUMATOID SERIES HANDS B EX. D/ (1135) ? CLINICAL INFORMATION: ? M06.00 SERONEGATIVE RHEUMATOID ARTHRITIS ? RHEUMATOID SERIES HANDS BILAT ? Signs and Symptoms/Comments: ??M06.00 SERONEGATIVE RHEUMATOID ? ARTHRITIS ? Comparison: None ? FINDINGS: ? Right hand: 2 views were performed. No acute fracture or malalignment ? is identified. Bony mineralization is mildly reduced. Mild ? nonspecific degenerative changes are present in the hands and wrists, ? as evidenced by joint space narrowing and subchondral sclerosis. No ? definite erosions are visible. Mild ulnar positive variance is ? present. Mild diffuse soft tissue swelling is present. ? Left hand: 2 views were performed. No acute fracture or malalignment ? is identified. Bony mineralization is mildly reduced. Mild ? nonspecific degenerative changes are present at the IP and MCP ? joints. Advanced degenerative changes are present at the radiocarpal ? joint and along the proximal carpal row, as evidenced by joint space ? destruction, sclerosis, and multiple erosions. Ulnar positive ? variance is present. The soft tissues are swollen, vertically about ? the wrist. ? IMPRESSION: ? 1. ??Advanced degenerative changes in the left wrist, including ? erosions compatible with the provided history of rheumatoid ? arthritis. ? 2. ??Mild degenerative changes in the right hand and wrist. ? REPORT SIGNED IN OTHER VENDOR SYSTEM 01/27/2018 ?Reported By: Bhargav Lemon MD ? CC: ? Transcribed Date/Time: 01/27/2018 (0228) ? [place] Marshal: ? Printed Date/Time: 04/27/2019 (2469) ? PAGE 1 ? Signed Report ? Procedure Note Bhargav Lemon MD - 09/13/2019 EXAM: RADIOLOGY/RHEUMATOID SERIES HANDS B EX. D/ (1135) CLINICAL INFORMATION: M06.00 SERONEGATIVE RHEUMATOID ARTHRITIS RHEUMATOID SERIES HANDS BILAT Signs and Symptoms/Comments: M06.00 SERONEGATIVE RHEUMATOID ARTHRITIS Comparison: None FINDINGS: Right hand: 2 views were performed. No acute fracture ormalalignment is identified. Bony mineralization is mildly reduced. Mild nonspecific degenerative changes are present in the hands andwrists, as evidenced by joint space narrowing and subchondral sclerosis. No definite erosions are visible. Mild ulnar positive variance is present. Mild diffuse soft tissue swelling is present. Left hand: 2 views were performed. No acute fracture ormalalignment is identified. Bony mineralization is mildly reduced. Mild nonspecific degenerative changes are present at the IP and MCP joints. Advanced degenerative changes are present at theradiocarpal joint and along the proximal carpal row, as evidenced by jointspace destruction, sclerosis, and multiple erosions. Ulnar positive variance is present. The soft tissues are swollen, vertically about the wrist. IMPRESSION: 1. Advanced degenerative changes in the left wrist, including erosions compatible with the provided history of rheumatoid arthritis. 2. Mild degenerative changes in the right hand and wrist. REPORT SIGNED IN OTHER VENDOR SYSTEM 01/27/2018 Reported By: Bhargav Lemon MD CC: Transcribed Date/Time: 01/27/2018 (7575) [place] Marshal: Printed Date/Time: 04/27/2019 (8410) PAGE 1 Signed Report Eduardo Short MD IMG DIAGNOSTIC IMAGI NG ORDERABLES * C REACTIVE PROTEIN (01/27/2018 10:59 EDT) Pathologist [facility] C-Reactive Protein <5.0 <10.0 mg/L 01/27/2018 12:19 EDT [facility] 01/27/2018 10:5 9 EDT 01/27/2018 10:59 EDT Narrative [facility] - 01/27/2018 12:19 EDT Does PT Have a Latex Allergy? NO Eduardo Short MD CHEMISTRY & BLOOD GA S ORDERABLES [facility] * COMPREHENSIVE METABOLIC PANEL (CMP) (01/27/2018 10:59 EDT) Albumin % 4.4 3.4 - 4.9 g/dL 01/27/2018 12:19 EDT [facility] ALKALINE PHOSPHATASE - [facility] 75 38 - 126 U/L 01/27/2018 12:19 [facility] BILIRUBIN TOTAL 0.7 0.2 - 1.3 mg/dL 01/27/2018 12:19 [facility] BUN - [facility] 12 10 - 26 mg/dL 01/27/2018 12:19 [facility] CALCIUM - [facility] 9.7 8.5 - 10.5 mg/dL 01/27/2018 12:19 [facility] Chloride 104 96 - 110 mmol/L 01/27/2018 12:19 [facility] CO2 Total 24 22 - 32 mEq/L 01/27/2018 12:19 [facility] CREATININE 0.62 0.52 - 1.04 mg/dL 01/27/2018 12:19 [facility] eGFR >60 01/27/2018 12:19 [facility] Comment: Chronic renal impairment is defined as GFR <60 Multiply result by 1.210 for patients. eGFR calculated using the IDMS-traceable MDRD Study Equation. ??(effective 09/10/2014) Anion Gap 14 0 - 18 01/27/2018 12:19 [facility] GLUCOSE - [facility] 88 70 - 100 mg/dL 01/27/2018 12:19 [facility] Potassium 4.1 3.5 - 5.0 mEq/L 01/27/2018 12:19 [facility] Sodium 142 136 - 145 mEq/L 01/27/2018 12:19 [facility] TOTAL PROTEIN - [facility] 8.0 6.2 - 8.2 gm/dL 01/27/2018 12:19 [facility] SGOT/AST - [facility] 28 14 - 36 U/L 01/27/2018 12:19 [facility] SGPT/ALT - [facility] 29 9 - 52 U/L 8 12:19 [facility] 01/27/2018 10:5 9 EDT 01/27/2018 10:59 [facility] - 01/27/2018 12:19 EDT Does PT Have a Latex Allergy? NO Eduardo Short MD CHEMISTRY & BLOOD GA S ORDERABLES [facility] * ANTI NUCLEAR ANTIBODY (01/27/2018 10:59 EDT) Antinuclear Ab, S <1:80 <1:80 02/01/2018 13:43 EDT [facility] 01/27/2018 10:5 9 EDT 01/27/2018 10:[address] [facility] - 02/01/2018 13:43 EDT Does PT Have a Latex Allergy? NO Eduardo Short MD IMMUNOLOGY AND SEROL OGY ORDERABLES Performing Organization Address City/[facility]/ZIP Co de Phone Number [facility] * COMPLETE BLOOD COUNT WITH DIFFERENTIAL (AUTO) (01/27/2018 10:59 EDT) Pathologist [facility] ABSOLUTE NEUTROPHIL COUN - [facility] 6.36 1.7 - 7.0 10e3/ul 01/27/2018 11:49 EDT [facility] BASO # - [facility] 0.05 0.0 - 0.3 10e3/uL 01/27/2018 11:49 EDT [facility] BASO % - [facility] 1 0 - 2 % 01/27/2018 11:49 EDT [facility] EOS # - [facility] 0.15 0.05 - 0.5 10e3/uL 01/27/2018 11:49 EDT [facility] EOS % - [facility] 2 0 - 5 % 01/27/2018 11:49 EDT [facility] GRAN % - [facility] 70 40 - 80 % 01/27/2018 11:49 EDT [facility] HEMATOCRIT - [facility] 45.0 34.0 - 47.0 % 01/27/2018 11:49 EDT [facility] HEMOGLOBIN - [facility] 15.3 11.2 - 15.7 g/dl 01/27/2018 11:49 EDT [facility] IG# - [facility] 0.02 0 - 0.07 10e3/uL 01/27/2018 11:49 [facility] IG% - [facility] 0.2 0 - 0.9 % 01/27/2018 11:49 [facility] LYMPH # - [facility] 1.89 0.9 - 2.9 10e3/uL 01/27/2018 11:49 [facility] LYMPH% - [facility] 21 20 - 40 % 01/27/2018 11:49 [facility] MEAN CORPUSCULAR HGB - [facility] 30.1 26 - 34 pg 01/27/2018 11:49 [facility] MEAN CORPUSCULAR HGB CONC - [facility] 34.0 31 - 36 g/dL 01/27/2018 11:49 [facility] MEAN CELL VOLUME - [facility] 88.6 77 - 100 fl 01/27/2018 11:49 [facility] MONO # - [facility] 0.60 0.3 - 0.9 10e3/uL 01/27/2018 11:49 [facility] MONO% - [facility] 7 0 - 12 % 01/27/2018 11:49 [facility] PLATELET COUNT 263 150 - 400 10e3/ul 01/27/2018 11:49 [facility] RED BLOOD COUNT - [facility] 5.08 3.8 - 5.2 10e6/ul 01/27/2018 11:49 [facility] RED CELL DISTRI WIDTH - [facility] 12.8 11.8 - 15.6 % 01/27/2018 11:49 [facility] WHITE BLOOD COUNT - [facility] 9.1 3.5 - 10.5 10e3/ul 01/27/2018 11:49 [facility] 01/27/2018 10:5 9 EDT 01/27/2018 10:59 [facility] - 01/27/2018 11:49 EDT Does PT Have a Latex Allergy? NO Eduardo Short MD HEMATOLOGY & PF4 ORD ERABLES [facility] * CYCLIC CITRULLINATED PEPTIDE - [facility] (01/27/2018 10:59 EDT) Pathologist [facility] Cyclic Citrullinated Peptide Ab, S <15.6 () U 01/29/2018 8:37 EDT [facility] Comment: REFERENCE VALUE <20.0 (Negative) Test Performed by: [facility] [place] [address] *CP = Citrullinated Peptide 01/27/2018 10:5 9 EDT 01/27/2018 10:59 EDT Narrative [facility] - 01/29/2018 8:37 EDT Does PT Have a Latex Allergy? NO Eduardo Short MD CHEMISTRY & BLOOD GA S ORDERABLES Performing Organization Address City/[facility]/ZIP Co de Phone Number [facility] * RHEUMATOID SCREEN/TITRE - [facility] (01/27/2018 10:59 EDT) Pathologist [facility] RHEUMATOID FACTOR SCREEN - [facility] NEG NEG 01/27/2018 14:18 EDT [facility] 01/27/2018 10:5 9 EDT 01/27/2018 10:59 EDT Narrative [facility] - 01/27/2018 14:18 EDT Does PT Have a Latex Allergy? NO Eduardo Short MD CHEMISTRY & BLOOD GA S ORDERABLES [facility] documented in this encounter Visit Diagnoses Not on filedocumented in this encounter Care Teams Weigher And Mixer Relationship Specialty Start Date End Date Breanna Lopez MD [address] [place] [phone] PCP - General 05/22/09 documented as of this encounter
--- OUTSIDE RECORDS SUMMARY | 2024-09-11 17:14 | XMS_ITS | Encounter Summary ---
Author Organization [facility] Address [address] [place] [address] Care Team Providers Care Netsuite Developer Name Role Phone Breanna Lopez MD Primary Care Provider [phone] Encounter Details Date Type Department Care Team (Late st Contact Info) Description 05/23/[address] [facility] [place] [address] [phone] Eduardo Short MD [facility] Rheumatology [address] [place] [address] [place] [address] Social History Tobacco Use Types Packs/Day Years [...] Procedure Name Priority Date/Time Associated Diagnosis Comments FLUID CULTURE - [facility] Routine 05/23/2018 17:00 EDT SYNOVIAL FLUID CRYSTALS Routine 05/23/2018 17:00 EDT documented in this encounter Results * FLUID CULTURE - CV (05/23/2018 17:00 EDT) FLUID CULTURE - CV IDENTIFICATION PERFORMED AT [facility]. 06/04/2018 10:47 EDT [facility] CUTIBACTERIUM ACNES - [facility] PRAC 06/04/2018 10:47 EDT [facility] QUANT - [facility] BROTH ONLY 06/04/2018 10:47 EDT [facility] FLUID CULTURE - [facility] FLUID PROCESSED AFTER CENTRIFUGATION 05/23/2018 20:22 EDT [facility] BACTERIA SEEN - [facility] NO 05/23/2018 20:22 EDT [facility] WBC PRESENT 05/23/2018 20:22 EDT [facility] 05/23/2018 17:0 0 EDT 05/23/2018 17:28 EDT Comment:RKN Eduardo Short MD HEMATOLOGY & PF4 ORD ERABLES [facility] * SYNOVIAL FLUID CRYSTALS - [facility] (05/23/2018 17:00 EDT) EXTRACELLULAR - [facility] Rare 05/23/2018 20:19 EDT [facility] INTRACELLULAR - [facility] Not Present 05/23/2018 20:19 EDT [facility] SYNOVIAL FLD CRYSTALS - [facility] Positive 05/23/2018 20:19 EDT [facility] Comment:Calcium pyrophosphat e crystals. 05/23/2018 17:0 0 EDT 05/23/2018 17:28 EDT Eduardo Short MD CHEMISTRY & BLOOD GA S ORDERABLES [facility] documented in this encounter Visit Diagnoses Not on filedocumented in this encounter Care Teams Netsuite Developer Relationship Specialty Start Date End Date Breanna Lopez MD [address] [place] [phone] PCP - General 05/22/09 documented as of this encounter
--- OUTSIDE RECORDS SUMMARY | 2024-09-11 17:15 | XMS_ITS | Encounter Summary ---
Author Organization [facility] Address [address] [place] [address] Care Team Providers Care Director Of Collections Name Role Phone Breanna Lopez MD Primary Care Provider Encounter Details Date Type Department Care Team (Late st Contact Info) Description 04/10/2016 Results Only [facility] [phone] XinHernan ventura MD [address] [place] [phone] Social History Tobacco Use Types Packs/Day Years [...] 0:23 EDT documented as of this encounter Plan of Treatment Not on file documented as of this encounter Procedures Procedure Name Priority Date/Time Associated Diagnosis Comments PAP TEST- RESULT ONLY Routine 04/10/2016 0:00 EDT documented in this encounter Results * PAP TEST- RESULT ONLY (04/10/2016 0:00 EDT) Pathology Report: CYTOPATHOLOGY REPORT Reports generated via electronic interface contain original data; however they are lacking the format of the original report. Caution should be taken when reading/interpreti ng unformatted reports. Name: ? ROGER ACUÑA ? Accession #: ? [id number] ? : ? 1980 (Age: 35) ??F ?Collect Date: ? 04/10/2016 ? Location: ? [facility] ? Receive Date: ? 04/14/2016 ? Provider: HERNAN SHOOK MD Copy to: ? Final Report SPECIMEN ADEQUACY ? Satisfactory for Evaluation - transformation zone component present GENERAL CATEGORIZATION ? Negative for Intraepithelial Lesion or Malignancy INTERPRETATION ? Reactive cellular changes associated with inflammation present (includes repair). Fungal organisms present morphologically consistent with Christin species. Hormonal/Contracep tive status: Intrauterine device: mirena Previous Gynecologic Pathology: LSIL Treatment History: Colposcopy: 01/09 Other: Additional clinical information: paps WNL 08/15, 01/15 Specimen/Source: ??Pap Test, Cervix/Endocervix, ThinPrep Imaging System with manual evaluation Document reviewed and electronically signed by: ? MCKENZIE DOYLE MD ? Report ??Date: 04/23/2016 13:31 HPV with Pap Test ? Date Ordered: ? 04/23/2016 ? Status: ?? Signed Out ?Date Complete: ? 04/24/2016 ? By: ??System Interface ? Date Reported: ? 04/24/2016 ? Interpretation RESULT: Negative for HPV. No E6 or E7 mRNA is detected from HPV types 16,18,31,33,35, 39,45,51,52,56,58, 59,66, and 68 by packaging supervisor mediated amplification. Comments Document reviewed and electronically signed by: ? System Interface ? Report date: 04/24/2016 By the signature above, the attending physician certifies that he/she has personally conducted a gross and/or microscopic examination of the described specimens and rendered or confirmed the above diagnosis. End of Report [facility] 04/10/2016 04/14/2016 Hernan Shook MD PATHOLOGY ORDERABL ES [facility] [address] [place] [address] documented in this encounter Visit Diagnoses Not on filedocumented in this encounter Care Teams Director Of Collections Relationship Specialty Start Date End Date Breanna Lopez MD [address] [place] [phone] PCP - General 05/22/09 documented as of this encounter
--- OUTSIDE RECORDS SUMMARY | 2024-09-11 17:15 | XMS_ITS | Encounter Summary ---
Author Organization [facility] Address [address] [place] [address] Care Team Providers Care Heavy Truck Driver Name Role Phone Breanna Lopez MD Primary Care Provider [phone] Reason for Visit * Reason Onset Date Comments Knee Pain 05/08/2015 Right Knee - Swo llen Pain level 5 0f 10 Letter for School/Work 05/08/2015 Called ou t today for pain Knee Pain 05/16/2015 Right Knee - Stephanie n level 8 of 10 Update 05/16/2015 Pt wants MRI or x ray Encounter Details Date Type Department Care Team (Late st Contact Info) Description 05/08/2015 Telephone [facility] Rheumatology & Immunology - [facility] [address] [place] [address] Grant Engle MD [address] [place] [address] Knee Pain (Right Knee - Swollen Pain level 5 0f 10); Letter for School/Work (Called out today for pain); Knee Pain (Right Knee - Pain level 8 of 10); Update (Pt wants MRI or x ray) Social History Tobacco Use Types Packs/Day Years Used Date Smoking Tobacco: Every Day Cigarettes 1 29.5 Started: 03/01/1995 Smokeless Tobacco: Never Alcohol Use Standard Drinks/Week Comments Yes 0 (1 standard drink = 0.6 oz pur e alcohol) Rare social drinker Sex and Gender Information Value Date Recorded Sex Assigned at Female 03/20/2021 0:23 EDT Gender Identity Female 10/23/2019 13:44 EST Sexual Orientation Choose not to disclose 2020 0:23 EDT documented as of this encounter Miscellaneous Notes * Telephone Encounter - Yolette Dietrich - 05/16/2015 1012 EDT Reason for Call: Knee Pain; Letter for School/Work; and Update Summary/Symptoms: Pt was seen yesterday by Dr. Engle. Suggested MRI or X ray. Pt would like todiscuss as pain level today is 8 of 10. Onset and Duration? Urgent? Yolette Dietrich 05/16/2015 10:12 * Telephone Encounter - Rhonda Roberts RN - 05/08/2015 2814 EDT Spoke with pt. Said every time she eats lebanese food she swells up the next day. She had lebanese food last night for dinner - egg roll and house special rice (shrimp, chicken, beef) - Pt says todayher knees and wrists are noticably swollen. Right knee is warm and red. Offered pt appointment withLIVIA Hernandez tomorrow. Pt unable to get take off work again until next week. Pt's follow up rescheduled with Dr. Engle for 05/15/15 at 1400. Pt agreeable with date and time. She will call the clinic if her knee swelling gets worse. If Dr. Engle is agreeable to write a work excuse for today, 05/08/15 pt would like it faxed to [phone] (her family's store fax number). * Telephone Encounter - Yolette Dietrich - 05/08/2015 2392 EDT Reason for Call: Knee Pain and Letter for School/Work Summary/Symptoms Pt hoping to be seen sooner than 05/22 and called out of work today and would like a note faxed to her job. Onset and Duration? Urgent? Yolette Dietrich 05/08/2015 15:40 documented in this encounter Plan of Treatment Not on file documented as of this encounter Visit Diagnoses Not on filedocumented in this encounter Care Teams Heavy Truck Driver Relationship Specialty Start Date End Date Breanna Lopez MD [address] [place] [phone] PCP - General 05/22/09 documented as of this encounter
--- OUTSIDE RECORDS SUMMARY | 2024-09-11 17:15 | XMS_ITS | Encounter Summary ---
Author Organization [facility] Address [address] [place] [address] Care Team Providers Care Sales Counselor Name Role Phone Breanna Lopez MD Primary Care Provider [phone] Reason for Visit * Reason Onset Date Comments Paperwork request 01/26/2012 Encounter Details Date Type Department Care Team (Late st Contact Info) Description 01/26/2012 Telephone [facility] Rheumatology & Immunology - [facility] [address] [place], [place] [address] Grant Engle MD [address] [place] [address] Paperwork request Social History Tobacco Use Types Packs/Day Years Used Date Smoking Tobacco: Every Day Cigarettes Smokeless Tobacco: Never Alcohol Use Standard Drinks/Week Comments No 0 (1 standard drink = 0.6 oz pur e alcohol) Sex and Gender Information Value Date Recorded Sex Assigned at Female 03/20/2021 0:23 EDT Gender Identity Female 10/23/2019 13:44 EST Sexual Orientation Choose not to disclose 2020 0:23 EDT documented as of this encounter Miscellaneous Notes * Telephone Encounter - Grant Engle MD - 01/28/2012 1123 EDT Left msg that I will send note requesting permission to park in closer lot. * Telephone Encounter - Joan Rey - 01/26/2012 1045 EDT Patient would like a letter for her work for a car pass as she has to walk a lot from the parking lot. Please call patient. Leave a message as patient is at work. documented in this encounter Plan of Treatment Not on file documented as of this encounter Visit Diagnoses Not on filedocumented in this encounter Care Teams Sales Counselor Relationship Specialty Start Date End Date Breanna Lopez MD [address] [place] [phone] PCP - General 05/22/09 documented as of this encounter
--- OUTSIDE RECORDS SUMMARY | 2024-09-11 17:15 | XMS_ITS | Encounter Summary ---
Author Organization [facility] Address [address] [place] [address] Care Team Providers Care Tennis Racket Repairer Name Role Phone Breanna Lopez MD Primary Care Provider [phone] Reason for Visit * Reason Onset Date Comments Prior Auth, Medication 08/31/2014 Encounter Details Date Type Department Care Team (Late st Contact Info) Description 08/31/2014 Telephone [facility] Rheumatology & Immunology - [facility] [address] [place] [address] Grant Engle MD [address] [place] [address] Prior Auth, Medication Social History [...] encounter Miscellaneous Notes * Telephone Encounter - Teena Yu RN - 09/06/2014 4397 EDT Unable to reach the patient. Letter has been sent. See letters for details * Telephone Encounter - Monika Marr - 08/31/2014 1135 EDT Geneira has been approved through 11.30.2014. Rev pharmacy will be contacting patient to set up delivery. documented in this encounter Plan of Treatment Not on file documented as of this encounter Visit Diagnoses Not on filedocumented in this encounter Care Teams Tennis Racket Repairer Relationship Specialty Start Date End Date Breanna Lopez MD [address] [place] [phone] PCP - General 05/22/09 documented as of this encounter
--- OUTSIDE RECORDS SUMMARY | 2024-09-11 17:15 | XMS_ITS | Encounter Summary ---
Author Organization [facility] Address [address] [place] [address] Care Team Providers Care Manager Rehab Name Role Phone Breanna Lopez MD Primary Care Provider [phone] Reason for Visit * Reason Onset Date Comments Other 11/24/2012 excuse for takin g off work Encounter Details Date Type Department Care Team (Late st Contact Info) Description 11/24/2012 Telephone [facility] Rheumatology & Immunology - [facility] [address] [place], [place] [address] Grant Engle MD [address] [place] [address] Other (excuse for taking off work) Social History Tobacco Use Types Packs/Day Years [...] encounter Miscellaneous Notes * Telephone Encounter - Dasha Malik - 11/24/2012 1504 EST Patient missed a couple of days last week and a few days this week of work due to her knee. She just had an appointment with and got it drained. She would like to know if she could get a note for work stating why she has had to miss work days. documented in this encounter Plan of Treatment Not on file documented as of this encounter Visit Diagnoses Not on filedocumented in this encounter Care Teams Manager Rehab Relationship Specialty Start Date End Date Breanna Lopez MD [address] [place] [phone] PCP - General 05/22/09 documented as of this encounter
--- OUTSIDE RECORDS SUMMARY | 2024-09-11 17:15 | XMS_ITS | Encounter Summary ---
Author Organization [facility] Address [address] [place] [address] Care Team Providers Care Heading Maker Name Role Phone Breanna Lopez MD Primary Care Provider [phone] Reason for Visit * Reason Onset Date Comments Medications Refill 04/27/2016 Encounter Details Date Type Department Care Team (Late st Contact Info) Description 04/27/2016 Refill [facility] Rheumatology & Immunology [facility] [address] [place] [address] Martina Clements RN Medications Refill Social History Tobacco Use Types Packs/Day Years Used Date Smoking Tobacco: Every Day Cigarettes 1 29.5 Started: 03/01/1995 Smokeless Tobacco: Never Comments:getting ready menta radha Alcohol Use Standard Drinks/Week Comments No 0 [...] the skin once a week. 4 Pen 2 04/30/2016 04/30/2016 documented in this encounter Miscellaneous Notes * Telephone Encounter - Rosy Flanagan, [place] - 04/30/2016 1337 EDT Cancelled this refill. Needs to go through mail order * Telephone Encounter - Rosy Flanagan RN - 04/30/2016 0958 EDT Left message for pt. She is overdue for FUR with Dr. Engle. She cancelled her last visit. I refilled her Enbrel for 3 months but she needs a FUR if she is to get more. Asked her to call back and schedule at her earliest convenience. * Telephone Encounter - Martina Clements RN - 04/27/2016 1626 EDT Pt has cxl her last appt. She needs a follow up. documented in this encounter Plan of Treatment Not on file documented as of this encounter Visit Diagnoses Not on filedocumented in this encounter Discontinued Medications Medication Sig Discontinue Reason Start Date End Da te Etanercept (ENBREL SURECLICK) 50 mg/mL (0.98 mL) pen injector Inject 50 mg into the skin once a week Reorder 05/30/2015 04/27/2016 documented as of this encounter Care Teams Heading Maker Relationship Specialty Start Date End Date Breanna Lopez MD [address] [place] [phone] PCP - General 05/22/09 documented as of this encounter
--- OUTSIDE RECORDS SUMMARY | 2024-09-11 17:15 | XMS_ITS | Encounter Summary ---
Author Organization [facility] Address [address] [place] [address] Care Team Providers Care Waxed Bag Machine Operator Name Role Phone Breanna Lopez MD Primary Care Provider [phone] Reason for Visit * Reason Onset Date Comments Prior Auth, Medication 04/05/2015 Encounter Details Date Type Department Care Team (Late st Contact Info) Description 04/05/2015 Telephone [facility] Rheumatology & Immunology - [facility] [address] [place] [address] Grant Engle MD [address] [place] [address] Prior Auth, Medication Social History [...] Telephone Encounter - Teena Yu RN - 04/05/2015 2676 EDT Duplicate information- please see other encounter dated 04-05 * Telephone Encounter - Mary Prado PA - 04/05/2015 1132 EDT I reviewed with Dr. Engle after my visit with her in February. He asked to see her before changing medications. His note from 03/04/15 says that he would like to see her on April 11 but it doesn't look like this ever got scheduled. Dr. Engle - is this day and time still ok with you? 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 Engle and Hillary please schedule. No need to complete Humira prior auth as she will likely be switching to something else. Thanks. * Telephone Encounter - Monika Marr - 04/05/2015 1025 EDT Received faxed request for prior auth on Humira from pharmacy. According to last visit note it wasn't working for her and they were going to switch to something else. Do we know what the outcome of that conversation was? I will hold on the auth for Humira until I hear back. documented in this encounter Plan of Treatment Not on file documented as of this encounter Visit Diagnoses Not on filedocumented in this encounter Care Teams Waxed Bag Machine Operator Relationship Specialty Start Date End Date Breanna Lopez MD [address] [place] [phone] PCP - General 05/22/09 documented as of this encounter
--- OUTSIDE RECORDS SUMMARY | 2024-09-11 17:15 | XMS_ITS | Encounter Summary ---
Author Organization [facility] Address [address] [place] [address] Care Team Providers Care Psychotherapist Name Role Phone Breanna Lopez MD Primary Care Provider [phone] Reason for Visit * Reason Onset Date Comments Prior Auth, Medication 01/01/2015 Humira Encounter Details Date Type Department Care Team (Late st Contact Info) Description 01/01/2015 Telephone [facility] Rheumatology & Immunology - [facility] [address] [place], [place] [id number] Grant Engle MD [address] [place] [address] Prior Auth, Medication (Humira) Social History Tobacco Use Types Packs/Day Years [...] Start Date End Da te predniSONE (DELTASONE) 5 mg tablet 6 tabs/day x 3 days, 5 tabs/day x 3 days, 4 tabs/day x 3 days, 3 tabs/day x 3 days, 2 tabs/day x 3 days, 1 tab/day x 3 days, then stop 63 Tab 0 01/01/2015 03/01/2015 documented in this encounter Miscellaneous Notes * Telephone Encounter - Rhonda Roberts RN - 01/01/2015 1556 EST Spoke with pt. Verified she would like to use the [facility] in [place]. Prednisone e-scribed. * Telephone Encounter - Mary Prado PA - 01/01/2015 1431 EST Ok to give Prednisone taper. Start 30 mg daily x 3 days then decrease by 5 mg every 3 days until off. I pended the Rx. Please send to the pharmacy of her choice. Thanks. * Telephone Encounter - Rosy Flanagan RN - 01/01/2015 1231 EST Per pt reqest, I called [facility] and let them know that we had prior auth and gave them auth #. For some reason they have been getting a rejection. Let them know that pt was out and had been out of medication for some time. ( 3 weeks) They will work on it and be in touch with pt. Pt complains of > joint pain and swelling, especially in knees and wrists. Very painful. Hard todo everything she needs to. Mornings are worse. Asking for you to order prednisone taper for her sothat she has something to help her through this flare while waiting for Humira problem to get straightened out. Call in to Monika in pre cert to see if there's anything we can do on this end. * Telephone Encounter - Joan Knowles V. - 01/01/2015 1155 EST Reason for Call: Prior Auth, Medication Summary/Symptoms: Would like someone to call [facility] to let them know that her Humira has been approved Onset and Duration? n/a Joan Knowles 01/01/2015 11:56 documented in this encounter Plan of Treatment Not on file documented as of this encounter Visit Diagnoses Not on filedocumented in this encounter Care Teams Psychotherapist Relationship Specialty Start Date End Date Breanna Lopez MD [address] [place] [phone] PCP - General 05/22/09 documented as of this encounter
--- OUTSIDE RECORDS SUMMARY | 2024-09-11 17:15 | XMS_ITS | Encounter Summary ---
Author Organization [facility] Address [address] [place] [address] Care Team Providers Care Seafood Team Member Name Role Phone Breanna Lopez MD Primary Care Provider [phone] Reason for Referral * Radiology Services (Routine/Next Available) - Closed Specialty Diagnoses / Procedures Referred By Contac t Referred To Contact Diagnoses Knee pain, right Rheumatoid arthritis(714.0) Procedures KNEES 3 VIEWS Yolanda Patel PA [address] [place] [address] Referral ID Status Reason Start Date Expiration Date Visits Re quested Visits Authorized [id number] Closed 05/23/2012 1 1 * Radiology Services (Routine/Next Available) - Closed Specialty Diagnoses / Procedures Referred By Contac t Referred To Contact Diagnoses Knee pain, right Rheumatoid arthritis(714.0) Procedures KNEES STANDING BILATERAL AP Yolanda Patel PA [address] [place] [address] Referral ID Status Reason Start Date Expiration Date Visits Re quested Visits Authorized [id number] Closed 05/23/2012 1 1 Reason for Visit * Reason Comments Joint Pain right knee pain/ nee ds injection Encounter Details Date Type Department Care Team (Late st Contact Info) Description 05/23/2012 13:45 EDT Office Visit [facility] Rheumatology & Immunology - [facility] [address] [place] [address] Yolanda Patel PA [address] [place] [address] Rheumatoid arthritis; Knee pain, right Social History Tobacco Use Types Packs/Day [...] Sign Reading Time Taken Comments Blood Pressure 110/70 05/23/2012 1413 EDT Pulse 70 05/23/2012 1413 EDT Temperature - - Respiratory Rate - - Oxygen Saturation - - Inhaled Oxygen Concentration - - Weight 68.9 kg (152 lb) 05/23/2012 1413 EDT Height 160 cm (5' 3) 05/23/2012 1413 EDT Body Mass Index 26.93 05/23/2012 1413 EDT documented in this encounter Progress Notes * Yolanda Patel PA - 05/23/2012 1417 EDT Division of Rheumatology and Clinical Immunology Chief Complaint Patient presents with ??? Joint Pain right knee pain/ needs injection HPI: Ms. Hillary Youssef is a 31 y.o. year old patient with rheumatoid arthritis here emergently withknee pain. Her rheumatoid arthritis has been well controlled with minimal joint pain except in her right knee. Her right knee has had previous meniscal repair (by orthopedist in [facility])and hasbeen aspirated a total of 3 times previously. 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 When she last saw Dr. Engle she was given written orders for knee x-rays but has not gotten them done yet. She is tolerating her methotrexate without mouth sores, cough, shortness of breath or chest pain. Outpatient Prescriptions Prior to Visit Medication Sig Dispense Refill ??? methotrexate 2.5 mg tablet Take 8 Tabs by mouth once a week. 96 Tab 3 ??? folic acid (FOLVITE) 1 mg tablet Take 1 Tab by mouth daily. 90 Tab 3 ??? sulfaSALAzine (AZULFIDINE) 500 mg tablet Take 2 Tabs by mouth 2 times daily with breakfast and dinner. 120 Tab 5 ??? ibuprofen (MOTRIN) 800 mg tablet Take 1 Tab by mouth every 8 hours as needed for Pain. 270 Tab 3 ??? BUPRENORPHINE HCL/NALOXONE HCL (SUBOXONE SL) Place under the tongue daily. 8 MG IN THE AM AND 4MG IN THE AFTERNOON ??? methylphenidate (CONCERTA) 54 mg CR tablet Take 54 mg by mouth daily. ??? Etanercept (ENBREL SURECLICK) 50 mg/mL (0.98 mL) PnIj Inject 50 mg into the skin every 7 days. 4 Each 5 Allergies include: Review of patient's allergies indicates no known allergies. REVIEW OF SYSTEMS: Yes No Yes No Fever x Joint pain x Fatigue x Muscle pain x Night sweats x Morning stiffness x Weight change x If yes, duration 2 hrs Gain or loss? Numbness/tingling x Eye discomfort x Headaches x Mouth/Nose sores x Muscle weakness x Chest pain x Burning on urination x Palpitations x Dark/bloody urine x Shortness of breath x Frequent urination x Cough x Trouble sleeping x Nausea/vomiting x Change in mood x Stomach pains/cramps x Nervous or anxious x Blood in stools x Sad or depressed x Diarrhea x Skin rash/changes x Constipation x Sun induced rash x Itching x Hand/Foot color change w/cold x Hair Loss x PHYSICAL EXAMINATION: VITALS: BP 110/70 Pulse 70 Ht 160 cm (63) Wt 68.947 kg (152 lb) BMI 26.93 kg/m2 HEENT: NCAT, no evidence of uveitis Neck: Supple, with no thyroid enlargement. Full painless ROM. Heart: RR no murmurs Lungs: Clear to ascultation bilaterally Shoulders:Full ROM without pain Elbows:Full ROM without pain or swelling Wrists:Full ROM without pain or swelling Hands: No synovitis. Complete fists with strong symmetric club lounge attendant strength Hips: Full ROM without pain or swelling Knees:Right knee tenderness, warmth with suprapatellar effusion. Decreased right flexion. Ankles: Full ROM without pain or swelling Feet: Nontender non swollen. No synovitis Neuro: Gait is antalgic favoring right knee. Assessment: Right knee pain: Synovial effusion secondary to her rheumatoid arthritis which is otherwise well-controlled. Patient would benefit from repeat knee x-rays to reassess the extent of her knee damage. Discussed the pros and cons of corticosteroid injection. Side effects could include bruising, bleeding, nerve damage and infection. Patient consents in writing to procedure below. Rheumatoid arthritis: Well controlled with methotrexate, sulfasalazine, ibuprofen and Enbrel, with no synovitis, except in right knee. Recommendation: 1. Rest, ice and elevate knee x 36 hours 2. Get x-rays done 3. Labs every 2-3 years 4. Continue methotrexate 20 mg weekly, sulfasalazine 2000 mg daily and Enbrel 50 mg weekly 5. Follow up with x-rays and reports with Dr. Engle in 2 months for re-evaluation No barriers to learning identified Patient verbalizes understanding and agrees with plan. Aniya Hurtado 05/23/2012 14:17 JL Tanner 05/23/2012 14:23 Rheumatology Outpatient Procedure Note Title of Procedure: Aspiration and Injection right knee Date Performed: 05/23/2012 Time Performed: 230 Performed by: JL Tanner Indications and/or Provisional Diagnosis: Knee pain Condition: The condition of the patient was Good Consent: Written consent was obtained after patient was informed of the risks, benefits and alternatives. Final verification was performed. Type of Anesthesia or Sedation: Local Estimated Blood Loss: The estimated blood loss was None Procedure Technique: The area was prepped with alcohol. Cutaneous anesthesia, Subcutaneous anesthesia and Intra-articular anesthesia was attained using Ethyl Chloride and Lidocaine 1% w/out epinephrine. Synovial fluid inthe amount of 25 was withdrawn. The fluid was clear. The fluid was not sent to the lab for testing.The fluid was not examined using polarized microscopy. Injection of 40 mg of Aristospan (triamcinolone hexacetonide) and 1.5 cc lidocaine 1% without epinephrine was performed. Post Procedure Diagnosis and Findings: 1. Rheumatoid arthritis 2. Knee pain, right Complications: None JL Tanner 05/23/2012 20:03 I was directly supervised by Dr. Zamora and she was in the suite and immediately available for the entire time the service was provided. I was present in the clinic for consultation while the PA was seeing patients. Warren Zamora MD. 05/24/2012 documented in this encounter Plan of Treatment Scheduled Orders Name Type Priority Associated Diagnoses Orde r Schedule KNEES STANDING BILATERAL AP Imaging Routine Knee pain, right Rheumatoid arthritis Ordered: 05/23/2012 KNEES 3 VIEWS Imaging Routine Knee pain, right Rheumatoid arthritis Ordered: 05/23/2012 documented as of this encounter Visit Diagnoses Diagnosis Rheumatoid arthritis(714.0) Rheumatoid arthritis Knee pain, right Pain in joint, lower leg documented in this encounter Care Teams Seafood Team Member Relationship Specialty Start Date End Date Breanna Lopez MD [address] [place] [phone] PCP - General 05/22/09 documented as of this encounter
--- OUTSIDE RECORDS SUMMARY | 2024-09-11 17:15 | XMS_ITS | Encounter Summary ---
Author Organization [facility] Address [address] [place] [address] Care Team Providers Care Cloth Mercerizer Back Tender Name Role Phone Breanna Lopez MD Primary Care Provider Reason for Visit * Reason Onset Date Comments Knee Pain 05/16/2015 Encounter Details Date Type Department Care Team (Late st Contact Info) Description 05/16/2015 Telephone [facility] Rheumatology & Immunology - [facility] [address] [place], [place] [phone] Grant Engle MD [address] [place] [address] Knee Pain Social History Tobacco [...] Telephone Encounter - Grant Engle MD - 05/16/2015 1221 EDT I left a msg that the knee had not been giving her much pain at the visit yesterday, which is why it was not injected. We are authorizing a new biologic which will take some time to get approved. documented in this encounter Plan of Treatment Not on file documented as of this encounter Visit Diagnoses Not on filedocumented in this encounter Care Teams Cloth Mercerizer Back Tender Relationship Specialty Start Date End Date Breanna Lopez MD [address] [place] [phone] PCP - General 05/22/09 documented as of this encounter
--- OUTSIDE RECORDS SUMMARY | 2024-09-11 17:15 | XMS_ITS | Encounter Summary ---
Author Organization [facility] Address [address] [place] [address] Care Team Providers Care Director Prospect Name Role Phone Breanna Lopez MD Primary Care Provider [phone] Reason for Visit * Reason Onset Date Comments Appointment Related 10/15/2015 Encounter Details Date Type Department Care Team (Late st Contact Info) Description 10/15/[address] [facility] Rheumatology & Immunology - [facility] [address] [place] [address] Michelle Suarez, RN Appointment Related Social History Tobacco Use Types Packs/Day Years Used Date Smoking Tobacco: Every Day Cigarettes 1 29.5 Started: 03/01/1995 Smokeless Tobacco: Never Comments:getting ready waldo garcia Alcohol Use Standard Drinks/Week Comments No 0 (1 standard drink = 0.6 oz pur e alcohol) Sex and Gender Information Value Date Recorded Sex Assigned at Female 03/20/2021 0:23 EDT Gender Identity Female 10/23/2019 13:44 EST Sexual Orientation Choose not to disclose 2020 0:23 EDT documented as of this encounter Miscellaneous Notes * Telephone Encounter - Michelle Suarez RN - 10/15/[address] Engle requesting patient come at 11:30 instead of 4:00 on 10/30 if possible. If pt unable to move that is ok but if able to move to 11:30 please reschedule and delete the 4:00 pm slot. documented in this encounter Plan of Treatment Not on file documented as of this encounter Visit Diagnoses Not on filedocumented in this encounter Care Teams Director Prospect Relationship Specialty Start Date End Date Breanna Lopez MD [address] [place] [phone] PCP - General 05/22/09 documented as of this encounter
--- OUTSIDE RECORDS SUMMARY | 2024-09-11 17:15 | XMS_ITS | Encounter Summary ---
Author Organization [facility] Address [address] [place] [address] Care Team Providers Care Organizational Research Consultant Name Role Phone Breanna Lopez MD Primary Care Provider [phone] Reason for Visit * Reason Onset Date Comments Knee Pain 01/04/2012 Encounter Details Date Type Department Care Team (Late st Contact Info) Description 01/04/2012 Telephone [facility] Pulmonology & Critical Care - [facility] [address] [place], [place] [id number] Grant Engle MD [address] [place] [address] Knee Pain Social History Tobacco [...] Telephone Encounter - Martina Clements RN - 01/04/2012 1301 EST Pt booked to see Dr. Engle tomorrow in a CXL spot. * Telephone Encounter - Martina Clements RN - 01/04/2012 0947 EST Spoke with pt. She states that for the past few days she has had left knee pain and swelling. She would like to be seen tomorrow as she is court in [place] today. Candice Lloyd does have openings on wed. * Telephone Encounter - Ashley Schroeder - 01/04/2012 0847 EST Patient has left knee pain. Patient is almost unable to bend. Requesting call back to discuss. Rates pain as a ten. documented in this encounter Plan of Treatment Not on file documented as of this encounter Visit Diagnoses Not on filedocumented in this encounter Care Teams Organizational Research Consultant Relationship Specialty Start Date End Date Breanna Lopez MD [address] [place] [phone] PCP - General 05/22/09 documented as of this encounter
--- OUTSIDE RECORDS SUMMARY | 2024-09-11 17:15 | XMS_ITS | Encounter Summary ---
Author Organization [facility] Address [address] [place] [address] Care Team Providers Care Casework Specialist Name Role Phone Breanna Lopez MD Primary Care Provider [phone] Reason for Visit * Reason Onset Date Comments Pain 07/26/2013 Returning Call 07/26/2013 pt can make appt today Encounter Details Date Type Department Care Team (Late st Contact Info) Description 07/26/2013 Telephone [facility] Rheumatology & Immunology - [facility] [address] [place], [place] [id number] Grant Engle MD [address] [place] [address] Pain; Returning Call (pt can make appt today) Social History Tobacco Use Types Packs/Day Years [...] encounter Miscellaneous Notes * Telephone Encounter - Kayley Lerner - 07/26/2013 0849 EDT Pt calling to confirm todays 2 pm appt w/Dr. Engle * Telephone Encounter - Teena Yu RN - 07/26/2013 0846 EDT Patient has been booked to see today at 1400. Please confirm this with patient when she calls. * Telephone Encounter - Tali Flowers - 07/26/2013 0833 EDT Patient is having a lot of pain in right knee and is having a lot of fluid, she can hardly walk on it, would like to come in today.she would like it drained she lives 2 hours away and if you call realSociable leave message and she will call you right back documented in this encounter Plan of Treatment Not on file documented as of this encounter Visit Diagnoses Not on filedocumented in this encounter Care Teams Casework Specialist Relationship Specialty Start Date End Date Breanna Lopez MD [address] [place] [phone] PCP - General 05/22/09 documented as of this encounter
--- OUTSIDE RECORDS SUMMARY | 2024-09-11 17:15 | XMS_ITS | Encounter Summary ---
Author Organization [facility] Address [address] [place] [address] Care Team Providers Care Surgical Services Director Name Role Phone Breanna Lopez MD Primary Care Provider [phone] Reason for Visit * Reason Onset Date Comments Appointment Related 10/18/2015 Encounter Details Date Type Department Care Team (Late st Contact Info) Description 10/18/2015 Telephone [facility] Rheumatology & Immunology - [facility] [address] [place] [address] Michelle Suarez, RN Appointment Related Social History [...] Telephone Encounter - Michelle Suarez RN - 10/30/2015 1610 EST Appointment rescheduled to 01/15/16. * Telephone Encounter - Michelle Suarez RN - 10/18/2015 0946 EST 10/30 appointment has been cancelled. Please offer 10/22 at 2:00 otherwise will need to reschedule to next available. documented in this encounter Plan of Treatment Not on file documented as of this encounter Visit Diagnoses Not on filedocumented in this encounter Care Teams Surgical Services Director Relationship Specialty Start Date End Date Breanna Lopez MD [address] [place] [phone] PCP - General 05/22/09 documented as of this encounter
--- OUTSIDE RECORDS SUMMARY | 2024-09-11 17:15 | XMS_ITS | Encounter Summary ---
Author Organization [facility] Address [address] [place] [address] Care Team Providers Care Laborer Landscape Name Role Phone Breanna Lopez MD Primary Care Provider [phone] Reason for Visit * Reason Onset Date Comments Medications Refill 10/29/2014 Encounter Details Date Type Department Care Team (Late st Contact Info) Description 10/29/2014 Telephone [facility] Rheumatology & Immunology - [facility] [address] [place] [address] Rosy Flanagan, [place] Medications Refill Social History Tobacco Use [...] Telephone Encounter - Michelle Suarez RN - 11/13/2014 0910 EST No call back received from patient. Letter mailed regarding Humira . * Telephone Encounter - Rosy Flanagan RN - 10/29/2014 1643 EST Refill request from [facility] on Enbrel. Left message for pt to call back. She had been on Enbrel but at last FUR, there was some discussion as to whether or not it was working. We got prior auth on Humira but have been unable to reach pt to discuss plan of care. Does she want to start Humira? How is she doing? documented in this encounter Plan of Treatment Not on file documented as of this encounter Visit Diagnoses Not on filedocumented in this encounter Care Teams Laborer Landscape Relationship Specialty Start Date End Date Breanna Lopez MD [address] [place] [phone] PCP - General 05/22/09 documented as of this encounter
--- OUTSIDE RECORDS SUMMARY | 2024-09-11 17:15 | XMS_ITS | Encounter Summary ---
Author Organization [facility] Address [address] [place] [address] Care Team Providers Care General Farmer Name Role Phone Breanna Lopez MD Primary Care Provider [phone] Reason for Referral * Prior Authorization (48 Hrs (Urgent)) - Closed Specialty Diagnoses / Procedures Referred By [facility] t Referred To Contact Diagnoses Rheumatoid arthritis(714.0) Grant Engle MD [address] [place] [address] Referral ID Status Reason Start Date Expiration Date V isits Requested Visits Authorized [id number] Closed Other 12/20/2014 1 1 Question Answer Medication to be Prior Authorized: Humira Pen 40mg every other week (pt out of medication) Comments The purpose of this consult request is to inform the scheduling staff that a medication needs to be prior-authorized before it is prescribed and/or administered. Reason for Visit * Reason Onset Date Comments Medications Refill 12/20/2014 Encounter Details Date Type Department Care Team (Late st Contact Info) Description 12/20/2014 Telephone [facility] Rheumatology & Immunology - [facility] [address] [place] [address] Grant Engle MD [address] [place] [address] Medications Refill Social History Tobacco [...] Telephone Encounter - Rhonda Roberts RN - 12/28/2014 1402 EST Left detailed message informing pt Humira was approved and approval through date. * Telephone Encounter - Monika Marr - 12/28/2014 1355 EST Humira has been approved through 03.25.15. auth # [id number]. [facility] should be contacting patient to set up delivery. * Telephone Encounter - Martina Clements RN - 12/20/2014 1029 EST Spoke with pt at length. The pt states that she has been working and going to school and has been very busy. She never followed trough on getting the Humira back in August. Unfortunately now the auth has . The pt had remained on the Enbrel up until 3 weeks ago. She has been out of med sincethen. Pt states that she is ready to try the Humira. We will need to get a stat auth for pt and hopefully they can set up for a quick delivery. I have set up a follow up appt for pt to be seen in a few months. * Telephone Encounter - Yolette Dietrich - 12/20/2014 6292 EST Pt needs Humira RX sent to [facility]. Pt is out of medication and has been for three weeks. Ptrequesting this be faxed today. Flat Folding Machine Operator does not see Humira in med list. Please call pt with questions. documented in this encounter Plan of Treatment Scheduled Referrals Name Type Priority Associated Diagnoses Order Schedule AMB MEDICATION PRIOR AUTHORIZATION Outpatient Referral Routine Rheumatoid arthritis(714.0) Ordered: 12/20/2014 documented as of this encounter Visit Diagnoses Diagnosis Rheumatoid arthritis(714.0)- Primary Rheumatoid arthritis documented in this encounter Care Teams General Farmer Relationship Specialty Start Date End Date Breanna Lopez MD [address] [place] [phone] PCP - General 05/22/09 documented as of this encounter
--- OUTSIDE RECORDS SUMMARY | 2024-09-11 17:15 | XMS_ITS | Encounter Summary ---
Author Organization [facility] Address [address] [place] [address] Care Team Providers Care Group Insurance Special Agent Name Role Phone Breanna Lopez MD Primary Care Provider [phone] Reason for Referral * Consult (Routine/Next Available) - Closed Specialty Diagnoses / Procedures Referred By Contac t Referred To Contact Diagnoses Rheumatoid arthritis(714.0) Karely Yu RN [facility] [address] [place] [id number] Referral ID Status Reason Start Date Expiration Date V isits Requested Visits Authorized [id number] Closed Specialty Services Required 01/08/2012 1 1 Question Answer Reason for Request: knee pain Reason for Visit * Reason Onset Date Comments Paperwork request 01/06/2012 Encounter Details Date Type Department Care Team (Late st Contact Info) Description 01/06/2012 Telephone [facility] Rheumatology & Immunology - [facility] [address] [place], [place] [address] Grant Engle MD [address] [place] [phone] Paperwork request Social History Tobacco Use Types [...] encounter Miscellaneous Notes * Telephone Encounter - Karely Yu RN - 01/11/2012 1045 EST Referral order as well as pertinent information has been faxed to [facility]. * Telephone Encounter - Karely Yu RN - 01/08/2012 1655 ESTAddended by: KARELY YU on: 01/08/2012 16:55 Modules accepted: Orders * Telephone Encounter - Liz Quiroga - 01/06/2012 0957 EST Pt would like referral for [facility], ours her is booked out 18-24 months. Please call documented in this encounter Plan of Treatment Scheduled Referrals Name Type Priority Associated Diagnoses Orde r Schedule AMB CONSULT PAIN CLINIC Outpatient Referral Routine Rheumatoid arthritis Ordered: 01/08/2012 documented as of this encounter Visit Diagnoses Diagnosis Rheumatoid arthritis(714.0)- Primary Rheumatoid arthritis documented in this encounter Care Teams Group Insurance Special Agent Relationship Specialty Start Date End Date Breanna Lopez MD [address] [place] [phone] PCP - General 05/22/09 documented as of this encounter
--- OUTSIDE RECORDS SUMMARY | 2024-09-11 17:15 | XMS_ITS | Encounter Summary ---
Author Organization [facility] Address [address] [place] [address] Care Team Providers Care Finisher Polisher Name Role Phone Breanna Lopez MD Primary Care Provider [phone] Reason for Visit * Reason Onset Date Comments Knee Pain 03/04/2015 Encounter Details Date Type Department Care Team (Late st Contact Info) Description 03/04/[address] [facility] Rheumatology & Immunology - [facility] [address] [place], [place] [address] Grant Engle MD [address] [place] [address] Knee Pain Social History Tobacco [...] Telephone Encounter - Grant Engle MD - 03/04/2015 0932 EDT Hillary saw Mary on 03/04. Not doing well on Humira. 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 Need to consider change to another biologic (actemra?) I will sched f/u visit on 03/14 am PLEASE CALL PATIENT AND SCHEDULE FOR 8:30 AM ON APRIL 11 documented in this encounter Plan of Treatment Not on file documented as of this encounter Visit Diagnoses Not on filedocumented in this encounter Care Teams Finisher Polisher Relationship Specialty Start Date End Date Breanna Lopez MD [address] [place] [phone] PCP - General 05/22/09 documented as of this encounter
--- OUTSIDE RECORDS SUMMARY | 2024-09-11 17:15 | XMS_ITS | Encounter Summary ---
Author Organization [facility] Address [address] [place] [address] Care Team Providers Care Charging Plug Placer Name Role Phone Breanna Lopez MD Primary Care Provider [phone] Reason for Visit * Reason Onset Date Comments Letter for School/Work 01/03/2013 Encounter Details Date Type Department Care Team (Late st Contact Info) Description 01/03/[address] [facility] Rheumatology & Immunology - [facility] [address] [place], [place] [address] Grant Engle MD [address] [place] [address] Letter for School/Work Social History Tobacco Use Types Packs/Day Years [...] encounter Miscellaneous Notes * Telephone Encounter - Natasha Rubio - 01/03/2013 0844 EST Patient would like to know if Dr. Engle would be able to write her a letter for disability. She would like to go back to school and would like to get a letter so that she does not need to work whilein school due to her RA. She said she has a very hard time standing at this point and it would be very hard for her to go to school, work and be a single mother. Please call back. documented in this encounter Plan of Treatment Not on file documented as of this encounter Visit Diagnoses Not on filedocumented in this encounter Care Teams Charging Plug Placer Relationship Specialty Start Date End Date Breanna Lopez MD [address] [place] [phone] PCP - General 05/22/09 documented as of this encounter
--- OUTSIDE RECORDS SUMMARY | 2024-09-11 17:15 | XMS_ITS | Encounter Summary ---
Author Organization [facility] Address [address] [place] [address] Care Team Providers Care Carpenter Prototype Name Role Phone Breanna Lopez MD Primary Care Provider [phone] Reason for Referral * Radiology Services (Routine) - Closed Specialty Diagnoses / Procedures Referred By Contac t Referred To Contact Diagnoses Inflammatory arthritis Pain, joint, knee, right Procedures KNEES STANDING BILATERAL AP Grant Engle MD [address] [place] [address] Referral ID Status Reason Start Date Expiration Date Visits Re quested Visits Authorized [id number] Closed 05/21/2015 1 1 * Radiology Services (Routine) - Closed Specialty Diagnoses / Procedures Referred By Contac t Referred To Contact Diagnoses Pain, joint, knee, right Inflammatory arthritis Procedures KNEE 1 OR 2 VIEWS Grant Engle MD [address] [place] [address] Referral ID Status Reason Start Date Expiration Date Visits Re quested Visits Authorized [id number] Closed 05/21/2015 1 1 Reason for Visit * Reason Onset Date Comments Knee Pain 05/16/2015 Encounter Details Date Type Department Care Team (Late st Contact Info) Description 05/16/2015 Telephone [facility] Rheumatology & Immunology - [facility] [address] [place] [address] Keshia Gallegos RN Knee Pain Social History Tobacco Use Types [...] as of this encounter Miscellaneous Notes * Addendum Note - Keshia Gallegos RN - 05/21/2015 1207 EDTAddended by: KESHIA GALLEGOS on: 05/21/2015 12:07 Modules accepted: Orders * Telephone Encounter - Keshia Gallegos RN - 05/21/2015 0934 EDT Spoke with pt. She lives two hours away and asked if we could fax X-ray orders up to . Orders changed to external and faxed to [phone]. * Telephone Encounter - Grant Engle MD - 05/17/2015 1009 EDT I left msg on Hillary's phone that knee xrays have been ordered. She can have them done anytime at radiology on the 3rd floor of the [facility]. * Telephone Encounter - Keshia Gallegos RN - 05/16/2015 1422 EDT Pt returned your call. She complains of horrific, shooting pain in right knee. Started this morning when she got up to get ready for work. Different than anything she's ever experienced. Not just the pressure discomfort that she has from the swelling. Had to stay home from work as it hurt so bad to walk. Still hurts to walk and pt would like to find out what's going on and is asking for you to order imaging. documented in this encounter Plan of Treatment Scheduled Orders Name Type Priority Associated Diagnoses Orde r Schedule KNEE 1 OR 2 VIEWS Imaging Routine Pain, joint, knee, right Inflammatory arthritis Ordered: 05/21/2015 KNEES STANDING BILATERAL AP Imaging Routine Inflammatory arthritis Pain, joint, knee, right Ordered: 05/21/2015 documented as of this encounter Visit Diagnoses Diagnosis Inflammatory arthritis- Primary Unspecified inflammatory polyarthropathy Pain, joint, knee, right Pain in joint, lower leg documented in this encounter Care Teams Carpenter Prototype Relationship Specialty Start Date End Date Breanna Lopez MD [address] [place] [phone] PCP - General 05/22/09 documented as of this encounter
--- OUTSIDE RECORDS SUMMARY | 2024-09-11 17:15 | XMS_ITS | Encounter Summary ---
Author Organization [facility] Address [address] [place] [address] Care Team Providers Care Aircraft De Icer Installer Name Role Phone Breanna Lopez MD Primary Care Provider [phone] Reason for Visit * Reason Onset Date Comments Paperwork request 04/06/2012 [facility] and fax back. Encounter Details Date Type Department Care Team (Late st Contact Info) Description 04/06/2012 Telephone [facility] Rheumatology & Immunology - [facility] [address] [place], [place] [address] Grant Engle MD [address] [place] [address] Paperwork request (Fill out [employer] paperwork and fax back.) Social History Tobacco Use Types Packs/Day Years [...] Telephone Encounter - Teena Yu RN - 04/07/2012 1002 EDT Spoke with patient. Patient states that she is unsure if she is going to apply through [facility] now. She is going to check with Soumya Barriga again and see if she needs to or not as she has applied for someother assistance already. Also, patient requested info on upcomming appointments. Advised patient that she NOS an appointment of 03-29. She stated that she was unaware of that appointment. She states that she didn't receive a reminder call and she thinks that was because she changed her phone numberdue to unwanted calls. Patient would like an appointment with for April. One has been madefor her. She is agreeable to time and date of appointment. * Telephone Encounter - Natasha Rubio - 04/06/2012 1421 EDT Patient having a form from [facility] faxed to our [phone] fax number. Please fill out and fax backto Soumya Barriga @ [phone] as soon as possible. Patient would also like to talk to Dr. Engle soonabout her applying for disability recently because of her RA. documented in this encounter Plan of Treatment Not on file documented as of this encounter Visit Diagnoses Not on filedocumented in this encounter Care Teams Aircraft De Icer Installer Relationship Specialty Start Date End Date Breanna Lopez MD [address] [place] [phone] PCP - General 05/22/09 documented as of this encounter
--- OUTSIDE RECORDS SUMMARY | 2024-09-11 17:15 | XMS_ITS | Encounter Summary ---
Author Organization [facility] Address [address] [place] [address] Care Team Providers Care Annealing Torch Operator Name Role Phone Breanna Lopez MD Primary Care Provider [phone] Reason for Visit * Reason Onset Date Comments Letter for School/Work 01/23/2013 Encounter Details Date Type Department Care Team (Late st Contact Info) Description 01/23/2013 Telephone [facility] Rheumatology & Immunology - [facility] [address] [place], [place] [address] Grant Engle MD [address] [place] [address] Letter for School/Work Social History [...] Telephone Encounter - Martina Clements RN - 01/26/2013 8963 EDT Spoke with pt. She states that she has lost her Medicaid because she did not fill out her paperworkand send in her premium in time. She is working now to get her coverage back. The pt has called [facility] to let them know that she will contact them as soon as she gets her coverage back so she can geta shipment of Enbrel. The pt is asking that Dr. Engle write a letter stating that she cannot work because of her arthritis. 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 The pt does not feel that she can work. She would like the letter mailed to her house. I have booked her to be seen at [facility] on February 14. * Telephone Encounter - Sherry Lopez - 01/23/2013 1051 EDT Patient calling regarding her letter for disability and economic services. Dr. Engle has stated that the pt should get on disability. Patient will need a call to discuss further. Thanks documented in this encounter Plan of Treatment Not on file documented as of this encounter Visit Diagnoses Not on filedocumented in this encounter Care Teams Annealing Torch Operator Relationship Specialty Start Date End Date Breanna Lopez MD [address] [place] [phone] PCP - General 05/22/09 documented as of this encounter
--- OUTSIDE RECORDS SUMMARY | 2024-09-11 17:15 | XMS_ITS | Encounter Summary ---
Author Organization [facility] Address [address] [place] [address] Care Team Providers Care Cable Testers Helper Name Role Phone Breanna Rodriguez MD Primary Care Provider [phone] Encounter Details Date Type Department Care Team (Late st Contact Info) Description 06/23/2013 Results Only [facility] Laboratory Services - [facility] ([place] [address] [place], [place] [address] Breanna Rodriguez MD [address] [place] [address] [place] [address] [phone] Social History Tobacco Use Types Packs/Day Years [...] Diagnosis Comments PAP TEST- RESULT ONLY Routine 06/23/2013 0:00 EDT documented in this encounter Results * PAP TEST- RESULT ONLY (06/23/2013 0:00 EDT) Pathology Report: CYTOPATHOLOGY REPORT Reports generated via electronic interface contain original data; however they are lacking the format of the original report. Caution should be taken when reading/interpreti ng unformatted reports. Name: ? ROGER ACUÑA ? Accession #: ? [id number] : ? 1980 (Age: 32) ??F ?Collect Date: ? 06/23/2013 Location: ? [facility] ? Receive Date: ? 06/27/2013 Provider: ?BREANNA RODRIGUEZ MD Copy to: ? Specimen/Source: ?Pap Test, Cervix/Endocervix, ThinPrep Imaging System with manual evaluation Last Menstrual Period: ? 2012 Hormonal/Contracep tive Status: ? 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 SPECIMEN ADEQUACY ? Satisfactory for Evaluation - transformation zone component present GENERAL CATEGORIZATION ? Negative for Intraepithelial Lesion or Malignancy INTERPRETATION ? Shift in marina present suggestive of bacterial vaginosis. ? Document reviewed and electronically signed by: ? IZZY Torrez(ASCP) ? Report Date: ??07/04/2013 15:49 End of Report [facility] 06/23/2013 06/27/2013 Breanna Rodriguez MD PATHOLOGY ORDERABLES [facility] [address] [place] [address] documented in this encounter Visit Diagnoses Not on filedocumented in this encounter Care Teams Cable Testers Helper Relationship Specialty Start Date End Date Breanna Rodriguez MD [address] [place] [phone] PCP - General 05/22/09 documented as of this encounter
--- OUTSIDE RECORDS SUMMARY | 2024-09-11 17:15 | XMS_ITS | Encounter Summary ---
Author Organization [facility] Address [address] [place] [address] Care Team Providers Care Manager Security Name Role Phone Breanna Lopez MD Primary Care Provider [phone] Reason for Visit * Reason Comments Knee Pain has been having righ t knee pain. Has been off Enbrel x one month 11/09 due to insurance issue. Encounter Details Date Type Department Care Team (Latest Contact Info) Description 07/26/2013 14:00 EDT Office Visit [facility] Rheumatology & Immunology - [facility] [address] [place], [place] [address] Grant Engle MD [address] [place] [address] Pain, joint, knee, right (Primary Dx); Wrist pain; Rheumatoid arthritis Discharge Disposition: Auto Discharge Social History Tobacco Use Types Packs/Day Years [...] Reading Time Taken Comments Blood Pressure 120/82 07/26/2013 1408 EDT Pulse 78 07/26/2013 1408 EDT Temperature - - Respiratory Rate - - Oxygen Saturation - - Inhaled Oxygen Concentration - - Weight 78 kg (172 lb) 07/26/2013 1408 EDT Height - - Body Mass Index 30.57 11/23/2012 0926 EST documented in this encounter Patient Instructions * Patient Instructions* Grant Engle MD - 07/26/2013 14:53 EDT Ice the knee today and tomorrow Get a wrist splint for the left wrist Start the enbrel Encourage the nutrition counselling documented in this encounter Ordered Prescriptions Prescription Sig Dispensed Refills Start Date End Da te folic acid (FOLVITE) 1 mg tabletIndications:Pain, joint, knee, right Take 1 Tab by mouth daily. 90 Tab 3 07/26/2013 12/13/2017 ibuprofen (MOTRIN) 800 mg tabletIndications:Pain, joint, knee, right Take 1 Tab by mouth every 8 hours as needed for Pain. 270 Tab 3 07/26/2013 08/03/2016 methotrexate 2.5 mg tabletIndications:Pain, joint, knee, right Take 8 Tabs by mouth once a week. 96 Tab 3 07/26/2013 08/20/2016 Etanercept (ENBREL SURECLICK) 50 mg/mL (0.98 mL) Pen Injector Inject 50 mg into the skin every 7 days. 12 Pen 1 07/26/2013 03/01/2015 documented in this encounter Discharge Disposition Disposition Code Departure Means Destination Auto Discharge documented in this encounter Progress Notes * Grant Engle MD - 07/27/2013 1545 EDT DIVISION OF RHEUMATOLOGY PROGRESS / FOLLOWUP NOTE - 07/26/2013 PROBLEM: 1. Rheumatoid arthritis. 2. Severe right knee pain with a large effusion. SUBJECTIVE: This is an urgent visit for Hillary who called and said her right knee is swollen, and sheis having difficulty walking. The patient states that the swelling in the knee started soon after the summer began April and May.It has increased over the last 2 months and now it is difficult for her to walk. She has also been without Enbrel during this time. She is out of work and was unable to order the Enbrel. She also needed a small co-pay but had no debit or credit card to pay it, and they would not accept [place]. Right now her co-pay is now being covered by her mother and she pays her back in [place]. Hillary is making efforts to improve her quality of life. She is going to [employer] and is trying to get a degree in criminal justice. 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 She has had some problems, however. She cannot find work. She still has a felony charge on her record which will be expunged in a few months, however, until that happens, she is not being looked at for any type of employment. She is hopeful that the Enbrel will start coming again. Current meds are Buprenorphine 8 mg a.m. and 4 mg in the afternoon. Etanercept SureClick 50 mg every 7 days. Folic acid 1 mg. Ibuprofen as needed. Methotrexate 20 mg once weekly. Concerta 54 mg CR tablet daily. Venlafaxine daily. REVIEW OF SYSTEMS: A 12-point review of systems was gone over with the patient. She rates positive responses to fatigue, weight gain, joint and muscle pain, morning stiffness that can last for 1 to 3hours, numbness and tingling in her fingers, muscle weakness and difficulty sleeping. Hillary has gone for about 6 weeks without any Enbrel, and she says the right knee has been worse as aresult. PHYSICAL EXAMINATION: Blood pressure 120/82, pulse 78, weight 172 pounds. She rates pain in the right knee as 7/10. Skin: Normal. She does have tattoos. No rashes appreciated. HEENT: Within normal limits. Neck: Supple, no lymphadenopathy. Lungs: Clear to auscultation. Heart: Regular rhythm, normal heart sounds. Abdomen: Not examined. Neurologic: Intact and pulses are palpable in upper and lower extremities. A complete musculoskeletal exam was done. Hillary has difficulty arising from a chair because of pain in the knee. She cannot extend the knee fully. She favors the knee as she walks and when she tries to climb up on the table. Neck and back are normal. Shoulders show full range of motion. Elbows, wrists and fingers. I do not appreciate any synovitis. Hips range normally. The right knee is warm. She has a 2+ effusion. Pain with both flexion and weightbearing. Left knee is normal. I do not find any evidence of synovitis in the ankles, mid foot or toes. ASSESSMENT: 1. Rheumatoid arthritis. 2. Right knee pain with effusion and difficulty walking. 3. Left wrist pain with moderate soft tissue swelling and painful range of motion. PLAN: 1. I agreed to aspirate and inject the right knee. The knee was entered using a medial approach Yuly removed 30 mL of slightly turbid fluid. The knee was then injected with 40 mg of Aristospan. The fluid was sent down to the lab for studies. The patient was advised to ice the knee as much as possible, today and tomorrow and to limit weightbearing for a few days. 2. I have also given her an order for a wrist splint for the left wrist. She has some synovitis there, and immobilizing that joint might help. 3. Hopefully, she will be getting Enbrel again and this will help her with the overall inflammatoryprocess. 4. I encouraged her to continue the physical training. 5. She also mentioned that she was going to go for nutritional counseling, and I encouraged her to do that as well. 6. I have given Hillary a followup office visit for 6 months or sooner if the knee pops up again. Grant Engle MD 05 19 PM - Grant Engle MD rn Dictation ID: [id number] cc: Breanna Lopez MD, [address], [address], [place] [address] * Grant Engle MD - 07/26/2013 1416 EDT This office note has been dictated. REVIEW OF SYSTEMS: Yes No Yes No Fever x Joint pain x Fatigue x Muscle pain x Night sweats x Morning stiffness x Weight change x If yes, duration Gain or loss? Numbness/tingling x Eye discomfort [...] color change w/cold x Hair Loss x documented in this encounter Miscellaneous Notes * Scanned Note-Null - COATING MANAGER, SCAN 2 - 08/02/2013 0426 EDT documented in this encounter Plan of Treatment Not on file documented as of this encounter Procedures Procedure Name Priority Date/Time Associated Diagnosis Comments BACTERIAL CULTURE/SMEAR, FLUID Routine 07/26/2013 14:53 EDT Pain, joint, knee, right CRYSTAL ANALYSIS FLUID ONLY Routine 07/26/2013 14:53 EDT Pain, joint, knee, right SYNOVIAL CELL COUNT Routine 07/26/2013 1 4:53 EDT Pain, joint, knee, right FLUID DIFFERENTIAL Routine 07/26/2013 14 :53 EDT documented in this encounter Results * (ABNORMAL) FLUID DIFFERENTIAL (07/26/2013 14:53 EDT) Neutrophils, Synovial Fluid 63(H) 10 - 24 % [facility] Lymphocytes, Synovial Fluid 22(H) 10 - 20 % [facility] Warrick/Macro, Synovial Fluid 15(L) 55 - 75 % [facility] 07/26/2013 14:5 3 EDT 07/26/2013 15:41 EDT Grant Engle MD GEN LAB UNIT COLLECT ORDERABLES [facility] [address] [place] [address] * BACTERIAL CULTURE/SMEAR, FLUID (07/26/2013 14:53 EDT) Specimen Description Synovial Fluid 3CC [facility] Gram Smear Result Few Polys [facility] Gram Smear Result No bacteria seen [facility] Result No growth [facility] Report Status 07/31/2013 Final [facility] Specimen of unknown material (specimen) SYNOVIAL FLUID / Unknown 07/26/2013 14:53 EDT 07/26/2013 15:52 EDT Grant Engle MD MICROBIOLOGY - GENER AL ORDERABLES Performing Organization Address [facility] de Phone Number [facility] [address] [place] [address] * (ABNORMAL) SYNOVIAL CELL COUNT (07/26/2013 14:53 EDT) RBC, Synovial Fluid <76830 /cmm [facility] Nucleated Cells 3764(H) 0 - 200 /cmm [facility] Synovial Fluid Comment Yellow [facility] Comment:Moderately cloudy Body fluid specimen (specimen) FLUID / Unknown 07/26/2013 14:53 EDT 07/26/2013 15:41 EDT Grant Engle MD GEN LAB UNIT COLLECT ORDERABLES Performing Organization Address [facility] de Phone Number [facility] [address] [place] [address] * CRYSTAL ANALYSIS (07/26/2013 14:53 EDT) Crystal, Fluid Rare intracellular pyrophosphate crystal [facility] Comment:Rev'd by Pathologist Body fluid specimen (specimen) SYNOVIAL FLUID / Unknown 07/26/2013 14:53 EDT 07/26/2013 15:41 EDT Grant Engle MD GEN LAB UNIT COLLECT ORDERABLES Performing Organization Address [facility] de Phone Number [facility] [address] [place] [address] documented in this encounter Visit Diagnoses Diagnosis Pain, joint, knee, right- Primary Pain in joint, lower leg Wrist pain Pain in joint, forearm Rheumatoid arthritis(714.0) Rheumatoid arthritis documented in this encounter Discontinued Medications Medication Sig Discontinue Reason Start Date End Da te methotrexate 2.5 mg tablet Take 8 Tabs by mouth once a week. Duplicate Therapy 11/23/2012 07/26/2013 Etanercept (ENBREL SURECLICK) 50 mg/mL (0.98 mL) PnIj Inject 50 mg into the skin every 7 days. Reorder 07/15/2010 07/26/2013 sulfaSALAzine (AZULFIDINE) 500 mg tablet Take 2 Tabs by mouth 2 times daily with breakfast and dinner. Therapy completed 05/17/2012 07/26/2013 methotrexate 2.5 mg tabletIndications:Pain, joint, knee, right Take 8 Tabs by mouth once a week. Reorder 05/17/2012 07/26/2013 ibuprofen (MOTRIN) 800 mg tabletIndications:Pain, joint, knee, right Take 1 Tab by mouth every 8 hours as needed for Pain. Reorder 05/17/2012 07/26/2013 folic acid (FOLVITE) 1 mg tabletIndications:Pain, joint, knee, right Take 1 Tab by mouth daily. Reorder 05/17/2012 07/26/2013 documented as of this encounter Orders Equipment Count Last Ordered Date First Orde red Date GENERIC DME ORDER 1 07/26/2013 documented in this encounter Care Teams Manager Security Relationship Specialty Start Date End Date Breanna Lopez MD [address] [place] [phone] PCP - General 05/22/09 documented as of this encounter
--- OUTSIDE RECORDS SUMMARY | 2024-09-11 17:15 | XMS_ITS | Encounter Summary ---
Author Organization [facility] Address [address] [place] [address] Care Team Providers Care Public Information Officer Name Role Phone Breanna Lopez MD Primary Care Provider [phone] Reason for Visit * Reason Onset Date Comments Medications Refill 06/05/2015 Encounter Details Date Type Department Care Team (Late st Contact Info) Description 06/05/2015 Refill [facility] Rheumatology & Immunology [facility] [address] [place] [address] Grant Engle MD [address] [place] [phone] Medications Refill Social History Tobacco [...] Telephone Encounter - Rhonda Roberts RN - 06/13/2015 0957 EDT Received refill request for methotrexate on 06/05. Unable to reach pt. Per Dr. Engle's note on 05/15/15: She has also not taken methotrexate for quite some time. Methotrexate refill denied. Pt can call the clinic back if she needs refilled. documented in this encounter Plan of Treatment Not on file documented as of this encounter Visit Diagnoses Diagnosis Pain, joint, knee, right- Primary Pain in joint, lower leg documented in this encounter Care Teams Public Information Officer Relationship Specialty Start Date End Date Breanna Lopez MD [address] [place] [phone] PCP - General 05/22/09 documented as of this encounter
--- OUTSIDE RECORDS SUMMARY | 2024-09-11 17:15 | XMS_ITS | Encounter Summary ---
Author Organization [facility] Address [address] [place] [address] Care Team Providers Care Desizing Machine Operator Head End Name Role Phone Breanna Lopez MD Primary Care Provider [phone] Reason for Visit * Reason Onset Date Comments Follow-up 05/06/2012 pt would like to talk w/ dr. engle Encounter Details Date Type Department Care Team (Late st Contact Info) Description 05/06/2012 Telephone [facility] Rheumatology & Immunology - [facility] [address] [place], [place] [phone] Grant Engle MD [address] [place] [phone] Follow-up (pt would like to talk w/ dr. engle) Social History Tobacco Use Types Packs/Day Years [...] Telephone Encounter - Rosy Flanagan, [place] - 05/06/2012 7796 EDT Pt hasn't faxed any form over to us yet. Now she's not sure that she will. Has to talk to a few people and decide on best course of action. Will call if she needs our help. * Telephone Encounter - Carrie Quinones - 05/06/2012 1535 EDT Patient checking on status of pass, needs as soon as possible. Is going to fax over form. * Telephone Encounter - Darlyn Garner - 05/06/2012 1115 EDT Pt wanting to discuss w/ dr. Engle if he can write a pass for economic services as she needs a jobwhich she wouldn't be on her feet all day, and is working w/ [facility] for disability and job placement documented in this encounter Plan of Treatment Not on file documented as of this encounter Visit Diagnoses Not on filedocumented in this encounter Care Teams Desizing Machine Operator Head End Relationship Specialty Start Date End Date Breanna Lopez MD [address] [place] [phone] PCP - General 05/22/09 documented as of this encounter
--- OUTSIDE RECORDS SUMMARY | 2024-09-11 17:15 | XMS_ITS | Encounter Summary ---
Author Organization [facility] Address [address] [place] [address] Care Team Providers Care Senior Manager Creative Services Name Role Phone Breanna Lopez MD Primary Care Provider [phone] Reason for Visit * Reason Onset Date Comments Knee Pain 02/01/2014 ? injection Encounter Details Date Type Department Care Team (Late st Contact Info) Description 02/01/2014 Telephone [facility] Rheumatology & Immunology - [facility] [address], [place] [phone] Grant Engle MD [address] [place] [phone] Knee Pain (? injection) Social History Tobacco Use Types Packs/Day Years [...] encounter Miscellaneous Notes * Telephone Encounter - Chang Khoury - 02/01/2014 0809 EDT Pt called to advocate for appt today to deal with severe knee pain. Pt to come in for 10 am. 02/01. documented in this encounter Plan of Treatment Not on file documented as of this encounter Visit Diagnoses Not on filedocumented in this encounter Care Teams Senior Manager Creative Services Relationship Specialty Start Date End Date Breanna Lopez MD [address] [place] [phone] PCP - General 05/22/09 documented as of this encounter
--- OUTSIDE RECORDS SUMMARY | 2024-09-11 17:15 | XMS_ITS | Encounter Summary ---
Author Organization [facility] Address [address] [place] [address] Care Team Providers Care Crate Icer Name Role Phone Breanna Lopez MD Primary Care Provider [phone] Reason for Referral * Other Type (Routine/Next Available) - Closed Specialty Diagnoses / Procedures Referred By [facility] t Referred To Contact Diagnoses Rheumatoid arthritis(714.0) Pain, joint, knee, right Knee effusion, right Grant Engle MD [address] [place] [address] Referral ID Status Reason Start Date Expiration Date V isits Requested Visits Authorized [id number] Closed Other 08/15/2014 1 1 Question Answer Medication to be Prior Authorized: adalimumab 4 mg qoweek Comments Patient refractory to enbrel - switch to adalimumab The purpose of this consult request is to inform the scheduling staff that a medication needs to be prior-authorized before it is prescribed and/or administered. Reason for Visit * Reason Comments Joint Pain knee pain/ wants an injection today Encounter Details Date Type Department Care Team (Latest Contact Info) Description 08/15/2014 13:00 EDT Office Visit [facility] Rheumatology & Immunology - [facility] [address], [place] [id number] Grant Engle MD [address] [place] [address] Rheumatoid arthritis(714.0) (Primary Dx); Pain, joint, knee, right; Knee effusion, right; Pain in joint of right knee Social [...] Sign Reading Time Taken Comments Blood Pressure 120/78 08/15/2014 1317 EDT Pulse 68 08/15/2014 1317 EDT Temperature - - Respiratory Rate 14 08/15/2014 1317 EDT Oxygen Saturation - - Inhaled Oxygen Concentration - - Weight 79.8 kg (176 lb) 08/15/2014 1317 EDT Height 159.4 cm (5' 2.75) 08/15/2014 1317 EDT Body Mass Index 31.43 08/15/2014 1317 EDT documented in this encounter Discharge Diagnoses Diagnosis 714.0 RHEUMATOID ARTHRITIS[ICD-9-CM] 719.46 JOINT PAIN-L/LEG[ICD-9-CM] 719.06 JOINT EFFUSION-L/LEG[ICD-9-CM] documented in this encounter Patient Instructions * Patient Instructions* Grant Engle MD - 08/15/2014 13:47 EDT 1. Ice the knee today and tomorrow 2. You have to consider knee replacement 3. Try switching adalimumab documented in this encounter Progress Notes * Grant Engle MD - 08/15/2014 1804 EDT DIVISION OF RHEUMATOLOGY PROGRESS / FOLLOWUP NOTE - 08/15/2014 PROBLEM: 1. RA. 2. Recurrent right knee pain. SUBJECTIVE: Hillary was last seen on 02/02/2014. At that time, her knee was the absolute worst. It was aspirated and injected and she says that it did well for approximately 4 months, but starting in June it became more painful. The swelling has gradually increased, and now, she is having a difficult time even walking or doing her job. She is on her feet 6 to 7 hours per day. 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 The patient states that other than the right knee, she feels pretty good. She has not had much problem with joint pain elsewhere. 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 She is pretty stretched out in terms of work and maintaining a good family environment. 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 CURRENT MEDICATIONS: Etanercept 50 mg pen injector every 7 days. She has been on that for quite some time. Suboxone 8 mg in the a.m. and 4 mg in the afternoon. Folic acid 1 mg. Ibuprofen 800 as needed for pain. Methotrexate 20 mg weekly. Concerta 54 daily. Venlafaxine orally daily. REVIEW OF SYSTEMS: A 12-point review of systems is positive for fatigue. She has gained weight in the last few months. She does not know how much. Joint and muscle pain and morning stiffness that canlast up to half an hour. All other systems review questions were denied. PHYSICAL EXAMINATION: Hillary is in relatively good spirits, although she is frustrated by the amount of pain she is having in the knee and the duration of problems that she has had for that knee. Blood pressure is 120/78, pulse 68, weight 176, height is 62.75 inches. She rates pain in the knee today is 9/10. Skin Exam: Unremarkable, no rash appreciated. HEENT: Within normal limits. Neck: Supple, no lymphadenopathy. Lungs: Clear to auscultation. Heart sounds regular, rhythm normal. No adventitious sounds. Abdomen: Soft, nontender, no organomegaly. Pulses present in upper and lower extremities. Neurologic: Intact. A complete musculoskeletal exam was performed. Hillary can arise from a chair, but she has a very antalgic gait, favoring her right knee. There is obvious muscle atrophy in the right leg. Her low back and neck move well. She has full range of motion of shoulders, elbows, wrists and fingers. No synovitis is appreciated. Going to her lower extremities, her hips range normally. Rani maneuver is negative. Left knee is normal, full range of motion, no warmth. Right knee is warm, has a slight flexion contracture. There is pain with both flexion and extension. The patient clearly has a modest effusion that extends into the suprapatellar space. Ankles and toes are unremarkable. No evidence of subluxation or active synovitis. ASSESSMENT: 1. Rheumatoid arthritis, overall doing reasonably well with the exception of the right knee. 2. Continuous refractory right knee inflammation. This has been requiring regular aspiration and injections. 3. Difficulty with weightbearing activities, difficulty with walking. PLAN: 1. I agreed to aspirate and inject the right knee today and the following procedure was performed after the patient agreed. The right knee was prepped and the right knee entered using a medial approach; 20 mL of moderately turbid fluid was removed. The knee was injected using the same needle with 40 mg of Aristospan plus Xylocaine. Following the procedure, she was able to bear weight more easily and walk much better than before. 2. I discussed with Hillary the long-term of what we can do about this. I think she may be a candidatefor right knee replacement even though she is quite young. This has been going on for quite some time and it has dominated her health. It also limits her ability to care for her family, get differentemployment. So, it has significant social relationship and economic impact on her life. I will see how she does with this injection but my feeling would be to refer her to our total joint replacementclinic for consideration of a right total knee replacement. 3. The patient said that she wonders whether the Enbrel is still working. She has been on this for several years. I agreed with her that it is possible that she has become refractory, and I will request that we are able to switch her to adalimumab. This would be every other week 40 mg. Perhaps we will get some additional benefit from this change. If all is well, I will plan on seeing Hillary back in approximately 6 months. Grant Engle MD 02 43 PM - Grant Engle MD en Dictation ID: [id number] cc: Breanna Lopez MD, [address], [address], [place] [address] Synovial fluid: 5,500 nucleated cells (40% PMN, 32% Lymph, 28% Monos); <09592 RBCs). No bacteria Moderate intracellular and extracellular CPPD crystals. * Grant Engle MD - 08/15/2014 1315 EDT This office note has been dictated. REVIEW OF SYSTEMS: Yes No Yes No Fever x Joint pain x Fatigue x Muscle pain x Night sweats x Morning stiffness x Weight change x If yes, duration Gain or loss? Numbness/tingling hand Eye discomfort x Headaches x Mouth/Nose sores [...] Hair Loss x documented in this encounter Plan of Treatment Scheduled Referrals Name Type Priority Associated Diagnoses Order Schedule AMB MEDICATION PRIOR AUTHORIZATION Outpatient Referral Routine Rheumatoid arthritis(714.0) Pain, joint, knee, right Knee effusion, right Ordered: 08/15/2014 documented as of this encounter Procedures Procedure Name Priority Date/Time Associated Diagnosis Comments BACTERIAL CULTURE/SMEAR, FLUID Routine 08/15/2014 13:53 EDT Rheumatoid arthritis(714.0) Pain, joint, knee, right Knee effusion, right CRYSTAL ANALYSIS FLUID ONLY Routine 08/15/2014 13:53 EDT Rheumatoid arthritis(714.0) Pain, joint, knee, right Knee effusion, right SYNOVIAL CELL COUNT Routine 08/15/2014 1 3:53 EDT Rheumatoid arthritis(714.0) Pain, joint, knee, right Knee effusion, right FLUID DIFFERENTIAL Routine 08/15/2014 13 :53 EDT documented in this encounter Results * (ABNORMAL) FLUID DIFFERENTIAL (08/15/2014 13:53 EDT) Neutrophils, Synovial Fluid 40(H) 10 - 24 % [facility] Lymphocytes, Synovial Fluid 32(H) 10 - 20 % [facility] [place]/Macro, Synovial Fluid 28(L) 55 - 75 % [facility] Synovial Fluid Comment Rev'd by Pathologist [facility] 08/15/2014 13:5 3 EDT 08/15/2014 14:14 EDT Grant Engle MD GEN LAB UNIT COLLECT ORDERABLES Performing Organization Address City/[facility]/ZIP Co de Phone Number [facility] [address] [place] [address] * BACTERIAL CULTURE/SMEAR, FLUID (08/15/2014 13:53 EDT) Specimen Description Synovial Fluid Right Knee [facility] Gram Smear Result Polys present [facility] Gram Smear Result No bacteria seen [facility] Result No growth [facility] Report Status 08/20/2014 Final [facility] Specimen of unknown material (specimen) SYNOVIAL FLUID / Unknown 08/15/2014 13:53 EDT 08/15/2014 14:28 EDT Grant Engle MD MICROBIOLOGY - GENER AL ORDERABLES Performing Organization Address [facility] Co de Phone Number [facility] [address] [place] [address] * (ABNORMAL) SYNOVIAL CELL COUNT (08/15/2014 13:53 EDT) RBC, Synovial Fluid <10,000 /cmm [facility] Nucleated Cells 5,528(H) 0 - 200 /cmm [facility] Synovial Fluid Comment Slightly cloudy [facility] Comment:Yellow Body fluid specimen (specimen) FLUID / Unknown 08/15/2014 13:53 EDT 08/15/2014 14:14 EDT Grant Engle MD GEN LAB UNIT COLLECT ORDERABLES Performing Organization Address City/[facility]/ZIP Co de Phone Number [facility] [address] [place] [address] * CRYSTAL ANALYSIS (08/15/2014 13:53 EDT) Crystal, Fluid Moderate intracellular and extracellular CPPD crystals seen [facility] Comment:Rev'd by Pathologist Body fluid specimen (specimen) SYNOVIAL FLUID / Unknown 08/15/2014 13:53 EDT 08/15/2014 14:14 EDT Grant Engle MD GEN LAB UNIT COLLECT ORDERABLES [facility] [address] [place] [address] documented in this encounter Visit Diagnoses Diagnosis Rheumatoid arthritis(714.0)- Primary Rheumatoid arthritis Pain, joint, knee, right Pain in joint, lower leg Knee effusion, right Effusion of lower leg joint Pain in joint of right knee Pain in joint, lower leg documented in this encounter Discontinued Medications Medication Sig Discontinue Reason Start Date End Da te ibuprofen (MOTRIN) 800 mg tablet Take 1 Tab by mouth 3 times daily. Duplicate Therapy 11/23/2012 08/15/2014 documented as of this encounter Care Teams Crate Icer Relationship Specialty Start Date End Date Breanna Lopez MD [address] [place] [phone] PCP - General 05/22/09 documented as of this encounter
--- OUTSIDE RECORDS SUMMARY | 2024-09-11 17:15 | XMS_ITS | Encounter Summary ---
Author Organization [facility] Address [address] [place] [address] Care Team Providers Care Him Assistant Name Role Phone Breanna Lopez MD Primary Care Provider [phone] Reason for Visit * Reason Onset Date Comments Prior Auth, Medication 10/03/2012 Encounter Details Date Type Department Care Team (Late st Contact Info) Description 10/03/2012 Telephone [facility] Rheumatology & Immunology - [facility] [address] [place] [address] Grant Engle MD [address] [place] [address] Prior Auth, Medication Social History [...] encounter Miscellaneous Notes * Telephone Encounter - Monika Marr - 10/03/2012 1402 EST Enbrel has been approved 10.03.12 through 10.03.2013. documented in this encounter Plan of Treatment Not on file documented as of this encounter Visit Diagnoses Not on filedocumented in this encounter Care Teams Him Assistant Relationship Specialty Start Date End Date Breanna Lopez MD [address] [place] [phone] PCP - General 05/22/09 documented as of this encounter
--- OUTSIDE RECORDS SUMMARY | 2024-09-11 17:15 | XMS_ITS | Encounter Summary ---
Author Organization [facility] Address [address] [place] [address] Care Team Providers Care Professional Shopper Name Role Phone Breanna Lopez MD Primary Care Provider [phone] Reason for Visit * Reason Comments Joint Pain right knee Joint Swelling right knee, would li ke some fluid drained from it today Encounter Details Date Type Department Care Team (Latest Contact Info) Description 11/23/2012 9:00 EST Office Visit [facility] Rheumatology & Immunology - [facility] [address], [place] [address] Grant Engle MD [address] [place] [address] Pain, joint, knee, right (Primary Dx); Rheumatoid arthritis Social History Tobacco Use Types Packs/Day [...] Sign Reading Time Taken Comments Blood Pressure 110/80 11/23/2012 0926 EST Pulse 78 11/23/2012 0926 EST Temperature - - Respiratory Rate 18 11/23/2012 0926 EST Oxygen Saturation - - Inhaled Oxygen Concentration - - Weight 69.9 kg (154 lb) 11/23/2012 0926 EST Height 159.8 cm (5' 2.9) 11/23/2012 0926 EST Body Mass Index 27.37 11/23/2012 0926 EST documented in this encounter Patient Instructions * Patient Instructions* Grant Engle MD - 11/23/2012 10:31 EST Ice the knee 10 mins per hour today Avoid too much weight-bearing for the next 3 days Maintaining proper weight is very important Stay on Enbrel Restart the methotrexate documented in this encounter Ordered Prescriptions Prescription Sig Dispensed Refills Start Date End Da te ibuprofen (MOTRIN) 800 mg tablet Take 1 Tab by mouth 3 times daily. 90 Tab 1 11/23/2012 08/15/2014 methotrexate 2.5 mg tablet Take 8 Tabs by mouth once a week. 32 Tab 6 11/23/2012 07/26/2013 documented in this encounter Progress Notes * Grant Engle MD - 11/23/2012 1308 EST DIVISION OF RHEUMATOLOGY PROGRESS/FOLLOWUP NOTE - 11/23/2012 PROBLEM: 1. Rheumatoid arthritis. 2. Right knee pain. SUBJECTIVE: Hillary was last in to our offices on 05/24/2012. At that visit, she saw Candice Patel. Her left knee was aspirated and 25 mL of fluid was withdrawn. It was injected with 40 mg of Aristospan. Hillary states that she did fairly well for a few weeks, but the pain soon recurred and the swelling soon recurred. The patient notes that she has been very sick of taking medications and so over the summer months she stopped taking all her medications. She states that she had lost about 15 pounds and went down to140 pounds. Since stopping the medications, she has put on weight and now is back to 154. However, unfortunately, the right knee has become more painful during this time. CURRENT MEDICATIONS: Suboxone 0.8 mg in the a.m. and 4 mg in the afternoon. Etanercept 50 mg every seven days. Folic acid 1 mg. Ibuprofen as needed. She is not currently taking the methotrexate or sulfasalazine. She is on a depression medication, but she does not remember the name. REVIEW OF SYSTEMS: A 12-point review of systems is positive for fatigue, weight gain, muscle and joint pain, morning stiffness for about 3 hours, numbness and tingling in her fingers, headaches, muscle weakness, mood changes, depression. All other systems review questions were denied. OBJECTIVE: Blood pressure 110/80, pulse 78, weight 154, height 62.9 inches. She rates pain in the right knee as 8/10. Skin exam is unremarkable. HEENT is within normal limits. Neck supple without lymphadenopathy. Lungs are clear to auscultation. Heart exam reveals normal heart sounds. Abdomen is soft and nontender. Pulses are 2+ bilaterally. Neurologic is intact. Hillary has difficulty getting up out of the chair and stands with her right knee flexed. She has a very antalgic gait and has a difficult time taking weight on her right knee. She has a significant limp. Neck and back move well. She has full range of motion in her shoulders, elbows and wrists. No synovitis is appreciated. Hips range normally. Rani's maneuver is negative. The left knee is normal. Right knee is warm, has a large effusion extending into the suprapatellar space. She has painful extension and flexion and lacks about 10 to 15 degrees of full extension. Ankles and toes, there is mild tenderness in the ankles but no soft tissue swelling and toes are unremarkable. ASSESSMENT: 1. Rheumatoid arthritis. 2. Right knee pain. This patient has had surgical procedures to the right knee. I suspect that thisis a combination of both inflammatory arthritis and degenerative disease. PLAN: 1. Because of the pain and swelling in the knee, I offered Hillary an aspiration and injection. She agreed and signed informed consent. PROCEDURE NOTE: The right knee was prepped and anesthetized with Xylocaine. Using a 20-gauge, 1-/2inch needle, I aspirated 45 mL of fluid from the knee. The fluid was slightly cloudy when first obtained and then very mildly blood- tinged at the end. It was, however, clearly an inflammatory fluid. 1. The knee was injected with 40 mg of Aristospan plus Xylocaine. She had less pain in the knee following the procedure. 2. The patient was advised to ice the knee 10 to 20 minutes per hour today, and she was also advised to avoid as much weightbearing as possible for the next 3 days. 3. The patient will be staying on Enbrel. 4. She should restart the methotrexate since there is clearly inflammation in the knee. She is going to go back on the same dose that she was on before. 5. We discussed diet, and I told her maintaining the proper weight is very important and I think less weight for her would be good in terms of protecting her knee; however, we also discussed the needfor her to have a balanced diet with mostly vegetables and fruit and try to avoid red meat and protein products. 6. 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 The right knee really acts up if she is on her feet too long and she asked me what I thought about partial disability. I believe that this would be very appropriate for this patient since she really does have a fixed medical problem with that right knee. I think eventually she will need a replacement. She is, however, too young to consider that at this time. For that reason, I told her I would support her application for partial disability. 7. I have given her a followup visit in approximately 5 months, but told her I would be available to answer questions if need be. Electronically Signed by Grant Engle MD 11/25/2012 14:05 Grant Engle MD - Grant Engle MD - Job ID: SM Doc ID: [id number] Ext Doc ID: [id number] cc: Breanna Lopez MD documented in this encounter Miscellaneous Notes * Scanned Note-Null - DIE MAINTENANCE TECHNICIAN, SCAN 2 - 11/24/2012 1227 EST documented in this encounter Plan of Treatment Not on file documented as of this encounter Procedures Procedure Name Priority Date/Time Associated Diagnosis Comments BACTERIAL CULTURE/SMEAR, FLUID Routine 11/23/2012 10:38 EST Pain, joint, knee, right CRYSTAL ANALYSIS FLUID ONLY Routine 11/23/2012 10:38 EST Pain, joint, knee, right SYNOVIAL CELL COUNT Routine 11/23/2012 1 0:38 EST Pain, joint, knee, right FLUID DIFFERENTIAL Routine 11/23/2012 10 :38 EST documented in this encounter Results * (ABNORMAL) FLUID DIFFERENTIAL (11/23/2012 10:38 EST) Neutrophils, Synovial Fluid 51(H) 10 - 24 % [facility] Lymphocytes, Synovial Fluid 5(L) 10 - 20 % [facility] [place]/Macro, Synovial Fluid 44(L) 55 - 75 % [facility] 11/23/2012 10:3 8 EST 11/23/2012 10:49 EST Grant Engle MD GEN LAB UNIT COLLECT ORDERABLES Performing Organization Address [facility] de Phone Number [facility] [address] [place] [address] * (ABNORMAL) SYNOVIAL CELL COUNT (11/23/2012 10:38 EST) RBC, Synovial Fluid <37538 /cmm [facility] Nucleated Cells 72221(H) 0 - 200 /cmm [facility] Synovial Fluid Comment YELLOW AND CLOUDY [facility] Body fluid specimen (specimen) FLUID / Unknown 11/23/2012 10:38 EST 11/23/2012 10:49 EST Grant Engle MD GEN LAB UNIT COLLECT ORDERABLES Performing Organization Address City/[facility] de Phone Number [facility] [address] [place] [address] * CRYSTAL ANALYSIS (11/23/2012 10:38 EST) Crystal, Fluid No crystals seen on scan [facility] Body fluid specimen (specimen) SYNOVIAL FLUID / Unknown 11/23/2012 10:38 EST 11/23/2012 10:48 EST Grant Engle MD GEN LAB UNIT COLLECT ORDERABLES Performing Organization Address City/[facility] Co de Phone Number [facility] [address] [place] [address] * BACTERIAL CULTURE/SMEAR, FLUID (11/23/2012 10:38 EST) Specimen Description Synovial Fluid Right Knee Specimen submitted in a syringe [facility] Gram Smear Result Polys present [facility] Gram Smear Result No bacteria seen [facility] Result No growth [facility] Report Status 11/28/2012 Final [facility] Specimen of unknown material (specimen) SYNOVIAL FLUID / Unknown 11/23/2012 10:38 EST 11/23/2012 10:58 EST Grant Engle MD MICROBIOLOGY - GENER AL ORDERABLES [facility] [address] [place] [address] documented in this encounter Visit Diagnoses Diagnosis Pain, joint, knee, right- Primary Pain in joint, lower leg Rheumatoid arthritis(714.0) Rheumatoid arthritis documented in this encounter Historical Medications * This list may reflect changes made after this encounter. Medication Sig Dispensed Refills Start Date End Date VENLAFAXINE HCL (VENLAFAXINE ORAL) Take 1 Tab by mouth daily 03/14/2020 added in this encounter Care Teams Professional Shopper Relationship Specialty Start Date End Date Breanna Lopez MD [address] [place] [phone] PCP - General 05/22/09 documented as of this encounter
--- OUTSIDE RECORDS SUMMARY | 2024-09-11 17:15 | XMS_ITS | Encounter Summary ---
Author Organization [facility] Address [address] [place] [address] Care Team Providers Care Machinist Instructor Name Role Phone Breanna Lopez MD Primary Care Provider [phone] Reason for Visit * Reason Onset Date Comments Medication Management 01/26/2013 Encounter Details Date Type Department Care Team (Late st Contact Info) Description 01/26/2013 Telephone [facility] Rheumatology & Immunology - [facility] [address] [place], [place] [phone] Grant Egnle MD [address] [place] [phone] Medication Management Social History Tobacco [...] * Telephone Encounter - Monika Marr - 01/26/2013 1536 EDT Received voice mail from [employer] stating that they finally reached patient regarding delivery of Enbrel. She informed that she is without health insurance at this time. They wanted us to know that. They are putting her prescription on hold. * Telephone Encounter - Monika Marr - 01/26/2013 0827 EDT I received a fax from [facility] stating that they have been trying to contact patient for delivery of her Enbrel. She has not returned their calls. They want to know if she has stopped using the Enbrel. Please contact them at [phone]. documented in this encounter Plan of Treatment Not on file documented as of this encounter Visit Diagnoses Not on filedocumented in this encounter Care Teams Machinist Instructor Relationship Specialty Start Date End Date Breanna Lopez MD [address] [place] [phone] PCP - General 05/22/09 documented as of this encounter
--- OUTSIDE RECORDS SUMMARY | 2024-09-11 17:15 | XMS_ITS | Encounter Summary ---
Author Organization [facility] Address [address] [place] [address] Care Team Providers Care Evidence Custodian Name Role Phone Breanna Lopez MD Primary Care Provider [phone] Reason for Visit * Reason Onset Date Comments Medication Management 11/24/2012 Encounter Details Date Type Department Care Team (Late st Contact Info) Description 11/24/2012 Telephone [facility] Rheumatology & Immunology - [facility] [address] [place], [place] [address] Grant Engle MD [address] [place] [address] Medication Management Social History Tobacco [...] * Telephone Encounter - Monika Marr - 11/24/2012 4295 EST I received a fax from [facility] stating that they have tried several times to contact patient to coordinate delivery of her Enbrel. They have had no response from her. I called patient's cell phone and spoke with her. She stated that yes she had received the messages and had not hadtime to call them back. She stated she was going to do that right after she got off the phone with me. documented in this encounter Plan of Treatment Not on file documented as of this encounter Visit Diagnoses Not on filedocumented in this encounter Care Teams Evidence Custodian Relationship Specialty Start Date End Date Breanna Lopez MD [address] [place] [phone] PCP - General 05/22/09 documented as of this encounter
--- OUTSIDE RECORDS SUMMARY | 2024-09-11 17:15 | XMS_ITS | Encounter Summary ---
Author Organization [facility] Address [address] [place] [address] Care Team Providers Care Associate Professor Of Biology Name Role Phone Breanna Lopez MD Primary Care Provider [phone] Reason for Visit * Reason Comments Joint Pain knees and left ankle Joint Swelling left knee Encounter Details Date Type Department Care Team (Latest Contact Info) Description 01/05/2012 15:00 EST Office Visit [facility] Rheumatology & Immunology - [facility] [address] [place], [place] [id number] Grant Engle MD [address] [place] [address] Rheumatoid arthritis; Pain, joint, knee, left Discharge Disposition: Auto Discharge Social History Tobacco [...] Sign Reading Time Taken Comments Blood Pressure 120/80 01/05/2012 1607 EST Pulse 66 01/05/2012 1607 EST Temperature - - Respiratory Rate - - Oxygen Saturation - - Inhaled Oxygen Concentration - - Weight 68.9 kg (152 lb) 01/05/2012 1607 EST Height 160 cm (5' 3) 01/05/2012 1607 EST Body Mass Index 26.93 01/05/2012 1607 EST documented in this encounter Patient Instructions * Patient Instructions* Grant Engle MD - 01/05/2012 16:59 EST 1. Ice the knee for 10 mins per hour today 2. Avoid walking for 2 days 3. Return to work on Wednesday 4. Call me next week with an update - knee and ankle 5. Background meds - I don't want to make any decisions now about changing meds documented in this encounter Discharge Disposition Disposition Code Departure Means Destination Auto Discharge documented in this encounter Progress Notes * Grant Engle MD - 01/06/2012 0824 EST DIVISION OF RHEUMATOLOGY PROGRESS/FOLLOWUP NOTE - 01/05/2012 PROBLEM: 1. Rheumatoid arthritis. 2. New onset left knee and ankle pain. SUBJECTIVE: Hillary was last seen by me on 10/06/2011. At that visit, she was having a lot of discomfort in her right knee and had inflammation and fluid. The knee was aspirated and injected and she hasdone well with it. The synovial fluid white count was elevated at 18,000 cells, no crystals, 80% polys. Culture is negative. She states that she was doing quite well. She continues to work at [employer]. 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 About a week and a half ago she began having left knee pain and over the past weekend she developed severe left ankle pain. She isvery hobbled by this. The right knee, which had been injected 3 months ago, still continues to do well. Hillary has continued to make progress with weight loss. She has been on a very good diet, tries to amber bit more active and says she lost a total of 50 pounds. She looks well. She is here today with her expediter whose name is Dionte. Dionte is very active and Hillary would like waldemar more active, but feels more feels limited by her knees and ankle pain. MEDICATIONS: Sulfasalazine 1 gram twice daily. Methotrexate 20 mg weekly. Ibuprofen 800 mg for pain. Folic acid 1 mg. Etanercept SureClick 50 mg weekly. Concerta 54 daily. Suboxone 8 mg in the morning and 4 in the afternoon. REVIEW OF SYSTEMS: A 12-point review of systems is negative for rash or shortness of breath. She has had no cough or fever. She does complain of pain in her joints, particularly her knees and ankles.She was most pain free when she was on methadone. She denies any chills, fever, shortness of breathor cough. No upset stomach, no bowel symptoms, no chest pain, denies numbness, tingling or rash. Overall, her spirits are good and she feels positive about her future. All other systems review questions were denied. OBJECTIVE: Weight is 152, height is 63, BMI is 26.93. She was 173 when I saw her last and that was 26 pounds less than her visit in March 18, so she has in fact lost about 50 pounds. She rates pain as 8/10 and generalized. Blood pressure is 120/80, pulse 66 and regular. Skin exam is unremarkable. HEENT is within normal limits. Neck is supple without lymphadenopathy. Lungs are clear to percussion and auscultation. Cardiac exam reveals regular with normal heart sounds. Abdomen is ____. Pulses are 2+ bilaterally. Neurologic is intact. When Hillary arises, she has a lot of discomfort, particularly in her left knee. She has a very antalgic gait favoring her left leg. She is wearing shoes that have spiked heels, probably about 3 to 4 inch heel. Neck and back move well. She has full range of motion in her shoulders, elbows, wrists and fingers.I do not find any synovitis in the small joints. She has full range of motion of both hips. The right knee is cool, but there is trace fluid, may be some synovial thickening, but range of motion is excellent and is pain free. However, she has significant pain when she puts weight on her left leg. Left knee is warm. She has a large suprapatellar effusion, which can keep be shifted into the joint. The right ankle and toes are normal, but the left ankle there is synovitis and there is some soft tissue swelling in the true ankle joint. There is also painful end range of motion in the left true ankle joint. ASSESSMENT: 1. Rheumatoid arthritis, overall, patient seems to be doing well; however, despite her triple therapy, which includes Enbrel, methotrexate and sulfasalazine she appears to have had a flare in her left knee and left ankle. I wonder if this could be related to the work that she is doing and the fact that she is up and down so much. She likes to work and she should be able to do that as this is not all strenuous. It is also possible that we are losing control with current medications that we would need to make some changes in her background medications. I do not feel comfortable about doing that at this pointsince she is in a flare. PLAN: 1. I outlined for Hillary the following: I will aspirate and inject her left knee and hopefully that will take care of that problem. She may get some systemic benefit from the steroids that I put in theknee. The patient agreed and signed informed consent. PROCEDURE NOTE: The left knee was prepped and aspirated using a 20-gauge, 1-1/2 inch needle. I was able to obtain about 35 mL of turbid fluid that was moderately cloudy. The knee was injected with 40mg of Aristospan plus Xylocaine. Following the procedure, she was able to bend the knee and take weight on it much more easily. Her gait was much more normal. The left ankle is still somewhat painful with range of motion. To continue with the plan: 1. The patient will be icing the knee 10 minutes per hour for the rest of the day. 2. She is then to have a note for work so that she does not work for the next 2 days and can returnto work on the , which would be Wednesday. 3. I am reluctant to make any change in background medications at this point. I would like to see how she responds to the injection. 4. I asked her to call me next week with an update regarding her knee and ankle. 5. She understands that she will have to take it easy with the knee. We did discuss activities thatshe can do and I suggested that perhaps cross-country skiing would be a possibility, but I did not think downhill was a good idea. Her friend likes to ice skate and I am not certain that that is going to be good with her ankle being somewhat complaint at this time. She needs to cautiously and use common sense in terms of getting more physical activity. 6. I will set up followup to see her in approximately 2-1/2 months, sooner if needed. Electronically Signed by Grant Engle MD 01/08/2012 09:32 Grant Engle MD - Grant Engle MD - JG Job ID: Doc ID: [id number] Ext Doc ID: [id number] cc: * Grant Engle MD - 01/05/2012 1800 EST This office note has been dictated. documented in this encounter Miscellaneous Notes * Scanned Note-Null - GREENHOUSE SUPERINTENDENT, SCAN 2 - 01/07/2012 1140 EST documented in this encounter Plan of Treatment Not on file documented as of this encounter Procedures Procedure Name Priority Date/Time Associated Diagnosis Comments CRYSTAL ANALYSIS FLUID ONLY Routine 01/05/2012 17:07 EST Rheumatoid arthritis Pain, joint, knee, left ANAEROBE CULTURE/SMEAR(INC. AEROBES), FLUID Routine 01/05/2012 17:07 EST Rheumatoid arthritis Pain, joint, knee, left SYNOVIAL CELL COUNT Routine 01/05/2012 1 7:07 EST Rheumatoid arthritis Pain, joint, knee, left FLUID DIFFERENTIAL Routine 01/05/2012 17 :07 EST documented in this encounter Results * (ABNORMAL) FLUID DIFFERENTIAL (01/05/2012 17:07 EST) Neutrophils, Synovial Fluid 69(H) 10 - 24 % [facility] Lymphocytes, Synovial Fluid 5(L) 10 - 20 % [facility] Pope/Macro, Synovial Fluid 26(L) 55 - 75 % [facility] Synovial Fluid Comment Rev'd by Pathologist [facility] 01/05/2012 17:0 7 EST 01/05/2012 17:33 EST Grant Engle MD GEN LAB UNIT COLLECT ORDERABLES Performing Organization Address [facility] Co de Phone Number [facility] [address] [place] [address] * ANAEROBE CULTURE/SMEAR(INC. AEROBES), FLUID (01/05/2012 17:07 EST) Specimen Description Synovial Fluid 2 cc Specimen submitted in a syringe [facility] Gram Smear Result Mod Polys [facility] Gram Smear Result Mod Mononuclear cells [facility] Gram Smear Result No bacteria seen [facility] Result No growth [facility] Report Status 01/10/2012 Final [facility] Synovial fluid specimen (specimen) 01/05/2012 17:07 EST 01/05/2012 17:49 EST Grant Engle MD MICROBIOLOGY - GENER AL ORDERABLES Performing Organization Address [facility] de Phone Number [facility] [address] [place] [address] * CRYSTAL ANALYSIS (01/05/2012 17:07 EST) Pathologist [facility] Crystal, Fluid No crystals seen on scan [facility] Comment:Rev'd by Pathologist Body fluid specimen (specimen) 01/05/2012 17:07 EST 01/05/2012 17:33 EST Grant Engle MD GEN LAB UNIT COLLECT ORDERABLES Performing Organization Address [facility] Co de Phone Number [facility] [address] [place] [address] * (ABNORMAL) SYNOVIAL CELL COUNT (01/05/2012 17:07 EST) Pathologist [facility] RBC, Synovial Fluid 156 /cmm [facility] Nucleated Cells 45214(H) 0 - 200 /cmm [facility] Synovial Fluid Comment YELLOW, CLOUDY [facility] Body fluid specimen (specimen) 01/05/2012 17:07 EST 01/05/2012 17:33 EST Grant Engle MD GEN LAB UNIT COLLECT ORDERABLES Performing Organization Address City/State/[facility] Co de Phone Number [facility] [address] [place] [address] documented in this encounter Visit Diagnoses Diagnosis Rheumatoid arthritis(714.0) Rheumatoid arthritis Pain, joint, knee, left Pain in joint, lower leg documented in this encounter Care Teams Associate Professor Of Biology Relationship Specialty Start Date End Date Breanna Lopez MD [address] [place] [phone] PCP - General 05/22/09 documented as of this encounter
--- OUTSIDE RECORDS SUMMARY | 2024-09-11 17:15 | XMS_ITS | Encounter Summary ---
Author Organization [facility] Address [address] [place] [address] Care Team Providers Care Bedspread Folder Name Role Phone Breanna Lopez MD Primary Care Provider Encounter Details Date Type Department Care Team (Late st Contact Info) Description 04/30/2016 Orders Only [facility] Rheumatology & Immunology - [facility] [address] [place], [place] [id number] Rosy Flanagan RN Social History Tobacco Use Types Packs/Day [...] once a week. 4 Pen 2 04/30/2016 08/19/2016 documented in this encounter Plan of Treatment Not on file documented as of this encounter Visit Diagnoses Not on filedocumented in this encounter Discontinued Medications Medication Sig Discontinue Reason Start Date End Da te Etanercept (ENBREL SURECLICK) 50 mg/mL (0.98 mL) pen injector Inject 50 mg into the skin once a week. Reorder 04/30/2016 04/30/2016 documented as of this encounter Care Teams Bedspread Folder Relationship Specialty Start Date End Date Breanna Lopez MD [address] [place] [phone] PCP - General 05/22/09 documented as of this encounter
--- OUTSIDE RECORDS SUMMARY | 2024-09-11 17:15 | XMS_ITS | Encounter Summary ---
Author Organization [facility] Address [address] [place] [address] Care Team Providers Care Refractory Manager Name Role Phone Breanna Lopez MD Primary Care Provider Reason for Visit * Reason Onset Date Comments Prior Auth, Medication 05/17/2015 Encounter Details Date Type Department Care Team (Late st Contact Info) Description 05/17/2015 Telephone [facility] Rheumatology & Immunology - [facility] [address] [place] [address] Grant Engle MD [address] [place] [phone] Prior Auth, Medication Social History [...] mg into the skin once a week 4 Pen 5 05/30/2015 04/27/2016 documented in this encounter Miscellaneous Notes * Telephone Encounter - Monika Marr - 05/29/2015 1443 EDT Enbrel has been approved through 08.29.2015. auth # [id number]. Patient must use [facility], they already have prescription. They should be contacting patient to set up delivery. Will need to have documented improvement to get extended in August. * Telephone Encounter - Monika Marr - 05/17/2015 1511 EDT Request for Enbrel has been submitted to insurance. documented in this encounter Plan of Treatment Not on file documented as of this encounter Visit Diagnoses Diagnosis Pain, joint, knee, right- Primary Pain in joint, lower leg documented in this encounter Discontinued Medications Medication Sig Discontinue Reason Start Date End Da te adalimumab (HUMIRA PEN) 40 mg/0.8 mL pen kit Inject 40 mg into the skin every 14 days Alternate therapy 05/30/2015 documented as of this encounter Care Teams Refractory Manager Relationship Specialty Start Date End Date Breanna Lopez MD [address] [place] [phone] PCP - General 05/22/09 documented as of this encounter
--- OUTSIDE RECORDS SUMMARY | 2024-09-11 17:15 | XMS_ITS | Encounter Summary ---
Author Organization [facility] Address [address] [place] [address] Care Team Providers Care Blending Line Attendant Name Role Phone Breanna Lopez MD Primary Care Provider [phone] Reason for Visit * Reason Onset Date Comments Medication Management 03/15/2012 Encounter Details Date Type Department Care Team (Late st Contact Info) Description 03/15/2012 Telephone [facility] Rheumatology & Immunology - [facility] [address] [place], [place] [phone] Martina Clements, senior payroll administrator Management Social History Tobacco Use Types Packs/Day [...] Telephone Encounter - Martina Clements RN - 03/15/2012 9620 EDT I received a fax [facility] stating that they have been unable to reach the pt to set up for delivery of the Enbrel. I have tried to reach pt as well without success. She has anappt with us in two weeks which she hopefully comes to. We can discuss this issue with her when seen. documented in this encounter Plan of Treatment Not on file documented as of this encounter Visit Diagnoses Not on filedocumented in this encounter Care Teams Blending Line Attendant Relationship Specialty Start Date End Date Breanna Lopez MD [address] [place] [phone] PCP - General 05/22/09 documented as of this encounter
--- OUTSIDE RECORDS SUMMARY | 2024-09-11 17:15 | XMS_ITS | Encounter Summary ---
Author Organization [facility] Address [address] [place] [address] Care Team Providers Care Billiard Table Assembler Name Role Phone Breanna Lopez MD Primary Care Provider [phone] Reason for Visit * Reason Onset Date Comments Knee Pain 11/15/2012 right knee Encounter Details Date Type Department Care Team (Late st Contact Info) Description 11/15/2012 Telephone [facility] Rheumatology & Immunology - [facility] [address] [place], [place] [address] Grant Engle MD [address] [place] [phone] Knee Pain (right knee) Social History Tobacco Use Types Packs/Day Years [...] Telephone Encounter - Michelle Suarez RN - 11/17/2012 0810 EST Pt having right knee pain. Booked to be seen 11/23/12 at 9:00. Pt aware and agreeable with appointment. * Telephone Encounter - Joan Knowles V. - 11/15/[address] Engle, would like to be seen as soon as possible. Next availability is January documented in this encounter Plan of Treatment Not on file documented as of this encounter Visit Diagnoses Not on filedocumented in this encounter Care Teams Billiard Table Assembler Relationship Specialty Start Date End Date Breanna Lopez MD [address] [place] [phone] PCP - General 05/22/09 documented as of this encounter
--- OUTSIDE RECORDS SUMMARY | 2024-09-11 17:15 | XMS_ITS | Encounter Summary ---
Author Organization [facility] Address [address] [place] [address] Care Team Providers Care Hand Almond Blancher Name Role Phone Breanna Lopez MD Primary Care Provider [phone] Reason for Visit * Reason Onset Date Comments Requesting Sooner Appointment 04/05/2015 Encounter Details Date Type Department Care Team (Late st Contact Info) Description 04/05/2015 Telephone [facility] Rheumatology & Immunology - [facility] [address] [place], [place] [address] Grant Engle MD [address] [place] [phone] Requesting Sooner Appointment Social History Tobacco Use Types Packs/Day [...] Telephone Encounter - Tonia Jain RN - 04/10/2015 7783 EDT Left message for patient to schedule a sooner appt with Dr. Engle to discuss treatment plan. She has 05/[address] Engle can seen her tomorrow. Asked patient to call back. [facility] called and I told them to put the Humira script on hold. We should call them back when we know if the script will be canceled. I told them the Humira prior auth request is on hold because patient will likely be switching to something else. * Telephone Encounter - Grant Engle MD - 04/05/2015 1238 EDT I left a msg on Hillary's phone that I would like to see her soon Possibility would be April 11 in AM documented in this encounter Plan of Treatment Not on file documented as of this encounter Visit Diagnoses Not on filedocumented in this encounter Care Teams Hand Almond Blancher Relationship Specialty Start Date End Date Breanna Lopez MD [address] [place] [phone] PCP - General 05/22/09 documented as of this encounter
--- OUTSIDE RECORDS SUMMARY | 2024-09-11 17:15 | XMS_ITS | Encounter Summary ---
Author Organization [facility] Address [address] [place] [address] Care Team Providers Care Resource Teacher Name Role Phone Breanna Lopez MD Primary Care Provider [phone] Reason for Visit * Reason Comments Follow-up had problems getting enbrel, is about a week and a half over due for injection, pt states she is still having knee problems and that her patella feels out of place. Encounter Details Date Type Department Care Team (Latest Contact Info) Description 10/06/2011 10:30 EST Office Visit [facility] Rheumatology & Immunology - [facility] [address], [place] [id number] Grant Engle MD [address] [place] [address] Pain, joint, knee, right (Primary Dx) Social History Tobacco Use Types [...] Sign Reading Time Taken Comments Blood Pressure 106/76 10/06/2011 1044 EST Pulse 60 10/06/2011 1044 EST Temperature - - Respiratory Rate - - Oxygen Saturation - - Inhaled Oxygen Concentration - - Weight 78.5 kg (173 lb) 10/06/2011 1044 EST Height 160 cm (5' 3) 10/06/2011 1044 EST Body Mass Index 30.65 10/06/2011 1044 EST documented in this encounter Patient Instructions * Patient Instructions* Grant Engle MD - 10/06/2011 11:49 EST Ice the knee today 10 mins per hour Avoid too much weight-bearing for 48 hours Call in 2 weeks with an update Right wrist splint I would not recommend skiing documented in this encounter Ordered Prescriptions Prescription Sig Dispensed Refills Start Date End Da te ibuprofen (MOTRIN) 800 mg tabletIndications:Pain, joint, knee, right Take 1 Tab by mouth every 8 hours as needed for Pain. 270 Tab 3 10/06/2011 05/17/2012 folic acid (FOLVITE) 1 mg tabletIndications:Pain, joint, knee, right Take 1 Tab by mouth daily. 90 Tab 3 10/06/2011 05/17/2012 methotrexate 2.5 mg tabletIndications:Pain, joint, knee, right Take 8 Tabs by mouth once a week. 96 Tab 3 10/06/2011 05/17/2012 methotrexate 2.5 mg tabletIndications:Pain, joint, knee, right Take 8 Tabs by mouth once a week. 32 Tab 11 10/06/2011 10/06/2011 documented in this encounter Progress Notes * Grant Engle MD - 10/08/2011 1033 EST DIVISION OF RHEUMATOLOGY PROGRESS/FOLLOWUP NOTE - 10/06/2011 PROBLEM: 1. Rheumatoid arthritis. 2. Right knee pain. SUBJECTIVE: Hillary was last in to see me 6 months ago on 03/18/2011. A lot has happened since her last visit. Apparently, she was admitted to [facility] for recurrence of her addiction. She says she had a very good stay there. She has been out now for a couple months and is using Suboxone. She is also going to regular meetings. Hillary is feeling very positive. 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 She enjoys the work and feels that it can be a more permanent position which will grow. She is living with her boyfriend and her son and her mother. Her divorce has been finalized, and that was a difficult period. Her major complaint, in terms of her arthritis, is her right knee. Her other joints, she says, are doing very well; and she notes that the Enbrel really seems to be controlling her symptoms. CURRENT MEDICATIONS: Buprenorphine 8 mg in the morning and 4 in the afternoon. Etanercept 50 mg weekly. Folic acid 1 mg. Ibuprofen 800 as needed. Methotrexate 20 mg weekly. Concerta 54 CR tablet daily. Sulfasalazine 1 gram b.i.d. REVIEW OF SYSTEMS: A 12-point review of systems is positive for right wrist pain occasionally and occasional numbness in the right hand, the persistent and painful right knee. She has had no problemswith cough or shortness of breath. She has lost 35 pounds and that has been intentional. She has tried to be more active and eat well. She has had no problems with her GI tract, denies any urinary symptoms. No headaches. Her spirits are fairly good. All other systems review questions were denied. OBJECTIVE: Hillary is in good spirits. She rates pain in her right knee as 8/10. Blood pressure is 106/76, pulse is 60. Weight is 173. This is a 26-pound weight loss from her visit in 03/2011. Height is 63 inches, and BMI is 30.65. Skin exam is unremarkable. Head, eyes, ears, nose and throat are negative. Neck is supple without lymphadenopathy. Lungs are clear to percussion and auscultation. Cardiac exam reveals normal heart sounds and rhythm. Abdomen is soft and nontender. Her pulses are 2+ bilaterally. Neurologic intact. Musculoskeletal exam: She has pain in the right wrist with some very mild soft tissue swelling. There is particularly pain with palmar flexion. Tinel's sign is negative bilaterally. I do not find synovitis in the fingers. Elbows range normally. She has mild pain and an impingement in the right shoulder. The left shoulder ranges normally. Neck and low back move normally. She has an antalgic gait favoring her right knee. The right knee is slightly warm. There is a sizable effusion. She has painful flexion. She can extend fully. There is significant patellofemoral crepitus. The left knee and both hips are normal. Ankles and toes are unremarkable. She has no synovitis in the MTP joints. ASSESSMENT: 1. Rheumatoid arthritis. Overall, the patient is doing well on combination etanercept, methotrexateand sulfasalazine. 2. Right knee pain. This represents a more complex and difficult problem. The patient, I think, hasstructural changes in the knee; so I do not think that this will ever get back to normal. However, one would hope that we can reduce the inflammation. PLAN: 1. I offered Hillary an aspiration and injection of her right knee to see if we can quiet down the inflammation. She agreed The patient signed informed consent. PROCEDURE NOTE: Using a 20-gauge, 1-1/2 inch needle, I approached the knee using a medial insertion. I obtained a 25 mL of cloudy fluid. The knee was injected with 40 mg of Aristospan. She tolerated the procedure well and was able to walk more easily following the procedure. 2. The patient will be icing the right knee today 10 minutes per hour, and I have asked her to limit weightbearing for the next 2 to 3 days. 3. There is no evidence of carpal tunnel syndrome, but because of the work she is doing with her right hand I think she would benefit from the use of a carpal tunnel splint. For that reason, I gave her a referral and fitted her for one to show her what it would feel like when she obtains it. 4. The patient will avoid activities such as skiing. I do think she should lose weight, but I wouldrather not do activities that will make the right knee worse. 5. She will call in 2 weeks with an update. 6. I have given the patient a followup for 6 months. She knows to call if she is not doing well. Synovial fluid analysis: WBC 18,000, 80% PMN No crystals Gram stain and culture negative Electronically Signed by Grant Engle MD 10/09/2011 14:39 Grant Engle MD - Grant Engle MD - [facility] Job ID: SM Doc ID: [id number] Ext Doc ID: [id number] cc: Breanna Lopez MD * Grant Engle MD - 10/06/2011 1359 EST This office note has been dictated. documented in this encounter Miscellaneous Notes * Scanned Note-Null - Hide Salter, Scan - 10/07/2011 1046 EST documented in this encounter Plan of Treatment Not on file documented as of this encounter Procedures Procedure Name Priority Date/Time Associated Diagnosis Comments BACTERIAL CULTURE/SMEAR, FLUID Routine 10/06/2011 11:54 EST Pain, joint, knee, right CRYSTAL ANALYSIS FLUID ONLY Routine 10/06/2011 11:54 EST Pain, joint, knee, right SYNOVIAL CELL COUNT Routine 10/06/2011 1 1:54 EST Pain, joint, knee, right FLUID DIFFERENTIAL Routine 10/06/2011 11 :54 EST documented in this encounter Results * (ABNORMAL) FLUID DIFFERENTIAL (10/06/2011 11:54 EST) Neutrophils, Synovial Fluid 80(H) 10 - 24 % [facility] Lymphocytes, Synovial Fluid 10 10 - 20 % [facility] Richardson/Macro, Synovial Fluid 10(L) 55 - 75 % [facility] 10/06/2011 11:5 4 EST 10/06/2011 12:10 EST Grant Engle MD GEN LAB UNIT COLLECT ORDERABLES [facility] [address] [place] [address] * CRYSTAL ANALYSIS (10/06/2011 11:54 EST) Crystal, Fluid No crystals seen on scan [facility] Comment:Rev'd by Pathologist Body fluid specimen (specimen) 10/06/2011 11:54 EST 10/06/2011 12:11 EST Grant Engle MD GEN LAB UNIT COLLECT ORDERABLES Performing Organization Address [facility] de Phone Number [facility] [address] [place] [address] * (ABNORMAL) SYNOVIAL CELL COUNT (10/06/2011 11:54 EST) RBC, Synovial Fluid 50 /cmm [facility] Nucleated Cells 53919(H) 0 - 200 /cmm [facility] Synovial Fluid Comment Moderately cloudy [facility] Comment:YELLOW Body fluid specimen (specimen) 10/06/2011 11:54 EST 10/06/2011 12:10 EST Grant Engle MD GEN LAB UNIT COLLECT ORDERABLES Performing Organization Address [facility] de Phone Number [facility] [address] [place] [address] * BACTERIAL CULTURE/SMEAR, FLUID (10/06/2011 11:54 EST) Specimen Description Synovial Fluid Right Knee Specimen submitted in a syringe [facility] Gram Smear Result Polys present [facility] Gram Smear Result Mononuclear cells present [facility] Gram Smear Result No bacteria seen [facility] Result No growth [facility] Report Status 10/11/2011 Final [facility] Synovial fluid specimen (specimen) 10/06/2011 11:54 EST 10/06/2011 12:18 EST Grant Engle MD MICROBIOLOGY - GENER AL ORDERABLES Performing Organization Address [facility] de Phone Number [facility] [address] [place] [address] documented in this encounter Visit Diagnoses Diagnosis Pain, joint, knee, right- Primary Pain in joint, lower leg documented in this encounter Discontinued Medications Medication Sig Discontinue Reason Start Date End Da te METHADONE HCL (METHADONE ORAL) Take 120 mg by mouth daily. Patient Stopped Taking 09/23/2010 10/06/2011 methotrexate 2.5 mg tablet Take 8 Tabs by mouth once a week. Take 8 tabs by mouth daily Reorder 07/07/2011 10/06/2011 ibuprofen (MOTRIN) 200 mg tablet Take 1 Tab by mouth every 6 hours as needed. 07/07/2011 10/06/2011 methotrexate 2.5 mg tabletIndications:Pain, joint, knee, right Take 8 Tabs by mouth once a week. Reorder 10/06/2011 10/06/2011 folic acid (FOLVITE) 1 mg tablet Take 1 Tab by mouth daily. Reorder 07/07/2011 10/06/2011 documented as of this encounter Historical Medications * This list may reflect changes made after this encounter. Medication Sig Dispensed Refills Start Date End Date methylphenidate (CONCERTA) 54 mg CR tabletIndications:Pain, joint, knee, right Take 54 mg by mouth daily. 03/14/2020 buprenorphine-naloxone 12-3 mg filmIndications:Pain, joint, knee, right Place 1 Film under the tongue daily. 06/16/2023 added in this encounter Care Teams Resource Teacher Relationship Specialty Start Date End Date Breanna Lopez MD [address] [place] [phone] PCP - General 05/22/09 documented as of this encounter
--- OUTSIDE RECORDS SUMMARY | 2024-09-11 17:15 | XMS_ITS | Encounter Summary ---
Author Organization [facility] Address [address] [place] [address] Care Team Providers Care State Appellate Clerk Name Role Phone Breanna Lopez MD Primary Care Provider [phone] Reason for Visit * Reason Onset Date Comments Prior Auth, Medication 11/10/2013 Encounter Details Date Type Department Care Team (Late st Contact Info) Description 11/10/2013 Telephone [facility] Rheumatology & Immunology [facility] [address] [place] [address] Grant Engle MD [address] [place] [address] Prior Auth, Medication Social History [...] Telephone Encounter - Teena Yu RN - 11/10/2013 1038 EST Unable to reach the patient, letter has been sent. See letter for details. * Telephone Encounter - Monika Marr - 11/10/2013 0930 EST Enbrel has been approved through 11.09.2014. Must obtain through [facility]. documented in this encounter Plan of Treatment Not on file documented as of this encounter Visit Diagnoses Not on filedocumented in this encounter Care Teams State Appellate Clerk Relationship Specialty Start Date End Date Breanna Lopez MD [address] [place] [phone] PCP - General 05/22/09 documented as of this encounter
--- OUTSIDE RECORDS SUMMARY | 2024-09-11 17:15 | XMS_ITS | Encounter Summary ---
Author Organization [facility] Address [address] [place] [address] Care Team Providers Care Route Carrier Name Role Phone Breanna Lopez MD Primary Care Provider [phone] Reason for Visit * Reason Comments Follow-up RA--last visit 2--c/o right knee pain and swelling--would like it aspirated today Encounter Details Date Type Department Care Team (Latest Contact Info) Description 05/17/2012 10:15 EDT Office Visit [facility] Rheumatology [facility] [address] [place], [place] [id number] Grant Engle MD [address] [place] [address] Rheumatoid arthritis; Pain, joint, knee, right Social History Tobacco [...] Sign Reading Time Taken Comments Blood Pressure 104/76 05/17/2012 1040 EDT Pulse 88 05/17/2012 1040 EDT Temperature 36.6 ??C (97.8 ??F) 05/17/2012 1040 EDT Respiratory Rate 16 05/17/2012 1040 EDT Oxygen Saturation - - Inhaled Oxygen Concentration - - Weight 68.9 kg (152 lb) 05/17/2012 1040 EDT Height 160 cm (5' 3) 05/17/2012 1040 EDT Body Mass Index 26.93 05/17/2012 1040 EDT documented in this encounter Patient Instructions * Patient Instructions* Grant Engle MD - 05/17/2012 11:10 EDT 1. Not sure what caused the numbness in fingers 2. If we drain the right knee, we'll get an xray before the appt 3. No change in meds documented in this encounter Ordered Prescriptions Prescription Sig Dispensed Refills Start Date End Da te ibuprofen (MOTRIN) 800 mg tabletIndications:Pain, joint, knee, right Take 1 Tab by mouth every 8 hours as needed for Pain. 270 Tab 3 05/17/2012 07/26/2013 sulfaSALAzine (AZULFIDINE) 500 mg tablet Take 2 Tabs by mouth 2 times daily with breakfast and dinner. 120 Tab 5 05/17/2012 07/26/2013 folic acid (FOLVITE) 1 mg tabletIndications:Pain, joint, knee, right Take 1 Tab by mouth daily. 90 Tab 3 05/17/2012 07/26/2013 methotrexate 2.5 mg tabletIndications:Pain, joint, knee, right Take 8 Tabs by mouth once a week. 96 Tab 3 05/17/2012 07/26/2013 documented in this encounter Progress Notes * Grant Engle MD - 05/18/2012 1140 EDT DIVISION OF RHEUMATOLOGY [facility] PROGRESS/FOLLOWUP NOTE - 05/17/2012 PROBLEM: 1. Rheumatoid arthritis. 2. Pain in right knee. SUBJECTIVE: Hillary's last visit to see me was on 01/05/2012. At that visit, I aspirated and injected her left knee. That left knee has done well; however, her right knee, which has been her major problem is now swollen and painful. Hillary is no longer working on the [employer], they closed for the season, there are very few guests. 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 Shehopes to get back to do the job when the season begins. CURRENT MEDICATIONS: Buprenorphine, 8 mg in a.m. and 4 in the afternoon. Etanercept 50 mg once weekly. Folic acid 1 mg. Ibuprofen 800 as needed. Methotrexate 20 mg weekly. Concerta 54, CR, daily. Sulfasalazine 1 gram twice daily. Hillary states that she had an episode where her fingers went numb. It lasted for several minutes. Shedoes not think she was doing anything differently. It happened a second time and even lasted longer. It does not appear to be related to any activity. She says it happens in both hands simultaneously. REVIEW OF SYSTEMS: A 12-point review of systems is positive for fatigue, weight loss, which has been intentional, about 2 hours of morning stiffness, muscle and joint pain, muscle weakness and difficulty sleeping. All other systems review questions were denied. OBJECTIVE: Blood pressure 104/76, pulse 88, temperature 97.8. Weight 152, height 63 inches. Her weight is stable according to my note. Skin exam is unremarkable. HEENT is within normal limits. Neck is supple without lymphadenopathy. Lungs are clear to auscultation. Cardiac exam reveals normal heart sounds. Abdomen is soft and nontender. Pulses are 2+ bilaterally. Neurologic is intact. She has negative Tinel's sign bilaterally. Phalen's sign is also negative bilaterally. A complete musculoskeletal exam was performed. The patient has an antalgic gait because of pain in the right knee. She has limited ability to do a knee bend. The hands are normal, no synovitis is appreciated. Elbows, shoulders, neck and back move well. She has an antalgic gait because of the right knee. Hips move fine. She has no fluid or pain and the left knee range of motion is full. On the right knee, there is a 2 to 3+, fluid with suprapatellar extension. The knee is warm. She has painful end range of motion. ASSESSMENT: Rheumatoid arthritis, doing well overall with the exception of continued problems with the right knee. Hillary clearly could benefit from a right knee aspiration. However, it has been a while since we havehad x-rays and I would like to see films before doing the procedure. She is quite young to consider a total knee replacement at only 31, but the right knee has been a recurrent problem for some time. We will see if there is a lot of damage on the x-rays. PLAN: 1. The patient will be seen in [place] in the near future. We will obtain an x-ray of both kneesweightbearing and lateral prior to the visit. 2. If the joint looks okay I will aspirate and inject the right knee again. 3. Overall, her joints are doing well with her current regimen and I do not think that there is anyneed to change things. One consideration would be a synovectomy of her right knee to see if we can halt the recurring inflammation. Electronically Signed by Grant Engle MD 05/19/2012 13:20 Grant Engle MD - Grant Engle MD - [facility] Job ID: SM Doc ID: [id number] Ext Doc ID: [id number] cc: Breanna Lopez MD * Grant Engle MD - 05/17/2012 1317 EDT This office note has been dictated. documented in this encounter Plan of Treatment Not on file documented as of this encounter Visit Diagnoses Diagnosis Rheumatoid arthritis(714.0) Rheumatoid arthritis Pain, joint, knee, right Pain in joint, lower leg documented in this encounter Discontinued Medications Medication Sig Discontinue Reason Start Date End Da te methotrexate 2.5 mg tabletIndications:Pain, joint, knee, right Take 8 Tabs by mouth once a week. Reorder 10/06/2011 05/17/2012 folic acid (FOLVITE) 1 mg tabletIndications:Pain, joint, knee, right Take 1 Tab by mouth daily. Reorder 10/06/2011 05/17/2012 sulfaSALAzine (AZULFIDINE) 500 mg tablet Take 2 Tabs by mouth 2 times daily with meals. Reorder 07/07/2011 05/17/2012 ibuprofen (MOTRIN) 800 mg tabletIndications:Pain, joint, knee, right Take 1 Tab by mouth every 8 hours as needed for Pain. Reorder 10/06/2011 05/17/2012 documented as of this encounter Care Teams Route Carrier Relationship Specialty Start Date End Date Breanna Lopez MD [address] [place] [phone] PCP - General 05/22/09 documented as of this encounter
--- OUTSIDE RECORDS SUMMARY | 2024-09-11 17:15 | XMS_ITS | Encounter Summary ---
Author Organization [facility] Address [address] [place] [address] Care Team Providers Care Dispatcher Service Name Role Phone Breanna Lopez MD Primary Care Provider [phone] Reason for Visit * Reason Comments Joint Pain Generalized joint pa in. Constantly uncomfortable. Having a hard time with her ADLs. Left wrist and right knee are the worst. Both are swollen. Encounter Details Date Type Department Care Team (Latest Contact Info) Description 03/01/2015 15:45 EDT Office Visit [facility] Rheumatology & Immunology - [facility] [address], [place] [id number] Mayr Prado PA-C [address] [place], [place] [id number] Rheumatoid arthritis (Primary Dx); History of calcium pyrophosphate deposition disease (CPPD); Encounter for long-term (current) use of other medications Social History Tobacco Use Types Packs/Day Years Used Date Smoking Tobacco: Every Day Cigarettes 1 29.5 Started: 03/01/1995 Smokeless Tobacco: Never Tobacco Cessation:Ready to Q uit: No; Counseling Given: No Alcohol Use Standard Drinks/Week Comments Yes 0 [...] Sign Reading Time Taken Comments Blood Pressure 130/70 03/01/2015 1605 EDT Pulse 88 03/01/2015 1605 EDT Temperature - - Respiratory Rate 16 03/01/2015 1605 EDT Oxygen Saturation - - Inhaled Oxygen Concentration - - Weight 75.8 kg (167 lb) 03/01/2015 1605 EDT Height 159.4 cm (5' 2.75) 03/01/2015 1605 EDT Body Mass Index 29.82 03/01/2015 1605 EDT documented in this encounter Patient Instructions * Patient Instructions* Mary Prado PA - 03/01/2015 16:53 EDT We need to change biologics as Humira isn't working. I am going to discuss this with Dr. Engle next week and will call you with our recommendations. Ok to continue Humira in the meantime but you will need to wait at least 2 weeks after your last Humira dose to start something new. Ok to repeat the Prednisone taper to help with joint symptoms while the above medication change takes place. Start with 6 tabs daily for 4 days then decrease by 1 tab every 4 days until off. Also continue Methotrexate 8 tabs weekly. Please have labs checked by the end of this month. Remember to have labs repeated every 3-4 months while on Methotrexate. I will be in touch with you regarding our medication recommendations. I would also like you to schedule a follow up with Dr. Engle in 3 months. documented in this encounter Ordered Prescriptions Prescription Sig Dispensed Refills Start Date End Da te predniSONE (DELTASONE) 5 mg tablet 6 tabs/day x 4 days, 5 tabs/day x 4 days, 4 tabs/day x 4 days, 3 tabs/day x 4 days, 2 tabs/day x 4 days, 1 tab/day x 4 days, then stop 84 Tab 0 03/01/2015 05/15/2015 documented in this encounter Progress Notes * Mary Prado PA - 03/01/2015 1613 EDT Images from the original note were not included. Division of Rheumatology and Clinical Immunology Chief Complaint Patient presents with ??? Joint Pain Generalized joint pain. Constantly uncomfortable. Having a hard time with her ADLs. Left wrist and right knee are the worst. Both are swollen. HPI: Ms. Hillary Youssef is a 34 y.o. female here for follow up of RA. Last seen in clinic (by Dr. Engle) ~6 1/2 months ago. Changes since last visit: Enbrel felt to be losing effectiveness so switched to Humira ~2 months ago. Unfortunately it isn't working as well. Joints have been flaring since making the change. Even after 2 months I'm still swollen up to beat the band. Affected joints: My whole body is pretty bad but left wrist and right knee are the worst. Both painful and swollenlimiting use. Symptoms improved temporarily while on a Prednisone taper at the end of December but relief was short-lived. AM stiffness: Lasts 2-3 hours Physical activity: Stays active through work and with family (single parent) Functional Limitations: Having difficulty with ADLs due to recent flare Current Outpatient Prescriptions Medication Sig Dispense Refill ??? adalimumab (HUMIRA PEN) 40 mg/0.8 mL pen kit Inject 40 mg into the skin every 14 days Started ~2 months ago. Tolerating ok (no reported side effects). No recent infections. ??? BUPRENORPHINE HCL/NALOXONE HCL (SUBOXONE SL) Place under the tongue daily. 8 MG IN THE AM AND 4MG IN THE AFTERNOON ??? folic acid (FOLVITE) 1 mg tablet Take 1 Tab by mouth daily. 90 Tab 3 ??? ibuprofen (MOTRIN) 800 mg tablet Take 1 Tab by mouth every 8 hours as needed for Pain. Infrequent use. 270 Tab 3 ??? methotrexate 2.5 mg tablet Take 8 Tabs by mouth once a week. Tolerates ok without reported side effects. 96 Tab 3 ??? methylphenidate (CONCERTA) 54 mg CR tablet Take 54 mg by mouth daily. ??? VENLAFAXINE HCL (VENLAFAXINE ORAL) Take by mouth. Allergies include: Review of patient's allergies indicates no known allergies. No past medical history on file. Significant for RA. No past surgical history on file. No family history on file. History Social History ??? Marital Status: Legally Social History Main Topics ??? Smoking status: Current Every Day Smoker -- 1.00 packs/day Types: Cigarettes Start date: 03/01/1995 ??? Smokeless tobacco: Never Used ??? Alcohol Use: Yes Comment: Rare social drinker ??? Drug Use: No REVIEW OF SYSTEMS: As documented by Nurses/MAs during this visit and reviewed by me (ANKUR). PHYSICAL EXAMINATION: Constitutional: Pleasant, well developed, well nourished female in no acute distress. BP 130/70 Pulse 88 Resp 16 Ht 159.4 cm (62.75) Wt 75.751 kg (167 lb) BMI 29.81 kg/m2 HEENT: PERRL, EOM's intact, no occular inflammation. Oropharynx clear, throat normal without erythema or exudate, no oral ulcers. No lymphadenopathy. RESPIRATORY: Clear to auscultation bilaterally; no adventitious sounds. CARDIOVASCULAR: Regular rate and rhythm, normal S1S2, no murmurs/gallops/rubs. SKIN: No rashes. NEUROLOGIC: Mental status normal. Mildly antalgic gait without an assistive device. Moves on/off exam table independently. Muscle strength not formally assessed but moving all extremities against gravity. MUSCULOSKELETAL: A complete msk exam including bilateral upper and lower extremities was done and was normal except for abnormal findings shown on homonculus. RAPID3 Score: As documented by Nurses/MAs during this visit and reviewed by me (ANKUR). LABS: No recent labs on file. Patient thinks it has been > 1 year since she last had labs checked. Imaging: None recent Impression/Plan: Rheumatoid arthritis. Flaring on Humira. Need to change biologics. We discussed trying another TNF-inhibitor (Simponi/Cimizia/Infliximab) or switching to a different class all together (Actemra/Orencia/Rituxan/Xeljanz). All reviewed in length. Hillary and I would appreciate Dr. Engle's input as he has been treating her for quite some time and is more familiar with her history than I am. I will confer with him next week and get back to her with our recommendations. Ok to repeat Prednisone taper tohelp with joint symptoms in the meantime. I completed a more extensive chart review after Hillary left clinic. Interestingly synovial aspirate from right knee showed moderate intra and extracellular CPPD crystals in August 2014. Aspirate from January 2014 was inflammatory but no crystals identified. Rare intracellular CPPD crystals were seen back in July 2013. 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 Question whether patient may benefit from prophylactic Colchicine? For the most part it sounds like Hillary did well on Enbrelwith the exception of recurrent right knee flares. Therefore I wonder if it might be an option to restart this along with Colchicine? Will run this by Dr. Engle when I meet with him next week. Encounter for fdc use of medication. Overdue for labs. Hillary would prefer to have these done in [place] (external orders provided). I explained that we will not be able to refill Methotrexate until we have updated results. Patient Instructions: 1. We need to change biologics as Humira isn't working. I am going to discuss this with Dr. Engle next week and will call you with our recommendations. Ok to continue Humira in the meantime but you will need to wait at least 2 weeks after your last Humira dose to start something new. 2. Ok to repeat the Prednisone taper to help with joint symptoms while the above medication change takes place. Start with 6 tabs daily for 4 days then decrease by 1 tab every 4 days until off. 3. Also continue Methotrexate 8 tabs weekly. Please have labs checked by the end of this month. Remember to have labs repeated every 3-4 months while on Methotrexate. 4. I will be in touch with you regarding our medication recommendations. I would also like you to schedule a follow up with Dr. Engle in 3 months. Barriers to learning identified: No Patient verbalizes understanding and agrees with plan: Yes I was supervised by Dr. Espinosa who was in the suite and immediately available for the entire time the service was provided. JL Villagomez 03/01/2015 16:130 I was available in the office suite at the time of the visit for consultation if needed. Franki Espinosa MD 03/01/2015 * Rosy Flanagan RN - 03/01/2015 3353 EDT REVIEW OF SYSTEMS: Yes No Yes No Fever X Joint pain X Weight gain or loss pounds (lbs) Duration of AM joint stiffness 2-3 hours / min Eye pain or dryness X Numbness/tingling X Mouth or nose sores X Heart burn / Nausea X Chest pain X Diarrhea X Shortness of Breath X Blood in stool X Cough X Burning on urination X Skin rash X Hand/Foot color change in cold X RAPID3 SCORE Over the last week were you able to: a. Dress yourself including tying shoelaces / doing buttons? 1 0 = Without ANY difficulty 1 = With SOME difficulty 2 = With MUCH difficulty 3 = UNABLE to do Conversion scale: 1=0.3 2=0.7 3=1.0 4=1.3 5=1.7 6=2.0 7=2.3 8=2.7 9=3.0 10=3.3 11=3.7 12=4.0 13=4.3 14=4.7 15=5.0 16=5.3 17=5.7 18=6.0 19=6.3 20=6.7 21=7.0 22=7.3 23=7.7 24=8.0 25=8.3 26=8.7 27=9.0 28=9.3 29=9.7 30=10 b. Get in and out of bed? 2 c. Lift a full cup or glass to your mouth? 0 d. Walk outdoors on flat ground? 1 e. Wash and dry your entire body? 1 f. Bend down to black pickler clothing from the floor? 1 g. Turn regular faucets on and off? 0 h. Get in and out of a car, bus, train or airplane? 2 i. Walk two miles or three kilometers, if you wish? 2 j. Participate in recreational activities/sports, if you wish? 2 TOTAL = 12 FUNCTION (FN) (Use conversion scale) = 4 (Use conversion scale above) Get a good night???s sleep? 2 0 = Without ANY difficulty (0.0) 1 = With SOME difficulty (1.1) 2 = With MUCH difficulty (2.2) 3 = UNABLE to do (3.3) Deal with feelings of anxiety or being nervous? 1 Deal with feelings of depression or feeling blue? 1 PAIN (PN) = 6.5 0-10 PATIENT GLOBAL (PTGE) = 6.5 0-10 RAPID3 SCORE (FN + PN + PTGE) = 17 0-30 documented in this encounter Plan of Treatment Not on file documented as of this encounter Visit Diagnoses Diagnosis Rheumatoid arthritis- Primary History of calcium pyrophosphate deposition disease (CPPD) Personal history of arthritis Encounter for long-term (current) use of other medications documented in this encounter Discontinued Medications Medication Sig Discontinue Reason Start Date End Da te Etanercept (ENBREL SURECLICK) 50 mg/mL (0.98 mL) Pen Injector Inject 50 mg into the skin every 7 days. Alternate therapy 07/26/2013 03/01/2015 predniSONE (DELTASONE) 5 mg tablet 6 tabs/day x 3 days, 5 tabs/day x 3 days, 4 tabs/day x 3 days, 3 tabs/day x 3 days, 2 tabs/day x 3 days, 1 tab/day x 3 days, then stop Therapy completed 01/01/2015 03/01/2015 documented as of this encounter Historical Medications * This list may reflect changes made after this encounter. Medication Sig Dispensed Refills Start Date End Date adalimumab (HUMIRA PEN) 40 mg/0.8 mL pen kit Inject 40 mg into the skin every 14 days 05/30/2015 added in this encounter Care Teams Dispatcher Service Relationship Specialty Start Date End Date Breanna Lopez MD [address] [place] [phone] PCP - General 05/22/09 documented as of this encounter
--- OUTSIDE RECORDS SUMMARY | 2024-09-11 17:15 | XMS_ITS | Encounter Summary ---
Author Organization [facility] Address [address] [place] [address] Care Team Providers Care Bond Manager Name Role Phone Breanna Lopez MD Primary Care Provider [phone] Reason for Visit * Reason Onset Date Comments Medication Management 04/07/2013 Encounter Details Date Type Department Care Team (Late st Contact Info) Description 04/07/2013 Telephone [facility] Rheumatology & Immunology - [facility] [address], [place] [address] Grant Engle MD [address] [place] [address] Medication Management Social History Tobacco [...] Telephone Encounter - Teena Yu RN - 04/07/2013 1050 EDT Left a message for the patient regarding Efren's inability to contact her. Asked her to please call us back. * Telephone Encounter - Monika Marr - 04/07/2013 1031 EDT Received fax from [employer] stating they have been trying to contact patient for delivery of med, but she is not returning their calls. documented in this encounter Plan of Treatment Not on file documented as of this encounter Visit Diagnoses Not on filedocumented in this encounter Care Teams Bond Manager Relationship Specialty Start Date End Date Breanna Lopez MD [address] [place] [phone] PCP - General 05/22/09 documented as of this encounter
--- OUTSIDE RECORDS SUMMARY | 2024-09-11 17:15 | XMS_ITS | Encounter Summary ---
Author Organization [facility] Address [address] [place] [address] Care Team Providers Care Police Captain Precinct Name Role Phone Breanna Lopez MD Primary Care Provider [phone] Encounter Details Date Type Department Care Team (Late st Contact Info) Description 01/28/2012 Orders Only [facility] Rheumatology & Immunology - [facility] [address], [place] [phone] Teena Yu RN Rheumatoid arthritis (Primary Dx) Social History Tobacco Use Types [...] 0:23 EDT documented as of this encounter Progress Notes * Teena Yu RN - 01/28/2012 1542 EDT Script for closer parking mailed to patients home address per documented in this encounter Plan of Treatment Not on file documented as of this encounter Visit Diagnoses Diagnosis Rheumatoid arthritis(714.0)- Primary Rheumatoid arthritis documented in this encounter Care Teams Police Captain Precinct Relationship Specialty Start Date End Date Breanna Lopez MD [address] [place] [phone] PCP - General 05/22/09 documented as of this encounter
--- OUTSIDE RECORDS SUMMARY | 2024-09-11 17:15 | XMS_ITS | Encounter Summary ---
Author Organization [facility] Address [address] [place] [address] Care Team Providers Care Horse Trader Name Role Phone Breanna Lopez MD Primary Care Provider [phone] Reason for Referral * Other (Routine/Next Available) - Closed Specialty Diagnoses / Procedures Referred By Contac t Referred To Contact Diagnoses Pain, joint, knee, right Flexion contracture of right knee Inflammatory arthritis Grant Engle MD [address] [place] [address] Referral ID Status Reason Start Date Expiration Date V isits Requested Visits Authorized [id number] Closed Other 05/15/2015 1 1 Question Answer Medication to be Prior Authorized: Etanercept 50 mg sq weekly Comments The purpose of this consult request is to inform the scheduling staff that a medication needs to be prior-authorized before it is prescribed and/or administered. Reason for Visit * Reason Comments Joint Pain for RA, not feeling well, joint pain and swelling, overdue for blood work (no time to go in [place]), off Humira for past 3-4 weeks after took it for 3 months, did not help as much as Enbrel, stopped taking MTX, prednisone helped a lot, taking ibuprofen 800 mg Joint Swelling knee injection today ? Encounter Details Date Type Department Care Team (Latest Contact Info) Description 05/15/2015 14:00 EDT Office Visit [facility] Rheumatology & Immunology - [facility] [address] [place] [address] Grant Engle MD [address] [place] [phone] Inflammatory arthritis (Primary Dx); Pain, joint, knee, right; Flexion contracture of right knee Social History Tobacco Use Types Packs/Day Years Used Date Smoking Tobacco: Every Day Cigarettes 1 29.5 Started: 03/01/1995 Smokeless Tobacco: Never Tobacco Cessation:Ready to Q uit: No; Counseling Given: No Comments:getting ready mentally Alcohol Use Standard Drinks/Week Comments No 0 (1 standard drink = 0.6 oz pur e alcohol) Sex and Gender Information Value Date Recorded Sex Assigned at Female 03/20/2021 0:23 EDT Gender Identity Female 10/23/2019 13:44 EST Sexual Orientation Choose not to disclose 2020 0:23 EDT documented as of this encounter Last Filed Vital Signs Vital Sign Reading Time Taken Comments Blood Pressure 134/82 05/15/2015 1406 EDT Pulse 84 05/15/2015 1406 EDT Temperature - - Respiratory Rate - - Oxygen Saturation - - Inhaled Oxygen Concentration - - Weight 79.8 kg (176 lb) 05/15/2015 1406 EDT Height - - Body Mass Index 31.43 03/01/2015 1605 EDT documented in this encounter Discharge Diagnoses Diagnosis 714.9 INFLAMM POLYARTHROP NOS[ICD-9-CM] 719.46 JOINT PAIN-L/LEG[ICD-9-CM] 718.46 JOINT CONTRACTURE-L/LEG[ICD-9-CM] documented in this encounter Progress Notes * Grant Engle MD - 05/15/2015 2234 EDT [facility] RHEUMATOLOGY AND IMMUNOLOGY PROGRESS / FOLLOWUP NOTE - 05/15/2015 PROBLEM: 1. Inflammatory arthritis. 2. Right knee pain. SUBJECTIVE: Hillary is in today on an urgent visit because of continued problems with her right knee and overall feelings of depression. 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 She does have good coworkers who helps her and alleviates some of the problems that shehas with weightbearing. Hillary is also under a lot of stress. She has an 11-year-old. She needs to take care of her child, take care of her housework. She says that she does not take good care of herself. She had been on medsand has stopped most of them. The adalimumab, which she had been on was just not helping her as much as the Enbrel, which she had been on originally. It has been about 2 months now since she has beenon a biologic. She has also not taken methotrexate for quite some time. She did have a prednisone pulse, which was fairly long, 30, 25, 20, 15, 10, all at 4 day intervals so she had quite a bit of prednisone in February of this year. A 12-point review of systems is positive for weight gain of close to 20 pounds and about 2 hours ofmorning stiffness and the joint pain, particularly in the right knee. She has a lot of difficulty with getting in and out of a car. She is unable to walk for long periods of time or do any recreational activities. She is rating pain as 6.5/10 and in terms of how her health conditions affect her is 5/10, which ismidway to very poorly. PHYSICAL EXAMINATION: Blood pressure 134/82, pulse 84, weight 176. She has gained 9 pounds since her visit in February. She rates pain as 7/10, mostly in the right knee. Skin exam: Normal. HEENT: Within normal limits. Neck: Supple, no lymphadenopathy. Lungs: Clear to auscultation. Heart sounds normal. Abdomen: Soft and nontender. Neurologic intact. Musculoskeletal exam is primarily positive for the findings in the right knee. She has a slight flexion contracture of the knee that lacks about 15 degrees of full extension. There is also very mild genu valgus deformity as well. Her gait, however, is quite good and she is able to climb on the exam table without difficulty. Neck and back range well. Full range of motion in shoulders, elbows, wrists and fingers. No synovitis appreciated. Hips range normally. Rani's maneuver negative. Ankles, midfoot and toes unremarkable. ASSESSMENT: 1. Inflammatory arthritis, not better characterized. 2. Right knee pain. 3. Flexion contracture of the right knee. PLAN: 1. Hillary needs to get back on etanercept. She feels it helped much, much more than the adalimumab. Frankie going to put in an ambulatory medical request for her to get reauthorized for Enbrel 50 mg weekly. She has fairly good Medicaid insurance and hopefully we can get this approved and have her get started on it. I was reluctant to give her prednisone at this point since I am not finding a lot of inflammation in her joints. I think she is going through a hard period of time emotionally, but despite that her joints are actually doing fairly well with the exception of the changes noted above. The patient is also following with a counselor. She sees the counselor on a monthly basis. Counselor's name is Ariel Trinidad. Grant Engle MD 02 56 PM - Grant Engle MD kn Dictation ID: [id number] cc: Breanna Lopez MD, [address], [facility], [place] [address] Clover Trinidad* * Grant Engle MD - 05/15/2015 1412 EDT REVIEW OF SYSTEMS: Yes No Yes No Fever X Joint pain X Weight gain or loss 20 pounds gain Duration of AM joint stiffness 2-4 hours Eye pain or dryness X Numbness/tingling X [...] entire body? 1 f. Bend down to flower buncher or picker clothing from the floor? 0 g. Turn regular faucets on and off? 0 h. Get in and out of a car, bus, train or airplane? 2 i. Walk two miles or three kilometers, if you wish? 2 j. Participate in recreational activities/sports, if you wish? 2 TOTAL = 11 FUNCTION (FN) (Use conversion scale) = 3.7 (Use conversion scale above) Get a good night???s sleep? 2 0 = Without ANY difficulty (0.0) 1 = With SOME difficulty (1.1) 2 = With MUCH difficulty (2.2) 3 = UNABLE to do (3.3) Deal with feelings of anxiety or being nervous? 1 Deal with feelings of depression or feeling blue? 1 PAIN (PN) = 6.5 0-10 PATIENT GLOBAL (PTGE) = 5 0-10 RAPID3 SCORE (FN + PN + PTGE) = 15.2 0-30 HS: > 12 MS: 6.1 - 12 LS: 3.1 - 6 NR: <= 3 documented in this encounter Plan of Treatment Scheduled Referrals Name Type Priority Associated Diagnoses Order Schedule AMB MEDICATION PRIOR AUTHORIZATION Outpatient Referral Routine Pain, joint, knee, right Flexion contracture of right knee Inflammatory arthritis Ordered: 05/15/2015 documented as of this encounter Visit Diagnoses Diagnosis Inflammatory arthritis- Primary Unspecified inflammatory polyarthropathy Pain, joint, knee, right Pain in joint, lower leg Flexion contracture of right knee documented in this encounter Discontinued Medications Medication Sig Discontinue Reason Start Date End Da te predniSONE (DELTASONE) 5 mg tablet 6 tabs/day x 4 days, 5 tabs/day x 4 days, 4 tabs/day x 4 days, 3 tabs/day x 4 days, 2 tabs/day x 4 days, 1 tab/day x 4 days, then stop Therapy completed 03/01/2015 05/15/2015 documented as of this encounter Care Teams Horse Trader Relationship Specialty Start Date End Date Breanna Lopez MD [address] [place] [phone] PCP - General 05/22/09 documented as of this encounter
--- OUTSIDE RECORDS SUMMARY | 2024-09-11 17:15 | XMS_ITS | Encounter Summary ---
Author Organization [facility] Address [address] [place] [address] Care Team Providers Care Derrick Follower Name Role Phone Breanna Lopez MD Primary Care Provider [phone] Reason for Visit * Reason Onset Date Comments Pain 05/20/2012 Encounter Details Date Type Department Care Team (Late st Contact Info) Description 05/20/2012 Telephone [facility] Rheumatology & Immunology - [facility] [address], [place] [address] Grant Engle MD [address] [place] [address] Pain Social History Tobacco Use Types Packs/Day [...] Telephone Encounter - Martina Clements RN - 05/23/2012 0921 EDT Pt complaining of right knee pain and swelling. I booked her to see Candice Lloyd for an injection today. Pt agreeable to appt day and time. * Telephone Encounter - Tali Harmon - 05/20/2012 0919 EDT Having right leg pain and would like to come in today to have her leg drained documented in this encounter Plan of Treatment Not on file documented as of this encounter Visit Diagnoses Not on filedocumented in this encounter Care Teams Derrick Follower Relationship Specialty Start Date End Date Breanna Lopez MD [address] [place] [phone] PCP - General 05/22/09 documented as of this encounter
--- OUTSIDE RECORDS SUMMARY | 2024-09-11 17:15 | XMS_ITS | Encounter Summary ---
Author Organization [facility] Address [address] [place] [address] Care Team Providers Care Sap Director Name Role Phone Breanna Lopez MD Primary Care Provider [phone] Reason for Visit * Reason Comments Joint Pain right knee Joint Swelling right knee Encounter Details Date Type Department Care Team (Latest Contact Info) Description 02/01/2014 10:00 EDT Office Visit [facility] Rheumatology & Immunology - [facility] [address] [place] [address] Grant Engle MD [address] [place] [address] Mary Prado, PAKevinC [address] [place], [place] [id number] Rheumatoid arthritis (Primary Dx); Effusion of right knee; Right knee pain; Encounter for long-term (current) use of other medications Discharge Disposition: Auto Discharge Social History Tobacco Use Types Packs/Day Years Used Date Smoking Tobacco: Every Day Cigarettes Smokeless Tobacco: Never Tobacco Cessation:Ready to Q uit: Yes; Counseling Given: Yes Alcohol Use Standard Drinks/Week Comments [...] Reading Time Taken Comments Blood Pressure 110/70 02/01/2014 1039 EDT Pulse 78 02/01/2014 1039 EDT Temperature - - Respiratory Rate 18 02/01/2014 1039 EDT Oxygen Saturation - - Inhaled Oxygen Concentration - - Weight 79.2 kg (174 lb 8 oz) 02/01/2014 1039 EDT Height 160 cm (5' 3) 02/01/2014 1039 EDT Body Mass Index 30.91 02/01/2014 1039 EDT documented in this encounter Discharge Diagnoses Diagnosis 714.0 RHEUMATOID ARTHRITIS[ICD-9-CM] 719.06 JOINT EFFUSION-L/LEG[ICD-9-CM] 719.46 JOINT PAIN-L/LEG[ICD-9-CM] V58.69 AFTERCARE LONG-TERM USE MEDICATN[ICD-9-CM] documented in this encounter Patient Instructions * Patient Instructions* Rosy Díaz - 02/01/2014 10:40 EDT We injected your right knee with cortisone today. Try to take it easy for the next 48 hours. Apply ice as tolerated. You can take Ibuprofen and/or Tylenol as needed for injection-related pain. Continue Enbrel. We recommend that you restart Methotrexate 8 tabs once weekly. This works in combination with Enbrel to help control your RA. You should also take Folic acid 1 mg daily with Methotrexate to help prevent side effects. Please stop downstairs for labs today (2nd floor = orange level). Remember to have your labs checked every 2-3 months while on Methotrexate. Follow up with Dr. Engle in 3 months, sooner as needed. Quitting smoking Stopping smoking is the best [...] work with a trained counselor. Counseling in [facility] offers free smoking cessation counseling services to [facility] including a telephone quit line, in person cessation groups, and Quitnet - an online quit service. You may be able to get nicotine replacement medications for low or even no cost through these counseling services depending on your insurance. The [place] Department of Health also has tips and tools for those who want to try toquit on their own. To learn more about these options go to www.[place]quitnetwork.org or call 0 608-107-EDXE-PRH ( ). I hope you quit smoking. I think it's the best thing you can do for your health. Please call our office if you have any questions. documented in this encounter Discharge Disposition Disposition Code Departure Means Destination Auto Discharge documented in this encounter Progress Notes * Mary Roblero PA - 02/01/2014 1049 EDT Images from the original note were not included. Division of Rheumatology and Clinical Immunology Chief Complaint Patient presents with ??? Joint Pain right knee ??? Joint Swelling right knee HPI: 33 year old female with history of RA here for an urgent visit for right knee pain and swelling. Generally followed by Dr. Engle, new to me. Last seen in clinic ~6 months ago. Affected joints: Right knee is the absolute worst. Hillary says it's always painful but has gotten more painful and swollen over the past 2 weeks or so. She would like to have it aspirated. She says that she comes in to have it aspirated and injected once or twice per year. Last done in July (2012). In general she feels like she's having more joint problems. She says that she has been having quite a bit of p ain and swelling in her wrists and ankles lately. Her left knee is also starting to bother her (mostly just painful - not so much swelling). She says her pain is generally around a 5/10 on a daily basis (although it's an 8-9/10 today due to worsening right knee symptoms). She is on Enbrel which definitely helps (I wouldn't be able to walk without it) but she doesn't always take this consistently. She was recently off for a good month due to a miscommunication with the mail order pharmacy. She has been back on for 3 weeks now. Through further questioning I also discovered that she hasn't been taking her Methotrexate consistently either - she has actually gone without it for the past month or so. This is mostly because she's afraid that it will affect her liver. 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 BUPRENORPHINE HCL/NALOXONE HCL (SUBOXONE SL) Place under the tongue daily. 8 MG IN THE AM AND 4MG IN THE AFTERNOON ??? Etanercept (ENBREL SURECLICK) 50 mg/mL (0.98 mL) Pen Injector Inject 50 mg into the skin every 7 days. Tolerates ok without reported side effects. Inconsistent use. Recently went without for about a month due to a miscommunication with the mail order pharmacy. Has been back on for 3 weeks now. Says she has been having problems with recurrent impetigo. Otherwise no infections. 12 Pen 1 ??? folic acid (FOLVITE) 1 mg tablet Take 1 Tab by mouth daily. 90 Tab 3 ??? ibuprofen (MOTRIN) 800 mg tablet Take 1 Tab by mouth every 8 hours as needed for Pain. Only as needed. Hasn't taken any in awhile. 270 Tab 3 ??? methotrexate 2.5 mg tablet Take 8 Tabs by mouth once a week. Has not been taking consistently. None for the past month or so. Says she doesn't like taking medications. Is also concerned about potential effects on the liver. 96 Tab 3 ??? methylphenidate (CONCERTA) 54 mg CR tablet Take 54 mg by mouth daily. ??? VENLAFAXINE HCL (VENLAFAXINE ORAL) Take by mouth. Allergies include: Review of patient's allergies indicates no known allergies. No past medical history on file. Significant for RA. No past surgical history on file. No family history on file. History Social History ??? Marital Status: Legally Occupational History ??? See above Social History Main Topics ??? Smoking status: Current Every Day Smoker -- 1.00 packs/day ??? Smokeless tobacco: Never Used ??? Alcohol Use: No ??? Drug Use: No REVIEW OF SYSTEMS: Yes No Yes No Fever x Joint pain x Fatigue x Muscle pain x Night sweats x Morning stiffness x Weight change x If yes, duration 3-4 hours (all day in right knee) Gain or loss? Gain Numbness/tingling x Eye discomfort x Headaches x [...] w/cold x Hair Loss x PHYSICAL EXAMINATION: Constitutional: Pleasant, well groomed, well appearing, heavy set female in no acute distress. BP 110/70 Pulse 78 Resp 18 Ht 160 cm (63) Wt 79.153 kg (174 lb 8 oz) BMI 30.92 kg/m2 HEENT: PERRL, EOM's intact, conjuctiva clear, no occular inflammation. Oropharynx clear, throat normal without erythema or exudate, no oral ulcers. No lymphadenopathy. RESPIRATORY: Clear to auscultation bilaterally; no adventitious sounds. CARDIOVASCULAR: Regular rate and rhythm, normal S1S2, no murmurs/gallops/rubs. SKIN: No rashes. NEUROLOGIC: Mental status normal. Gait mildly antalgic - no assistive device. Moves on/off exam table independently. Muscle strength not formally assessed but moving all extremities against gravity. MUSCULOSKELETAL: A complete msk exam including bilateral upper and lower extremities was done and was normal except for abnormal findings shown on homonculus. LABS: No visits with results within 6 months from this visit. Latest known visit with results is: Office Visit on 07/26/2013 Component Date Value ??? Crystal, Fluid 07/26/2013 Rare intracellular pyrophosphate crystal ? ? RBC, Synovial Fluid 07/26/2013 <[id number] ??? Nucleated Cells 07/26/2013 3764* ??? Synovial Fluid Comment 07/26/2013 Yellow ??? Specimen Description 07/26/2013 Synovial Fluid 3CC ??? Gram Smear Result 07/26/2013 Few Polys ??? Gram Smear Result 07/26/2013 No bacteria seen ??? Result 07/26/2013 No growth ??? Report Status 07/26/2013 07/31/2013 Final ??? Neutrophils, Synovial Fl* 07/26/2013 63* ??? Lymphocytes, Synovial Fl* 07/26/2013 22* ??? Vernon/Macro, Synovial Flu* 07/26/2013 15* No record of CBC with diff or CMP on file in our charts for over a year (did not look back further than this). Imaging: Xrays of both knees, obtained 01/28/10, findings per radiology - Right knee: No radiographic evidence of acute fracture or malalignment. There is severe osteoarthrosis on the medial femorotibial compartment with marked joint space narrowing, subchondral sclerosis,cyst formation. These degenerative changes have progressed in the interval when compared with the previous radiographs from 2007. There are mild to moderate degenerative changes seen on the lateral femorotibial compartment and patellofemoral compartment, not significantly changed. There is a small suprapatellar joint effusion essentially unchanged when compared with prior study. Soft tissues are otherwise unremarkable. Left knee: No evidence of displaced fracture. The lack of a lateral view limits the assessment for nondisplaced fracture and joint effusion. Minimal degenerative changes seen in the medial femorotibial compartment not significantly changed when compared with previous radiographs from 2008. Diagnosis / Assessment: Rheumatoid arthritis. Flaring (primarily in left wrist and right knee) due to poor adherence to therapeutic plan. Education provided. Was off Enbrel for a month - back on now. Has also stopped Methotrexate - needs to restart. Hopefully we are able to obtain better control once we get her back on a consistent regimen. Right knee pain and swelling secondary to RA flare (also with underlying degenerative changes likely contributing to her pain complaints). After reviewing risks, benefits and alternative treatment options decided to proceed with aspiration and cortisone injection today. Needs to get back on immunosu ppressive therapy (see above) for better RA control. 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 Over due for labs. Recommendations/Evaluation: 1. Aspiration and injection right knee. See procedure note. Advised to take it easy for the next 48hours and apply ice as tolerated. Can take Ibuprofen and/or Tylenol as needed for injection-relatedpain. 2. Labs (CBCD/CMP) today. Repeat every 2-3 months to monitor for toxicity. 3. Continue Enbrel 50 mg SC once weekly. Needs to stay on this consistently. 4. Restart Methotrexate 20 mg once weekly. Explained that this works in synergy with Enbrel. Reassured her that we will monitor her liver function but she needs to hold up her end of the bargain and have her labs checked regularly. Also reminded her that she should avoid alcohol while on Methotrexate which will help protect her liver. Continue Folic acid 1 mg daily. 5. Follow up with Dr. Engle in 3 months, sooner as needed. Procedure note: The right knee was aspirated using a medial approach and a 20 g needle. Approximately 25 ml of slightly cloudy fluid was removed. The knee was injected with 40 mg of Aristospan and 1 ml of xylocaine. The patient tolerated the procedure well and had decreased pain post-procedure. Barriers to learning identified: No Patient verbalizes understanding and agrees with plan: Yes I was directly supervised by Dr. Engle who was in the suite and immediately available for the entire time the service was provided. JL Sanchez 02/01/2014 10:50 I personally interviewed and examined Ms. Youssef. I performed the knee arthrocentesis and injection. I agree with the note. Grant Engle MD 02/02/2014 10:57 documented in this encounter Procedure Notes * Mary Roblero PA - 02/01/2014 1518 EDTProcedure(s): CT ARTHROCENTESIS ASPIR&/INJ MAJOR JT/BURSA W/O US Pre-Procedure Diagnose(s): Effusion of right knee; Right knee pain Post-Procedure Diagnose(s): Effusion of right knee; Right knee pain; Rheumatoid arthritis(714.0) Rheumatology Outpatient Procedure Note Title of Procedure: Aspiration and injection right knee Date Performed: 02/01/2014 Time Performed: 1140 Performed by: Dr. Engle Indications and/or Provisional Diagnosis: Right knee pain and effusion Condition: The condition of the patient was good. Consent: Verbal consent was obtained after patient was informed of the risks, benefits and alternatives. Final verification was performed. Type of Anesthesia or Sedation: Local Estimated Blood Loss: The estimated blood loss was minimal. Procedure Technique: The area was prepped with alcohol and povidone-iodine. Cutaneous anesthesia, subcutaneous anesthesia and intra-articular anesthesia was attained using Ethyl Chloride and Lidocaine 1% w/out epinephrine. Synovial fluid in the amount of 18 mL was withdrawn. The fluid was slightly cloudy and yellow. The fluid was sent to the lab for cell count, crystal analysis and gram stain culture. The fluid was examined using polarized microscopy. No crystals were seen. Injection of 40 mg of Aristospan (triamcinolone hexacetonide) and 1 cc lidocaine 1% without epinephrine was performed. Post Procedure Diagnosis and Findings: Right knee pain and effusion secondary to RA flare Complications: None JL Sanchez 02/01/2014 15:19 documented in this encounter Plan of Treatment Not on file documented as of this encounter Procedures Procedure Name Priority Date/Time Associated Diagnosis Comments BACTERIAL CULTURE/SMEAR, FLUID Routine 02/01/2014 11:50 EDT Effusion of right knee Right knee pain CRYSTAL ANALYSIS FLUID ONLY Routine 02/01/2014 11:50 EDT Effusion of right knee Right knee pain SYNOVIAL CELL COUNT Routine 02/01/2014 1 1:50 EDT Effusion of right knee Right knee pain FLUID DIFFERENTIAL Routine 02/01/2014 11 :50 EDT documented in this encounter Results * (ABNORMAL) FLUID DIFFERENTIAL (02/01/2014 11:50 EDT) Neutrophils, Synovial Fluid 70(H) 10 - 24 % [facility] Lymphocytes, Synovial Fluid 16 10 - 20 % [facility] Vernon/Macro, Synovial Fluid 14(L) 55 - 75 % [facility] Synovial Fluid Comment Rev'd by Pathologist KRISTINA HOANG Comment:LINING CELLS PRESENT 02/01/2014 11:5 0 EDT 02/01/2014 12:07 EDT Mary Prado PA-C GEN LAB UNIT COLLE CT ORDERABLES Performing Organization Address [facility] Co de Phone Number [facility] [address] [place] [address] * BACTERIAL CULTURE/SMEAR, FLUID (02/01/2014 11:50 EDT) Specimen Description Synovial Fluid Right Knee Specimen submitted in a syringe 2 ML [facility] Gram Smear Result Mod Polys [facility] Gram Smear Result No bacteria seen [facility] Result No growth [facility] Report Status 02/06/2014 Final [facility] Specimen of unknown material (specimen) SYNOVIAL FLUID / Unknown 02/01/2014 11:50 EDT 02/01/2014 12:11 EDT Mary Prado PA-C MICROBIOLOGY - GEN ERAL ORDERABLES Performing Organization Address [facility] de Phone Number [facility] [address] [place] [address] * (ABNORMAL) SYNOVIAL CELL COUNT (02/01/2014 11:50 EDT) RBC, Synovial Fluid <10,000 /cmm [facility] Nucleated Cells 10,552(H) 0 - 200 /cmm [facility] Synovial Fluid Comment Markedly cloudy [facility] Comment:Yellow Body fluid specimen (specimen) FLUID / Unknown 02/01/2014 11:50 EDT 02/01/2014 12:07 EDT Mary Prado PA-C GEN LAB UNIT COLLE CT ORDERABLES Performing Organization Address [facility] Co de Phone Number [facility] [address] [place] [address] * CRYSTAL ANALYSIS (02/01/2014 11:50 EDT) Crystal, Fluid No crystals seen on scan [facility] Comment:Rev'd by Pathologist Body fluid specimen (specimen) SYNOVIAL FLUID / Unknown 02/01/2014 11:50 EDT 02/01/2014 12:06 EDT Mary Prado PA-C GEN LAB UNIT COLLE CT ORDERABLES [facility] [address] [place] [address] documented in this encounter Visit Diagnoses Diagnosis Rheumatoid arthritis- Primary Effusion of right knee Effusion of lower leg joint Right knee pain Pain in joint, lower leg Encounter for long-term (current) use of other medications documented in this encounter Care Teams Sap Director Relationship Specialty Start Date End Date Breanna Lopez MD [address] [place] [phone] PCP - General 05/22/09 documented as of this encounter
--- OUTSIDE RECORDS SUMMARY | 2024-09-11 17:15 | XMS_ITS | Encounter Summary ---
Author Organization [facility] Address [address] [place] [address] Care Team Providers Care Paid Intern Name Role Phone Breanna Lopez MD Primary Care Provider [phone] Reason for Visit * Reason Onset Date Comments Medications Refill 06/03/2016 Encounter Details Date Type Department Care Team (Late st Contact Info) Description 06/03/2016 Refill [facility] Rheumatology [facility]ology [facility] [address] [place] [address] Grant Engle MD [address] [place] [phone] Medications Refill Social History Tobacco [...] Telephone Encounter - Tonia Jain RN - 06/04/2016 1431 EDT Spoke with Efren, there are refills on the Enbrel script from last month. They called patient to set up refill but have not heard back yet. VM to patient. * Telephone Encounter - Liz Quiroga - 06/03/2016 1241 EDT Medication(s) Requested: Enbrel Pharmacy: [facility] Last Refill Date: Last Visit Date: 05-15-15 Next Visit Date: 08/19/2016 Is patient out of medication? yes Liz Quiroga 06/03/2016 12:41 documented in this encounter Plan of Treatment Not on file documented as of this encounter Visit Diagnoses Not on filedocumented in this encounter Care Teams Paid Intern Relationship Specialty Start Date End Date Breanna Lopez MD [address] [place] [phone] PCP - General 05/22/09 documented as of this encounter
--- OUTSIDE RECORDS SUMMARY | 2024-09-11 17:15 | XMS_ITS | Encounter Summary ---
Author Organization [facility] Address [address] [place] [address] Care Team Providers Care Composing Machine Operator Name Role Phone Breanna Lopez MD Primary Care Provider [phone] Reason for Visit * Reason Onset Date Comments Prior Auth, Medication 09/29/2011 Encounter Details Date Type Department Care Team (Late st Contact Info) Description 09/29/2011 Telephone [facility] Rheumatology & Immunology - [facility] [address] [place] [address] Grant Engle MD [address] [place] [address] Prior Auth, Medication Social History [...] encounter Miscellaneous Notes * Telephone Encounter - Emma Davis - 09/29/2011 1037 EST The patient has been re-authorized for the Enbrel Sureclick pen 50mg sq once a week through her [place] Medicaid Rx plan. This authorization is valid from 09/18/11-09/18/12. documented in this encounter Plan of Treatment Not on file documented as of this encounter Visit Diagnoses Not on filedocumented in this encounter Care Teams Composing Machine Operator Relationship Specialty Start Date End Date Breanna Lopez MD [address] [place] [phone] PCP - General 05/22/09 documented as of this encounter
--- OUTSIDE RECORDS SUMMARY | 2024-09-11 17:16 | XMS_ITS | Encounter Summary ---
Author Organization [facility] Address [address] [place] [address] Care Team Providers Care Liquor Tester Name Role Phone Breanna Lopez MD Primary Care Provider [phone] Encounter Details Date Type Department Care Team (Latest Contact Info) Description 12/11/2009 15:09 EST - 12/11/2009 23:59 EST Hospital Encounter [facility] Rheumatology & Immunology - [facility] [address] [place] [address], [place] [id number] Grant Engle MD [address] [place] [phone] Discharge Disposition: Home or Self Care Social History Tobacco Use Types Packs/Day Years Used Date Smoking Tobacco: Never Assessed Sex and Gender Information Value Date Recorded Sex Assigned at Female 03/20/2021 0:23 EDT Gender Identity Female 10/23/2019 13:44 EST Sexual Orientation Choose not to disclose 2020 0:23 EDT documented as of this encounter Discharge Disposition Disposition Code Departure Means Destination Home or Self Senior Living documented in this encounter Progress Notes * Inpatient, Physician - 03/17/2010 1354 EDT * Grant Engle MD - 12/11/2009 0000 EST DIVISION OF RHEUMATOLOGY PROGRESS/FOLLOWUP NOTE - 12/11/2009 Breanna Lopez MD [address] [place] [address] [address] Lopez: Problem: 1. Rheumatoid arthritis. 2. Marked right knee pain. Hillary was last in to see me in May. Overall, she has been doing quite well, but she is very concerned because she says there is something wrong with her right knee. The patient had arthroscopic surgery on the right knee last winter. Apparently, meniscal tears and inflammatory tissue were removed. She did okay for a while, but she is now almost a year out from the surgery. She has significant painparticularly with activity and exercise. This is frustrating for her because she wants to lose weight, but cannot do enough exercise to allow her to lose weight. 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 She does that to three times per week; however, when she is finished she has significant pain in the knee and has a difficult time getting around. Her usual routine is that after her day's work when she has to relax, she will get into bed and shehas to use ice on the knee because it is so very painful. 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 Current medications: Methotrexate 8 tablets or 20 mg weekly. Ibuprofen 800 mg as needed. Methadone 50 mg twice a day. Sulfasalazine 1 gram b.i.d. Folic acid 1 mg per day. Paxil 40 mg daily. Enbrel auto inject 50 mg subcutaneous once a week. 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 She also notices occasional numbness in her fourth and fifth fingers on the right side when she awakens from sleep. She has no other positives on the review of systems which can be found in the intake record. On physical exam Hillary's weight is 190, blood pressure is 100/64, pulse is 80 and regular. She ratespain in her knees and fingers as 8 to 9 out of 10. In reviewing her older notes, her weight was usually in the 170 range. There is no skin rash. Head, eyes, ears, nose and throat are normal. Neck is supple without lymphadenopathy. Lungs are clear to percussion and auscultation. Cardiac exam reveals a regular rhythm. Abdomen is soft, obese and nontender. Pulses are 2+ bilaterally and neurologic is grossly intact. She has a negative Tinel's sign bilaterally and negative cubital tunnel tap sign as well. She does recognize light touch and cold in all fingers bilaterally. I ranged her neck to see if I could elicit any numbness in her hands and was unable to do so. Even extension with pressure on the top of the head did not elicit any numbness. Musculoskeletal exam: She has good range of motion in the neck and low back, normal shoulder range of motion. Elbows are fine. Wrist MCPs and PIPs normal. Refrigeration Plant Operator strength is excellent. There is very little in the way of soft tissue swelling in the small joints of the upper extremities. She has full range of motion in her hips. Her left knee moves very well. There is no fluid. She has full range of motion. The right knee, there is a trace of fluid and she is very painful under the patella. This can be elicited by quadriceps setting and compression of the patella at the same time. There is some crepituswith range of motion. I should note that she can take all weight on either the right or left knee without problem and shedoes not walk with an antalgic gait. Patellar compression; however, does cause discomfort in both knees, more so on the right than the left. There is also some crepitus when I do that. Ankles and toes today are unremarkable. The last lab tests that we have were 09/02/09. The patient's white count was 12.9, platelets were 291, hemoglobin 13.7, hematocrit 41.3. HIV-1 antibody was negative. Hep C antibody was negative. Hep B surface antigen was nonreactive, ALT was 34, ALT was 23 and albumin was 3.8. Creatinine was 0.9. Assessment: 1. Rheumatoid arthritis, overall doing quite well. The patient is controlled well on methotrexate and Enbrel. 2. Right knee pain. This almost certainly represents patellofemoral disease, which is made worse byuse. She has crepitus in the patellofemoral joint. There is pain with pressure on that site. This is very frustrating for Hillary because it is limiting her activity and she feels she is unable to stay fit and lose weight. I do not think that this patient is a candidate for knee replacement; however, she might benefit from local measures to the joint. This might include either taping, bracing or a splint. Altering the weightbearing dynamics across the patellofemoral joint in some way might help her. 3. For that reason, I suggested to Hillary that we send her to a sports orthopedist or someone who is expert in knees but someone who would not necessarily be considered for a total knee replacement. 4. The patient also has numbness in her hands. The distribution on the right side suggests an ulnarneuropathy but Tinel's sign at the cubital tunnel was negative. 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 5. I told Hillary I would arrange a referral to an orthopedist once I have had a chance to contact their offices. 6. If she is doing well, I will follow up with her in May or June. Sincerely, Electronically Signed by Grant Engle MD 12/13/2009 13:30 Grant Engle MD - Grant Engle MD - GILDARDO Job ID: SM Doc ID: [id number] Ext Doc ID: [id number] cc: Breanna Lopez MD documented in this encounter Plan of Treatment Not on file documented as of this encounter Visit Diagnoses Not on filedocumented in this encounter Care Teams Liquor Tester Relationship Specialty Start Date End Date Breanna Lopez MD [address] [place] [phone] PCP - General 05/22/09 documented as of this encounter
--- OUTSIDE RECORDS SUMMARY | 2024-09-11 17:16 | XMS_ITS | Encounter Summary ---
Author Organization [facility] Address [address] [place] [address] Care Team Providers Care Groundskeeping Yardman Name Role Phone Breanna Lopez MD Primary Care Provider Encounter Details Date Type Department Care Team (Late st Contact Info) Description 07/12/2003 Results Only [facility] - Maple conversion [address] [place] [address] Momo Stallings MD [address] [place] [address] DR [facility] 2 [place], [place] [address] Social History Tobacco Use Types Packs/Day Years [...] Procedure Name Priority Date/Time Associated Diagnosis Comments HPV DETECTION, HIGH RISK TYPES Routine 07/12/2003 14:54 EDT CYTOPATHOLOGY Routine 07/12/2003 0:00 EDT documented in this encounter Results * HUMAN PAPILLOMA VIRUS DNA TEST (07/12/2003 14:54 EDT) Specimen Description Cervix, ThinPrep vial [facility] Result Positive for one or more of HPV types 16,18,31,33,35 ,39,45,51,52,5 6,58,59, or 68. These high/intermedi ate risk HPV types are associated with dysplasia and some cervical cancers. [facility] Report Status Final [id number] [facility] 07/12/2003 14:5 4 EDT 07/20/2003 14:54 EDT Momo Stallings MD MICROBIOLOGY - GENER AL ORDERABLES [facility] [address] [place] [address] * CYTOPATHOLOGY (07/12/2003 0:00 EDT) Pathology Report: CYTOPATHOLOGY REPORT Reports generated via electronic interface contain original data; however they are lacking the format of the original report. Caution should be taken when reading/interpreti ng unformatted reports. Name: ? ROGER ACUÑA ? Accession #: ? [id number] : ? 1980 (Age: 22) ??F ?Collect Date: ? 07/12/2003 Location: ? [facility] ? Receive Date: ? 07/16/2003 Provider: ?MOMO STALLINGS MD Copy to: ? Specimen/Source: ?ThinPrep Pap Test, Cervix/Endocervix Last Menstrual Period: ? 02/22/03 Menstrual/Pregnanc y Status: ? Previous Gynecologic Pathology: ? LSIL: 05/10 Other: ? HPVA - HPV testing requested if ASC-US on the current ThinPrep Pap test. ? SPECIMEN ADEQUACY ? Satisfactory for Evaluation - transformation zone component present GENERAL CATEGORIZATION ? Epithelial Cell Abnormality INTERPRETATION ? Squamous Cell Abnormality - Atypical squamous cells, undetermined significance. EDUCATIONAL NOTES/RECOMMENDATI ONS ? [facility] recommends following the 2001 Consensus Guidelines for the Management of Women with Cervical Cytological Abnormalities (LUCIO,2002;287:212 0-9). Management algorithms have been distributed by [facility] and are available online at www.ASCCP.org. ? Document reviewed and electronically signed by: ? Kennedy Araya MD ? Report Date: ??07/19/2003 13:56 End of Report [facility] 07/12/2003 07/16/2003 Momo Stallings MD PATHOLOGY ORDERABLES Performing Organization Address City/State/[facility] Co de Phone Number [facility] [address] [place] [address] documented in this encounter Visit Diagnoses Not on filedocumented in this encounter Care Teams Groundskeeping Yardman Relationship Specialty Start Date End Date Breanna Lopez MD [address] [place] [phone] PCP - General 05/22/09 documented as of this encounter
--- OUTSIDE RECORDS SUMMARY | 2024-09-11 17:16 | XMS_ITS ---
Author Organization [facility] Address [address] [place] [address] Care Team Providers Care Advertising Copy Writer Name Role Phone Breanna Lopez MD Primary Care Provider [phone] Rheumatology Status:Discharged (Closed) Start date:07/16/2022 Enrollment date:07/16/2022 End date:01/07/2024 Close reason:Unable to reach patient Linked medications:etanercept (Active) Linked problems:Seronegative rheumatoid arthritis of multiple sites ([facility]) (Active) Continued Care and Services Coordination
--- OUTSIDE RECORDS SUMMARY | 2024-09-11 17:16 | XMS_ITS | Encounter Summary ---
Author Organization [facility] Address [address] [place] [address] Care Team Providers Care Kst Operator Name Role Phone Breanna Lopez MD Primary Care Provider Encounter Details Date Type Department Care Team (Late st Contact Info) Description 02/03/2010 Results Only [facility] Laboratory Services - [facility] [address], [place] [phone] Momo Stallings MD [address] [place] [address] [address] [place], [place] [id number] Social History Tobacco Use Types Packs/Day Years [...] Procedure Name Priority Date/Time Associated Diagnosis Comments CYTOPATHOLOGY Routine 02/03/2010 0:00 EDT documented in this encounter Results * CYTOPATHOLOGY (02/03/2010 0:00 EDT) Pathology Report: CYTOPATHOLOGY REPORT ? Reports generated via electronic interface contain original data; ? however they are lacking the format of the original report. ? Caution should be taken when reading/interpreti ng unformatted reports. ? Name: ? ROGER ACUÑA ? Accession #: ? [id number] ? : ? 1980 (Age: 29) ??F ?Collect Date: ? 02/03/2010 ? Location: ? [facility] ? Receive Date: ? 02/05/2010 ? Provider: ?MOMO STALLINGS MD ? Copy to: ? Specimen/Source: ?Pap Test, Cervix/Endocervix, ThinPrep Imaging System ? with manual evaluation ? Last Menstrual Period: ? 3/20/10 ? Previous Gynecologic Pathology: ? LSIL: 7/03, 3/04, pap 10/08 wnl ? ASC-US: 9/03 ? HPV: + 9/03 ? Treatment History: ? Colposcopy: 9/03 FOR ASCUS - + HPV, 3/04 LSIL ? Other: ? HPVA - HPV testing requested if ASC-US on the current ThinPrep Pap test. ? SPECIMEN ADEQUACY ? Satisfactory for Evaluation ? - transformation zone component present ? GENERAL CATEGORIZATION ? Negative for Intraepithelial Lesion or Malignancy ? INTERPRETATION ? Reactive cellular changes associated with inflammation present (includes ?? repair). ? Shift in marina present suggestive of bacterial vaginosis. ? Document reviewed and electronically signed by: ? MCKENZIE MOUNT MD ? Report Date: ??02/12/2010 10:04 ? End of Report ? [facility] 02/03/2010 02/05/2010 Momo Stallings MD PATHOLOGY ORDERABLES [facility] [address] [place] [address] documented in this encounter Visit Diagnoses Not on filedocumented in this encounter Care Teams Kst Operator Relationship Specialty Start Date End Date Breanna Lopez MD [address] [place] [phone] PCP - General 05/22/09 documented as of this encounter
--- OUTSIDE RECORDS SUMMARY | 2024-09-11 17:16 | XMS_ITS | Encounter Summary ---
Author Organization [facility] Address [address] [place] [address] Care Team Providers Care Oracle Soa Developer Name Role Phone Unavailable Primary Care Provider Unavailabl e Encounter Details Date Type Department Care Team (Latest Contact Info) Description 03/07/2008 14:58 EDT Hospital Encounter [facility] [address] [place] [address] Unknown, Provider, MD Discharge Disposition: Auto Discharge Social History Tobacco [...] Destination Auto Discharge documented in this encounter Plan of Treatment Not on file documented as of this encounter Procedures Procedure Name Priority Date/Time Associated Diagnosis Comments CYTOPATHOLOGY Routine 09/06/2008 0:00 EDT documented in this encounter Results * CYTOPATHOLOGY (09/06/2008 0:00 EDT) Pathology Report: CYTOPATHOLOGY REPORT ? Reports generated via electronic interface contain original data; ? however they are lacking the format of the original report. ? Caution should be taken when reading/interpreti ng unformatted reports. ? Name: ? DOMENICO, ROGER L ? Accession #: ? [id number] ? : ? 1980 (Age: 27) ??F ?Collect Date: ? 09/06/2008 ? Location: ? [facility] ? Receive Date: ? 09/10/2008 ? Provider: ?MOMO STALLINGS MD ? Copy to: ? Specimen/Source: ?Pap Test, Cervix/Endocervix, ThinPrep Imaging System ? with manual evaluation ? Last Menstrual Period: ? 10/20/08 ? Previous Gynecologic Pathology: ? LSIL: 7/03, 3/04 ? ASC-US ? HPV: + HR HPV ? Treatment History: ? Colposcopy: 9/03, 9/03 ? Other: ? HPVA - HPV testing requested if ASC-US on the current ThinPrep Pap test. ? SPECIMEN ADEQUACY ? Satisfactory for Evaluation ? - transformation zone component absent ? GENERAL CATEGORIZATION ? Negative for Intraepithelial Lesion or Malignancy ? Document reviewed and electronically signed by: ? Francesco Stumler, [place](ASCP) ? Report Date: ??09/12/2008 15:23 ? End of Report ? [facility] 09/06/2008 09/10/2008 Momo Stallings MD PATHOLOGY ORDERABLES Performing Organization Address City/State/[facility] Co de Phone Number [facility] [address] [place] [address] documented in this encounter Visit Diagnoses Not on filedocumented in this encounter
--- OUTSIDE RECORDS SUMMARY | 2024-09-11 17:16 | XMS_ITS | Encounter Summary ---
Author Organization [facility] Address [address] [place] [address] Care Team Providers Care Diagnostic Assistant Name Role Phone Breanna Lopez MD Primary Care Provider Encounter Details Date Type Department Care Team (Late st Contact Info) Description 10/30/2008 Before PRISM Converted Visit (Maple) [facility] - Maple conversion [address] [place] [address] Grant Engle MD [address] [place] [phone] Social History Tobacco Use Types Packs/Day Years Used Date Smoking Tobacco: Never Assessed Sex and Gender Information Value Date Recorded Sex Assigned at Female 03/20/2021 0:23 EDT Gender Identity Female 10/23/2019 13:44 EST Sexual Orientation Choose not to disclose 2020 0:23 EDT documented as of this encounter Progress Notes * Grant Engle MD - 06/01/2009 1205 EDT DIVISION OF RHEUMATOLOGY PROGRESS/FOLLOWUP NOTE - 10/30/2008 PROBLEM Rheumatoid arthritis. SUBJECTIVE It has been eight months since Hillary's last visit and she has been on etanercept or Enbrel 50 mg weekly for about that length of time. It has been about six to seven months that she has been using Enbel. She does note that she has continued reactions at the injection sites of the Enbrel. Usually shewill have a small red lump which will last for several days after the injection. Hillary has been having significant pain in her legs. 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 The more she is on her feet the more her knees will ache. She is very concernedabout this because it is difficult for her toget any activity outside of the work that she is doing. She also raises the fact that she has been on the same dose of methadone 80 mg per day for about a year and she feels that methadone is no longer providing her with any pain relief for her arthritis. Overall she feels that her other joints are doing well. She has had less pain in her hands and wrists and less problems with her ankles and toes. It is, however, the lower legs and the knees that aregiving her the most trouble. The patient is living with her in [place]. She has one son who is 5 and two girls ages 9 and7 who are her 's daughters. CURRENT MEDICATIONS Methotrexate eight tablets or 20 mg weekly. She takes that on Wednesday. 2. Prednisone, she is down to 5 mg. She has been on that for a while. 3. Ibuprofen 800 mg as needed. 4. Methadone 40 mg twice daily. 5. Sulfasalazine two tablets twice daily. 6. Folic acid 1 mg. 7. Paxil 20 daily. 8. Autoinject Enbrel 50 mg subcutaneous once weekly. She takes the Enbrel on Wednesday. 12-point review of systems can be found in the intake record and is positive for significant weightgain since her last visit. She has a few hours of morning stiffness. Most of the pain that she has is in her lower legs. She has numbness and tingling, particularly in her right hand; muscle weakness; difficulty with sleeping; change of mood, depression. Her major concern is that she has had a hardtime controlling her pain and it is affecting her work and her daily activities. All other systems review questions were denied. OBJECTIVE Exam shows Hillary to have some pressured speech. She seems a bit anxious but is direct and appropriate. Her weight is 187 which is a 30-pound weight gain from her previous visit in February 2008. Blood pressure is 100/60. Pulse is 80 and regular. She rates pain in her legs at 8/10. There is no rash, but christian has a small red lump on her left upper thigh where she last administered Enbrel. Head, eyes, ears, nose, and throat are unremarkable. Neck supple without lymphadenopathy. Lungs are clear to percussion and auscultation. Cardiac exam reveals a regular rhythm. Abdomen is soft and nontender. Pulses 2+ bilaterally. I did check her for carpal tunnel and Tinel's sign is negativebilaterally. There is no thenar atrophy and sensation is intact to both hands. Other than that neurologic is within normal limits. Musculoskeletal exam today is positive for swelling in her right knee. There is a 1+ effusion and pain with flexion and weightbearing. She does have a mildly antalgic gait. Other than that, however, I find no inflammatory changes in her fingers. 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 There is mild tenderness at both wrists with slightly decreased dorsiflexion but no soft tissue swelling is appreciated. Elbows and shoulders are fine. Her neck and back move well. Her hips areunremarkable. Ankles are slightly tender to deeppalpation but no soft tissue swelling is felt. MTP joints are unremarkable and she can come up on tiptoes and roll back on her heels without any difficulty. I Patient has not had lab tests for awhile. She has probably had these through Dr. Lopez but I do nothave these in my file. What I have was from 02/2008 which showed albumin 3.6, sedimentation rate of49, platelets 331,000, hemoglobin 14.1, hematocrit 42.4, white count 7.7, TSH 0.35, creatinine 0.8,ALT 29, and albumin 3.6. The patient did have an MRI of the right knee that was done in 04/2006 read by Cristian Ruth at [facility] and showed a large joint effusion and a medial meniscal tear. ASSESSMENT Rheumatoid arthritis. There has been improvement in most joints with the combination of sulfasalazine, methotrexate, and Enbrel. The right knee, however, has inflammation and is painful. The patient is being limited by the right knee. She is also concerned about instability and her ability to continue working and leading a normal life. There are other issues regarding Hillary's concern with her pain control. Hillary feels that the 80 mg ofmethadone which was prescribed for her opiate addiction was also working for pain control, but is not working now. She has been on the same dose for about a year and has discussed with Dr. Lopez increasing the dose. According to Hillary, Dr. Lopez is reluctant to increase the dose. PLAN I am going to get x-rays of both of her knees today. Depending on what we see, we may need to repeat the MRI. 2. I told Hillary that I would discuss with Dr. Lopez the possibility of increasing methadone. I also stressed to Hillary that this is Dr. Lopez' decision because there are side effects from increasing themethadone dose. 3. Hillary needs to increase the strength around the knee and I taught her how to do quadriceps exercises for her knees. I had her friend help so she will do them correctly. She is going to be doing 10 quad setting repetitions twice a day in both knees. 4. There is probably a component of osteoarthritis in her knee as well as the inflammatory RA. Manan gained 30 lbs in six months and this is not good for her knees. I would like her to begin to diet so that she could lose weight. 5.is going to begin to wean prednisone. I have given her 1 mg pills. I would like her to go to 4 mgfor one month, then go to 3 mg for one month, then from that point on she can taper to 4 and 3, then 3 and 2, and then 2, and then 1 every other day decrement. 6. I will see the patient back in February but I told her I would call her with the results of the knee x-rays. [facility] 11/06 Knee radiographs show moderate medial joint space narrowing in the right knee; with patellofemoral and lateral joint space narrowing as well. The left kneee has mild medial joint space narrowing. I called Hillary with these results and explained that this is the cause for the knee pain. The degreeof change in the right knee is much more severe than I would have anticipated. Conservative management as outlined above is indicated, but there is concern that she will eventually require a total knee replacement. Hillary is seeing Dr. Lopez this 11/09/08, and will discuss the methadone dose (sse above). Signed by Grant Engle MD 11/06/2008 16:45 Grant Engle MD - Grant Engle MD - ANTHONY Job ID: [id number] Doc ID: [id number] cc: Breanna Lopez MD documented in this encounter Plan of Treatment Not on file documented as of this encounter Visit Diagnoses Not on filedocumented in this encounter Care Teams Diagnostic Assistant Relationship Specialty Start Date End Date Breanna Lopez MD [address] [place] [phone] PCP - General 05/22/09 documented as of this encounter
--- OUTSIDE RECORDS SUMMARY | 2024-09-11 17:16 | XMS_ITS ---
Author Organization [facility] Address [address] [place] [address] Care Team Providers Care Fire Pilot Name Role Phone Breanna Lopez MD Primary Care Provider [phone] Rheumatology Status:Enrolled (Active) Start date:06/08/2024 Enrollment date:06/08/2024 Enrollment reason:Patient request Current support & services provided:Clinical Management, Refill Management Linked medications:etanercept (Active) Linked problems:Seronegative rheumatoid arthritis of multiple sites ([facility]) (Primary, Active) Case Team Name Relationship Phone Yan Mukherjee [facility] Pharmacist(Responsible Staff) Continued Care and Services Coordination
--- OUTSIDE RECORDS SUMMARY | 2024-09-11 17:16 | XMS_ITS | Encounter Summary ---
Author Organization [facility] Address [address] [place] [address] Care Team Providers Care Marketing Programs Specialist Name Role Phone Unavailable Primary Care Provider Unavailabl e Encounter Details Date Type Department Care Team (Late st Contact Info) Description 11/17/2006 14:44 EST Hospital Encounter [facility] [address] [place] [address] Grant Engle MD [address] [facility] [place] [address] Social History Tobacco Use Types Packs/Day Years [...]
--- OUTSIDE RECORDS SUMMARY | 2024-09-11 17:16 | XMS_ITS | Encounter Summary ---
Author Organization [facility] Address [address] [place] [address] Care Team Providers Care Bottle Packing Machine Cleaner Name Role Phone Breanna Lopez MD Primary Care Provider [phone] Reason for Visit * Reason Onset Date Comments Medications Refill 06/23/2011 Encounter Details Date Type Department Care Team (Late st Contact Info) Description 06/23/2011 Refill [facility] Rheumatology & Immunology [facility] [address] [place] [address] Grant Engle MD [address] [place] [address] Medications Refill Social History Tobacco [...] Start Date End Da te ibuprofen (MOTRIN) 200 mg tablet Take 1 Tab by mouth every 6 hours as needed. 100 Tab 3 07/07/2011 10/06/2011 folic acid (FOLVITE) 1 mg tablet Take 1 Tab by mouth daily. 90 Tab 3 07/07/2011 10/06/2011 methotrexate 2.5 mg tablet Take 8 Tabs by mouth once a week. Take 8 tabs by mouth daily 32 Tab 11 07/07/2011 10/06/2011 sulfaSALAzine (AZULFIDINE) 500 mg tablet Take 2 Tabs by mouth 2 times daily with meals. 120 Tab 5 07/07/2011 05/17/2012 sulfaSALAzine (AZULFIDINE) 500 mg tablet Take 2 Tabs by mouth 2 times daily with meals. 120 Tab 5 07/07/2011 07/07/2011 folic acid (FOLVITE) 1 mg tablet Take 1 Tab by mouth daily. 90 Tab 3 06/23/2011 07/07/2011 ibuprofen (MOTRIN) 200 mg tablet Take 1 Tab by mouth every 6 hours as needed. 100 Tab 3 06/23/2011 07/07/2011 methotrexate 2.5 mg tablet Take 8 Tabs by mouth once a week. Take 8 tabs by mouth daily 32 Tab 11 06/23/2011 07/07/2011 documented in this encounter Plan of Treatment Not on file documented as of this encounter Visit Diagnoses Not on filedocumented in this encounter Discontinued Medications Medication Sig Discontinue Reason Start Date End Da te methotrexate (TREXALL) 2.5 mg tablet Take 2.5 mg by mouth once a week. Take 8 tabs by mouth daily Reorder 06/16/2010 06/23/2011 ibuprofen (MOTRIN) 200 mg tablet Take 200 mg by mouth every 6 hours as needed. Reorder 06/23/2011 folic acid (FOLVITE) 1 mg tablet Take 1 mg by mouth daily. Reorder 06/23/2011 sulfaSALAzine (AZULFIDINE) 500 mg tablet Take 500 mg by mouth 4 times daily. Reorder 06/23/2011 sulfaSALAzine (AZULFIDINE) 500 mg tablet Take 2 Tabs by mouth 2 times daily with meals. Reorder 07/07/2011 07/07/2011 methotrexate 2.5 mg tablet Take 8 Tabs by mouth once a week. Take 8 tabs by mouth daily Reorder 06/23/2011 07/07/2011 folic acid (FOLVITE) 1 mg tablet Take 1 Tab by mouth daily. Reorder 06/23/2011 07/07/2011 ibuprofen (MOTRIN) 200 mg tablet Take 1 Tab by mouth every 6 hours as needed. Reorder 06/23/2011 07/07/2011 documented as of this encounter Care Teams Bottle Packing Machine Cleaner Relationship Specialty Start Date End Date Breanna Lopez MD [address] [place] [phone] PCP - General 05/22/09 documented as of this encounter
--- OUTSIDE RECORDS SUMMARY | 2024-09-11 17:16 | XMS_ITS | Encounter Summary ---
Author Organization [facility] Address [address] [place] [address] Care Team Providers Care Surveillance Specialist Name Role Phone Breanna Lopez MD Primary Care Provider [phone] Reason for Visit * Reason Onset Date Comments Appointment Related 06/05/2011 Pt wants matt t with MD armijo, has RA needs to discuss crisis with pain medication. Encounter Details Date Type Department Care Team (Late st Contact Info) Description 06/05/2011 Telephone [facility] Rheumatology & Immunology - [facility] [address] [place], [place] [id number] Grant Engle MD [address] [place] [address] Appointment Related (Pt wants appt with MD armijo, has RA needs to discuss crisis with pain medication. ) Social History Tobacco Use Types Packs/Day [...] Telephone Encounter - Grant Engle MD - 06/09/2011 1358 EDT Patient said she was in the wrong place at the wrong time I cannot prescribe methadone and I am not going to try to change Dr. Lopez' mind Hillary accepted this with no argument * Telephone Encounter - Rosy Flanagan RN - 06/08/2011 1411 EDT PCP is not budging, even after talking with pt's therapist. She won't refill Methadone. Are you willing to prescribe it and if not, is there something else you are willing to prescribe for pt's pain? * Telephone Encounter - Rosy Flanagan RN - 06/08/2011 1222 EDT Pt said she was doing well up until about 1 1/2 months ago. Went for a ride with someone she thought she could trust. Turned out he was doing a heroine run. Pulled over by the police and the two ofthem were charged even though pt insists she knew nothing about it. Consequently her PCP is refusing to refill her Methadone. Pt tells me she is very concerned that her pain R/T RA will get bad. Methadone has been taking care of it well where nothing else has. Will see her therapist later today who she will try to get to go to [facility] for her. You have a FUR with pt on 09/16/11. She'd like to see you sooner. I told her you were unlikely to order methadone for her if her PCP wouldn't. Is there something else you could recommend? Pt seems to think she's tried everything to no avail. * Telephone Encounter - Rosy Flanagan RN - 06/05/2011 1131 EDT No working number on this pt. Unable to reach to discuss problem. Await call back. Phone person notiifed. documented in this encounter Plan of Treatment Not on file documented as of this encounter Visit Diagnoses Not on filedocumented in this encounter Care Teams Surveillance Specialist Relationship Specialty Start Date End Date Breanna Lopez MD [address] [place] [phone] PCP - General 05/22/09 documented as of this encounter
--- OUTSIDE RECORDS SUMMARY | 2024-09-11 17:16 | XMS_ITS | Encounter Summary ---
Author Organization [facility] Address [address] [place] [address] Care Team Providers Care Neighborhood Service Center Director Name Role Phone Breanna Lopez MD Primary Care Provider [phone] Encounter Details Date Type Department Care Team (Late st Contact Info) Description 03/07/2008 Before PRISM Converted Visit (Maple) [facility] - Maple conversion [address] [place] [address] Marquise Amado MD [address] [place] [address] Social History Tobacco Use Types Packs/Day Years Used Date Smoking Tobacco: Never Assessed Sex and Gender Information Value Date Recorded Sex Assigned at Female 03/20/2021 0:23 EDT Gender Identity Female 10/23/2019 13:44 EST Sexual Orientation Choose not to disclose 2020 0:23 EDT documented as of this encounter Progress Notes * Marquise Amado - 08/05/2009 1304 EDT DIVISION OF RHEUMATOLOGY PROGRESS/FOLLOWUP NOTE - 03/07/2008 REASON FOR APPOINTMENT Followup of inflammatory arthritis. SUBJECTIVE This patient is here today in followup of her inflammatory arthritis. She has continued to have persistent symptoms, predominantly involving her ankles, knees, as well as her wrists. She says she is in extreme pain, and that she frequently has swelling at the above-mentioned joints. In fact, she iscontinuing to take methadone for control of pain, and additionally has had to go up on her prednisone. She is currently on 20 mg a day, having increased from 10 mg three days ago. She says that therehas been some mild improvement since increasing the prednisone. She has been working since she was last here, but unfortunately just recently lost that job. That work entailed being on her feet all day, and she said it was very difficult for her to perform her tasks without any pain. At the end of the day, she had extreme discomfort in her ankles and knees. This patient has been maintained on methotrexate and in October sulfasalazine was started. She says that she thinks the sulfasalazine has helped somewhat, and that if she misses a dose she notices increased pain, but she has not felt that it has been extremely beneficial. She has, however, had no difficulty in tolerating it. She has been compliant in having her labs checked, and says that they were checked last week. Unfortunately, we do not have a copy of them yet. MEDICATIONS 1. Methotrexate 2.5 mg 8 tablets weekly. 2. Sulfasalazine 500 mg 2 tablets p.o. b.i.d. 3. Prednisone 20 mg p.o. daily. 4. Methadone 40 mg. 5. Ibuprofen 800 mg p.r.n. 6. Folic acid 1 mg daily. 7. Cymbalta 60 mg p.o. daily. OF SYSTEMS A full 12-point review of systems was obtained and documented on the medical record from today's visit. It was entirely negative with the following exceptions. She does admit to fatigue as well as some mild weight loss. She has had nausea, but no vomiting. She has had the joint pains as mentioned above, and morning symptoms lasting in excess of three hours. 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 She also has had increased feelings of depression. PHYSICAL EXAMINATION Her blood pressure is 138/76, heart rate 92, respirations 16, her weight is 157 pounds. She is complaining of 10/10 pain in her legs, knees, and ankles. In general, she is a pleasant young female whodoes look her stated age. HEENT: Her sclerae are anicteric. Her conjunctivae are not injected. Her oropharynx is clear. Neck: No supraclavicular or cervical lymphadenopathy. No thyromegaly. Lungs areclear to auscultation bilaterally. Cardiovascular: Regular rate and rhythm. No murmurs, rubs, or gallops. Her skin shows no evidence of rashes or ecchymoses; however, there is some mild erythema overlying the MCPs of the left hand. Joints: She has full and painless range of motion of shoulders and elbows. There is swelling ofthe wrists bilaterally, left greater than right, and the left is slightly warm. Additionally, there is diminished range of motion in both of her wrists. She is able to close her fists without difficulty, but there is some swelling noted at the third MCP onthe right side with mild tenderness. Her hips move fully without discomfort. Her knees have pain with deep flexion. There is a small fluid wave on the right knee. It is slightly warm; however, the left knee is warmer, but less swollen. Her left ankle is notably swollen and warm and tender on palpation. There is some mild swelling at the right ankle. The MTPs are unremarkable. LABORATORY Most recent set is from 11/02/2007. Her white count was 8, hemoglobin 13.2, hematocrit 38.6, platelets 317. AST 23, ALT 23, creatinine 0.65, albumin 4, alk phos 86. ASSESSMENT Patient is a 27-year-old female with inflammatory arthritis who has continued to be symptomatic despite combination therapy with sulfasalazine and methotrexate. She has unfortunately required prednisone chronically since October. She has been unable to get to a dose below 10 mg, and unfortunately has been as high as 30. She will need further treatment and TNF therapy as indicated. PLAN 1. I hada long discussion with her over the need for TNF alpha inhibition therapy, and she was veryinterested in pursuing this. I did outline certain risks from these medications, particularly possibility of reactivating hepatitis and/or tuberculosis. She will go on and pursue serologic testing for hepatitis as well as having a repeat PPD placed at her primary care office. She will have her insurance information reviewed by our specialists, and we will try to precertify her for Humira or Enbrel, depending on what may be cheaper with her plan. 2. She will continue methotrexate and sulfasalazine for now. 3. As far as her prednisone, I am going to leave her at 20 mg for another week and then she is to take 15 mg for one week and then back to 10 mg. Once she is on the TNF therapy, we will go on and tryto successfully wean her off of prednisone. 4. She will need to continue to have her labs checked every two months as she is still on methotrexate. saw and examined the patient with the resident/fellow. I agree with the findings and plan of care documented in the resident's/fellow's note. Signed by Grant Engle MD 03/15/2008 08:42 Reviewed by Marquise Amado MD 03/13/2008 18:29 Marquise Amado MD Grant Engle MD - Marquise Amado MD - ANTHONY Job ID: [id number] Doc ID: [id number] cc: Breanna Lopez MD documented in this encounter Plan of Treatment Not on file documented as of this encounter Visit Diagnoses Not on filedocumented in this encounter Care Teams Neighborhood Service Center Director Relationship Specialty Start Date End Date Breanna Lopez MD [address] [place] [phone] PCP - General 05/22/09 documented as of this encounter
--- OUTSIDE RECORDS SUMMARY | 2024-09-11 17:16 | XMS_ITS | Encounter Summary ---
Author Organization [facility] Address [address] [place] [address] Care Team Providers Care Chalk Tester Name Role Phone Breanna Rodriguez MD Primary Care Provider Encounter Details Date Type Department Care Team (Late st Contact Info) Description 07/21/2007 Results Only [facility] - Maple conversion [address] [place] [address] Breanna Rodriguez MD [address] [phone] Social History Tobacco Use Types Packs/Day Years [...] Priority Date/Time Associated Diagnosis Comments CYTOPATHOLOGY Routine 07/21/2007 0:00 EDT documented in this encounter Results * CYTOPATHOLOGY (07/21/2007 0:00 EDT) Pathology Report: CYTOPATHOLOGY REPORT Reports generated via electronic interface contain original data; however they are lacking the format of the original report. Caution should be taken when reading/interpreti ng unformatted reports. Name: ? ROGER ACUÑA ? Accession #: ? [id number] : ? 1980 (Age: 26) ??F ?Collect Date: ? 07/21/2007 Location: ? [facility] ? Receive Date: ? 07/25/2007 Provider: ?BREANNA RODRIGUEZ MD Copy to: ? Specimen/Source: ?ThinPrep Pap Test, Cervix/Endocervix, processed on [employer] ThinPrep Imaging System, with manual evaluation Last Menstrual Period: ? Other: ? HPVA - HPV testing requested if ASC-US on the current ThinPrep Pap test. ? SPECIMEN ADEQUACY ? Satisfactory for Evaluation - transformation zone component present GENERAL CATEGORIZATION ? Epithelial Cell Abnormality INTERPRETATION ? Squamous Cell Abnormality - Low grade squamous intraepithelial lesion (LSIL). EDUCATIONAL NOTES/RECOMMENDATI ONS ? [facility] recommends following the 2001 Consensus Guidelines for the Management of Women with Cervical Cytological Abnormalities (LUCIO,2002;287:212 0-9). Management algorithms have been distributed by [facility] and are available online at www.ASCCP.org. ? Document reviewed and electronically signed by: ? Amanda Smith MD ? Report Date: ??08/01/2007 08:53 End of Report KRISTINA HOANG 07/21/2007 07/25/2007 Breanna Rodriguez MD PATHOLOGY ORDERABLES KRISTINA HOANG [address] [place] [address] documented in this encounter Visit Diagnoses Not on filedocumented in this encounter Care Teams Chalk Tester Relationship Specialty Start Date End Date Breanna Rodriguez MD [address] [place] [phone] PCP - General 05/22/09 documented as of this encounter
--- OUTSIDE RECORDS SUMMARY | 2024-09-11 17:16 | XMS_ITS | Encounter Summary ---
Author Organization [facility] Address [address] [place] [address] Care Team Providers Care Director Pharmacovigilance Name Role Phone Breanna Lopez MD Primary Care Provider Reason for Visit * Reason Onset Date Comments Erroneous Encounter 08/11/2011 Encounter Details Date Type Department Care Team (Late st Contact Info) Description 08/11/2011 Refill [facility] Rheumatology & Immunology - [facility] [address] [place], [place] [address] Grant Engle MD [address] [place] [address] Erroneous Encounter Social History Tobacco Use Types Packs/Day Years [...] encounter Miscellaneous Notes * Telephone Encounter - Joan Knowles V. - 08/11/2011 0850 EDT PT HAVING TROUBLE documented in this encounter Plan of Treatment Not on file documented as of this encounter Visit Diagnoses Not on filedocumented in this encounter Care Teams Director Pharmacovigilance Relationship Specialty Start Date End Date Breanna Lopez MD [address] [place] [phone] PCP - General 05/22/09 documented as of this encounter
--- OUTSIDE RECORDS SUMMARY | 2024-09-11 17:16 | XMS_ITS | Encounter Summary ---
Author Organization [facility] Address [address] [place] [address] Care Team Providers Care Home Care Chaplain Name Role Phone Breanna Lopez MD Primary Care Provider Encounter Details Date Type Department Care Team (Late st Contact Info) Description 02/22/2007 Before PRISM Converted Visit (Maple) [facility] - Maple conversion [address] [place] [address] Emma Gamez PA-C [address] [place] [address] Social History Tobacco Use Types Packs/Day Years Used Date Smoking Tobacco: Never Assessed Sex and Gender Information Value Date Recorded Sex Assigned at Female 03/20/2021 0:23 EDT Gender Identity Female 10/23/2019 13:44 EST Sexual Orientation Choose not to disclose 2020 0:23 EDT documented as of this encounter Progress Notes * Dm, Conv Commercial Analyst - 09/13/2009 1702 EST DIVISION OF RHEUMATOLOGY PROGRESS/FOLLOWUP NOTE - 02/22/2007 SUBJECTIVE: This is a follow-up appointment for this patient with inflammatory polyarthritis. She was seen in initial consultation in September of 2006. At that time, she presented with inflammation of the right knee. Dr. Engle drained the right knee and injected it with Aristospan. The patient is concerned today that she is developing swelling in the right knee once again. This patient also has h ad left wrist pain. She has had an increasing amount of pain in the left wrist for the past month but it was worse last week. The patient states that the left wrist is swollen and she finds it difficult to bus info consultant. This patient has been taking prednisone 5 mg daily but she does not feel that it is significantly improving her wrist pain. 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 Since her last appointment with us, she had been taking methotrexate 10 mg weekly. The patient states that she has been tolerating this medication. Since her last appointment, she has been taken off Suboxone. MEDICATIONS 1. Methotrexate 10 mg weekly. 2. Prednisone 5 mg daily. REVIEW OF SYSTEMS The patient denies any fever or illness. She denies any shortness of breath or cough. She denies any GI symptoms. She denies any rash. She has not developed any mouth pain or sores. She denies any chest pain or adenopathy. She also denies any hematuria or dysuria. PHYSICAL EXAMINATION Vital signs: Height 63 inches. Weight 173. Blood pressure 120/65. Skin: No acute rash, although, this patient does have dry skin. There is no fingernail pitting. HEENT: No oral or pharyngeal ulcerations. Neck: No cervical adenopathy. Respiratory: Lungs are clear to auscultation. Cardiac: The heart has a regular rate and rhythm without murmur. Musculoskeletal: Range of motion at the shoulder is intact. There is no synovitis in the elbows. There is mild softtissue swelling in the right wrist and moderate soft tissue swelling in the left wrist. The left wrist is also tender to palpation and with range of motion. There is no dactylitis present in the hands. Hips move well. The right knee is warm topalpation and there is a mild effusion. There is mild soft tissue swelling in the ankles and they are tender to palpation. There is no dactylitis present in the feet. LABORATORY On December 08, 2006, WBC 11.3, hemoglobin 13.8, hematocrit 40.6, platelets 311, AST 17, ALT 18, creatinine 0.8, albumin 4.2, alkaline phosphatase 74. ASSESSMENT Inflammatory polyarthritis. There is no sign of psoriasis on examination today, but given this patient's family history of psoriasis, psoriatic arthritis is still very much atthe top of the differential. This patient was also evaluated by Dr. Engle today, and he did not feel that her joints were as inflamed as they have been in the past. Fortunately, there seems to have been a response to methotrexate. PLAN: 1. I advised this patient to increase her prednisone to 10 mg daily for the next week. She is then to take 7.5 mg daily for one week and then to hold her dose at 5 mg daily. 2. I advised this patient to take calcium 1200 mg daily with vitamin D 400 to 800 units daily. I advised her that it is best to take this in a divided dose. 3. This patient is overdue for a CBCD and DMARD profile. I advised her to have this drawn today [facility]. She was also given a standing order to take to Dr. Monique's office. She was reminded to have lab work every two to three months. 4. I advised this patient to increase her methotrexate to six tablets weekly. She was given a new prescription. 5. Follow up with us in two to three months. I was directly supervised by Dr. Grant Engle, who was in the office suite and immediately available the entire time the service was provided. ADDENDUM 03/02/2007: CRP 2.5. ESR 17. DMARD WNL. CBCD WNL. Signed by Grant Engle MD 03/03/2007 09:25 Reviewed by JL Hamm 03/02/2007 21:07 Jeannine Shaikh PASheldon M Cooper, MD Dictated by: JL Hamm Grant Engle MD - JL Hamm A - ANTHONY Job ID: [id number] Document ID: [id number] cc: Natasha Monique MD documented in this encounter Plan of Treatment Not on file documented as of this encounter Visit Diagnoses Not on filedocumented in this encounter Care Teams Home Care Chaplain Relationship Specialty Start Date End Date Breanna Lopez MD [address] [place] [phone] PCP - General 05/22/09 documented as of this encounter
--- OUTSIDE RECORDS SUMMARY | 2024-09-11 17:16 | XMS_ITS | Encounter Summary ---
Author Organization [facility] Address [address] [place] [address] Care Team Providers Care Director Of Financial Reporting Name Role Phone Breanna Lopez MD Primary Care Provider [phone] Reason for Visit * Reason Comments Rheumatoid Arthritis b/l knee pain ivet nues, although she is post b/l knee injections x3wks ago Encounter Details Date Type Department Care Team (Latest Contact Info) Description 03/18/2011 16:00 EDT Office Visit [facility] Rheumatology & Immunology - [facility] [address] [place], [place] [address] Grant Engle MD [address] [place] [address] Rheumatoid arthritis; Pain in joint of right knee Social [...] Sign Reading Time Taken Comments Blood Pressure 130/84 03/18/2011 1614 EDT Pulse 88 03/18/2011 1614 EDT Temperature - - Respiratory Rate - - Oxygen Saturation - - Inhaled Oxygen Concentration - - Weight 90.3 kg (199 lb) 03/18/2011 1614 EDT Height 160 cm (5' 3) 03/18/2011 1614 EDT Body Mass Index 35.25 03/18/2011 1614 EDT documented in this encounter Progress Notes * Grant Engle MD - 03/19/2011 1411 EDT DIVISION OF RHEUMATOLOGY PROGRESS/FOLLOWUP NOTE - 03/18/2011 PROBLEM: 1. Rheumatoid arthritis. 2. Bilateral knee pain. SUBJECTIVE: Hillary's last visit to see me was on 09/23/2010. The patient says that she was having problems with her knees and on 02/23, she believes the date was, she had viscous supplementation, as far as I can tell injections to both of her knees. She does not remember exactly what was done. Two weeks later, she states that the left knee was quite swollen. The right knee received two injections and that got painful but was not quite as swollen. Since that time, the swelling has gone down and she thinks that she is back to about where she was before. However, immediately after the injections she relates that she was unable to get off the couch and needed to push herself in order to move. At that time, she was rating her pain as 8/10. The patient states that she has also been having problems with her right hand. 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 Other than that, she says her other joints are doing well. She feels that she is able to do much ofthe things that she would like except use her right hand a lot or be able to exercise strenuously because of her knees. MEDICATIONS: Etanercept, Enbrel SureClick 50 mg weekly. Folic acid 1 mg. Ibuprofen 200 as needed. Methadone 120 mg by mouth daily. Methotrexate 8 tablets weekly. Sulfasalazine 2 grams per day. REVIEW OF SYSTEMS: A 12-point review of systems is positive for continued weight gain, joint and muscle pain, morning stiffness of 3 to 4 hours, numbness and tingling in the right hand primarily, difficulty sleeping and hair loss. She is fairly frustrated because she cannot get down on the floor and kneel and play with her kids the way her partner can. All other review of systems questions were denied. OBJECTIVE: Again, the patient rates pain in her knees as 8/10. Blood pressure is 130/84, pulse is 88. Weight is 199, height is 63 inches. She has gained 3 pounds since her last visit. The nurse obtained a pulse of 88 but when I checked Hillary's pulse it was 120. It did not slow down during the course of the encounter. Skin exam is unremarkable. HEENT is within normal limits. Neck is supple without lymphadenopathy. Lungs clear to percussion and auscultation. Cardiac exam revealed a regular tachycardia. The heart sounds were difficult to hear, but they sounded normal. Abdomen was not examined. Pulses are 2+ bilaterally. Neurologic is normal. I checked her for carpal tunnel with Tinel's sign and this is negative in both hands. Musculoskeletal exam: She is able to get up out of a chair without too much difficulty and walk about the room. She does not have much of an antalgic gait. She cannot do a deep knee bend because of pain in the knees. Most of the pain appears to be in the right knee. She has full range of motion in neck and back. Her shoulders move normally. Elbows are fine. There may be some mild synovitis at the wrist, but overall they are fine. 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 Her back moves well. She has full range of motion of both hips. Actually, both of her knees range fairly well. She is able to flex and extend the left without difficulty. She has some very mild pain with full flexion on the right, but there is very limited warmthin the right compared to the left and I was unable to determine if there was fluid in the right knee at this time. If there is any, it is a very small amount in the right knee. Ankles may have some mild soft tissue swelling, but range of motion is full and toes are unremarkable. ASSESSMENT: Rheumatoid arthritis. The patient appears to be doing quite well on her current regimen. In terms of her joints, they look better on exam. She agrees that most of them are better, but she is still complaining of severe pain in her knees. I think she does likely have damage in her knees, particularly the right side. I think that part of this being complicated by her weight gain. PLAN: 1. I am not going to make any changes in medications. 2. The patient has not had blood tests for quite some time. I have given her orders to have these done locally. If they are not done, I will not renew her meds. She needs a CBC, differential, as wellas a CMP. 3. I did discuss with Hillary her rapid pulse today. She says she does not think it is usually this way and she was not sure why this was happening. 4. When we did discuss her eating habits, it appears that she is overeating and that she uses that as a crutch when she is feeling down or when she is frustrated. She needs to get a handle on this and try to cut down on her calories and lose weight. I am wondering whether counseling might be of benefit for this as well. 5. I will see the patient back in approximately 6 months, but she knows that she can call if there if there are interim problems. Electronically Signed by Grant Engle MD 03/19/2011 14:11 Grant Engle MD - Grant Engle MD - Job ID: SM Doc ID: [id number] [facility] Doc ID: [id number] cc: MD Breanna Bangura MD * Grant Engle MD - 03/18/2011 192 EDT This office note has been dictated. documented in this encounter Plan of Treatment Not on file documented as of this encounter Visit Diagnoses Diagnosis Rheumatoid arthritis(714.0) Rheumatoid arthritis Pain in joint of right knee Pain in joint, lower leg documented in this encounter Care Teams Director Of Financial Reporting Relationship Specialty Start Date End Date Breanna Lopez MD [address] [place] [phone] PCP - General 05/22/09 documented as of this encounter
--- OUTSIDE RECORDS SUMMARY | 2024-09-11 17:16 | XMS_ITS | Encounter Summary ---
Author Organization [facility] Address [address] [place] [address] Care Team Providers Care Electric Switch Repairer Name Role Phone Breanna Lopez MD Primary Care Provider [phone] Reason for Visit * Reason Onset Date Comments Referral Request 09/09/2011 Encounter Details Date Type Department Care Team (Late st Contact Info) Description 09/09/2011 Telephone [facility] Rheumatology & Immunology - [facility] [address] [place], [place] [id number] Grant Engle MD [address] [place] [address] Referral Request Social History Tobacco Use Types Packs/Day Years [...] Telephone Encounter - Teena Yu RN - 09/11/2011 1433 EDT Please call patient to tell her zpack has been sent into her pharmacy. If no improvement by Wednesday,she should be seen (Per ) Spoke with Cassy at 's office and she took the referral. She states that it will be several months before the patient could be seen. Message left with the patient regarding the above information * Telephone Encounter - Teena Yu RN - 09/10/2011 1533 EDT Ariel from [facility] called back in June and asked if this patient could be referred to the pain clinic, . Is this person an appropriate referral to the pain clinic? * Telephone Encounter - Carrie Quinones - 09/09/2011 1414 EDT Patient checking to see if referral has been made to Dr. Rivas office, pain management. Patient would like to make appointment as soon as possible but cannot without referral. documented in this encounter Plan of Treatment Not on file documented as of this encounter Visit Diagnoses Not on filedocumented in this encounter Care Teams Electric Switch Repairer Relationship Specialty Start Date End Date Breanna Lopez MD [address] [place] [phone] PCP - General 05/22/09 documented as of this encounter
--- OUTSIDE RECORDS SUMMARY | 2024-09-11 17:16 | XMS_ITS | Encounter Summary ---
Author Organization [facility] Address [address] [place] [address] Care Team Providers Care Parts Expediter Name Role Phone Breanna Lopez MD Primary Care Provider Encounter Details Date Type Department Care Team (Late st Contact Info) Description 11/17/2006 Before PRISM Converted Visit ([facility]) [facility] - [facility] conversion [address] [place] [address] Grant Engle MD [address] [place] [phone] Social History Tobacco Use Types Packs/Day Years Used Date Smoking Tobacco: Never Assessed Sex and Gender Information Value Date Recorded Sex Assigned at Female 03/20/2021 0:23 EDT Gender Identity Female 10/23/2019 13:44 EST Sexual Orientation Choose not to disclose 2020 0:23 EDT documented as of this encounter Progress Notes * Grant Engle MD - 11/25/2009 0039 EST DIVISION OF RHEUMATOLOGY PROGRESS/FOLLOWUP NOTE - 11/17/2006 PROBLEM: Inflammatory arthritis. SUBJECTIVE: This is the second visit for Ms. Reich who was seen in initial consultation on 2005. At that time she had a right knee effusion with warmth and I suspect an inflammatory arthritis. The knee was aspirated and injected. The synovial fluid from the right knee had a white countof 4600, only 1100 red cells, 77% polys, 12% lymphs. No crystalline growth. Immediate benefit in the knee, ankles and feet was noted after the injection. She states that the swelling went down. She wasable to walk better and have very little limitations. Over the last few weeks, however, the pain has come back and is now affecting both ankles. She is having a significant amount of problems with walking and standing. She notes that in the morning shecan barely get up on her legs because of the pain in her ankles. As the day goes on, her pain is somewhat better. She does note some improvement after she takes the diclofenac 75 mg b.i.d. MEDICATIONS: 1. Suboxone which is a naloxone and buprenorphine 8 mg b.i.d. 2. Zoloft 100 mg per day. 3. Buspirone 10 mg b.i.d. 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 She has a young son who she calls ???Little Will?? and he lives with her in an apartment above the store. Her grandfather and mother live in the adjoining apartment, and they are able to take care of Little Will. REVIEW OF SYSTEMS: Positive for her having a little patch on her left upper arm which is now healed. She wonders whether this could have been psoriasis. Other than that she has had some upper respiratory cold symptoms, but denies any chills or fever. She has had no problems tolerating the diclofenac. She has had no upset stomach, chest pain or problems with urination. No numbness, tingling or headaches. Overall her spirits are quite good. She does have significant morning stiffness in her ankles and feet. This can last for one to two hours. OBJECTIVE: On examination, height is 63 inches, weight 172, BP 102/66, pulse 72 and regular. She rates pain in her feet and ankles as 7/10. The general exam today shows there to be no acute distress. Skin exam shows a small oval patch on the inside of her upper left arm. This is brown appearing and could be a healing plaque from psoriasis, but I cannot distinguish anything more specifically about it. Head, ears, eyes, nose and throat are unremarkable. Neck is supple without lymphadenopathy. Lungs are clear to percussion and auscultation. Cardiac exam reveals a regular rhythm. Abdomen was not examined. Pulsesare 2+ bilaterally. Neurologic is intact. Strength is normal as well as sensory exam. Musculoskeletal exam today was performed, and this was a complete rheumatologic exam. The patient has good range of motion of the neck andupper and lower back. Theshoulders and elbows are fine. She has some tenderness over the radial aspect of the wrists and also over the palmar surface of the wrists bilaterally, more so on the right than the left. There may be a touch of soft tissue swelling of both wrists, butI could not be sure ofthat. Other than that her MCP joints, PIP joints, and DIP joints are normal. She has excellent high worker strength. Her hips are unremarkable, and both knees are cool. There is no fluid, and she has full range of motion. There is softtissue swelling of both ankles, perhaps a little more on the right thanthe left. There is also pain with squeezing the mid talar area bilaterally. Range of motion in the ankles is slightly painful. She has more pain in the ankles when I ask her to doa squat. LABORATORIES: The last time she was in, we did a complete panel of blood tests. This was on September 28, 2006. White count was 10, hemoglobin 12.9, hematocrit 38.6, platelets 409. AST 26, ALT 23, creatinine 0.86, albumin 4.4. Sedimentationrate was elevated at 45. C-reactive high at 5.2. ROCIO was less than 40, rheumatoid factor less than 20. CCP antibodies were less than 2.0. ASSESSMENT: At this point Hillary is being diagnosed with an inflammatory polyarthritis. The symmetrical nature ofthe lower extremity predominance makes me think psoriatic arthritis is likely, although right now she has no psoriasis. There is a family history of psoriasis. PLAN: 1. A long discussion with Hillary regarding the diagnosis and the need to treat her fairly aggressively because she is fairly compromised by the amount of problems she is having at her ankles and feet. I should note that I did not find any sausage toe deformities or evidence for significant soft tissue swelling at the MTP joints. 2. I went over a pamphlet on psoriatic arthritis with the patient and explained to her the need forrapid anti-inflammatories benefit within a sustained disease modifying or DMARD benefit. 3. I will put her on some corticosteroids to start and we will start her on 5 mg prednisone to be taken as five pills or 25 mg all in the morning for four days to decrease to 20 mg all in the morningfor four days, 15 mg in the a.m. for four days, 10 in the a.m. for four days, and then stay on one pill or 5 mg for two weeks untilher next appointment. 4. After going over options, it was decided to start her on methotrexate. She will be doing this onSaturday and will be taking four pills or 10 mg once a week. She is to do this every week at aroundthe same time. 5. We will also start folic acid 1 mg per day. I explained to her that this is to combat any potential side effects of the methotrexate. 6. Her lab tests were normal, but she is to get these done every four to six weeks. I gave her a standing order to have this done locally. This includes CBC, differential, AST, ALT, albumin, creatinine, and alkaline phosphatase. 7. I would like her to call in two weeks with a progress report and also to call if anything happens that does not make sense or that we do not go over. 8. She is to hold the diclofenac for the short term. 9. Followup in middle to late January. Signed by Grant Engle MD 11/19/2006 11:44 Emanuel Griffith MD Grant Engle MD - Marine Engle MD P - ds Job ID: [id number] Document ID: [id number] cc: MD Natasha Painter MD documented in this encounter Plan of Treatment Not on file documented as of this encounter Visit Diagnoses Not on filedocumented in this encounter Care Teams Parts Expediter Relationship Specialty Start Date End Date Breanna Lopez MD [address] [place] [phone] PCP - General 05/22/09 documented as of this encounter
--- OUTSIDE RECORDS SUMMARY | 2024-09-11 17:16 | XMS_ITS | Encounter Summary ---
Author Organization [facility] Address [address] [place] [address] Care Team Providers Care Corporate Manager Name Role Phone Breanna Lopez MD Primary Care Provider [phone] Encounter Details Date Type Department Care Team (Late st Contact Info) Description 08/19/2011 19:09 EDT - 08/19/2011 19:10 EDT Hospital Encounter [facility] [address] [place] [address] Micah Krishnamurthy MD Discharge Disposition: Home or Self Care [...] 0:23 EDT documented as of this encounter Medications at Time of Discharge Medication Sig Dispensed Refills Start Date End Date Etanercept (ENBREL SURECLICK) 50 mg/mL (0.98 mL) PnIj Inject 50 mg into the skin every 7 days. 4 Each 5 07/15/2010 07/26/2013 folic acid (FOLVITE) 1 mg tablet Take 1 Tab by mouth daily. 90 Tab 3 07/07/2011 10/06/2011 ibuprofen (MOTRIN) 200 mg tablet Take 1 Tab by mouth every 6 hours as needed. 100 Tab 3 07/07/2011 10/06/2011 METHADONE HCL (METHADONE ORAL) Take 120 mg by mouth daily. 09/23/2010 10/06/2011 methotrexate 2.5 mg tablet Take 8 Tabs by mouth once a week. Take 8 tabs by mouth daily 32 Tab 11 07/07/2011 10/06/2011 sulfaSALAzine (AZULFIDINE) 500 mg tablet Take 2 Tabs by mouth 2 times daily with meals. 120 Tab 5 07/07/2011 05/17/2012 documented as of this encounter Discharge Disposition Disposition Code Departure Means Destination Home or Self Care documented in this encounter Plan of Treatment Not on file documented as of this encounter Visit Diagnoses Not on filedocumented in this encounter Care Teams Corporate Manager Relationship Specialty Start Date End Date Breanna Lopez MD [address] [place] [phone] PCP - General 05/22/09 documented as of this encounter
--- OUTSIDE RECORDS SUMMARY | 2024-09-11 17:16 | XMS_ITS | Encounter Summary ---
Author Organization [facility] Address [address] [place] [address] Care Team Providers Care It Network Architect Name Role Phone Breanna Lopez MD Primary Care Provider Encounter Details Date Type Department Care Team (Late st Contact Info) Description 06/29/2007 Before PRISM Converted Visit (Maple) [facility] - Maple conversion [address] [place] [address] Grant Engle MD [address] [place] [id number] Social History Tobacco Use Types Packs/Day Years Used Date Smoking Tobacco: Never Assessed Sex and Gender Information Value Date Recorded Sex Assigned at Female 03/20/2021 0:23 EDT Gender Identity Female 10/23/2019 13:44 EST Sexual Orientation Choose not to disclose 2020 0:23 EDT documented as of this encounter Progress Notes * Grant Engle MD - 09/17/2009 1723 EST DIVISION OF RHEUMATOLOGY PROGRESS/FOLLOWUP NOTE - 06/29/2007 PROBLEM Inflammatory arthritis. SUBJECTIVE It has been two months since Hillary's last visit and she has had significant problems with her joints. She states that the last few weeks have been bad because of increased pain in her ankles, knees, and wrists. Her knees are so swollen that it is difficult for her to walk and her ankles are also painful, particularly the right side. Hillayr is getting things together at this point and she actually is starting a new 40 hour per week job at [employer] on this coming Wednesday. 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 She is concerned because in her current state she feels that she would have some difficulty performing her duties. She has also moved out from her grandparent's area and is living with her boyfriend who is very supportive. He has two daughters who are older than her 3-year-old son Elmer. Also since her last visit, she has started methadone 60 mg daily and she states that she has not used any prescription or illicit medications. CURRENT MEDICATIONS 1. Methotrexate; she is taking six tablets or 15 mg once weekly. 2. Prednisone 5 mg per day. 3. Ibuprofen one to two tablets daily. 4. Methadone. REVIEW OF SYSTEMS Review of systems is positive for some night sweats. She has lost some weight because she has been doing a lot more walking this summer. She also has three to four hours of morning stiffness, numbness and tingling in both hands such that she has to shake them in order to get them to feel normal, muscle weakness, trouble sleeping, some anxiety, and hair loss. All other systems review questions were denied. OBJECTIVE Exam shows Hillary to be in good spirits. Height is 63 inches. Weight is 150 pounds. Blood pressure is110/64. Pulse is 80 and regular. She is here today with her son Elmer and they interact well together. She rates pain in her ankles and knees as 6/10. General exam shows no skin rash. Head, eyes, ears, nose, and throat are unremarkable. Neck is supple without lymphadenopathy. Lungs are clear to percussion and auscultation. Cardiac exam reveals a regular rhythm. Abdomen is soft and nontender. Pulses are 2+ bilaterally and neurologic is intact. She has significant inflammation on the musculoskeletal exam. There is a bilateral wrist soft tissue swelling with painful end range of motion. She has swelling in the right first MCP joint and tenderness in the MCPs and PIPs of both hands. Hair Spring Cutter strength is well maintained. Tests for carpal tunnel by Tinel's sign are negative. Elbows and shoulders are unremarkable. Neck and lower back move well. Hips move well with negative ZANDRA's. There is warmth, swelling, and a large effusion in the right knee with painful end range of motion.Left knee has some mild soft tissue swelling and possible effusion, but the range of motion is wellpreserved. There is bilateral ankle swelling, more so on the right than the left, painful end range of motion in the ankles and also with subtalar rocking, inversion, and eversion. There is some tenderness at the MTP joints, but she is able to curl her toes and stand on her tiptoes. LABORATORY DATA Her last blood tests were April 26, 2007. White count was 10, hemoglobin 12.5, platelets 347, AST 20, ALT 25, creatinine 0.75, albumin 4.1. ASSESSMENT Seronegative inflammatory arthritis. A possibility is for this to be seronegative rheumatoid arthritis versus psoriatic arthritis or some other uncharacterized inflammatory arthritis. Hillary is clearly having a flare, primarily of the lower extremities, right knee and both ankles. I am concerned that she will have difficulty doing her work duties and we need to get her out of this flare. PLAN 1. The right knee was aspirated and I removed 30 mL of somewhat moderately turbid fluid. The knee was injected with 40 mg of Aristospan plus Xylocaine. She had immediate benefit. The fluid was sent down to the laboratory for studies. 2. We are going to increase methotrexate to seven tablets per week; that is 17.5 mg. We may need togo up to 25-30 mg week or alternatively add another agent. Possibilities for that would be sulfasalazine or one of the biologic drugs. We would need to look into insurance coverage for the biologics. 3. I am going to give her a prednisone pulse to get her out of this flare and she is going to go on5 mg pills six tablets or 30 mg once daily for four days, 25 mg once daily for four days, 20 mg once daily for four days, 15 mg once daily for four days,and then stay on 10 mg per day. 4. I would like her to call me in two weeks with an update. She will also report how her knee is doing. If she is not doing well at that point when she is down to about 15 or 10 mg, we consider either adding another drug, going up on the methotrexate, or switching her to a biologic. 5. I would like to see Hillary back in about four to five weeks and we will schedule an appointment onthat basis. Synovial fluid very inflammatory; WBC 17,700, 81% polys, no crystals Signed by Grant Engle MD 07/01/2007 12:25 Emanuel Griffith MD Grant Engle MD - Grant Engle MD - [facility] Job ID: [id number] Doc ID: [id number] cc: Breanna Lopez MD documented in this encounter Plan of Treatment Not on file documented as of this encounter Visit Diagnoses Not on filedocumented in this encounter Care Teams It Network Architect Relationship Specialty Start Date End Date Breanna Lopez MD [address] [place] [phone] PCP - General 05/22/09 documented as of this encounter
--- OUTSIDE RECORDS SUMMARY | 2024-09-11 17:16 | XMS_ITS | Encounter Summary ---
Author Organization [facility] Address [address] [place] [address] Care Team Providers Care Red Cross Executive Director Name Role Phone Breanna Lopez MD Primary Care Provider Encounter Details Date Type Department Care Team (Late st Contact Info) Description 08/19/2011 Results Only [facility] [phone] Micah Krishnamurthy MD Social History Tobacco Use Types Packs/Day Years [...] Procedure Name Priority Date/Time Associated Diagnosis Comments HIV 1/2 ANTIGEN AND ANTIBODY, 4TH GENERATION Routine 08/19/2011 8:30 EDT documented in this encounter Results * HIV ANTIBODY (08/19/2011 8:30 EDT) HIV 1/2 Antibody Negative [facility] Comment:Reference Range: Neg ative 08/19/2011 8:30 EDT 08/19/2011 16:48 EDT Micah Krishnamurthy MD IMMUNOLOGY AND SE ROLOGY ORDERABLES Performing Organization Address City/State/ZIP Co al Phone Number [facility] [address] [place] [address] documented in this encounter Visit Diagnoses Not on filedocumented in this encounter Care Teams [employer] Cross Executive Director Relationship Specialty Start Date End Date Breanna Lopez MD [address] [place] [phone] PCP - General 05/22/09 documented as of this encounter
--- OUTSIDE RECORDS SUMMARY | 2024-09-11 17:16 | XMS_ITS | Encounter Summary ---
Author Organization [facility] Address [address] [place] [address] Care Team Providers Care Trousseau Consultant Name Role Phone Unavailable Primary Care Provider Unavailabl e Encounter Details Date Type Department Care Team (Late st Contact Info) Description 11/02/2007 15:03 EST Hospital Encounter [facility] [address] [place] [address] Grant Engle MD [address] [facility] [phone] Social History Tobacco Use Types Packs/Day Years [...]
--- OUTSIDE RECORDS SUMMARY | 2024-09-11 17:16 | XMS_ITS | Encounter Summary ---
Author Organization [facility] Address [address] [place] [address] Care Team Providers Care [employer] Pro Name Role Phone Breanna Lopez MD Primary Care Provider [phone] Encounter Details Date Type Department Care Team (Latest Contact Info) Description 05/29/2009 15:03 EDT - 05/29/2009 23:59 EDT Hospital Encounter [facility] [address] [place] [address] Grant Engle MD [address] [place] [phone] Discharge Disposition: Home or Self [...] Code Departure Means Destination Home or Self Nursing Home documented in this encounter Progress Notes * Grant Engle MD - 05/29/2009 0000 EDT DIVISION OF RHEUMATOLOGY PROGRESS/FOLLOWUP NOTE - 05/29/2009 PROBLEM Rheumatoid arthritis. SUBJECTIVE Hillary is doing quite a bit better than she had been doing at her last visit in October. She is heretoday with her mother, Rebecca. The patient had arthroscopy on her right knee by Dr. Lucero about 3 or 4 months ago. She is not exactly sure if it was January or February. She relates that Dr. Lucero had to clean up 2 tears as well as remove a lot of tissue. She has made an excellent recovery postop, has had much less pain in her knee, and has regained a lot of function. She is walking better, is able to walk on a treadmill, overall is doing quite well. Her only concern with the knee is that it is difficult for her to lift her knee up to kneel down. She can flex the knee passively, but when she puts all of her weight on it, she is unable to kneel down easily because it is too painful. The patient is also complaining of a lot more diaphoresis. She says that any little activity or tension can cause her to sweat a lot. She wonders whether this could be related to some of her medications. 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 She is much happier with this job. She is also in a stable relationship. 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 CURRENT MEDICATIONS 1. Methotrexate 20 mg weekly. 2. Ibuprofen takes as needed 800 mg. 3. Methadone 40 mg twice daily. 4. She is no longer on Cymbalta. 5. Sulfasalazine 1 G twice daily. 6. Folic acid 1 mg. 7. Paxil 20. 8. Enbrel auto-inject subcu one weekly. Patient missed Enbrel once or twice and immediately noted increased pain, stiffness, especially in her knee. REVIEW OF SYSTEMS A 12-point review of systems is positive for joint pain and stiffness, about 1 hour of morning stiffness, numbness and tingling in her hands, some difficulty sleeping, also the diaphoresis. Otherwise, all other systems review questions were denied. EXAM Hillary is in good spirits. She looks very healthy. She is bennett. She makes good eye contact. Weight is 200. Blood pressure 110/64. Pulse 76. She rates pain in the knee as 5/10. No skin rash is appreciated. Head, eyes, ears, nose, and throat are normal. Neck is supple. Lungs are clear to percussion and auscultation. Cardiac exam reveals a regular rhythm. Abdomen is not examined. Neurologic is intact. Musculoskeletal exam today is fairly unremarkable. She has full range of motion in her neck and back. Her shoulders move well. There is no evidence of inflammation in the ankles, wrists, or fingers. Survival Specialist strength is excellent. Her back moves well. She has full range of motion in her hips. Rani's is negative. Both knees are really unremarkable. The right may have a little bit of fullness, but notwarm. She actually has excellent passive and active range of motion. Without her weight-bearing, I can bring the knee up into full flexion. The left knee is normal. She has some minimal tenderness inher left ankle, but no soft tissue swelling. The MTP joints are also unremarkable. We do not have recent lab tests on Hillary. The studies that we have were from 2007, although she states that she has been getting them more frequently. I will need to have the checked with Dr. Lopez. ASSESSMENT 1. Rheumatoid arthritis. Patient appears to be doing very well on combination methotrexate, sulfasalazine, and etanercept. She is off prednisone. There is little, if any, inflammation in her peripheral joints. This is the best I have seen her in a long time. 2. Right knee pain. Patient is status post arthroscopy. Dr. Lucero has helped her greatly, and she has had an excellent result with the arthroscopy. There is little if any inflammation in the joint. Patient has a lot of questions regarding the prognosis for the knee and what she should do now (see #1 and #2 below). PLAN 1. Regarding range of motion of the knee, I think she is making progress and eventually she might be able to kneel down. She questioned me about whether she will eventually require a total knee replacement. I think that if the inflammation is well controlled, it is certainly possible that she can avoid a knee replacement for a long time. 2. Hillary questioned me about the Synvisc injections. I have not been impressed with Synvisc. I also have concerns about putting foreign material into a rheumatoid knee. Since she is making progress and has limited symptoms at this time, I would consider watchful waiting, continued strengthening exercises, and see how she progresses without further intervention. 3. I am not going to make any changes in her medication. However, if she continues to do well, I would consider lowering the methotrexate. 4. Patient does need to get lab tests on a regular basis while on methotrexate and I will communicate that with Dr. Lopez. 5. I gave her refills for methotrexate, ibuprofen, and sulfasalazine. Electronically Signed by Grant Engle MD 06/04/2009 18:08 Grant Engle MD - Grant Engle MD - ANTH[facility] Job ID: [id number] Doc ID: [id number] cc: MD Breanna Bangura MD documented in this encounter Plan of Treatment Not on file documented as of this encounter Visit Diagnoses Not on filedocumented in this encounter Care Teams Retail Parts Pro Relationship Specialty Start Date End Date Breanna Lopez MD [address] [place] [phone] PCP - General 05/22/09 documented as of this encounter
--- OUTSIDE RECORDS SUMMARY | 2024-09-11 17:16 | XMS_ITS | Encounter Summary ---
Author Organization [facility] Address [address] [place] [address] Care Team Providers Care Athletic Events Scorer Name Role Phone Breanna Lopez MD Primary Care Provider [phone] Encounter Details Date Type Department Care Team (Late st Contact Info) Description 07/15/2010 Orders Only [facility] - [facility] [address] [place], [place] [id number] Michelle Suarez, clerical support specialist postrheumatic arthropathy ([facility]) (Primary Dx) Social History Tobacco Use Types [...] 7 days. 4 Each 5 07/15/2010 07/26/2013 documented in this encounter Plan of Treatment Not on file documented as of this encounter Visit Diagnoses Diagnosis Chronic postrheumatic arthropathy ([facility])- Primary Chronic postrheumatic arthropathy documented in this encounter Discontinued Medications Medication Sig Discontinue Reason Start Date End Da te Etanercept (ENBREL SURECLICK) 50 mg/mL (0.98 mL) PnIj Inject 50 mg into the skin every 7 days. Reorder 07/15/2010 documented as of this encounter Care Teams Athletic Events Scorer Relationship Specialty Start Date End Date Breanna Lopez MD [address] [place] [phone] PCP - General 05/22/09 documented as of this encounter
--- OUTSIDE RECORDS SUMMARY | 2024-09-11 17:16 | XMS_ITS | Encounter Summary ---
Author Organization [facility] Address [address] [place] [address] Care Team Providers Care Garbage Collector Driver Name Role Phone Unavailable Primary Care Provider Unavailabl e Encounter Details Date Type Department Care Team (Latest Contact Info) Description 09/28/2006 13:29 EST Hospital Encounter [facility] [address] [place] [address] Grant Engle MD [address] [place] [phone] Discharge Disposition: Auto Discharge Social History Tobacco [...] Procedure Name Priority Date/Time Associated Diagnosis Comments ZZCHLAMYDIA TRACHOMATIS AMPLIFIED PROBE Routine 09/28/2006 15:35 EST CCP ANTIBODIES Routine 09/28/2006 15:34 EST ARTHRITIS 1 Routine 09/28/2006 15:34 EST URINALYSIS WITH MICROSCOPIC IF POSITIVE Routine 09/28/2006 15:34 EST UA REFLEX Routine 09/28/2006 15:34 EST DMARD PROFILE Routine 09/28/2006 15:34 EST HLA B27 SCREEN, DNA Routine 09/28/2006 1 5:34 EST SED RATE Routine 09/28/2006 15:34 EST COMPLETE BLOOD COUNT AND DIFFERENTIAL Routine 09/28/2006 15:34 EST C REACTIVE PROTEIN Routine 09/28/2006 15 :34 EST URIC ACID Routine 09/28/2006 15:34 EST BACTERIAL CULTURE/SMEAR, FLUID Routine 09/28/2006 14:53 EST CRYSTAL ANALYSIS FLUID ONLY Routine 09/28/2006 14:53 EST SYNOVIAL CELL COUNT Routine 09/28/2006 1 4:53 EST FLUID DIFFERENTIAL Routine 09/28/2006 14 :53 EST documented in this encounter Results * CHLAMYDIA TRACHOMATIS AMPLIFIED PROBE (09/28/2006 15:35 EST) Specimen Description Urine [facility] Result No Chlamydia trachomatis DNA detected by relay dispatcher mediated amplification. [facility] Report Status Final [id number] [facility] 09/28/2006 15:3 5 EST 09/29/2006 13:58 EST Grant Engle MD MICROBIOLOGY - GENER AL ORDERABLES [facility] [address] [place] [address] * UA REFLEX (09/28/2006 15:34 EST) UA Billing Microscopic not indicated. [facility] 09/28/2006 15:3 4 EST 09/28/2006 17:10 EST Grant Engle MD URINALYSIS ORDERABLE S Performing Organization Address [facility] Co de Phone Number [facility] [address] [place] [address] * (ABNORMAL) URINALYSIS (09/28/2006 15:34 EST) Color, UA Yellow [facility] Clarity, UA Clear [facility] Glucose, UA Norm NORM [facility] Bilirubin, UA Neg NEG [facility] Ketones, UA Trace(A) NEG [facility] Specific [place], Urine >1.030(H) 1.005 - 1.02 [facility] Blood, UA Neg NEG [facility] pH, UA 5.5 5.0 - 9.0 [facility] Protein, UA Neg NEG [facility] Urobilinogen, UA Norm NORM mg/dL [facility] Nitrite, UA Neg NEG [facility] Leuk Esterase Neg NEG [facility] Refractometer SG,Urine 1.027(H) 1.005 - 1.02 [facility] Comment:Refractometer specif ic gravity 09/28/2006 15:3 4 EST 09/28/2006 17:10 EST Grant Engle MD URINALYSIS ORDERABLE S Performing Organization Address [facility] de Phone Number [facility] [address] [place] [address] * URIC ACID (09/28/2006 15:34 EST) Uric Acid 5.1 2.2 - 7.7 mg/dl [facility] 09/28/2006 15:3 4 EST 09/28/2006 16:33 EST Grant Engle MD CHEMISTRY & BLOOD GA S ORDERABLES Performing Organization Address [facility] Co de Phone Number [facility] [address] [place] [address] * (ABNORMAL) SED. RATE:MIRIERGREN (09/28/2006 15:34 EST) Sed. Rate Westergren 45(H) 0 - 20 mm/hr [facility] 09/28/2006 15:3 4 EST 09/28/2006 16:33 EST Grant Engle MD HEMATOLOGY & PF4 ORD ERABLES Performing Organization Address [facility] de Phone Number [facility] [address] [place] [address] * DMARD PROFILE (09/28/2006 15:34 EST) Pathologist [facility] Total Alkaline Phosphatase 104 38 - 126 U/L [facility] AST 26 15 - 46 U/L [facility] ALT 23 9 - 52 U/L [facility] Albumin 4.4 3.4 - 4.9 g/dl [facility] Creatinine 0.86 0.7 - 1.5 mg/dl [facility] GFR, Calculated >60 ml/min/1.7 3m2 [facility] 09/28/2006 15:3 4 EST 09/28/2006 16:33 EST Grant Engle MD CHEMISTRY & BLOOD GA S ORDERABLES Performing Organization Address [facility] de Phone Number [facility] [address] [place] [address] * (ABNORMAL) C-REACTIVE PROTEIN (09/28/2006 15:34 EST) Pathologist [facility] C-Reactive Protein 5.2(H) <1.0 mg/dl [facility] 09/28/2006 15:3 4 EST 09/28/2006 16:33 EST Grant Engle MD CHEMISTRY & BLOOD GA S ORDERABLES Performing Organization Address [facility] de Phone Number [facility] [address] [place] [address] * CCP ANTIBODIES (09/28/2006 15:34 EST) Pathologist [facility] CCP Antibodies <2.0Unit: U/mL(Note) -- EXPECTED VALUES -- ? (Ref Range) < or =5.0 ? Test Performed by: ? [facility] ? [address] , [place] [address] ? Moisture Meter Reader: Glenys Gallardo M.D. ? [facility] 09/28/2006 15:3 4 EST 09/28/2006 16:33 EST Grant Engle MD IMMUNOLOGY AND LIANET REGALADO ORDERABLES [facility] [address] [place] [address] * (ABNORMAL) HEMAGRAM AND DIFFERENTIAL (09/28/2006 15:34 EST) WBC 10.24 4.0 - 12.4 K/cmm [facility] RBC 4.71 3.86 - 5.04 M/cmm [facility] Hemoglobin 12.9 11.6 - 15.2 gm/dl [facility] HCT 38.6 34.9 - 44.4 % [facility] MCV 82 81 - 98 fl [facility] MCH 27.3 26.7 - 33.3 pg [facility] MCHC 33.4 32.1 - 35.9 gm/dl [facility] PLT 409(H) 141 - 320 K/cmm [facility] RDW-CV 13.8 11.7 - 14.6 % [facility] % Neutrophils 67.2 45.5 - 79.7 % [facility] % Lymphocytes 25.3 15.0 - 46.8 % [facility] % Monocytes 4.9 1.8 - 12.0 % [facility] % Eosinophils 2.1 0.6 - 6.9 % [facility] % Basophils 0.5 0.2 - 1.4 % [facility] ABS Neutrophils 6.89 2.20 - 8.85 K/cmm [facility] ABS Lymphs 2.59 1.09 - 3.30 K/cmm [facility] ABS Monocytes 0.50 0.1 - 0.8 K/cmm [facility] ABS Eosinophils 0.21 0.03 - 0.61 K/cmm [facility] ABS Basophils 0.05 0.01 - 0.11 K/cmm [facility] Type of Diff: Automated [facility] 09/28/2006 15:3 4 EST 09/28/2006 16:33 EST Grant Engle MD PACKAGES & DNA PROBE ORDERABLES Performing Organization Address [facility] Co de Phone Number [facility] [address] [place] [address] * HLA B27 (09/28/2006 15:34 EST) Pathologist [facility] HLA B27 HLA B27 not identified [facility] 09/28/2006 15:3 4 EST 09/28/2006 16:33 EST Grant Engle MD TISSUE TYPING ORDERA BLES Performing Organization Address [facility] de Phone Number [facility] [address] [place] [address] * ARTHRITIS 1 (09/28/2006 15:34 EST) Pathologist [facility] Anti Nuclear Ab <40 0 - 40 Dils [facility] Rheumatoid Factor <20 <20 IU/ml [facility] 09/28/2006 15:3 4 EST 09/28/2006 16:33 EST Grant Engle MD IMMUNOLOGY AND SEROL OGY ORDERABLES Performing Organization Address [facility] de Phone Number [facility] [address] [place] [address] * CRYSTAL ANALYSIS (09/28/2006 14:53 EST) Pathologist [facility] Crystal, Fluid No crystals seen on scan [facility] 09/28/2006 14:5 3 EST 09/28/2006 14:58 EST Grant Engle MD GEN LAB UNIT COLLECT ORDERABLES Performing Organization Address [facility] Co de Phone Number [facility] [address] [place] [address] * (ABNORMAL) SYNOVIAL CELL COUNT (09/28/2006 14:53 EST) Pathologist [facility] RBC, Synovial Fluid 1188 /cmm [facility] Nucleated Cells 4675(H) 0 - 200 /cmm [facility] 09/28/2006 14:5 3 EST 09/28/2006 14:57 EST Grant Engle MD GEN LAB UNIT COLLECT ORDERABLES Performing Organization Address [facility] de Phone Number [facility] [address] [place] [address] * (ABNORMAL) FLUID DIFFERENTIAL (09/28/2006 14:53 EST) Neutrophils, CSF 77(H) 0 - 6 % [facility] Lymphocyte, CSF 12(L) 40 - 80 % [facility] [place]/Macro, CSF 10(L) 15 - 45 % [facility] Eosinophil, CSF 1 % [facility] 09/28/2006 14:5 3 EST 09/28/2006 14:57 EST Grant Engle MD GEN LAB UNIT COLLECT ORDERABLES Performing Organization Address [facility] de Phone Number [facility] [address] [place] [address] * BACTERIAL CULTURE/SMEAR, FLUID (09/28/2006 14:53 EST) Specimen Description Synovial Fluid Right Knee Specimen submitted in a syringe [facility] Gram Smear Result Polys present Mononuclear cells present No bacteria seen [facility] Result No growth [facility] Report Status Final [id number] [facility] 09/28/2006 14:5 3 EST 09/28/2006 15:22 EST Grant Engle MD MICROBIOLOGY - GENER AL ORDERABLES Performing Organization Address [facility] de Phone Number [facility] [address] [place] [address] documented in this encounter Visit Diagnoses Not on filedocumented in this encounter
--- OUTSIDE RECORDS SUMMARY | 2024-09-11 17:16 | XMS_ITS | Encounter Summary ---
Author Organization [facility] Address [address] [place] [address] Care Team Providers Care Creative Services Writer Name Role Phone Breanna Lopez MD Primary Care Provider Encounter Details Date Type Department Care Team (Late st Contact Info) Description 09/28/2006 Before PRISM Converted Visit (Maple) [facility] - Maple conversion [address] [place] [address] Grant Engle MD [address] [place] [phone] Social History Tobacco Use Types Packs/Day Years Used Date Smoking Tobacco: Never Assessed Sex and Gender Information Value Date Recorded Sex Assigned at Female 03/20/2021 0:23 EDT Gender Identity Female 10/23/2019 13:44 EST Sexual Orientation Choose not to disclose 2020 0:23 EDT documented as of this encounter Consult Notes * Grant Engle MD - 11/01/20091954 EST DIVISION OF RHEUMATOLOGY CONSULTATION - September 28, 2006 Moises Ibrahim MD [facility] [address] [place] [address], [address] [place] [address] Ibrahim: I saw Hillary Reich on September 28, 2006, for evaluation of right knee pain, as well as ankle and wrist discomfort. This young woman has an inflammatory arthritis. SUBJECTIVE The patient states that she has been having problems with her right knee that go back for at least 2 years. It has been swollen on and off and she has had x-rays and an MRI. The MRI that was done on April 20, 2006, showed a large knee joint effusion, a medial meniscal tear, and bony trabecular injury of the medial aspect of the lateral femoral condyle. There also appears to be a medial collateral ligament injury probably grade 2 or 3. The lateral meniscus appeared intact. This past summer, Hillary began to experience problems in joints other than the right knee. She began noticing pain in her ankles and the tops of her feet. She also noticed pain and swelling in her right wrist. The patient has a small child and also is working. 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 The patient has a history of opiate addiction and has been on medications for this. She currently is taking Suboxone which is some type of a narcotic antagonist. She is also on: 1. Nabumetone 500 mg 2 times a day. 2. BuSpar 10 mg 2 times a day. 3. Zoloft 100 mg per day. 4. Tylenol Arthritis. She has been on other anti-inflammatories as well as the nabumetone and none of them have helped her. She remembered Aleve as well as diclofenac. A complete review of systems was obtained. The patient has had recent weight gain because she has been less active. She has had sensitivity of her hands. She has swelling of her legs, easy bruising, stiffness that lasts for 4-5 hours, joint and muscle pain. She smokes 1-?? packs per day and drinks coffee. All other ROS questions were denied. She has had no surgeries. Family history: Her mother is 44 and her father is 46 and both are in excellent health. She lives with her son, age 3. The things that she says are hardest for her to do are walking, climbing stairs, and taking care ofher son. The patient denies hepatitis and has had blood tests for hepatitis in the past. OBJECTIVE On examination today, Hillary is a pleasant woman in no acute distress. Her weight is 172 pounds. Height is 62-?? inches. Blood pressure is 126/74. Pulse is 96 and regular. She has pain in her feet and right knee and she rates it as 7/10. The general exam shows her to have some acne around her chin, but no other skin rash is appreciated. She has some tattoos on her chest. Head, eyes, ears, nose, and throat are otherwise unremarkable. I found no mouth or nose sores. Neckis supple without lymphadenopathy. Lungs are clear to percussion and auscultation. Cardiac exam reveals a regular rhythm without murmur. Abdomen is soft and nontender. Pulses are 2+ bilaterally and neurologic is intact. Musculoskeletal exam was positive for some soft tissue swelling over the right wrist with decreasedrange of motion. This appears to be an inflammatory process involving the right wrist. The fingers are unremarkable and the left wrist is also normal. Shoulders and elbows are fine. Low back has somepain with range of motion, but is otherwise okay. Hips move well. The left knee is normal. Right knee is warm. There is a small to moderate effusion. The patient also has pain and cannotextend the knee fully. She lacks about 10 degrees full extension. There is soft tissue swelling in the left ankle. There is also pain over the midtarsal areas in both feet. The toes are unremarkable. We do not have a lot of labs at this point other than Dr. Ibrahim's notes, where he said she had a slightly elevated sedimentation rate. Other arthritis tests are not available. 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 One consideration would be psoriatic arthritis, but she denies psoriasis. However, she has a positive family histor with several family members having psoriasis. Her brother, Gilberto, and her grandparents have psoriasis, so this still could be psoriatic arthritis. The oligoarticular pattern which is largely lower extremity could be consistent with psoriatic arthritis. RA is certainly high on the list of possibilities. PLAN I felt that I should aspirate and see what the fluid was like and also inject the knee to see if weget some benefit. In the meantime, we will do a workup and see how she is doing and treat her symptomatically until we have a better idea of what the etiology of the process is. The right knee was prepped and entered medially and I obtained 30 mL of slightly turbid fluid. The knee was then injected with 40 mg of Aristospan plus 0.5 mL of Xylocaine. She tolerated the procedure well and was able to bear weight and walk much more easily. The fluid was sent out to the lab for Gram stain, culture, white count, crystal analysis and differential. I went over the differential with Hillary and gave her reading material on psoriatic arthritis. I toldher that this is just a presumptive diagnosis, but that she does have an inflammatory process. We will do the following lab tests today. I am going to repeat a CBC, sed rate, C-reactive protein,do a DMARD profile, do an ROCIO and rheumatoid factor and an anti-CCP, HLA-B27, and uric acid. I am giving her a trial of meloxicam or Mobic 15 mg twice a day. If she does not get any benefit from that, she is to call me. I will see the patient back at the end of October, but I encouraged her to call if she has questions or problems in the interim. LAB TESTS: Synovial fluid WBC 4675, RBC 1100, 77% polys, 12% lymph, no crystals, no growth. CBC: WBC 10.2, Hgb 12.9, Hct 38.6, Plt 409. ESR 45, CRP 5.2. AST 26, ALT 23, Alb 4.4, Creat 0.86. HLA-B27 not identified, Chlamydia screen negative, UA negative.. RF and ROCIO negative, anti-CCP pending. Signed by Grant Engle MD 10/04/2006 09:50 Emanuel Griffith MD Grant Engle MD - Marine Engle MD P - KAB Job ID: [id number] Document ID: [id number] cc: MD Natasha Painter MD Sarah Morgan, MD documented in this encounter Plan of Treatment Not on file documented as of this encounter Visit Diagnoses Not on filedocumented in this encounter Care Teams Creative Services Writer Relationship Specialty Start Date End Date Breanna Lopez MD [address] [place] [phone] PCP - General 05/22/09 documented as of this encounter
--- OUTSIDE RECORDS SUMMARY | 2024-09-11 17:16 | XMS_ITS | Encounter Summary ---
Author Organization [facility] Address [address] [place] [address] Care Team Providers Care Director Ehs Name Role Phone Breanna Lopez MD Primary Care Provider [phone] Encounter Details Date Type Department Care Team (Late st Contact Info) Description 01/11/2004 Results Only [facility] - Maple conversion [address] [place] [address] Momo Stallings MD [address] [place] [address] [address] [facility] [address] [place], [place] [address] Social History Tobacco Use Types Packs/Day Years [...] Priority Date/Time Associated Diagnosis Comments CYTOPATHOLOGY Routine 01/11/2004 0:00 EST documented in this encounter Results * CYTOPATHOLOGY (01/11/2004 0:00 EST) Pathology Report: CYTOPATHOLOGY REPORT Reports generated via electronic interface contain original data; however they are lacking the format of the original report. Caution should be taken when reading/interpreti ng unformatted reports. Name: ? LAW ACUÑAVale Florian ? Accession #: ? [id number] : ? 1980 (Age: 23) ??F ?Collect Date: ? 01/11/2004 Location: ? [facility] ? Receive Date: ? 01/14/2004 Provider: ?MOMO STALLINGS MD Copy to: ? Specimen/Source: ?ThinPrep Pap Test, Cervix/Endocervix Last Menstrual Period: ? 02/23/03 Menstrual/Pregnanc y Status: ? Post Previous Gynecologic Pathology: ? LSIL: 05/10 ASC-US: 07/11 HPV: + Treatment History: ? Colposcopy: 07/11 ASCUS Other: ? Colposcopy Pap and/or biopsy in progress HPVA - HPV testing requested if ASC-US on the current ThinPrep Pap test. ? SPECIMEN ADEQUACY ? Satisfactory for Evaluation - transformation zone component present GENERAL CATEGORIZATION ? Epithelial Cell Abnormality INTERPRETATION ? Squamous Cell Abnormality - Low grade squamous intraepithelial lesion (LSIL). EDUCATIONAL NOTES/RECOMMENDATI ONS ? [facility] recommends following the 2001 Consensus Guidelines for the Management of Women with Cervical Cytological Abnormalities (LUCIO,2002;287:212 0-9). Management algorithms have been distributed by [facility] and are available online at www.ASCCP.org. ? Document reviewed and electronically signed by: ? Demar Reich MD ? Report Date: ??01/15/2004 12:27 End of Report [facility] 01/11/2004 01/14/2004 Momo Stallings MD PATHOLOGY ORDERABLES [facility] [address] [place] [address] documented in this encounter Visit Diagnoses Not on filedocumented in this encounter Care Teams Director Ehs Relationship Specialty Start Date End Date Breanna Lopez MD [address] [place] [phone] PCP - General 05/22/09 documented as of this encounter
--- OUTSIDE RECORDS SUMMARY | 2024-09-11 17:16 | XMS_ITS | Encounter Summary ---
Author Organization [facility] Address [address] [place] [address] Care Team Providers Care Licensing Registration Examiner Name Role Phone Breanna Lopez MD Primary Care Provider Encounter Details Date Type Department Care Team (Late st Contact Info) Description 01/22/2010 Abstract [facility] - [address] [address] Fernandez Mac MD [address] [place] [phone] Social History Tobacco Use Types Packs/Day Years [...] on filedocumented in this encounter Care Teams Licensing Registration Examiner Relationship Specialty Start Date End Date Breanna Lopez MD [address] [phone] PCP - General 05/22/09 documented as of this encounter
--- OUTSIDE RECORDS SUMMARY | 2024-09-11 17:16 | XMS_ITS | Encounter Summary ---
Author Organization [facility] Address [address] [place] [address] Care Team Providers Care Classification And Treatment Director Name Role Phone Breanna Lopez MD Primary Care Provider [phone] Encounter Details Date Type Department Care Team (Late st Contact Info) Description 04/26/2007 Before PRISM Converted Visit (Maple) [facility] - Maple conversion [address] [place] [address] Emma Gamez PA-C [address] [place] [address] Social History Tobacco Use Types Packs/Day Years Used Date Smoking Tobacco: Never Assessed Sex and Gender Information Value Date Recorded Sex Assigned at Female 03/20/2021 0:23 EDT Gender Identity Female 10/23/2019 13:44 EST Sexual Orientation Choose not to disclose 2020 0:23 EDT documented as of this encounter Progress Notes * Dm, Conv Exercise Instruct - 09/17/2009 0804 EST DIVISION OF RHEUMATOLOGY PROGRESS/FOLLOWUP NOTE - 04/26/2007 SUBJECTIVE This is a followup appointment for this patient with inflammatory polyarthritis. The patient statesthat she continues to have swelling in the wrists and ankles. The swelling is worse in the left ankle, and the patient indicates that the swelling is mainly behind the lateral malleolus. She also complains of diffuse pain in her legs. She continues to take methotrexate 15 mg weekly and prednisone 5mg daily. She reports approximately two hours of joint stiffness in the morning. The patient also continues to have pain in her knees, and she feels like there is an increased amount of swelling the the right knee. Since we last saw this patient, she spent two weeks at [facility] for substance abuse treatment. The patient states that she had a dirty urine for cocaine, and could no longer be prescribed Suboxone. In order to get back on Suboxone she had to spend time as an inpatient at [facility]. The patient is back on Suboxone, but she does not feel that it helps her pain. It has been suggested that she seek treatment from a methadone clinic. The patient is still thinking about this option. Thepatient also admits today that she has been taking pain killers, including Vicodin and OxyContin. She is getting these narcotics off the street. MEDICATIONS 1. Suboxone 8 mg b.i.d. 2. Zoloft 50 mg daily. 3. Methotrexate 15 mg weekly. 4. Prednisone 5 mg daily. 5. Ibuprofen 800 mg 1 to 2 tablets daily. REVIEW OF SYSTEMS This patient denies any fever. She denies any mouth pain or sores. She has had vomiting for the past four days as well as diarrhea. She has been able to tolerate fluids. She does not believe that sheis as she does have an IUD. She denies any dysuria. She denies any skin rash or changes. OBJECTIVE Weight 171, blood pressure 100/62, pulse 88, respirations 14. The patient's pain intensity today is8/10 in the arms and legs. HEENT: Oral mucosa and pharynx clear. Neck: No cervical adenopathy. Respiratory: Lungs are clear to auscultation. Cardiac: The heart has a regular rate and rhythm without murmur. Musculoskeletal: There is still mild soft tissue swelling in the left wrist and tenderness with range of motion.No soft tissue swelling in the hands. There is warmth over the right knee and a very mild effusion. There is also some soft tissue swelling behind the left lateral malleolus of the left ankle. LABORATORY From February 22, 2007, WBC 9.04, hemoglobin 13.7, hematocrit 39.5, platelets 299, AST 28, ALT 27, albumin 4.2, alk phos 67, ESR 17, CRP 2.5. ASSESSMENT 1. Psoriatic arthritis. This patient was also evaluated today by Dr. Engle. We both felt that thispatient's joints are stable. Joint count today was three. We certainly do not feel that at this point in timethe patient needs to increase her methotrexate, nor do we think that this amount of joint involvement would require narcotics for pain control. 2. Substance abuse. As stated in the HPI, this patient may seek treatment through a methadone clinic. PLAN 1. Continue methotrexate at 15 mg weekly. 2. Continue prednisone 5 mg daily for now. 3. This patient was given a new prescription for wrist splints. 4. Follow up with us in three months. 5. CBCD and DMARD today. I was directly supervised by Dr. Grant Engle, who was in the office suite and immediately available the entire time the service was provided. All labs WNL. Signed by Grant Engle MD 05/02/2007 09:59 Reviewed by JL Hamm 05/02/2007 07:26 Jeannine Shaikh PASheldon M Cooper, MD Dictated by: JL Hamm Grant Engle MD -JL Hamm -[place]Y Job ID: [id number] Doc ID: [id number] cc: Natasha Monique MD cc: Natasha Monique MD documented in this encounter Plan of Treatment Not on file documented as of this encounter Visit Diagnoses Not on filedocumented in this encounter Care Teams Classification And Treatment Director Relationship Specialty Start Date End Date Breanna Lopez MD [address] [place] [address] [phone] PCP - General 05/22/09 documented as of this encounter
--- OUTSIDE RECORDS SUMMARY | 2024-09-11 17:16 | XMS_ITS | Encounter Summary ---
Author Organization [facility] Address [address] [place] [address] Care Team Providers Care Aquaculture Farm Manager Name Role Phone Breanna Lopez MD Primary Care Provider [phone] Reason for Visit * Reason Onset Date Comments Other 06/12/2011 Encounter Details Date Type Department Care Team (Late st Contact Info) Description 06/12/2011 Telephone [facility] Rheumatology & Immunology - [facility] [address], [place] [id number] Michelle Suarez, RN Other Social History Tobacco Use Types Packs/Day [...] Telephone Encounter - Michelle Suarez RN - 06/12/2011 0939 EDT Received a call from Ariel from [facility], They would like to know if we canrefer pt to pain clinic Dr. Rivas. Informed Arile that would ask if appropriate referral but thatappointment would be months out if not already into next year. Ok to refer pt. documented in this encounter Plan of Treatment Not on file documented as of this encounter Visit Diagnoses Not on filedocumented in this encounter Care Teams Aquaculture Farm Manager Relationship Specialty Start Date End Date Breanna Lopez MD [address] [place] [address] [phone] PCP - General 05/22/09 documented as of this encounter
--- OUTSIDE RECORDS SUMMARY | 2024-09-11 17:16 | XMS_ITS | Encounter Summary ---
Author Organization [facility] Address [address] [place] [address] Care Team Providers Care Dialysis Technician Name Role Phone Breanna Lopez MD Primary Care Provider [phone] Reason for Visit * Reason Onset Date Comments Medications Refill 06/13/2010 refill Encounter Details Date Type Department Care Team (Late st Contact Info) Description 06/13/2010 Refill [facility] Rheumatology & Immunology [facility] [address], [place] [id number] Grant Engle MD [address] [place] [phone] Medications Refill (refill) Social History Tobacco Use Types Packs/Day Years Used Date Smoking Tobacco: Never Assessed Sex and Gender Information Value Date Recorded Sex Assigned at Female 03/20/2021 0:23 EDT Gender Identity Female 10/23/2019 13:44 EST Sexual Orientation Choose not to disclose 2020 0:23 EDT documented as of this encounter Miscellaneous Notes * Telephone Encounter - Michelle Suarez RN - 06/26/2010 1022 EDT Attempted to contact pt by phone to address refill request. Unable to reach by phone, a letter was mailed to pt, regarding the need to get labs for methotrexate monitoring. documented in this encounter Plan of Treatment Not on file documented as of this encounter Visit Diagnoses Not on filedocumented in this encounter Care Teams Dialysis Technician Relationship Specialty Start Date End Date Breanna Lopez MD [address] [place] [phone] PCP - General 05/22/09 documented as of this encounter
--- OUTSIDE RECORDS SUMMARY | 2024-09-11 17:16 | XMS_ITS | Encounter Summary ---
Author Organization [facility] Address [address] [place] [address] Care Team Providers Care Global Analytics Head Name Role Phone Breanna Lopez MD Primary Care Provider [phone] Encounter Details Date Type Department Care Team (Latest Contact Info) Description 04/09/2010 14:40 EDT - 04/09/2010 23:59 EDT Hospital Encounter [facility] Rheumatology & Immunology - [facility] [address] [place] [address] Grant Engle MD [address] [place] [address] Discharge Disposition: Home or Self [...] Code Departure Means Destination Home or Self Fpc documented in this encounter Progress Notes * Inpatient, Physician - 06/05/2010 1158 EDT * Grant Engle MD - 04/09/2010 0000 EDT DIVISION OF RHEUMATOLOGY PROGRESS/FOLLOWUP NOTE - 04/09/2010 PROBLEM: 1. Rheumatoid arthritis. 2. Severe right knee pain. SUBJECTIVE: Hillary was last in to see me in December of 2009. Since that time, she has seen Dr. Fernandez Mac [facility]. This was for right knee pain. At that time, he obtained additional x-rays of her knee, which shows significant medial joint space narrowing. His feeling was exercise, perhaps a steroid injection or hyaluronic acid injection might help. Weight loss would also help but then eventually Hillary would need a total knee replacement. Hillary has not followed up on any of these suggestions other than the exercise. She is trying very hard to lose weight and is succeeding. She works out in a gym. She uses a treadmill and tries to walk on a regular basis. She also hikes with her mirror inspector and family. Recently she walked up [employer]. She is very committed to maintaining fitness being as active as possible and avoiding a knee replacement. In terms of her other joints, she is now noticing some pain in the left knee, although it is not nearly as bad as the right. Some problems in the right knee are very severe. For example, last night she had a cramp and pain, which would not go away. Eventually, she was able to go back to sleep and when she woke up in the morning it felt better. It hurts all the time with weightbearing though. MEDICATIONS: Methotrexate 20 mg weekly. Prednisone, she is no longer taking. Ibuprofen 800 mg as needed. Cymbalta 40, she is no longer taking. Sulfasalazine 2 grams daily. Folic acid 1 mg daily. Paxil 20 mg daily. Enbrel auto inject 50 mg weekly. Methadone, 100 mg once daily. Seroquel 100 mg p.r.n. REVIEW OF SYSTEMS: A 12-point review of systems is positive for night sweats, weight loss which is intentional. She had a GI illness yesterday, which was very self-limited. She has 4 hours of morningstiffness, muscle and joint discomfort, muscle weakness, numbness and tingling, difficulty sleeping, anxiety and nervousness. She has also noticed prominent veins on her legs. All other systems review questions were denied. OBJECTIVE: Hillary is in good spirits. She looks well. She is well groomed, answers questions appropriately. Height is 5 feet 2-3/4 inches, weight is 182-1/2 inches, blood pressure is 112/64, pulse was 96 and regular. Her weight is down about 7 to 8 pounds since her last visit. Skin exam shows a livedo reticularis-like pattern on the lower legs and thighs. These are venous dilatations that georgiana. They are relatively nonspecific and not pathologic. Head, eyes, ears, nose and throat are normal. Neck is supple without lymphadenopathy. Lungs are clear to percussion and auscultation. Cardiac exam reveals a regular rhythm and normal heart sounds. Abdomen is soft, obese and nontender. Pulses 2+ bilaterally. Neurologic intact. Musculoskeletal exam today shows primary findings to be in the lower extremities. She has very little in the way of active synovitis in her upper extremities. The wrists are cool with full range of motion. She has good range of motion in elbows, shoulders, neck and back move well. She has full range of motion in the hips. Left knee has mild pain with full flexion. Right knee hasmore pain with full flexion and also if she takes all of her weight on her right knee. Ankles and toes today are unremarkable. There is no soft tissue swelling or synovitis. The patient recently had lab tests through Dr. Lopez. I only have the results from August of 2009,but I do remember seeing more recent studies from the outside lab. ASSESSMENT: 1. Rheumatoid arthritis, overall status is good, there has been good control of the active synovitis with the use of combination medications, Enbrel, sulfasalazine and methotrexate. The patient is now off steroids. 2. Right knee pain. This is a more difficult and vexing problem. The patient has significant structural damage to the right knee. She needs to understand that this knee will never be completely normal and that the best she can hope for is to reduce the amount of pain and allow her to be as active as possible over the next several years. PLAN: 1. I outlined the following for Hillary and went over it in great detail. First of all, strengthening exercises for both quadriceps. I taught her how to do quadriceps sitting exercises. Also, discussed with her knee curls when she is at her health facility and fitness facility and also if she does do a treadmill to consider using a softer surface. She should talk to her corporate trainer about that. 2. Weight loss is important and she is making inroads in that regard and should continue to do so. 3. Expectations need to be realistic. She needs to stay active and try to be able to participate inhikes, but she also should not overdo it. Her knee is bad and she could do more damage if she does too much activity. Reasonable balance must be achieved and only she can know what that balance this.I believe she has expectations that are a little bit higher than are reasonable. 4. There is a little bit of warmth in the knee and perhaps trace of fluid, but I do not think a steroid injection would be helpful. She has thought about a hyaluronic injection. I have not found these to be long lasting, however, she is now further along from the arthroscopy and it would not be unreasonable to consider hyaluronic injections at this time. 5. No change in medications and scripts for refills were given. 6. I will see Hillary back in October. She understands that she can call if there are interval problems that need addressing. Electronically Signed by Grant Engle MD 04/11/2010 16:03 Grant Engle MD - Grant Engle MD - AN Job ID: SM Doc ID: [id number] Ext Doc ID: [id number] cc: Breanna Lopez MD documented in this encounter Plan of Treatment Not on file documented as of this encounter Visit Diagnoses Not on filedocumented in this encounter Care Teams Global Analytics Head Relationship Specialty Start Date End Date Breanna Lopez MD [address] [place] [address] [phone] PCP - General 05/22/09 documented as of this encounter
--- OUTSIDE RECORDS SUMMARY | 2024-09-11 17:16 | XMS_ITS | Encounter Summary ---
Author Organization [facility] Address [address] [place] [address] Care Team Providers Care Dermatology Physician Assistant Name Role Phone Breanna Lopez MD Primary Care Provider [phone] Encounter Details Date Type Department Care Team (Late st Contact Info) Description 04/13/2010 Orders Only [facility] Rheumatology & Immunology - [facility] [address], [place] [id number] Grant Engle MD [address] [place] [phone] Rheumatoid arthritis; Encounter for long-term (current) use of other medications; Encounter for therapeutic drug monitoring Social History Tobacco Use Types Packs/Day Years Used Date Smoking Tobacco: Never Assessed Sex and Gender Information Value Date Recorded Sex Assigned at Female 03/20/2021 0:23 EDT Gender Identity Female 10/23/2019 13:44 EST Sexual Orientation Choose not to disclose 2020 0:23 EDT documented as of this encounter Progress Notes * Nan Russ - 04/22/2010 1828 EDTAddended by: NAN RUSS on: 04/22/2010 Modules accepted: Orders documented in this encounter Plan of Treatment Not on file documented as of this encounter Visit Diagnoses Diagnosis Rheumatoid arthritis(714.0) Rheumatoid arthritis Encounter for long-term (current) use of other medications Encounter for therapeutic drug monitoring documented in this encounter Care Teams Dermatology Physician Assistant Relationship Specialty Start Date End Date Breanna Lopez MD [address] [place] [address] [phone] PCP - General 05/22/09 documented as of this encounter
--- OUTSIDE RECORDS SUMMARY | 2024-09-11 17:16 | XMS_ITS | Encounter Summary ---
Author Organization [facility] Address [address] [place] [address] Care Team Providers Care Airplane Electrician Name Role Phone Breanna Lopez MD Primary Care Provider Encounter Details Date Type Department Care Team (Late st Contact Info) Description 11/02/2007 Before PRISM Converted Visit (Maple) [facility] - Maple conversion [address] [place] [address] Grant Engle MD [address] [place] [phone] Social History Tobacco Use Types Packs/Day Years Used Date Smoking Tobacco: Never Assessed Sex and Gender Information Value Date Recorded Sex Assigned at Female 03/20/2021 0:23 EDT Gender Identity Female 10/23/2019 13:44 EST Sexual Orientation Choose not to disclose 2020 0:23 EDT documented as of this encounter Progress Notes * Grant Engle MD - 09/15/20092010 EST DIVISION OF RHEUMATOLOGY PROGRESS/FOLLOWUP NOTE - 11/02/2007 PROBLEM Inflammatory arthritis. SUBJECTIVE Hillary is not doing well regarding joint pain. She was last in our office in June. At that time, the patient had swelling and inflammation in her right knee, and it was aspirated and injected. The fluid was fairly inflammatory, with a white count of 17,700, only 2100 RBCs, 81% neutrophils, no crystals and no growth. She states that the pain has gotten better in the right knee, but she continues to have joint discomfort which is fairly severe in the following places. She notes it in both knees, both wrists and both ankles. She also reports having up to 4-5 hoursof morning stiffness. Since the last visit in June, Hillary has , and her name is Mikael. She is living with her , his two children and her 3-year-old son. Since the last visit, the patient has also been started on methadone. She is taking 40 mg b.i.d. Approximately five weeks ago, when she saw Dr. Lopez, she was having a lot of joint pain and swelling. Dr. Lopez instituted a prednisone taper from 30 mg four days, decreasing by 5 mg every four daysdown to her current dose of 10 mg. While she was on the higher doses of prednisone, she felt much better, with less pain and stiffness. However, as she has gotten down to the current dose of 10, the symptoms in her wrists, ankles and knees have returned. She does not like the prednisone because she has gained weight with it, and also it makes her irritable. When I questioned Hillary about illicit drug use, she states that she had one relapse which was sometime in September. Apparently she snorted cocaine and took some pills. She states, however, that since that time she has had no other lapses. CURRENT MEDICATIONS 1. Methotrexate 20 mg weekly. 2. Prednisone 10 mg per day. 3. Ibuprofen 800 mg as needed. 4. Methadone 40 twice daily. 5. Cymbalta 40 once daily. REVIEW OF SYSTEMS Review of systems is positive for weight loss for a while, but now weight gain. She has had mouth sores. She has had nausea and vomiting, which she feels is not related to the day of the week that she takes the methotrexate, and has not been present for the last 3-4 weeks. Joint pain as noted, and numbness and tingling in both hands. 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 Headaches, muscle wea kness, change in mood, nervousness, anxiety, sadness. All other systems' review questions were denied. PHYSICAL EXAM Exam shows Hillary to be in no acute distress. She rates pain as 8/10 in both ankles. Height is 63 inches. Weight is 157. Blood pressure is 100/70. Pulse is 80 and regular. She is quite talkative and complains of significant discomfort. Skin exam today shows no rash. Head, eyes, ears, nose and throat are within normal limits. She has rhinorhea, but denies having a URI. Neck is supple, without lymphadenopathy. Lungs are clear to percussion and auscultation. Cardiac exam reveals a regular rhythm. Abdomen is soft and nontender. Neurologic is intact. The changes on musculoskeletal exam today were painful end range of motion of both wrists, with tenderness to deep palpation. There is some mild soft tissue swelling, but it is quite subtle. Ankles also have soft tissue swelling and pain with flexion. She is able to do a partial knee bend,but is limited by pain in both the knees and the ankles. Her knees are cool. She has painful end range of motion, particularly on the right, with flexion. However, I could not appreciate any fluid wave or soft tissue swelling on the knee exam. LABORATORY DATA We do not have any recent lab tests. The only lab tests that we have were from the synovial fluid that I mentioned before, which was mild to moderately inflammatory. ASSESSMENT Seronegative inflammatory arthritis. Patient was negative for rheumatoid factor and anti-CCP antibodies. She does have what looks like a symmetric inflammatory arthritis involving wrists, knees and ankles. However, the joint exam shows mild inflammation. Interestingly, her toes and fingers are spared. PLAN 1. I went over in detail that based on her persistent pain, the methotrexate alone doesnot appear to be working. It is possible that she would be even worse without the methotrexate. The positive news is that there is only minimal joint swelling at this point, and that progressive damage is unlikely given the leve of inflammation that is currently there. 2. I have added folic acid 1 mg per day. If her nausea and vomiting is related to methotrexate, this might help. 3. Because of the persistent symptoms I am going to start sulfasalazine. This is given as 500 mg inthe morning. She willdo that for 10 days. If she is not having any problems, she will go to 500 mg twice daily, and do that for 10 days, and if she is doing fine on that, she will go to 1 gram, or 2 pills, A.M and P.M. 4. Before she starts sulfasalazine, we need to repeat lab tests, and I am going to order CBC and differential, as well as a DMARD profile, which includes AST, ALT, albumin, creatinine and alkaline phosphatase. These should be done on an [id number]-[id number]-three-month basis while she is on methotrexate and sulfasalazine. 5. If she is doing better in 4-6 weeks, I would like her to begin to taper prednisone. She will call if she is not doing better, but if she is doing better, she can go down to 7.5 mg per day as opposed to 10 mg. She will be cutting the 5-mg pills in half. 6. Patient will be following with me at the end of January, but she will be seeing Dr. Lopez as well.I welcome Dr. Lopez's input and thoughts about Hillary's progress and status. 7. Hillary completed a medical health assessment questionnaire beforeleaving, and her value was 16, which means that she has some difficulty with all 8 activities. She questioned me again as to whether she will ever be able to do things more normally. Given the fact that the joints do not show a lot of damage, I think that that is a reasonable possibility. Signed by Grant Engle MD 11/03/2007 21:54 Grant Engle MD - Grant Engle MD - DM Job ID: [id number] Doc ID: [id number] cc: Breanna Lopez MD documented in this encounter Plan of Treatment Not on file documented as of this encounter Visit Diagnoses Not on filedocumented in this encounter Care Teams Airplane Electrician Relationship Specialty Start Date End Date Breanna Lopez MD [address] [place] [address] [phone] PCP - General 05/22/09 documented as of this encounter
--- OUTSIDE RECORDS SUMMARY | 2024-09-11 17:16 | XMS_ITS | Encounter Summary ---
Author Organization [facility] Address [address] [place] [address] Care Team Providers Care Maintenance Associate Name Role Phone Breanna Lopez MD Primary Care Provider [phone] Encounter Details Date Type Department Care Team (Late st Contact Info) Description 04/22/2010 Orders Only [facility] Rheumatology & Immunology - [facility] [address], [place] [address] Grant Engle MD [address] [place] [phone] Rheumatoid arthritis; Encounter for long-term (current) use [...] monitoring documented in this encounter Care Teams Maintenance Associate Relationship Specialty Start Date End Date Breanna Lopez MD [facility] [place] [address] [phone] PCP - General 05/22/09 documented as of this encounter
--- OUTSIDE RECORDS SUMMARY | 2024-09-11 17:16 | XMS_ITS | Encounter Summary ---
Author Organization [facility] Address [address] [place] [address] Care Team Providers Care Veterinarian Assistant Name Role Phone Unavailable Primary Care Provider Unavailabl e Encounter Details Date Type Department Care Team (Latest Contact Info) Description 04/26/2007 12:26 EDT Hospital Encounter [facility] [address] [place] [address] Emma Gamez PA-C [address] [place] [phone] Discharge Disposition: Auto Discharge Social History Tobacco [...] Procedure Name Priority Date/Time Associated Diagnosis Comments DMARD PROFILE Routine 04/26/2007 14:15 EDT COMPLETE BLOOD COUNT AND DIFFERENTIAL Routine 04/26/2007 14:15 EDT documented in this encounter Results * DMARD PROFILE (04/26/2007 14:15 EDT) Total Alkaline Phosphatase 71 38 - 126 U/L [facility] AST 20 15 - 46 U/L [facility] ALT 25 9 - 52 U/L [facility] Albumin 4.1 3.4 - 4.9 g/dl [facility] Creatinine 0.75 0.7 - 1.5 mg/dl [facility] GFR, Calculated >60 ml/min/1.7 3m2 [facility] 04/26/2007 14:1 5 EDT 04/26/2007 14:17 EDT Emma Gamez PA-C CHEMISTRY & BLOOD GA S ORDERABLES [facility] [address] [place] [address] * (ABNORMAL) HEMAGRAM AND DIFFERENTIAL (04/26/2007 14:15 EDT) WBC 10.02 4.0 - 12.4 K/cmm [facility] RBC 3.99 3.86 - 5.04 M/cmm [facility] Hemoglobin 12.5 11.6 - 15.2 gm/dl [facility] HCT 36.1 34.9 - 44.4 % [facility] MCV 91 81 - 98 fl [facility] MCH 31.4 26.7 - 33.3 pg [facility] MCHC 34.7 32.1 - 35.9 gm/dl [facility] PLT 347(H) 141 - 320 K/cmm [facility] RDW-CV 13.8 11.7 - 14.6 % [facility] % Neutrophils 68.3 45.5 - 79.7 % [facility] % Lymphocytes 24.4 15.0 - 46.8 % [facility] % Monocytes 6.2 1.8 - 12.0 % [facility] % Eosinophils 0.7 0.6 - 6.9 % [facility] % Basophils 0.4 0.2 - 1.4 % [facility] ABS Neutrophils 6.85 2.20 - 8.85 K/cmm [facility] ABS Lymphs 2.44 1.09 - 3.30 K/cmm [facility] ABS Monocytes 0.62 0.1 - 0.8 K/cmm [facility] ABS Eosinophils 0.07 0.03 - 0.61 K/cmm [facility] ABS Basophils 0.04 0.01 - 0.11 K/cmm [facility] Type of Diff: Automated [facility] 04/26/2007 14:1 5 EDT 04/26/2007 14:17 EDT Emma Gamez PA-C PACKAGES & DNA PROBE ORDERABLES [facility] [address] [place] [address] documented in this encounter Visit Diagnoses Not on filedocumented in this encounter
--- OUTSIDE RECORDS SUMMARY | 2024-09-11 17:16 | XMS_ITS | Encounter Summary ---
Author Organization [facility] Address [address] [place] [address] Care Team Providers Care Rotary Machine Operator Name Role Phone Breanna Lopez MD Primary Care Provider [phone] Encounter Details Date Type Department Care Team (Late st Contact Info) Description 12/03/2005 Results Only [facility] - [facility] [address] [place] [address] Loreta Altamirano, SAMREEN [address] [place] [phone] Social History Tobacco Use Types Packs/Day Years [...] Priority Date/Time Associated Diagnosis Comments CYTOPATHOLOGY Routine 12/03/2005 0:00 EST documented in this encounter Results * CYTOPATHOLOGY (12/03/2005 0:00 EST) Pathology Report: CYTOPATHOLOGY REPORT Reports generated via electronic interface contain original data; however they are lacking the format of the original report. Caution should be taken when reading/interpreti ng unformatted reports. Name: ? DOMENICO ROGER Florian ? Accession #: ? [id number] : ? 1980 (Age: 25) ??F ?Collect Date: ? 12/03/2005 Location: ? [facility] ? Receive Date: ? 12/04/2005 Provider: ?LORETA JOLLEY Copy to: ? Specimen/Source: ?ThinPrep Pap Test, Source Not Provided, processed on [employer] ThinPrep Imaging System, with manual evaluation Last Menstrual Period: ? 12/31/03 Hormonal/Contracep tive Status: ? Intrauterine device ? SPECIMEN ADEQUACY ? Satisfactory for Evaluation - transformation zone component present GENERAL CATEGORIZATION ? Negative for Intraepithelial Lesion or Malignancy ? Document reviewed and electronically signed by: ? IZZY Valadez(ASCP) ? Report Date: ??12/07/2005 11:16 End of Report [facility] 12/03/2005 12/04/2005 Loreta JOLLEY PATHOLOGY ORDERABLES [facility] [address] [place] [address] documented in this encounter Visit Diagnoses Not on filedocumented in this encounter Care Teams Rotary Machine Operator Relationship Specialty Start Date End Date Breanna Lopez MD [address] [place] [phone] PCP - General 05/22/09 documented as of this encounter
--- OUTSIDE RECORDS SUMMARY | 2024-09-11 17:16 | XMS_ITS | Encounter Summary ---
Author Organization [facility] Address [address] [place] [address] Care Team Providers Care Cork Insulation Setter Name Role Phone Breanna Lopez MD Primary Care Provider Encounter Details Date Type Department Care Team (Late st Contact Info) Description 12/26/2009 Abstract [facility] - [address] [address] Fernandez Mac MD [address] [place] [phone] Social History Tobacco Use Types Packs/Day Years [...] on filedocumented in this encounter Care Teams Cork Insulation Setter Relationship Specialty Start Date End Date Breanna Lopez MD [address] [phone] PCP - General 05/22/09 documented as of this encounter
--- OUTSIDE RECORDS SUMMARY | 2024-09-11 17:16 | XMS_ITS | Encounter Summary ---
Author Organization [facility] Address [address] [place] [address] Care Team Providers Care Wire Stripper Name Role Phone Unavailable Primary Care Provider Unavailabl e Encounter Details Date Type Department Care Team (Latest Contact Info) Description 03/16/2007 10:09 EDT - 03/16/2007 11:59 EDT Hospital Encounter [facility] - Other [address] [place] [address] Brayan Sanders MD [address] [facility] [place] [address] Devan Charles MD [address] [facility] [address] [place] [address] Discharge Disposition: Home or Self Care Social [...] REFLEX TO HCV RNA BY PCR Routine 03/16/2007 11:30 EDT HEPATITIS B SURFACE ANTIBODY Routine 03/16/2007 11:30 EDT COMPLETE BLOOD COUNT AND DIFFERENTIAL Routine 03/16/2007 11:30 EDT TSH Routine 03/16/2007 11:30 EDT T4 Routine 03/16/2007 11:30 EDT COMPREHENSIVE METABOLIC PANEL (CMP) Routine 03/16/2007 11:30 EDT documented in this encounter Results * TSH (03/16/2007 11:30 EDT) TSH 0.52 0.35 - 5.00 uIU/mL [facility] 03/16/2007 11:3 0 EDT 03/16/2007 15:14 EDT Devan Charles MD CHEMISTRY & BLO OD GAS ORDERABLES Performing Organization Address [facility] Phone Number [facility] [address] [place] [address] * T4 (03/16/2007 11:30 EDT) T4, Total 9.3 4.5 - 10.9 ug/dL [facility] 03/16/2007 11:3 0 EDT 03/16/2007 15:14 EDT Devan Charles MD CHEMISTRY & BLO OD GAS ORDERABLES Performing Organization Address [facility] Phone Number [facility] [address] [place] [address] * HEPATITIS C ANTIBODY (03/16/2007 11:30 EDT) Hepatitis C Ab Neg [facility] 03/16/2007 11:3 0 EDT 03/16/2007 15:14 EDT Devan Charles MD CHEMISTRY & BLO OD GAS ORDERABLES Performing Organization Address [facility] de Phone Number [facility] [address] [place] [address] * HEPATITIS B SURFACE ANTIBODY (03/16/2007 11:30 EDT) Hepatitis B Surface Ab Pos [facility] 03/16/2007 11:3 0 EDT 03/16/2007 15:14 EDT Devan Charles MD CHEMISTRY & BLO OD GAS ORDERABLES Performing Organization Address [facility] Co de Phone Number [facility] [address] [place] [address] * COMPREHENSIVE METABOLIC PANEL (03/16/2007 11:30 EDT) Potassium 4.5 3.5 - 5.0 mEq/L [facility] Sodium 140 136 - 145 mEq/L [facility] Chloride 104 96 - 110 mEq/L [facility] CO2 27 24 - 32 mEq/L [facility] Total Alkaline Phosphatase 66 38 - 126 U/L [facility] Bilirubin, Total <0.5 0.2 - 1.3 mg/dl [facility] AST 29 15 - 46 U/L [facility] ALT 31 9 - 52 U/L [facility] Albumin 3.9 3.4 - 4.9 g/dl [facility] Total Protein 7.0 6.5 - 8.3 g/dl [facility] Creatinine 0.72 0.7 - 1.5 mg/dl [facility] GFR, Calculated >60 ml/min/1.7 3m2 [facility] BUN 10 10 - 26 mg/dl [facility] Calcium 9.4 8.5 - 10.5 mg/dl [facility] Calculated Calcium 9.9 8.5 - 10.5 mg/dl [facility] Glucose, Serum 77 70 - 100 mg/dl [facility] Fasting? No [facility] Albumin/Globulin Ratio 1.3 [facility] 03/16/2007 11:3 0 EDT 03/16/2007 15:14 EDT Devan Charles MD CHEMISTRY & BLO OD GAS ORDERABLES Performing Organization Address [facility] Co de Phone Number [facility] [address] [place] [address] * HEMAGRAM AND DIFFERENTIAL (03/16/2007 11:30 EDT) WBC 9.13 4.0 - 12.4 K/cmm [facility] RBC 4.47 3.86 - 5.04 M/cmm [facility] Hemoglobin 13.9 11.6 - 15.2 gm/dl [facility] HCT 39.9 34.9 - 44.4 % [facility] MCV 89 81 - 98 fl [facility] MCH 31.0 26.7 - 33.3 pg [facility] MCHC 34.7 32.1 - 35.9 gm/dl [facility] PLT 300 141 - 320 K/cmm [facility] RDW-CV 14.6 11.7 - 14.6 % [facility] % Neutrophils 63.8 45.5 - 79.7 % [facility] % Lymphocytes 26.6 15.0 - 46.8 % [facility] % Monocytes 7.6 1.8 - 12.0 % [facility] % Eosinophils 1.7 0.6 - 6.9 % [facility] % Basophils 0.3 0.2 - 1.4 % [facility] ABS Neutrophils 5.82 2.20 - 8.85 K/cmm [facility] ABS Lymphs 2.43 1.09 - 3.30 K/cmm [facility] ABS Monocytes 0.69 0.1 - 0.8 K/cmm [facility] ABS Eosinophils 0.16 0.03 - 0.61 K/cmm [facility] ABS Basophils 0.03 0.01 - 0.11 K/cmm [facility] Type of Diff: Automated [facility] 03/16/2007 11:3 0 EDT 03/16/2007 15:14 EDT Devan Charles MD PACKAGES & DNA PROBE ORDERABLES [facility] [address] [place] [address] documented in this encounter Visit Diagnoses Not on filedocumented in this encounter
--- OUTSIDE RECORDS SUMMARY | 2024-09-11 17:16 | XMS_ITS | Encounter Summary ---
Author Organization [facility] Address [address] [place] [address] Care Team Providers Care Drying Room Attendant Name Role Phone Unavailable Primary Care Provider Unavailabl e Encounter Details Date Type Department Care Team (Late st Contact Info) Description 06/29/2007 13:00 EDT Hospital Encounter [facility] [address] [place] [address] Grant Engle MD [address] [place] [phone] Social History Tobacco Use Types Packs/Day Years [...] Associated Diagnosis Comments BACTERIAL CULTURE/SMEAR, FLUID Routine 06/29/2007 14:22 EDT CRYSTAL ANALYSIS FLUID ONLY Routine 06/29/2007 14:22 EDT SYNOVIAL CELL COUNT Routine 06/29/2007 1 4:22 EDT FLUID DIFFERENTIAL Routine 06/29/2007 14 :22 EDT documented in this encounter Results * BACTERIAL CULTURE/SMEAR, FLUID (06/29/2007 14:22 EDT) Specimen Description Synovial Fluid Specimen submitted in a syringe 3mls [facility] Gram Smear Result Polys present Mononuclear cells present No bacteria seen [facility] Result No growth [facility] Report Status Final [id number] [facility] 06/29/2007 14:2 2 EDT 06/29/2007 15:05 EDT Grant Engle MD MICROBIOLOGY - GENER AL ORDERABLES Performing Organization Address [facility] Co de Phone Number [facility] [address] [place] [address] * CRYSTAL ANALYSIS (06/29/2007 14:22 EDT) Crystal, Fluid No crystals seen on scan [facility] Specimen of unknown material (specimen) 06/29/2007 14:22 EDT 06/29/2007 14:46 EDT Grant Engle MD GEN LAB UNIT COLLECT ORDERABLES Performing Organization Address [facility] Co de Phone Number [facility] [address] [place] [address] * (ABNORMAL) SYNOVIAL CELL COUNT (06/29/2007 14:22 EDT) RBC, Synovial Fluid 2150 /cmm [facility] Nucleated Cells 58267(H) 0 - 200 /cmm [facility] Synovial Fluid Comment RAMOS AND MARKEDLY CLOUDY [facility] 06/29/2007 14:2 2 EDT 06/29/2007 14:46 EDT Grant Engle MD GEN LAB UNIT COLLECT ORDERABLES Performing Organization Address [facility] Co de Phone Number [facility] [address] [place] [address] * (ABNORMAL) FLUID DIFFERENTIAL (06/29/2007 14:22 EDT) Neutrophils, Synovial Fluid 81(H) 10 - 24 % [facility] Lymphocytes, Synovial Fluid 8(L) 10 - 20 % [facility] Evans/Macro, Synovial Fluid 11(L) 55 - 75 % [facility] 06/29/2007 14:2 2 EDT 06/29/2007 14:46 EDT Grant Engle MD GEN LAB UNIT COLLECT ORDERABLES [facility] [address] [place] [address] documented in this encounter Visit Diagnoses Not on filedocumented in this encounter
--- OUTSIDE RECORDS SUMMARY | 2024-09-11 17:16 | XMS_ITS | Encounter Summary ---
Author Organization [facility] Address [address] [place] [address] Care Team Providers Care Interactive Web Developer Name Role Phone Breanna Lopez MD Primary Care Provider Encounter Details Date Type Department Care Team (Late st Contact Info) Description 05/16/2003 Results Only [facility] - Maple conversion [address] [place] [address] Momo Stallinsg MD [address] [place] [address] [address] [facility] [address] [place], [place] [address] Social History Tobacco Use Types Packs/Day Years [...] Priority Date/Time Associated Diagnosis Comments CYTOPATHOLOGY Routine 05/16/2003 0:00 EDT documented in this encounter Results * CYTOPATHOLOGY (05/16/2003 0:00 EDT) Pathology Report: CYTOPATHOLOGY REPORT Reports generated via electronic interface contain original data; however they are lacking the format of the original report. Caution should be taken when reading/interpreti ng unformatted reports. Name: ? RUSSELL ACUÑAVale Florian ? Accession #: ? [id number] : ? 1980 (Age: 22) ??F ?Collect Date: ? 05/16/2003 Location: ? [facility] ? Receive Date: ? 05/18/2003 Provider: ?MOMO STALLINGS MD Copy to: ? Specimen/Source: ?ThinPrep Pap Test, Cervix/Endocervix Last Menstrual Period: ? 04/ Menstrual/Pregnanc y Status: ? Other: ? HPVA - HPV testing requested if ASC-US on the current ThinPrep Pap test. ? SPECIMEN ADEQUACY ? Satisfactory for Evaluation - transformation zone component absent GENERAL CATEGORIZATION ? Epithelial Cell Abnormality INTERPRETATION ? Squamous Cell Abnormality - Low grade squamous intraepithelial lesion (LSIL). Shift in marina present suggestive of bacterial vaginosis. EDUCATIONAL NOTES/RECOMMENDATI ONS ? [facility] recommends following the 2001 Consensus Guidelines for the Management of Women with Cervical Cytological Abnormalities (LUCIO,2002;287:212 0-9). Management algorithms have been distributed by [facility] and are available online at www.ASCCP.org. ? Document reviewed and electronically signed by: ? MICKY MANDUJANO MD [facility] ? Report Date: ??05/23/2003 14:16 End of Report [facility] 05/16/2003 05/18/2003 Momo Stallings MD PATHOLOGY ORDERABLES Performing Organization Address City/State/[facility] Co de Phone Number [facility] [address] [place] [address] documented in this encounter Visit Diagnoses Not on filedocumented in this encounter Care Teams Interactive Web Developer Relationship Specialty Start Date End Date Breanna Lopez MD [address] [place] [phone] PCP - General 05/22/09 documented as of this encounter
--- OUTSIDE RECORDS SUMMARY | 2024-09-11 17:16 | XMS_ITS | Encounter Summary ---
Author Organization [facility] Address [address] [place] [address] Care Team Providers Care Support Service Tech Name Role Phone Breanna Lopez MD Primary Care Provider [phone] Reason for Visit * Reason Comments Knee Pain Encounter Details Date Type Department Care Team (Latest Contact Info) Description 09/23/2010 10:00 EST Office Visit [facility] Rheumatology & Immunology - [facility] [address] [place], [place] [phone] Grant Engle MD [address] [place] [phone] Rheumatoid arthritis; Pain in joint, lower leg Social History Tobacco Use Types Packs/Day Years Used Date Smoking Tobacco: Never Assessed Sex and Gender Information Value Date Recorded Sex Assigned at Female 03/20/2021 0:23 EDT Gender Identity Female 10/23/2019 13:44 EST Sexual Orientation Choose not to disclose 2020 0:23 EDT documented as of this encounter Last Filed Vital Signs Vital Sign Reading Time Taken Comments Blood Pressure 118/64 09/23/2010 1007 EST Pulse 78 09/23/2010 1007 EST Temperature - - Respiratory Rate - - Oxygen Saturation - - Inhaled Oxygen Concentration - - Weight 88.9 kg (196 lb) 09/23/2010 1007 EST Height 160 cm (5' 3) 09/23/2010 1007 EST Body Mass Index 34.72 09/23/2010 1007 EST documented in this encounter Patient Instructions * Patient Instructions* Grant Engle MD - 09/23/2010 12:04 EST Written instructions given to Ms. Youssef. documented in this encounter Progress Notes * Dm, National Investigative Producer - 07/29/2011 0857 EDT * Grant Engle MD - 09/26/2010 1040 EST DIVISION OF RHEUMATOLOGY PROGRESS/FOLLOWUP NOTE - 09/23/2010 PROBLEM: 1. Rheumatoid arthritis. 2. Bilateral knee pain, right greater than left. SUBJECTIVE: Hillary has moved. In the transition, she did not refill Enbrel. She has been off Enbrel for the last several weeks and she has noticed increasing problems, particularly with her knees. Her other joints have remained good. The right knee is particularly troubling, but now she notes pain also in her left knee. She is also somewhat discouraged because she has not been able to be active and she has gained weight since her last visit. She cannot be active because of the pains in her knees. The patient did receive Hyalgan or some other type of collagen injection from Dr Lucero. She is not exactly certain of the date, but she thinks it was about two months ago. She had a mild to modest benefit for a few weeks. Now, however, the right knee is swollen and painful again. MEDICATIONS: Etanercept 50 mg weekly, but she has not had a dose for about 4 weeks. Folic acid 1 mg. Ibuprofen 200 mg every 4 to 6 hours. Methadone 120 daily. Methotrexate eight tablets or 20 mg weekly. Sulfasalazine 2 grams a day. REVIEW OF SYSTEMS: A 12-point review of systems is positive for weight gain, cold sores in her mouth, 3 to 4 hours of morning stiffness, numbness and tingling in her fingers, muscle weakness, difficulty sleeping, anxiety and depression. All other systems reviewed are denied and can be found in the intake record. I should mention that she is also taking new medication for depression call Pristiq at 50 mg daily. OBJECTIVE: The patient's weight is 196. This represents about a 25-pound weight gain over when I first met Hillary four years ago. Height is 63 inches. Pulse is 78. Blood pressure 118/64. She rates painas 10/10, especially in her knees. Skin exam is unremarkable. HEENT is normal. Neck is supple without lymphadenopathy. Lungs clear to percussion and auscultation. Cardiac exam reveals a regular rhythm and normal heart sounds. Abdomen is soft, obese and nontender. Pulses 2+ bilaterally. Neurologic is intact. Musculoskeletal exam: She has no synovitis in her fingers, excellent learning operations specialist strength, no soft tissue swelling. Elbows are fine, although she does have some tenderness over the lateral epicondyles. She has painful end range of motion in both shoulders, but they are not particularly tender. Neck moves well. She has full range of motion in both hips. She has warmth in the right knee and a 2+ effusion. There is pain with flexion and extension. The left knee is slightly warm, but there is no fluid and movement is fairly free and pain free. She can take weight on both knees without too much difficulty and without pain. She does have a somewhat antalgic gait favoring the right side. Most of the pain in the right knee appears to be subpatellar and there is crepitus with flexion andextension. Ankles and toes are unremarkable. No soft tissue swelling or evidence of synovitis. I do not have recent blood tests on Hillary. ASSESSMENT: 1. Rheumatoid arthritis. Overall, doing fairly well. She may be experiencing some increased activity since she has not had the Enbrel. The major problem remains her knees, particularly the right knee. I suspect that she has significant patellofemoral disease, probably chronic damage. The left knee is bothersome at this point, too, but I do not find much in the way of inflammation. Another problem is weight gain. She states that she is the heaviest that she has ever been and she understands that this could be contributing to her knee problems. PLAN: 1. The patient has been approved for the Enbrel and hopefully it will be available for her this week. This is 50 mg subcutaneous weekly. 2. I was reluctant to aspirate and inject the right knee because she is not on any DMARD medications at this point. I was afraid the fluid would just reaccumulate. If the right knee continues to be aproblem after restarting the Enbrel, then I will certainly see the patient and consider injecting it. 3. The patient was advised to lose weight. She needs to go on a strict low-fat, low-carb diet. She is trying to exercise, but because of her knees she has not been able to do the level of exercise that she would need to do to lose weight. This is a difficult situation. 4. I have given her a followup for the end of November. If she is not doing well and feels the knee would do better with an injection, she should call me. Electronically Signed by Grant Engle MD 09/26/2010 10:40 Grant Engle MD - Grant Engle MD - [facility] Job ID: SM Doc ID: [id number] Ext Doc ID: [id number] cc: MD Breanna Bangura MD * Grant Engle MD - 09/23/2010 1203 EST .di documented in this encounter Plan of Treatment Not on file documented as of this encounter Visit Diagnoses Diagnosis Rheumatoid arthritis(714.0) Rheumatoid arthritis Pain in joint, lower leg documented in this encounter Discontinued Medications Medication Sig Discontinue Reason Start Date End Da te paroxetine (PAXIL) 40 mg tablet Take 40 mg by mouth daily. 09/23/2010 documented as of this encounter Historical Medications * This list may reflect changes made after this encounter. Medication Sig Dispensed Refills Start Date End Date METHADONE HCL (METHADONE ORAL) Take 120 mg by mouth daily. 09/23/2010 10/06/2011 added in this encounter Care Teams Support Service Tech Relationship Specialty Start Date End Date Breanna Lopez MD [address] [place] [phone] PCP - General 05/22/09 documented as of this encounter
--- OUTSIDE RECORDS SUMMARY | 2024-09-11 17:16 | XMS_ITS | Encounter Summary ---
Author Organization [facility] Address [address] [place] [address] Care Team Providers Care Turf Farm Worker Name Role Phone Unavailable Primary Care Provider Unavailabl e Encounter Details Date Type Department Care Team (Late st Contact Info) Description 02/22/2007 13:51 EDT Hospital Encounter [facility] [address] [place] [address] Emma Gamez PA-C [address] [place] [id number] Social History Tobacco Use Types Packs/Day Years [...] Date/Time Associated Diagnosis Comments DMARD PROFILE Routine 02/22/2007 15:03 EDT SED RATE Routine 02/22/2007 15:03 EDT COMPLETE BLOOD COUNT AND DIFFERENTIAL Routine 02/22/2007 15:03 EDT C REACTIVE PROTEIN Routine 02/22/2007 15 :03 EDT documented in this encounter Results * SED. RATE:WESTERGREN (02/22/2007 15:03 EDT) Pathologist [facility] Sed. Rate Westergren 17 0 - 20 mm/hr [facility] 02/22/2007 15:0 3 EDT 02/22/2007 15:04 EDT Emma Gamez PA-C HEMATOLOGY & PF4 ORD ERABLES Performing Organization Address [facility] Co de Phone Number [facility] [address] [place] [address] * DMARD PROFILE (02/22/2007 15:03 EDT) Pathologist [facility] Total Alkaline Phosphatase 67 38 - 126 U/L [facility] AST 28 15 - 46 U/L [facility] ALT 27 9 - 52 U/L [facility] Albumin 4.2 3.4 - 4.9 g/dl [facility] Creatinine 0.81 0.7 - 1.5 mg/dl [facility] GFR, Calculated >60 ml/min/1.7 3m2 [facility] 02/22/2007 15:0 3 EDT 02/22/2007 15:04 EDT Emma Gamez PA-C CHEMISTRY & BLOOD GA S ORDERABLES Performing Organization Address [facility] Co de Phone Number [facility] [address] [place] [address] * (ABNORMAL) C-REACTIVE PROTEIN (02/22/2007 15:03 EDT) Pathologist [facility] C-Reactive Protein 2.5(H) <1.0 mg/dl [facility] 02/22/2007 15:0 3 EDT 02/22/2007 15:04 EDT Emma GUERREROC CHEMISTRY & BLOOD GA S ORDERABLES Performing Organization Address [facility]/ZIP Co de Phone Number [facility] [address] [place] [address] * (ABNORMAL) HEMAGRAM AND DIFFERENTIAL (02/22/2007 15:03 EDT) WBC 9.04 4.0 - 12.4 K/cmm [facility] RBC 4.47 3.86 - 5.04 M/cmm [facility] Hemoglobin 13.7 11.6 - 15.2 gm/dl [facility] HCT 39.5 34.9 - 44.4 % [facility] MCV 88 81 - 98 fl [facility] MCH 30.8 26.7 - 33.3 pg [facility] MCHC 34.8 32.1 - 35.9 gm/dl [facility] PLT 299 141 - 320 K/cmm [facility] RDW-CV 15.8(H) 11.7 - 14.6 % [facility] % Neutrophils 50.1 45.5 - 79.7 % [facility] % Lymphocytes 40.4 15.0 - 46.8 % [facility] % Monocytes 6.9 1.8 - 12.0 % [facility] % Eosinophils 2.2 0.6 - 6.9 % [facility] % Basophils 0.4 0.2 - 1.4 % [facility] ABS Neutrophils 4.54 2.20 - 8.85 K/cmm [facility] ABS Lymphs 3.65(H) 1.09 - 3.30 K/cmm [facility] ABS Monocytes 0.62 0.1 - 0.8 K/cmm [facility] ABS Eosinophils 0.20 0.03 - 0.61 K/cmm [facility] ABS Basophils 0.03 0.01 - 0.11 K/cmm [facility] Type of Diff: Automated [facility] 02/22/2007 15:0 3 EDT 02/22/2007 15:04 EDT Emma Gamez PA-C PACKAGES & DNA PROBE ORDERABLES [facility] [address] [place] [address] documented in this encounter Visit Diagnoses Not on filedocumented in this encounter
--- OUTSIDE RECORDS SUMMARY | 2024-09-11 17:16 | XMS_ITS | Encounter Summary ---
Author Organization [facility] Address [address] [place] [address] Care Team Providers Care Line Haul Driver Name Role Phone Breanna Lopez MD Primary Care Provider [phone] Encounter Details Date Type Department Care Team (Late st Contact Info) Description 11/02/2007 Results Only [facility] Rheumatology & Immunology - [facility] [address] [place], [place] [id number] Grant Engle MD [address] [place] [address] Social History Tobacco Use Types Packs/Day Years [...] Date/Time Associated Diagnosis Comments DMARD PROFILE Routine 11/02/2007 16:10 EST COMPLETE BLOOD COUNT AND DIFFERENTIAL Routine 11/02/2007 16:10 EST documented in this encounter Results * (ABNORMAL) DMARD PROFILE (11/02/2007 16:10 EST) Total Alkaline Phosphatase 86 38 - 126 U/L [facility] Comment:Slightly lipemic AST 23 15 - 46 U/L [facility] Comment:Slightly lipemic ALT 23 9 - 52 U/L [facility] Comment:Slightly lipemic Albumin 4.0 3.4 - 4.9 g/dl [facility] Comment:Slightly lipemic Creatinine 0.65(L) 0.7 - 1.5 mg/dl [facility] Comment:Slightly lipemic GFR, Calculated >60 ml/min/1.7 3m2 [facility] Comment:Slightly lipemic 11/02/2007 16:1 0 EST 11/02/2007 16:11 EST Grant Engle MD CHEMISTRY & BLOOD GA S ORDERABLES [facility] [address] [place] [address] * (ABNORMAL) HEMAGRAM AND DIFFERENTIAL (11/02/2007 16:10 EST) WBC 8.13 4.0 - 12.4 K/cmm [facility] RBC 4.44 3.86 - 5.04 M/cmm [facility] Hemoglobin 13.2 11.6 - 15.2 gm/dl [facility] HCT 38.6 34.9 - 44.4 % [facility] MCV 87 81 - 98 fl [facility] MCH 29.8 26.7 - 33.3 pg [facility] MCHC 34.3 32.1 - 35.9 gm/dl [facility] PLT 317 141 - 320 K/cmm [facility] RDW-CV 17.3(H) 11.7 - 14.6 % [facility] Neutrophils 65.0 45.5 - 79.7 % [facility] Lymphocytes 28.0 15.0 - 46.8 % [facility] Monocytes 5.0 1.8 - 12.0 % [facility] Eosinophils 2.0 0.6 - 6.9 % [facility] ABS Neutrophils 5.28 2.20 - 8.85 K/cmm [facility] ABS Lymphs 2.28 1.09 - 3.30 K/cmm [facility] ABS Monocytes 0.41 0.1 - 0.8 K/cmm [facility] ABS Eosinophils 0.16 0.03 - 0.61 K/cmm [facility] RBC Morphology 1+ Anisocytosis 1+ Target cells 1+ Stomatocytes [facility] Type of Diff: Manual [facility] 11/02/2007 16:1 0 EST 11/02/2007 16:11 EST Grant Engle MD PACKAGES & DNA PROBE ORDERABLES [facility] [address] [place] [address] documented in this encounter Visit Diagnoses Not on filedocumented in this encounter Care Teams Line Haul Driver Relationship Specialty Start Date End Date Breanna Lopez MD [address] [place] [phone] PCP - General 05/22/09 documented as of this encounter
--- OUTSIDE RECORDS SUMMARY | 2024-09-11 17:16 | XMS_ITS | Encounter Summary ---
Author Organization [facility] Address [address] [place] [address] Care Team Providers Care Vending Machine Attendant Name Role Phone Breanna Lopez MD Primary Care Provider [phone] Encounter Details Date Type Department Care Team (Late st Contact Info) Description 06/16/2010 Abstract [facility] Rheumatology & Immunology - [facility] [address] [place], [place] [id number] Grant Engle MD [address] [place] [id number] Social History Tobacco Use Types Packs/Day Years [...] mg into the skin every 7 days. 07/15/2010 paroxetine (PAXIL) 40 mg tablet Take 40 mg by mouth daily. 09/23/2010 folic acid (FOLVITE) 1 mg tablet Take 1 mg by mouth daily. 06/23/2011 sulfaSALAzine (AZULFIDINE) 500 mg tablet Take 500 mg by mouth 4 times daily. 06/23/2011 ibuprofen (MOTRIN) 200 mg tablet Take 200 mg by mouth every 6 hours as needed. 06/23/2011 methotrexate (TREXALL) 2.5 mg tablet Take 2.5 mg by mouth once a week. Take 8 tabs by mouth daily 06/16/2010 06/23/2011 added in this encounter Care Teams Vending Machine Attendant Relationship Specialty Start Date End Date Breanna Lopez MD [address] [place] [phone] PCP - General 05/22/09 documented as of this encounter
--- OUTSIDE RECORDS SUMMARY | 2024-09-11 17:16 | XMS_ITS | Encounter Summary ---
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 Name Role Phone Unavailable Primary Care Provider Unavailabl e Encounter Details Date Type Department Care Team (Latest Contact Info) Description 10/30/2008 10:45 EST - 10/30/2008 11:59 EST Hospital Encounter [facility] [address] [place] [address] Grant Engle MD [address] [place] [phone] Discharge Disposition: Auto Discharge Social History Tobacco [...] Procedure Name Priority Date/Time Associated Diagnosis Comments KNEE 3 VIEWS 10/30/2008 12:23 EST KNEE 3 VIEWS 10/30/2008 12:23 EST documented in this encounter Results * KNEE 3 VIEWS (10/30/2008 12:23 EST) Anatomical Region Laterality Modality Other 10/30/2008 12:2 3 EST Narrative 03/25/2009 9:30 EDT Pain in both knees History: ?? Pain in both knees Three views of the right knee and 3 views of the left knee was obtained Right knee: There is moderate joint space narrowing spurring in the medial joint compartment. There is mild tibial varus deformity. Osteoarthritic changes are present in the patellofemoral compartment and in the lateral joint compartment. Left knee: The left knee demonstrates mild medial joint space narrowing. Impression: 1. Moderate medial tibial femoral osteoarthritic changes in the right knee. There are minimal osteoarthritic changes in the lateral and patellofemoral compartments of the right knee. 2. Mild osteoarthritic changes in the medial compartment of the left knee. Procedure Note Radha Tavarez MD - 03/25/2009 Pain in both knees History: Pain in both knees Three views of the right knee and 3 views of the left knee was obtained Right knee: There is moderate joint space narrowing spurring in the medial joint compartment. There is mild tibial varus deformity. Osteoarthritic changes are present in the patellofemoral compartment and in the lateral joint compartment. Left knee: The left knee demonstrates mild medial joint space narrowing. Impression: 1. Moderate medial tibial femoral osteoarthritic changes in the right knee. There are minimal osteoarthritic changes in the lateral and patellofemoral compartments of the right knee. 2. Mild osteoarthritic changes in the medial compartment of the left knee. Grant Engle MD IMG DIAGNOSTIC IMAGI NG ORDERABLES * KNEE 3 VIEWS (10/30/2008 12:23 EST) Anatomical Region Laterality Modality Other 10/30/2008 12:2 3 EST Narrative 03/25/2009 9:30 EDT Pain in both knees History: ?? Pain in both knees Three views of the right knee and 3 views of the left knee was obtained Right knee: There is moderate joint space narrowing spurring in the medial joint compartment. There is mild tibial varus deformity. Osteoarthritic changes are present in the patellofemoral compartment and in the lateral joint compartment. Left knee: The left knee demonstrates mild medial joint space narrowing. Impression: 1. Moderate medial tibial femoral osteoarthritic changes in the right knee. There are minimal osteoarthritic changes in the lateral and patellofemoral compartments of the right knee. 2. Mild osteoarthritic changes in the medial compartment of the left knee. Procedure Note Radha Tavarez MD - 03/25/2009 Pain in both knees History: Pain in both knees Three views of the right knee and 3 views of the left knee was obtained Right knee: There is moderate joint space narrowing spurring in the medial joint compartment. There is mild tibial varus deformity. Osteoarthritic changes are present in the patellofemoral compartment and in the lateral joint compartment. Left knee: The left knee demonstrates mild medial joint space narrowing. Impression: 1. Moderate medial tibial femoral osteoarthritic changes in the right knee. There are minimal osteoarthritic changes in the lateral and patellofemoral compartments of the right knee. 2. Mild osteoarthritic changes in the medial compartment of the left knee. Grant Engle MD IMG DIAGNOSTIC IMAGI NG ORDERABLES documented in this encounter Visit Diagnoses Not on filedocumented in this encounter
[2024-09-11 18:54] LABS: HCT 40.4 % (36.0-46.0); HGB 13.5 g/dL (11.2-15.7); MCH 28.7 pg (27.0-33.0); MCHC 33.4 % (32.0-36.0); MCV 86 fL (80-95); Platelet Count 316 10^3/uL (130-400); RDW 14.4 % (11.7-14.6); RDW-SD 45.4 fL; WBC 4.86 10^3/uL (4.4-10.8)
[2024-09-11 18:57] LABS: ESR 14 mm/hr (0-20)
[2024-09-11 19:07] LABS: Hemoglobin A1C 5.4 % (<5.7)
[2024-09-11 19:14] LABS: ALT 61 U/L (14-59); AST 50 U/L (15-37); Albumin 3.6 g/dL (3.4-5.0); Alkaline Phosphatase 70 U/L (46-116); Anion Gap 8.3 mmol/L (3-11); BUN 11 mg/dL (7-18); Bilirubin, Total 0.34 mg/dL (0.2-1.0); CO2 28.7 mmol/L (21.0-32.0); CREATININE 0.8 mg/dL (0.55-1.02); Calculated LDL 124 mg/dL (<100); Chloride 105 mmol/L (98-107); Cholesterol 213 mg/dL (<200); Glucose 100 mg/dL (74-106); HDL Cholesterol 57 mg/dL (40-60); Sodium 142 mmol/L (136-145); TSH (W/Ref FT4) 1.98 uIU/mL (0.36-3.74); Total Protein 7.1 g/dL (6.4-8.2); Triglyceride 160 mg/dL (<150)
[2024-09-11 19:27] LABS: C-Reactive Protein 1.33 mg/dL (<or=0.5); Creatine Kinase 242 U/L (26-192)
== END 2024-09-11 17:10 | disposition home or self-care (01) ==
LOC: NCHCN 17:09
PROVIDERS: PCP Family Medicine; Visit Provider Family Medicine
DX: M06.9 Rheumatoid arthritis, unspecified (principal); R60.9 Edema, unspecified
CPT/HCPCS: 80053; 80061; 82550; 85027; 85652; 83036; 84443; 86140

== ENCOUNTER 2025-06-07 01:54 | Outpatient (CLI) | payer MEDICARE, MEDICAID, SELFPAY ==
--- NOTE | 2025-06-07 | DI.MRI_ITS ---
Exam(s) MR LOWER JOINT RT WO EXAM: MR LOWER JOINT RT WO CLINICAL HISTORY: rt hip stress fracture M84.351A TECHNIQUE: Multiplanar multisequence MRI of Pelvis was performed COMPARISON: CR XR HIP MIN 2V RT from 03/16/2025 FINDINGS: Bones: There is no fracture or contusion pattern. No bone marrow edema is seen. Joints: No significant joint effusion is present. The SI joints are unremarkable. There is some spurring at the pubic symphysis. No abnormal signal. There is a small tear involving the superior labrum. Musculotendinous structures: There is some edema at the gluteus medius tendon insertions bilaterally on the greater trochanters. There is a small amount of adjacent fluid. The findings could indicate tendinitis and trochanteric bursitis. Intrapelvic structures demonstrate no significant abnormality. IUD noted. IMPRESSION: No evidence of fracture or bone contusion. Small tear involving the superior labrum. Increased signal at the greater trochanters and distal gluteus medius tendon insertions could indicate tendinitis bilaterally. DATA REPOSITORY:
== END 2025-06-07 02:14 ==
PROVIDERS: PCP Family Medicine; Visit Provider Family Medicine
DX: M84.351A Stress fracture, right femur, initial encounter for fracture (principal)
CPT/HCPCS: 73721